=== PATIENT | female | born 1965 | race African-American/Black ===

== ENCOUNTER 2019-05-07 02:04 | Emergency (ER) | payer MEDICARE, SELFPAY ==
[2019-05-07 02:03] VITALS: BP 144/59; PULSE 109; RESP 17; TEMP 38.3; O2SAT 100; O2SAT 99
--- NOTE | 2019-05-07 02:36 | ED.SOB ---
HPI - SOB/Dyspnea General Chief Complaint: Shortness of Breath/Dyspnea Stated Complaint: sob Time Seen by Provider: 05/07/19 02:19 Source: patient and RN notes reviewed Mode of arrival: ambulatory Limitations: no limitations History of Present Illness HPI Narrative: A 53 y/o female presents to the ED with worsening SOB for the past 3 days. She reports associated fevers, chills, body aches, sweats, a productive cough, and chest wall tenderness. She notes that she has only taking some vitamin C supplements and denies them alleviating her symptoms. She also denies any CP. MD elicited complaint: shortness of breath Pertinent past history: asthma Onset (ago): day(s) (3) Timing: progressively worsening Relieving factors: nothing Known history of: asthma Associated symptoms: fever, cough (productive), diaphoresis and other (chills, body aches, and chest wall tenderness) Treatment prior to arrival: other (vitamin C supplements) Related Data Home Medications Medication Instructions Recorded Confirmed carisoprodol 350 mg PO BID PRN 03/23/19 03/23/19 folic acid 1 mg PO DAILY 03/23/19 03/23/19 furosemide 40 mg PO DAILY 03/23/19 03/23/19 oxycodone 15 mg PO TID PRN 03/23/19 03/23/19 oxycodone-acetaminophen 5 tablet PO TID PRN 03/23/19 03/23/19 potassium chloride 10 meq PO DAILY 03/23/19 03/23/19 zolpidem 10 mg PO DAILY 03/23/19 03/23/19 Allergies Allergy/AdvReac Type Severity Reaction Status Date / Time ketorolac Allergy Unknown Unknown Verified 03/23/19 12:10 piperacillin Allergy Unknown Unknown Verified 03/23/19 12:10 codeine Allergy Hives Verified 03/23/19 12:10 tylenol #4 Allergy Unknown Unknown Uncoded 03/23/19 12:10 Review of Systems Review of Systems: All systems reviewed & are unremarkable except as noted in HPI and below Constitutional: Constitutional: Reports body ache(s), Reports chills, Reports fever(s) and Reports other (sweats) Cardiovascular: Cardiovascular: Denies chest pain and Reports other (chest wall tenderness) Respiratory: Respiratory: Reports cough (productive) and Reports dyspnea PMFSH Past Medical History Medical History Asthma History of urinary tract infection Sickle cell anemia Hemoglobin SS. Surgical History Surgical History Status post cholecystectomy Status post hip surgery Bilateral hip decompression. Status post total hysterectomy and bilateral salpingo-oophorectomy Family History Family History Other Diabetes mellitus Heart disease Multiple myeloma Sickle cell trait Social History Social History Social History: The patient lives in [place]. Her primary care provider is Dr. Jorge Whitehead. She smoked 1 pack of cigarettes a month and quit about a year and a half ago. She drinks socially and in moderation. No drug use. Emergency contact is her son, Jakob. She wishes to be a full code. Years smoked: 5 Alcohol intake: current Drinks per week: 1 Substance use: never Substance use type: does not use Spiritual care concerns: No Agree to blood products: Yes Exam Narrative: Exam Narrative: GENERAL: Uncomfortable-appearing, well-nourished, and in no acute distress. HEAD: Normocephalic, atraumatic. ENT: Mucous membranes moist. CHEST: Clear to auscultation. No respiratory distress. HEART: Tachycardic and regular normal peripheral pulses. ABDOMEN: Soft, nontender, nondistended. EXTREMITIES: Normal range of motion. No edema. SKIN: Warm, dry, no rash. NEURO: Alert and oriented x3. PSYCH: Normal mood and affect. Course Course Emergency Course: Informed of results. Slowly hydrating the patient due to IV access in the left thumb. Vital Signs Vital signs: Vital Signs Temperature 100.9 F H 05/07/19 02:03 Pulse Rate 109 H 05/07/19 02:03 Respiratory Rate 17 05/07/19
[2019-05-07] MEDS: SODIUM CHLORIDE 0.9% IV 1,000 ML 999 ML IV CONT (03:23)
--- NOTE | 2019-05-07 03:48 | PC.NURSE ---
This nurse called phelbotomy to come draw labs on patient. This nurse attempted twice with no success and another RN attempted twice, unsuccessful as well. Juanita from lab stated she will come to draw patient.
[2019-05-07 03:50] VITALS: TEMP 36.8
--- NOTE | 2019-05-07 03:59 | PC.NURSE ---
Phlebotomy in room at this time.
[2019-05-07 04:13] LABS: Basophils Absolute Auto 0.1 K/mm3 (0.0-0.1); Basophils Percent Auto 0.7 % (0.2-1.2); Eosinophils Absolute Auto 0.1 K/mm3 (0-0.3); Eosinophils Percent Auto 0.7 % (0-4.4); Hematocrit 28.3 % (37.0-47.0); Hemoglobin 9.6 g/dL (12.0-15.0); Immature Granulocyte Absolute 0.08 K/mm3 (0.00-0.031); Immature Granulocyte Percent A 0.7 % (0-0.5); Immature Reticulocyte Fraction 41.4 % (3.0-15.9); Lymphocytes Absolute Auto 2.52 K/mm3 (0.9-3.2); Lymphocytes Percent Auto 20.9 % (18.3-44.2); Mean Corpuscular HGB Conc 33.9 g/dl (32-36); Mean Corpuscular Hemoglobin 35.8 pg (26-34); Mean Corpuscular Volume 105.6 fl (80-100); Mean Platelet Volume 9.9 fl (7.4-10.4); Monocytes Absolute Auto 1.9 K/mm3 (0.1-0.6); Monocytes Percent Auto 15.8 % (2.6-8.5); Neutrophils Absolute Auto 7.4 K/mm3 (1.3-6.7); Neutrophils Percent Auto 61.2 % (45.5-73.1); Nucleated Red Blood Cells Absolute Auto 0.4 K/mm3 (0.0-0.012); Nucleated Red Blood Cells Perc 3.2 % (0.0-0.2); Platelet Count Result 252 k/mm3 (150-375); Red Blood Count 2.68 M/mm3 (4.2-5.4); Red Cell Distribution Width 14.7 % (11.5-14.5); Reticulocyte Hemoglobin Conten 40.6 pg (28.2-35.7); Reticulocyte Percent 6.45 % (0.7-4.3); Reticulocytes Absolute 0.17 B/L (32.2-175.7); White Blood Count 12.1 K/mm3 (4.5-10.0)
[2019-05-07 04:35] LABS: Blood Urea Nitrogen 8 mg/dL (7-17); Calcium 8.5 mg/dL (8.4-10.2); Carbon Dioxide 24 mmol/L (22-30); Chloride 101 mmol/L (98-107); Estimated Glomerular Filt Rate > 60; Glucose 105 mg/dL (65-105); Potassium 3.5 mmol/L (3.4-5.0); Sodium 137 mmol/L (137-145)
[2019-05-07 04:55] LABS: Lactate Dehydrogenase 531 U/L (313-618)
[2019-05-07 05:19] VITALS: BP 92/67; PULSE 90; RESP 20; O2SAT 96
[2019-05-07 06:00] VITALS: BP 92/67; PULSE 81; RESP 19; TEMP 36.8; O2SAT 97
== END 2019-05-07 06:05 | disposition home or self-care (01) ==
PROVIDERS: Emergency Provider Emergency Medicine
DX: J10.1 Influenza due to other identified influenza virus with other respiratory manifestations (principal); D57.1 Sickle-cell disease without crisis; J45.909 Unspecified asthma, uncomplicated; Z87.891 Personal history of nicotine dependence; Z87.440 Personal history of urinary (tract) infections
CPT/HCPCS: 36415; 80048; 83615; 85025; 85046; 87804; 96361; 96374; 99284; J0131; J7030

== ENCOUNTER 2019-05-25 00:18 | Emergency (ER) | payer MEDICARE, SELFPAY ==
--- NOTE | ~2019-05-25 | CT_ITS ---
EXAMINATION: CT BRAIN W/O DATE: 05/25/2019 03:11 INDICATION: Left-sided headache for one week TECHNIQUE: Computed tomography (CT) of the head was performed without intravenous contrast. The dose- length product was 605.33 mGy-cm. The mA was adjusted according to patient size. Iterative reconstruc tion technique was employed. COMPARISON: No prior studies for comparison. FINDINGS: Normal brain parenchymal volume for age. Normal vera-white differentiation. No acute intrac ranial hemorrhage, infarction, mass or mass effect. No ventriculomegaly or midline shift. Midline sagittal images demonstrate a normal corpus callosum, c raniovertebral junction and sella turcica. Basilar cisterns are patent. Paranasal sinuses and mastoids are pneumatized. No depressed skull fractures. 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 IMPRESSION: 1. No acute intracranial abnormality. Reviewed, dictated and finalized at location [facility]. PROCESSING MACHINE OPERATOR
[2019-05-25 00:26] VITALS: BP 133/70; PULSE 87; RESP 19; TEMP 36.8; O2SAT 100
--- NOTE | 2019-05-25 00:33 | ED.HA ---
HPI - Headache General Chief Complaint: Headache Stated Complaint: shooting pains in head and chest Time Seen by Provider: 05/25/19 00:31 Source: patient and RN notes reviewed Mode of arrival: other Limitations: no limitations History of Present Illness HPI Narrative: Pt is a 53 y/o female who presents to the ED with c/o an intermittent left temporal headache that radiates down to her jaw and into her left flank that began a week ago. Pt describes her pain as a shooting pain. Pt notes that her current episode of her headache began at 8-9 PM yesterday (05/24/19). Pt has a hx of sickle cell anemia. She notes that she has been taking Percocet 15 mg twice a day or sometimes three times a day. She notes that she has not taken the medication in a month because she ran out. Pt last took Ibuprofen yesterday, but she denies taking any Ibuprofen for her current headache. Pt also reports tinnitus in her left ear, but denies sore throat, fever, SOB, vision changes, nausea, and vomiting. MD elicited complaint: headache Onset (ago): week(s) (1) Location: left and temporal Quality & Timing: intermittent and other (shooting) Associated symptoms: other (tinnitus in left ear) Related Data Home Medications Medication Instructions Recorded Confirmed carisoprodol 350 mg PO BID PRN 03/23/19 03/23/19 folic acid 1 mg PO DAILY 03/23/19 03/23/19 furosemide 40 mg PO DAILY 03/23/19 03/23/19 oxycodone 15 mg PO TID PRN 03/23/19 03/23/19 oxycodone-acetaminophen 5 tablet PO TID PRN 03/23/19 03/23/19 potassium chloride 10 meq PO DAILY 03/23/19 03/23/19 zolpidem 10 mg PO DAILY 03/23/19 03/23/19 Allergies Allergy/AdvReac Type Severity Reaction Status Date / Time ketorolac Allergy Unknown Unknown Verified 03/23/19 12:10 piperacillin Allergy Unknown Unknown Verified 03/23/19 12:10 codeine Allergy Hives Verified 03/23/19 12:10 tylenol #4 Allergy Unknown Unknown Uncoded 03/23/19 12:10 Review of Systems Review of Systems: All systems reviewed & are unremarkable except as noted in HPI and below Constitutional: Constitutional: Denies fever(s) Eyes: Eyes: Denies change in vision ENT: Reports tinnitus (in her left ear) and Denies sore throat Respiratory: Respiratory: Denies dyspnea Gastrointestinal: Gastrointestinal: Denies nausea and Denies vomiting Neurologic: Reports headache(s) (left temporal, radiates down her jaw and into her left flank) [facility] Social History Social History (Updated 05/25/19 @ 00:42 by Mel Lloyd) Social History: The patient lives in [place]. Her primary care provider is Dr. Jorge Whitehead. She smoked 1 pack of cigarettes a month and quit about a year and a half ago. She drinks socially and in moderation. No drug use. Emergency contact is her son, Jakob. She wishes to be a full code. Years smoked: 5 Smoking status: Former smoker Tobacco type: cigarettes Alcohol intake: current Drinks per week: 1 Substance use: never Substance use type: does not use Gender identity (if verbalized by the patient): Female Spiritual care concerns: No Agree to blood products: Yes Exam Narrative: Exam Narrative: GENERAL: Well-appearing, well-nourished, and in no acute distress. HEAD: Normocephalic, atraumatic, mild tenderness to left quaker, left preauricular, no swelling EYES: PERRLA and EOMI, conjunctiva clear without discharge EARS: TM's clear bilaterally without erythema or dullness NOSE: Nares clear, no rhinorrhea or epistaxis THROAT:Mucous membranes moist, Oropharynx normal without erythema, exudate, peritonsillar swelling or fluctuance NECK: Supple, without lymphadenopathy or mass RESPIRATORY: No respiratory distress, Airway patent, Respirations non-labored, Clear to auscultation without rales, rhonchi or wheeze HEART: Regular rate and rhythm. No murmur heard. Normal peripheral pulses. ABDOMEN: Soft, nontender, nondistended, normal active bowel sounds. No masses. No rebound or guarding
--- NOTE | 2019-05-25 00:48 | ECG_ITS ---
Measurements Intervals [place] Rate: 67 P: 135 LA: 223 QRS: 124 QRSD: 89 T: 138 QT: 417 QTc: 443 Interpretive Statements SINUS RHYTHM ARM LEADS REVERSED BORDERLINE AV CONDUCTION DELAY BASELINE ARTIFACT- I, III, AVL BORDERLINE ECG Electronically Signed On 05-25-2019 7:01:56 CAT SCANNER OPERATOR by Abner Alonso D.O.
[2019-05-25] MEDS: ONDANSETRON INJ 4 MG/2 ML VIAL IV PUSH (01:17)
[2019-05-25] MEDS: IBUPROFEN 400 MG TABLET 800 MG PO (01:18)
[2019-05-25] MEDS: HYDROMORPHONE HCL 1 MG/ML INJ 0.5 MG IV PUSH (01:18)
[2019-05-25 01:19] VITALS: BP 118/63; PULSE 69; RESP 18; O2SAT 100
[2019-05-25 01:22] LABS: Basophils Absolute Auto 0.1 K/mm3 (0.0-0.1); Basophils Percent Auto 0.5 % (0.2-1.2); Eosinophils Absolute Auto 0.3 K/mm3 (0-0.3); Eosinophils Percent Auto 1.8 % (0-4.4); Hematocrit 25.5 % (37.0-47.0); Hemoglobin 8.8 g/dL (12.0-15.0); Immature Granulocyte Absolute 0.09 K/mm3 (0.00-0.031); Immature Granulocyte Percent A 0.5 % (0-0.5); Immature Reticulocyte Fraction 42.5 % (3.0-15.9); Lymphocytes Absolute Auto 5.93 K/mm3 (0.9-3.2); Lymphocytes Percent Auto 36.2 % (18.3-44.2); Mean Corpuscular HGB Conc 34.5 g/dl (32-36); Mean Corpuscular Hemoglobin 36.5 pg (26-34); Mean Corpuscular Volume 105.8 fl (80-100); Mean Platelet Volume 9.6 fl (7.4-10.4); Monocytes Absolute Auto 1.6 K/mm3 (0.1-0.6); Monocytes Percent Auto 9.5 % (2.6-8.5); Neutrophils Absolute Auto 8.4 K/mm3 (1.3-6.7); Neutrophils Percent Auto 51.5 % (45.5-73.1); Nucleated Red Blood Cells Absolute Auto 0.1 K/mm3 (0.0-0.012); Nucleated Red Blood Cells Perc 0.5 % (0.0-0.2); Platelet Count Result 263 k/mm3 (150-375); Red Blood Count 2.41 M/mm3 (4.2-5.4); Red Cell Distribution Width 14.8 % (11.5-14.5); Reticulocyte Hemoglobin Conten 38.8 pg (28.2-35.7); Reticulocytes Absolute 0.13 B/L (32.2-175.7); White Blood Count 16.4 K/mm3 (4.5-10.0)
[2019-05-25 01:37] LABS: CRP 0.9 mg/dL (<1.0)
[2019-05-25 01:51] LABS: Troponin I < 0.012 ng/mL (0.000-0.034)
[2019-05-25 02:23] VITALS: BP 119/58; PULSE 64; RESP 20; O2SAT 100
[2019-05-25 03:26] VITALS: BP 123/60; PULSE 57; RESP 18; O2SAT 100
[2019-05-25 04:45] VITALS: BP 117/74; PULSE 84; RESP 16; TEMP 36.3; O2SAT 100
== END 2019-05-25 04:33 | disposition home or self-care (01) ==
PROVIDERS: Emergency Provider General Practice
DX: D57.00 Hb-SS disease with crisis, unspecified (principal); R51 Headache; Z87.891 Personal history of nicotine dependence
CPT/HCPCS: 36415; 70450; 84484; 85025; 85046; 86140; 93005; 96374; 96375; 99284; A9270; J1170; J2405

== ENCOUNTER 2019-06-02 23:31 | Emergency (ER) | payer MEDICARE, SELFPAY ==
--- NOTE | ~2019-06-02 | CT_ITS ---
EXAMINATION: CT abd pelvis lumbar w con DATE: 06/03/2019 01:37 INDICATION: Low abdominal pain, low back pain for one day; sickle cell TECHNIQUE: Computed tomography (CT) of the abdomen and pelvis and lumbar spine was performed with 100 cc Omnipaque 350 intravenous contrast. Automated exposure control and iterative reconstruction techn ique were employed. Exam dose: 1257.47 mGy-cm total exam DLP. COMPARISON: None. FINDINGS: Cardiomegaly. No consolidation at the lung bases. Heavily calcified spleen consistent with sickle cell disease. Probable very small cysts of the medial segment of the left hepatic lobe. Status post cholecystectomy. No bile duct or pancreatic duct dilatation. No suspicious hepatic, pancr eatic, adrenal or renal space-occupying mass lesion. No urinary tract calculus or hydroureteronephros is. The urinary bladder is unremarkable. Status post hysterectomy. Normal caliber of the abdominal aorta. There are shotty nonenlarged periaortic lymph nodes. No bowel obstruction or intraperitoneal free air. No evidence of appendicitis. Small fat-containing umbilical hernia. Multiple bilateral gluteal area soft tissue calcifications likely related to previous intramuscular i njections. There is biconcavity of the included lower thoracic and lumbar vertebrae and heterogeneous sclerosis throughout the visualized skeleton, consistent with extensive bone infarcts secondary to sickle cell disease. No acute fracture of the lumbar spine is suggested. No evidence of lumbar spinal stenosis. Lumbar and lumbosacral interspaces are well preserved if not exaggerated due to the concavity of the vertebral endplates. There are tracks of prior hardware in both proximal femurs. IMPRESSION: Densely calcified spleen secondary to sickle cell disease Status post cholecystectomy Status post hysterectomy Biconcavity of lower thoracic and lumbar vertebral bodies and diffuse prominent heterogeneous scleros is throughout the visualized skeleton, consistent with changes associated with sickle cell disease Reviewed, dictated and finalized at [facility]. Reviewed, dictated and finalized at location A. IMPRESSION: Densely calcified spleen secondary to sickle cell disease Status post cholecystectomy Status post hysterectomy Biconcavity of lower thoracic and lumbar vertebral bodies and diffuse prominent heterogeneous sclerosis throughout the visualized skeleton, consistent with ch anges associated with sickle cell disease
[2019-06-02 23:38] VITALS: BP 148/74; PULSE 71; RESP 16; TEMP 36.6; O2SAT 98
--- NOTE | 2019-06-02 23:52 | ED.BACK ---
HPI - Back Pain/Injury General Chief Complaint: Back Pain/Injury <EMEKA Mccarthy Last Filed: 06/03/19 02:13> Stated Complaint: low back pain/ kidneys <EMEKA Mccarthy Last Filed: 06/03/19 02:13> Time Seen by Provider: 06/02/19 23:40 <EMEKA Mccarthy Last Filed: 06/03/19 02:13> Source: patient <EMEKA Mccarthy Last Filed: 06/03/19 02:13> Mode of arrival: ambulatory <EMEKA Mccarthy Last Filed: 06/03/19 02:13> Limitations: no limitations <EMEKA Mccarthy Last Filed: 06/03/19 02:13> History of Present Illness HPI Narrative: Patient is a 53-year-old female who presents with lower lumbar discomfort across the lumbar region worse with activity and movement is been present for the last 2 days has been taking ibuprofen with minimal improvement patient denies any injury or trauma or recent illness and on arrival is resting comfortably in the room in no distress noted the pain does become worse with any activity or movement patient denies any fever chills nausea vomiting urinary symptoms. Patient denies radicular symptoms or paresthesias <EMEKA Mccarthy Last Filed: 06/03/19 02:13> Related Data Home Medications: Home Medications Medication Instructions Recorded Confirmed carisoprodol 350 mg PO BID PRN 03/23/19 03/23/19 folic acid 1 mg PO DAILY 03/23/19 03/23/19 furosemide 40 mg PO DAILY 03/23/19 03/23/19 oxycodone 15 mg PO TID PRN 03/23/19 03/23/19 oxycodone-acetaminophen 5 tablet PO TID PRN 03/23/19 03/23/19 potassium chloride 10 meq PO DAILY 03/23/19 03/23/19 zolpidem 10 mg PO DAILY 03/23/19 03/23/19 <EMEKA Mccarthy Last Filed: 06/03/19 02:13> Allergies/Adverse Reactions: Allergies Allergy/AdvReac Type Severity Reaction Status Date / Time ketorolac Allergy Unknown Unknown Verified 03/23/19 12:10 piperacillin Allergy Unknown Unknown Verified 03/23/19 12:10 codeine Allergy Hives Verified 03/23/19 12:10 tylenol #4 Allergy Unknown Unknown Uncoded 03/23/19 12:10 <Aldair Araya PA-C - Last Filed: 06/03/19 02:13> Review of Systems Review of Systems: All systems reviewed & are unremarkable except as noted in HPI and below <Aldair Araya PA-C - Last Filed: 06/03/19 02:13> PMFSH Past Medical History Medical History: Medical History Asthma History of urinary tract infection Sickle cell anemia Hemoglobin SS. <Aldair Araya PA-C - Last Filed: 06/03/19 02:13> Surgical History Surgical History: Surgical History Status post cholecystectomy Status post hip surgery Bilateral hip decompression. Status post total hysterectomy and bilateral salpingo-oophorectomy <Aldair Araya PA-C - Last Filed: 06/03/19 02:13> Social History Social History: Social History Social History: The patient lives in [place]. Her primary care provider is Dr. Jorge Whitehead. She smoked 1 pack of cigarettes a month and quit about a year and a half ago. She drinks socially and in moderation. No drug use. Emergency contact is her son, Jakob. She wishes to be a full code. Years smoked: 5 Smoking status: Former smoker Tobacco type: cigarettes Alcohol intake: current Drinks per week: 1 Substance use: never Substance use type: does not use Gender identity (if verbalized by the patient): Female Spiritual care concerns: No Agree to blood products: Yes <Aldair Araya PA-C - Last Filed: 06/03/19 02:13> Exam Narrative: Exam Narrative: GENERAL: Well-appearing, well-nourished, and in no acute distress. HEAD: Normocephalic, atraumatic. EYES: PERRLA and EOMI. ENT: Nares clear, no rhinorrhea or epistaxis. Mucous membranes moist. CHEST: Clear to auscultation. No respiratory distress. No wheezes r
--- NOTE | 2019-06-03 | PC.NURSE ---
this rn attempted IV, no success. called daniel mendoza to attempt at this time.
--- NOTE | 2019-06-03 00:13 | PC.NURSE ---
daniel rn attempted to get IV in pt 2x, no success. tip rn in room attempting at this time.
[2019-06-03] MEDS: SODIUM CHLORIDE 0.9% IV 1,000 ML 999 ML IV CONT ×2 (00:48→01:50)
[2019-06-03 00:50] LABS: Basophils Absolute Auto 0.1 K/mm3 (0.0-0.1); Basophils Percent Auto 0.5 % (0.2-1.2); Eosinophils Absolute Auto 0.3 K/mm3 (0-0.3); Eosinophils Percent Auto 2.2 % (0-4.4); Hemoglobin 8.5 g/dL (12.0-15.0); Immature Granulocyte Absolute 0.09 K/mm3 (0.00-0.031); Immature Granulocyte Percent A 0.6 % (0-0.5); Immature Reticulocyte Fraction 47.4 % (3.0-15.9); Lymphocytes Absolute Auto 5.58 K/mm3 (0.9-3.2); Lymphocytes Percent Auto 38.3 % (18.3-44.2); Mean Corpuscular HGB Conc 32.7 g/dl (32-36); Mean Platelet Volume 10.1 fl (7.4-10.4); Monocytes Absolute Auto 1.4 K/mm3 (0.1-0.6); Monocytes Percent Auto 9.8 % (2.6-8.5); Neutrophils Absolute Auto 7.1 K/mm3 (1.3-6.7); Neutrophils Percent Auto 48.6 % (45.5-73.1); Nucleated Red Blood Cells Absolute Auto 0.3 K/mm3 (0.0-0.012); Nucleated Red Blood Cells Perc 1.9 % (0.0-0.2); Platelet Count Result 239 k/mm3 (150-375); Red Blood Count 2.43 M/mm3 (4.2-5.4); Reticulocyte Hemoglobin Conten 36.8 pg (28.2-35.7); Reticulocyte Percent 9.39 % (0.7-4.3); Reticulocytes Absolute 0.23 B/L (32.2-175.7); White Blood Count 14.6 K/mm3 (4.5-10.0)
[2019-06-03 00:52] VITALS: BP 115/59; PULSE 57; RESP 16; O2SAT 100
--- NOTE | 2019-06-03 00:53 | PC.NURSE ---
pt states she isn't able to give urine sample at this time, refused straight cath. pt instructed to use call light when she can give sample.
[2019-06-03 01:14] LABS: Alanine Aminotransferase 22 U/L (4-35); Albumin Level 4.1 g/dL (3.5-5.1); Alkaline Phosphatase 116 U/L (38-126); Aspartate Amino Transferase 38 U/L (14-36); Bilirubin,Total 1.3 mg/dL (0.2-1.3); Blood Urea Nitrogen 9 mg/dL (7-17); Calcium 8.4 mg/dL (8.4-10.2); Carbon Dioxide 28 mmol/L (22-30); Chloride 105 mmol/L (98-107); Estimated CRCL calculation 98 ml/min; Estimated Glomerular Filt Rate > 60; Glucose 101 mg/dL (65-105); Potassium 3.8 mmol/L (3.4-5.0); Sodium 139 mmol/L (137-145)
--- NOTE | 2019-06-03 01:41 | PC.NURSE ---
pt ambulating to restroom w/ no difficulties to give urine sample at this time.
[2019-06-03 01:44] LABS: Lactate Dehydrogenase 584 U/L (313-618)
[2019-06-03] MEDS: HYDROMORPHONE HCL 1 MG/ML INJ IV PUSH (01:49)
[2019-06-03 02:04] VITALS: BP 97/59; PULSE 62; RESP 16; O2SAT 100
[2019-06-03 02:08] LABS: Add Urine Microscopic? YES; Appearance Urine Clear (Clear); Bilirubin Urine Negative (Negative); Blood Urine Negative (Negative); Color Urine Straw (Yellow); Glucose Urine UA Negative (Negative); Ketones Urine Negative (Negative); Leukocyte Esterase Ur Negative LEU/UL (Negative); Nitrate Urine Negative (Negative); Protein Urine Negative (Negative); RBC Urine 0-2 /hpf (0-2); Squamous Epithelial Cell Urine Rare /hpf (Few)
[2019-06-03 02:33] VITALS: BP 110/95; PULSE 54; RESP 12; O2SAT 100
== END 2019-06-03 02:51 | disposition home or self-care (01) ==
PROVIDERS: Emergency Medicine Emergency Medical Services; Emergency Provider Emergency Medicine
DX: M54.5 Low back pain (principal); J45.909 Unspecified asthma, uncomplicated; Z87.440 Personal history of urinary (tract) infections; D57.1 Sickle-cell disease without crisis; Z87.891 Personal history of nicotine dependence; R93.5 Abnormal findings on diagnostic imaging of other abdominal regions, including retroperitoneum; M89.9 Disorder of bone, unspecified
CPT/HCPCS: 36415; 72132; 74177; 80053; 81001; 83615; 85025; 85046; 96361; 96374; 96375; 99284; J0131; J1170; J7030; Q9967

== ENCOUNTER 2019-07-13 17:13 | Inpatient (IN) | payer MEDICARE, SELFPAY ==
[2019-07-13] VITALS (7 sets, daily range): BP systolic 107–148; BP diastolic 44–91; PULSE 91–106; RESP 14–22; TEMP 36.4–36.7; O2SAT 97–100
--- NOTE | ~2019-07-13 | CT_ITS ---
EXAMINATION: CT chest wo con EXAM DATE: 07/14/2019 16:58 INDICATION: Sickle cell disease. Infiltrates on chest x-ray. TECHNIQUE: Spiral CT of the chest without contrast. Axial, coronal and sagittal images were reviewe d. Coronal maximum intensity pixel images of chest reviewed. The dose-length product (DLP) for this examination was 570.93 mGy-cm. The exposure was tailored according to patient size (auto mA exposur e control), and iterative reconstruction (ASIR) was used as additional dose reduction technique. Comp arison is made to prior examination from 03/23/2019. Correlation was made with chest x-ray from 07/13/19. FINDINGS: Linear bibasilar opacities are consistent with atelectasis, with improvement in previously seen pulmonary vascular congestion and groundglass opacities. Trace pericardial and bilateral pleura l effusions also with interval improvement. Tracheobronchial tree is patent. There is no mediastina l, hilar or axillary lymphadenopathy. There is no pneumothorax. Heart normal in size. No eviden ce of coronary arterial calcification. There are cholecystectomy clips. Calcified spleen. Osseous c hanges consistent with sickle cell disease. Hyperdense liver, probably transfusional related hemoside rosis. IMPRESSION: 1. Bibasilar subsegmental atelectasis. 2. Trace pericardial, pleural effusions. Reviewed, dictated and finalized at location A.
--- NOTE | ~2019-07-13 | US_ITS ---
EXAMINATION: US venous doppler [facility] DATE: 07/15/2019 13:36 INDICATION: Bilateral lower limb pain TECHNIQUE: Grayscale ultrasound images without and with compression and Doppler ultrasound images of the bilateral lower extremity veins were obtained. COMPARISON: None. FINDINGS: The visualized portions of right common femoral vein, profunda (deep) femoral vein, femoral vein, pop liteal vein, posterior tibial veins, peroneal veins, gastrocnemius vein and greater saphenous vein ou tflow are patent. The visualized portions of left common femoral vein, profunda femoral vein, femoral vein, popliteal v ein, posterior tibial veins, peroneal veins, gastrocnemius vein and greater saphenous vein outflow ar e patent. IMPRESSION: 1. No deep venous thrombosis in either lower limb. Reviewed, dictated and finalized at location A.
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
--- NOTE | ~2019-07-13 | XR_ITS ---
EXAMINATION: XR knee LT 2V, XR tibia fibula RT 2V, XR tibia fibula LT 2V, XR knee RT 2V DATE: 07/14/2019 12:46 INDICATION: Bilateral knee and lower leg pain. Sickle cell disease. TECHNIQUE: 1. AP and lateral views of the left knee were obtained 2. AP and lateral views of the left tibia and fibula were obtained 3. AP and lateral views of the right knee were obtained 4. AP and lateral views of the right tibia and fibula were obtained COMPARISON: None. FINDINGS: Bone alignment is normal. No fracture. Patchy sclerosis throughout the visualized mid to distal bilat eral femurs and throughout all but the distal metaphyseal regions of the left tibia and fibula. No co rtical erosion or periosteal reaction and appearance and provided clinical history of sickle cell dis ease would strongly favor bone infarcts as etiology. Joint spaces appear normal. Tiny marginal osteop hytes along the patellae suggesting at least mild bilateral patellofemoral osteoarthritis. Small enth esophyte at the patellar insertion of the right distal quadriceps tendon. Soft tissues are unremarkab le. No knee joint effusion. IMPRESSION: 1. Increased intramedullary sclerosis throughout the bilateral femurs and tibia most likely related t o bone infarcts. Reviewed, dictated and finalized at location A. IMPRESSION: 1. Increased intramedullary sclerosis throughout the bilateral femurs and tibia most likely related to bone infarcts. IMPRESSION: 1. Increased intramedullary sclerosis throughout the bilateral femurs and tibia most likely related to bone infarcts. IMPRESSION: 1. Increased intramedullary sclerosis throughout the bilateral femurs and tibia most likely related to bone infarcts.
--- NOTE | 2019-07-13 17:48 | PC.NURSE ---
Pt placed on 2 L NC O2 per request for comfort.
--- NOTE | 2019-07-13 18:55 | ECG_ITS ---
Measurements Intervals [place] Rate: 95 P: 62 MT: 204 QRS: 70 QRSD: 85 T: 69 QT: 360 QTc: 453 Interpretive Statements SINUS RHYTHM BORDERLINE T WAVE ABNORMALITY- ANTERIOR LEADS BORDERLINE ECG Electronically Signed On 07-14-2019 7:15:36 CDT by Abner Alonso D.O.
--- NOTE | 2019-07-13 19:54 | PC.NURSE ---
Marine RN assessed pt for IV no luck. flame cutting supervisor in to look for IV
--- NOTE | 2019-07-13 20:01 | ED.GENADULT ---
HPI - General Adult General Chief complaint: Unspecified Stated complaint: Sickle cell crisis Time Seen by Provider: 07/13/19 18:42 Source: patient Mode of arrival: ambulatory Limitations: no limitations History of Present Illness HPI narrative: Patient is a 53-year-old female who presents to the emergency department with complaint of sickle cell pain crisis. Patient reports diffuse pain all over. Patient reports pain started today. Patient notes she tends to have issues when the weather is changing dramatically as has been occurring recently. Patient states she does not tolerate cool temperatures well. Patient tried taking her oxycodone at home without relief. Patient also complaining of numb tingly sensation around her mouth. Patient without any complaints of neurologic deficits. Location: chest, upper extremity and lower extremity Relieving factors: none Associated symptoms: chest pain Treatments prior to arrival: other (oxycodone) Related Data Home Medications Medication Instructions Recorded Confirmed carisoprodol 350 mg PO BID PRN 03/23/19 03/23/19 folic acid 1 mg PO DAILY 03/23/19 03/23/19 furosemide 40 mg PO DAILY 03/23/19 03/23/19 oxycodone 15 mg PO TID PRN 03/23/19 03/23/19 oxycodone-acetaminophen 5 tablet PO TID PRN 03/23/19 03/23/19 potassium chloride 10 meq PO DAILY 03/23/19 03/23/19 zolpidem 10 mg PO DAILY 03/23/19 03/23/19 Allergies Allergy/AdvReac Type Severity Reaction Status Date / Time ketorolac Allergy Unknown Unknown Verified 07/13/19 17:28 piperacillin Allergy Unknown Unknown Verified 07/13/19 17:28 codeine Allergy Hives Verified 07/13/19 17:28 tylenol #4 Allergy Unknown Unknown Uncoded 07/13/19 17:28 Review of Systems Review of Systems: All systems reviewed & are unremarkable except as noted in HPI and below Constitutional: Constitutional: Denies fever(s) Cardiovascular: Cardiovascular: Reports chest pain Respiratory: Respiratory: Denies cough and Denies dyspnea Musculoskeletal: Musculoskeletal: Reports myalgias PMFSH Past Medical History Medical History Asthma History of urinary tract infection Sickle cell anemia Hemoglobin SS. Surgical History Surgical History Status post cholecystectomy Status post hip surgery Bilateral hip decompression. Status post total hysterectomy and bilateral salpingo-oophorectomy Social History Social History Social History: The patient lives in [place]. Her primary care provider is Dr. Jorge Whitehead. She smoked 1 pack of cigarettes a month and quit about a year and a half ago. She drinks socially and in moderation. No drug use. Emergency contact is her son, Jakob. She wishes to be a full code. Years smoked: 5 Smoking status: Former smoker Tobacco type: cigarettes Alcohol intake: current Drinks per week: 1 Substance use: never Substance use type: does not use Gender identity (if verbalized by the patient): Female Spiritual care concerns: No Agree to blood products: Yes Exam Const: General: cooperative and alert Nutritional Appearance: obese morbidly obese Orientation/consciousness: patient oriented x3 Limitations: no limitations HENMT: Mouth: Yes lip normal and Yes moist mucous membranes Resp: Effort & Inspection: normal respiratory effort Auscultation: clear to auscultation bilaterally Cardio: Rate: regular rate Rhythm: regular rhythm GI: GI Palp: Yes Soft to palpation and No Tenderness to palpation present (GI) Auscultation: normal bowel sounds Skin: General skin exam: normal color Neuro: General: patient oriented x3 and no focal motor deficits Cognition (Neuro): normal cognition Speech: normal speech Extrem: General: normal to inspection, full ROM and no clubbing, cyanosis or edema Psych: Mental Status: mental st
--- NOTE | 2019-07-13 20:20 | PC.NURSE ---
PT IS A DIFFICULT STICK , ATTEMPTED 3 TIMES TO OBTAIN LAB SPECIMEN. UNABLE TO DO SO. LAB NOTIFIED THEY WILL SEND A TESTING DIRECTOR TO DRAW THE PATIENT.
[2019-07-13 21:03] LABS: Hematocrit 28.7 % (37.0-47.0); Hemoglobin 9.3 g/dL (12.0-15.0); Immature Reticulocyte Fraction 47.6 % (3.0-15.9); Mean Corpuscular HGB Conc 32.4 g/dl (32-36); Mean Corpuscular Volume 101.8 fl (80-100); Platelet Count Result 274 k/mm3 (150-375); Red Blood Count 2.82 M/mm3 (4.2-5.4); Red Cell Distribution Width 15.4 % (11.5-14.5); Reticulocyte Hemoglobin Conten 36.3 pg (28.2-35.7); Reticulocyte Percent 9.24 % (0.7-4.3); Reticulocytes Absolute 0.26 B/L (32.2-175.7); White Blood Count 23.6 K/mm3 (4.5-10.0)
--- NOTE | 2019-07-13 21:17 | PC.NURSE ---
pt stuck by clerk for blood. unsuccessful. EDP notified.
--- NOTE | 2019-07-13 21:18 | PC.NURSE ---
Pt tearful stating dilaudad only works for her pain. EDP notified.
[2019-07-13 21:27] LABS: Hyperchromasia 1+ (NORMAL); Lymphocytes Absolute Manual 6.84 K/mm3 (1.1-4.5); Monocytes Absolute Manual 2.12 K/mm3 (0.1-0.90); Monocytes Percent Manual 9 % (3-9); Neutrophils Percent Manual 62 % (46-73); Nucleated Red Blood Cells 5 %; Platelet Estimate Adequate (Adequate); Total Cells Counted 100
[2019-07-13 21:28] LABS: Anisocytosis 2+ (NORMAL)
[2019-07-13 21:29] LABS: Polychromasia 1+ (NORMAL)
[2019-07-13 21:30] LABS: Sickle Cells 2+ (NORMAL); Target Cells 1+ (NORMAL)
[2019-07-13 21:32] LABS: Basophilic Stippling 1+ (NORMAL)
--- NOTE | 2019-07-13 22:13 | PC.NURSE ---
pt stuck w/ ultra sound no Iv access.
[2019-07-13] MEDS: HYDROMORPHONE HCL 1 MG/ML INJ IM (22:54)
[2019-07-13] MEDS: LACTATED RINGERS 1,000 ML 999 ML IV CONT (23:25)
[2019-07-13 23:32] LABS: INR 1.1; Prothrombin Time 13.7 Seconds (11.1-14.7)
[2019-07-13 23:33] LABS: Partial Thromboplastin Time 32.3 SECONDS (22.3-36.8)
[2019-07-13 23:36] LABS: Alanine Aminotransferase 31 U/L (4-35); Albumin Level 4.2 g/dL (3.5-5.1); Alkaline Phosphatase 169 U/L (38-126); Aspartate Amino Transferase 52 U/L (14-36); Bilirubin,Total 2.3 mg/dL (0.2-1.3); Blood Urea Nitrogen 14 mg/dL (7-17); Calcium 8.8 mg/dL (8.4-10.2); Carbon Dioxide 25 mmol/L (22-30); Chloride 106 mmol/L (98-107); Estimated CRCL calculation 97 ml/min; Estimated Glomerular Filt Rate > 60; Glucose 132 mg/dL (65-105); Potassium 4.1 mmol/L (3.4-5.0); Sodium 138 mmol/L (137-145)
[2019-07-13 23:46] LABS: Troponin I < 0.012 ng/mL (0.000-0.034)
[2019-07-13 23:57] LABS: Lactate Dehydrogenase 781 U/L (313-618)
[2019-07-14 00:01] LABS: Add Urine Microscopic? YES; Appearance Urine Clear (Clear); Bilirubin Urine Negative (Negative); Blood Urine Negative (Negative); Color Urine Yellow (Yellow); Glucose Urine UA Negative (Negative); Ketones Urine Negative (Negative); Leukocyte Esterase Ur Negative LEU/UL (Negative); Mucus Urine Rare /lpf; Nitrate Urine Negative (Negative); Protein Urine Negative (Negative); RBC Urine 0-2 /hpf (0-2); Specific Grav Ur 1.013 (1.001-1.035); Squamous Epithelial Cell Urine Moderate /hpf (Few); WBC Urine 0-3 /hpf
[2019-07-14 00:45] VITALS: BP 130/51; PULSE 99; RESP 20; O2SAT 98
[2019-07-14] MEDS: HYDROMORPHONE HCL 1 MG/ML INJ IV PUSH ×5 (01:07→19:20)
[2019-07-14] MEDS: LACTATED RINGERS 1,000 ML 150 ML IV CONT ×2 (01:10→05:58)
[2019-07-14 01:15] VITALS: BP 145/55; PULSE 102; RESP 18; TEMP 37; O2SAT 97; BMI 39.4
--- NOTE | 2019-07-14 01:29 | ADMGEN ---
This patient, Isabelle Cornejo, was admitted to [address] [facility] Surg Room 330-01. Patient/family oriented to hospital policies and general routines including ID bracelet, bed and alarms, visiting hours, pain management, procedures, bathroom and other care routines, personal items, smoking policy, room service/diet, and visiting hours. Valuables list has been completed. Information on how to activate the Rapid Response Team has been discussed. Patient/Family are encouraged to report perceived risks to care and to ask questions if they do not understand what they are told or what they should do.
[2019-07-14 06:00] VITALS: BP 115/47; PULSE 94; RESP 18; TEMP 36.9; O2SAT 98
[2019-07-14 09:18] VITALS: O2SAT 96
[2019-07-14] MEDS: FOLIC ACID 1 MG TABLET PO (09:24)
--- NOTE | 2019-07-14 12:07 | PM.IMHP ---
H&P: HPI History of Present Illness Chief complaint: Sickle cell pain crisis Narrative: Date of Service 07/14/19 1100 The supervising physician for this history and physical is Dr Oliver Mendez. Ms. Cornejo is a 53yo F with sickle cell disease and asthma who presented to the ED due to sickle cell pain. She describes her pain is worst in both of her knees, and she has been having ongoing FABRIZIO knee pain for several weeks. She notes that she even saw Dr Doshi (ortho) at [place] about 1 month ago. She had undergone MRI of both knees as well as injections with Dr Doshi in the last couple months. She describes her pain became worse all over yesterday. She notes a slight shortness of breath that she says is normal with her usual sickle cell pain, more so deep pain that takes her breath away . She denies any coughing, chest pain, or fevers. She tells me she has not left her house in a few weeks due to the isolation. She notes no sick contacts. She notes some vague abdominal pain that has been ongoing for months, denies any nausea, vomiting, or diarrhea and has been tolerating oral intake fine. Chest XR on arrival shows bibasilar nonspecific airspace disease and she was started on broad spectrum antibiotics for a presumed pneumonia. She was also tested for COVID-19. She is admitted for sickle cell pain crisis and evaluation of airspace disease. Clinical picture at this time does not seem very consistent with pneumonia as she has no fevers or cough. Review of Systems Review of Systems: Narrative: She reports significant bilateral knee pain that has been ongoing for weeks, worsened yesterday. She notes her sickle cell pain can often get worse like this with weather changes. She also notes back, rib, and FABRIZIO rodgers pain. She notes lower abdominal pain for months. No nausea, vomiting, diarrhea, constipation, hematochezia, or melena. Eating and drinking fine. No dysuria or hematuria. Twelve systems were reviewed with pertinent positives and negatives as per HPI. [facility] Past Medical History Medical History Asthma History of urinary tract infection Sickle cell anemia Hemoglobin SS. Surgical History Surgical History (Updated 07/14/19 @ 12:38 by Traci Hines PA-C) Status post cholecystectomy 2009 Status post hip surgery Bilateral hip decompression. Status post total hysterectomy and bilateral salpingo-oophorectomy 2001 Family History Family History Other Diabetes mellitus Heart disease Multiple myeloma Sickle cell trait Social History Social History Social History: The patient lives in [place]. Her primary care provider is Dr. Jorge Whitehead. She smoked 1 pack of cigarettes a month and quit about a year and a half ago. She drinks socially and in moderation. No drug use. Emergency contact is her son, Jakob. She wishes to be a full code. Years smoked: 5 Smoking status: Former smoker Tobacco type: cigarettes Smoking end date: 06/21/17 Alcohol intake: current Drinks per week: 1 Substance use: never Substance use type: does not use Gender identity (if verbalized by the patient): Female Spiritual care concerns: No Agree to blood products: No Meds Home Medications and Allergies Home Medications Medication Instructions Recorded Confirmed Type carisoprodol 350 mg PO BID PRN 03/23/19 07/14/19 History folic acid 1 mg PO DAILY 03/23/19 07/14/19 History furosemide 40 mg PO DAILY 03/23/19 07/14/19 History oxycodone 15 mg PO TID PRN 03/23/19 07/14/19 History potassium chloride 10 meq PO DAILY 03/23/19 07/14/19 History zolpidem 10 mg PO DAILY 03/23/19 07/14/19 History doxycycline hyclate 100 mg PO Q12HR #10 tablet 03/27/19 07/14/19 Rx Allergies Allergy/AdvReac Type Severity Reaction Status Date / Time ketorolac
[2019-07-14 13:42] LABS: SARS-CoV-2 RNA PCR Negative
[2019-07-14 14:00] VITALS: BP 132/62; PULSE 86; RESP 18; TEMP 37.1; O2SAT 100
--- NOTE | 2019-07-14 14:17 | PC.NURSE ---
Discussed with Traci FAN that patients COVID test came back negative.
[2019-07-14] MEDS: ENOXAPARIN 40 MG/0.4 ML SYRINGE SUB-Q (14:58)
[2019-07-14] MEDS: ZOLPIDEM TARTRATE 5 MG TABLET 10 MG PO (21:02)
[2019-07-14 22:00] VITALS: BP 116/61; PULSE 88; RESP 18; TEMP 37.3; O2SAT 98
[2019-07-15] VITALS (7 sets, daily range): BP systolic 97–111; BP diastolic 41–68; PULSE 69–104; RESP 16–20; TEMP 36.2–37.6; O2SAT 92–100
[2019-07-15] MEDS: HYDROMORPHONE HCL 1 MG/ML INJ IV PUSH ×3 (04:12→17:45)
[2019-07-15] MEDS: ENOXAPARIN 40 MG/0.4 ML SYRINGE SUB-Q (08:06)
[2019-07-15] MEDS: FOLIC ACID 1 MG TABLET PO (08:06)
[2019-07-15 09:02] LABS: Basophils Absolute Auto 0.1 K/mm3 (0.0-0.1); Basophils Percent Auto 0.5 % (0.2-1.2); Eosinophils Absolute Auto 0.4 K/mm3 (0-0.3); Eosinophils Percent Auto 2.6 % (0-4.4); Hematocrit 23.6 % (37.0-47.0); Hemoglobin 7.6 g/dL (12.0-15.0); Immature Granulocyte Absolute 0.24 K/mm3 (0.00-0.031); Immature Granulocyte Percent A 1.4 % (0-0.5); Immature Reticulocyte Fraction 50.7 % (3.0-15.9); Lymphocytes Absolute Auto 4.43 K/mm3 (0.9-3.2); Lymphocytes Percent Auto 26.7 % (18.3-44.2); Mean Corpuscular HGB Conc 32.2 g/dl (32-36); Mean Corpuscular Hemoglobin 33.3 pg (26-34); Mean Corpuscular Volume 103.5 fl (80-100); Mean Platelet Volume 9.9 fl (7.4-10.4); Monocytes Absolute Auto 2.1 K/mm3 (0.1-0.6); Monocytes Percent Auto 12.4 % (2.6-8.5); Neutrophils Absolute Auto 9.4 K/mm3 (1.3-6.7); Neutrophils Percent Auto 56.4 % (45.5-73.1); Nucleated Red Blood Cells Absolute Auto 0.6 K/mm3 (0.0-0.012); Nucleated Red Blood Cells Perc 3.7 % (0.0-0.2); Platelet Count Result 221 k/mm3 (150-375); Red Blood Count 2.28 M/mm3 (4.2-5.4); Reticulocyte Percent 9.53 % (0.7-4.3); Reticulocytes Absolute 0.22 B/L (32.2-175.7); White Blood Count 16.6 K/mm3 (4.5-10.0)
[2019-07-15 09:14] LABS: Alanine Aminotransferase 26 U/L (4-35); Albumin Level 3.5 g/dL (3.5-5.1); Alkaline Phosphatase 139 U/L (38-126); Aspartate Amino Transferase 39 U/L (14-36); Bilirubin,Total 2.8 mg/dL (0.2-1.3); Blood Urea Nitrogen 10 mg/dL (7-17); Calcium 8.1 mg/dL (8.4-10.2); Carbon Dioxide 28 mmol/L (22-30); Chloride 103 mmol/L (98-107); Estimated CRCL calculation 115 ml/min; Estimated Glomerular Filt Rate > 60; Glucose 140 mg/dL (65-105); Lactate Dehydrogenase 1042 U/L (313-618); Magnesium 1.9 mg/dL (1.6-2.3); Phosphorus 3.6 mg/dL (2.5-4.5); Potassium 4.2 mmol/L (3.4-5.0); Sodium 137 mmol/L (137-145)
--- NOTE | 2019-07-15 09:30 | PM.IMPN ---
Progress Note: A&P Assessment and Plan (1) Sickle cell crisis: Code(s): D57.00 - Hb-SS disease with crisis, unspecified Status: Acute Assessment and Plan: Patient reports her pain is similar to her usual sickle cell crisis pain. Last hospitalization due to SC pain was Mar 2019. Continue her home oral pain regimen with dilaudid for breakthrough pain. She does not take hydroxyurea anymore because it made her hair fall out. Her pain is worst in FABRIZIO knees. This knee pain has been ongoing for several weeks and she has seen ortho (Dr Doshi at [place]) for the knee pain and had MRI and injections. Requested to obtain records. XR knees, lower legs where he pain is concentrated demonstrates increased sclerosis consistent with bone infarct. FABRIZIO lower extremity venous dopplers with no DVT. (2) Pulmonary infiltrates: Code(s): R91.8 - Other nonspecific abnormal finding of lung field Status: Acute Assessment and Plan: Noted on CXR. Clinically does not appear to have pneumonia with no respiratory symptoms or fever. CT chest shows atelectasis, trace effusions. Will resume her home lasix. COVID-19 testing is negative. She was started on empiric azithromycin and rocephin initially, stopped abx. She does have asthma, add albuterol MDI as needed. (3) DVT prophylaxis: Code(s): Z29.9 - Encounter for prophylactic measures, unspecified Status: Acute Assessment and Plan: with Lovenox. Subjective Date/time seen: 07/15/19 09:15 Interval history: Ms. Cornejo is a 53yo F admitted for sickle cell pain crisis. Her pain is localized to bilateral knees and lower legs, not much better than yesterday. She denies any chest pain, shortness of breath, or cough. She reports no abdominal pain today. She has tolerated some breakfast without nausea or vomiting. Review of Systems Review of Systems: Narrative: Twelve systems were reviewed with pertinent positives and negatives as per HPI. Exam Narrative: Exam Narrative: General: Well-developed, obese female resting comfortable in bed in no acute distress. HEENT: Normocephalic, atraumatic, EOMI, oropharynx clear without exudate or erythema. Neck: Supple. Chest: Lungs clear to auscultation all morgan. Respirations are even and nonlabored. 2 L O2 nasal cannula on for comfort with good saturations. Heart: Heart rate and rhythm regular with S1-S2. No murmur, rub, or gallop appreciated. Abdomen: Soft, protuberant, nontender, bowel sounds present. Extremities: Peripheral pulses intact. Trace bilateral lower extremity edema. Bilateral knees, difficult to appreciate any swelling due to body habitus, bilateral knees not particularly painful or hot to touch. Neurologic: Alert and oriented. No focal neurological deficits noted. Speech is clear. Objective Data Vital Signs Vital Signs: Last Vital Signs Temp 99.1 F 07/15/19 10:00 Pulse 71 07/15/19 10:00 Resp 18 07/15/19 10:00 BP 111/48 L 07/15/19 10:00 Pulse Ox 99 07/15/19 10:00 Intake/Output Intake/Output: Intake & Output 07/12/19 07/13/19 07/14/19 07/15/19 23:59 23:59 23:59 23:59 Intake Total 100 4377 240 Output Total 1700 400 Balance 100 2677 -160 Meds/Results Medications: Active Medications Generic Name Dose Route Start Last Admin Trade Name Freq PRN Reason Stop Dose Admin Acetaminophen 650 mg 07/14/19 00:15 Tylenol Tablet PO Q4H PRN Mild Pain (1-3) or Fever Albuterol 2 puff 07/14/19 12:51 Proventil Hfa INHALATION QIDRT PRN Shortness Of Breath Enoxaparin Sodium 40 mg 07/14/19 09:00 07/15/19 08:06 Lovenox SUB-Q 40 mg DAILY KYLER Administration Folic Acid 1 mg 07/14/19 09:00 07/15/19 08:06 Folic Acid PO 1 mg DAILY KYLER Administration Hydromorphone HCl 1 mg 07/14/19 00:15 07/15/19 08:04 Dilaudid Inj IV PUSH 1 mg Q4H PRN Administration
[2019-07-15] MEDS: ZOLPIDEM TARTRATE 5 MG TABLET 10 MG PO (20:41)
[2019-07-16] VITALS (8 sets, daily range): BP systolic 95–109; BP diastolic 45–58; PULSE 80–95; RESP 16–18; TEMP 36.8–37.2; O2SAT 94–99
[2019-07-16 06:49] LABS: Basophils Absolute Auto 0.1 K/mm3 (0.0-0.1); Basophils Percent Auto 0.7 % (0.2-1.2); Eosinophils Absolute Auto 0.7 K/mm3 (0-0.3); Eosinophils Percent Auto 5.6 % (0-4.4); Hematocrit 24.5 % (37.0-47.0); Hemoglobin 7.6 g/dL (12.0-15.0); Immature Granulocyte Percent A 0.8 % (0-0.5); Lymphocytes Absolute Auto 3.87 K/mm3 (0.9-3.2); Mean Corpuscular Hemoglobin 32.8 pg (26-34); Mean Corpuscular Volume 105.6 fl (80-100); Mean Platelet Volume 11.5 fl (7.4-10.4); Monocytes Absolute Auto 1.8 K/mm3 (0.1-0.6); Monocytes Percent Auto 14.7 % (2.6-8.5); Neutrophils Absolute Auto 5.9 K/mm3 (1.3-6.7); Neutrophils Percent Auto 47.2 % (45.5-73.1); Nucleated Red Blood Cells Absolute Auto 0.3 K/mm3 (0.0-0.012); Nucleated Red Blood Cells Perc 2.6 % (0.0-0.2); Platelet Count Result 137 k/mm3 (150-375); Red Blood Count 2.32 M/mm3 (4.2-5.4); Red Cell Distribution Width 15.9 % (11.5-14.5); White Blood Count 12.5 K/mm3 (4.5-10.0)
[2019-07-16 07:10] LABS: Alanine Aminotransferase 24 U/L (4-35); Albumin Level 3.4 g/dL (3.5-5.1); Alkaline Phosphatase 135 U/L (38-126); Aspartate Amino Transferase 37 U/L (14-36); Bilirubin,Total 0.9 mg/dL (0.2-1.3); Blood Urea Nitrogen 9 mg/dL (7-17); Calcium 8.3 mg/dL (8.4-10.2); Carbon Dioxide 25 mmol/L (22-30); Chloride 106 mmol/L (98-107); Estimated CRCL calculation 115 ml/min; Estimated Glomerular Filt Rate > 60; Glucose 127 mg/dL (65-105); Lactate Dehydrogenase 1075 U/L (313-618); Potassium 4.5 mmol/L (3.4-5.0); Sodium 137 mmol/L (137-145)
[2019-07-16] MEDS: FOLIC ACID 1 MG TABLET PO (09:04)
[2019-07-16] MEDS: ENOXAPARIN 40 MG/0.4 ML SYRINGE SUB-Q (09:04)
[2019-07-16] MEDS: FUROSEMIDE 40 MG TABLET PO (09:04)
[2019-07-16] MEDS: HYDROMORPHONE HCL 1 MG/ML INJ IV PUSH ×2 (09:06→23:59)
--- NOTE | 2019-07-16 10:56 | PM.IMPN ---
Progress Note: A&P Assessment and Plan (1) Sickle cell crisis: Code(s): D57.00 - Hb-SS disease with crisis, unspecified Status: Acute Assessment and Plan: Patient reports her pain is similar to her usual sickle cell crisis pain. Last hospitalization due to SC pain was Mar 2019. Continue her home oral pain regimen with dilaudid for breakthrough pain. She no longer takes hydroxyurea because it made her hair fall out. Her pain is worst in FABRIZIO knees, better today. This knee pain has been ongoing for several weeks and she has seen ortho (Dr Doshi at [place]) for the knee pain and had MRI and injections. Requested to obtain records. XR knees, lower legs where he pain is concentrated demonstrates increased sclerosis consistent with bone infarct. FABRIZIO lower extremity venous dopplers with no DVT. (2) Pulmonary infiltrates: Code(s): R91.8 - Other nonspecific abnormal finding of lung field Status: Acute Assessment and Plan: Noted on CXR. Clinically does not appear to have pneumonia with no respiratory symptoms or fever. CT chest shows atelectasis, trace effusions. Will resume her home lasix. COVID-19 testing is negative. She was started on empiric azithromycin and rocephin initially, stopped abx. She does have asthma, add albuterol MDI as needed. (3) Constipation: Qualifiers: Constipation type: unspecified constipation type Qualified Code(s): K59.00 - Constipation, unspecified Code(s): K59.00 - Constipation, unspecified Status: Acute Assessment and Plan: Likely secondary to narcotics. Add MiraLax and PRN suppository. Consider enema if not effective. (4) DVT prophylaxis: Code(s): Z29.9 - Encounter for prophylactic measures, unspecified Status: Acute Assessment and Plan: with Lovenox. Subjective Date/time seen: 07/16/19 0945 Interval history: Ms. Cornejo is a 53yo F admitted for sickle cell pain crisis. Her pain is localized to bilateral knees and lower legs, improved from yesterday per patient. She does also have some FABRIZIO lower rib pain/aching. She denies any chest pain, shortness of breath, or cough. She has tolerated breakfast without nausea, vomiting, or abdominal pain. Review of Systems Review of Systems: Narrative: Twelve systems were reviewed with pertinent positives and negatives as per HPI. Exam Narrative: Exam Narrative: General: Well-developed, obese female resting comfortable in bed in no acute distress. HEENT: Normocephalic, atraumatic, EOMI, oral mucosa moist. Neck: Supple. Chest: Lungs clear to auscultation all morgan. Respirations are even and nonlabored. On room air at time of my encounter. Heart: Heart rate and rhythm regular. Abdomen: Soft, protuberant, nontender, bowel sounds hypoactive. Extremities: Peripheral pulses intact. Trace bilateral lower extremity edema. Neurologic: No focal neurological deficits noted. Speech is clear. Objective Data Vital Signs Vital Signs: Last Vital Signs Temp 98.2 F 07/16/19 10:00 Pulse 80 07/16/19 10:00 Resp 16 07/16/19 10:00 BP 97/58 L 07/16/19 10:00 Pulse Ox 95 07/16/19 10:00 Intake/Output Intake/Output: Intake & Output 07/13/19 07/14/19 07/15/19 07/16/19 23:59 23:59 23:59 23:59 Intake Total 100 4377 1700 480 Output Total 1700 2100 400 Balance 100 2677 -400 80 Meds/Results Medications: Active Medications Generic Name Dose Route Start Last Admin Trade Name Freq PRN Reason Stop Dose Admin Acetaminophen 650 mg 07/14/19 00:15 Tylenol Tablet PO Q4H PRN Mild Pain (1-3) or Fever Albuterol 2 puff 07/14/19 12:51 Proventil Hfa INHALATION QIDRT PRN Shortness Of Breath Bisacodyl 10 mg 07/16/19 10:53 Dulcolax Suppository RECTAL 07/16/19 10:54 ONCE ONE Bisacodyl 10 mg 07/17/19 06:00 Dulcolax Suppository
[2019-07-16] MEDS: BISACODYL 10 MG SUPPOSITORY RECTAL (16:29)
[2019-07-16] MEDS: ZOLPIDEM TARTRATE 5 MG TABLET 10 MG PO (20:27)
[2019-07-17 06:00] VITALS: BP 112/53; PULSE 92; RESP 16; TEMP 37.1; O2SAT 98
[2019-07-17 06:33] LABS: Basophils Absolute Auto 0.1 K/mm3 (0.0-0.1); Basophils Percent Auto 0.7 % (0.2-1.2); Eosinophils Percent Auto 6.8 % (0-4.4); Hemoglobin 7.2 g/dL (12.0-15.0); Immature Granulocyte Absolute 0.14 K/mm3 (0.00-0.031); Immature Reticulocyte Fraction 40.4 % (3.0-15.9); Lymphocytes Absolute Auto 4.73 K/mm3 (0.9-3.2); Lymphocytes Percent Auto 32.9 % (18.3-44.2); Mean Corpuscular HGB Conc 32.7 g/dl (32-36); Mean Corpuscular Hemoglobin 32.4 pg (26-34); Mean Corpuscular Volume 99.1 fl (80-100); Monocytes Absolute Auto 1.9 K/mm3 (0.1-0.6); Monocytes Percent Auto 13.2 % (2.6-8.5); Neutrophils Absolute Auto 6.5 K/mm3 (1.3-6.7); Neutrophils Percent Auto 45.4 % (45.5-73.1); Nucleated Red Blood Cells Absolute Auto 0.6 K/mm3 (0.0-0.012); Nucleated Red Blood Cells Perc 3.9 % (0.0-0.2); Platelet Count Result 229 k/mm3 (150-375); Red Blood Count 2.22 M/mm3 (4.2-5.4); Red Cell Distribution Width 14.5 % (11.5-14.5); Reticulocyte Hemoglobin Conten 30.2 pg (28.2-35.7); Reticulocytes Absolute 0.24 B/L (32.2-175.7); White Blood Count 14.4 K/mm3 (4.5-10.0)
[2019-07-17 06:45] LABS: Alanine Aminotransferase 23 U/L (4-35); Albumin Level 3.6 g/dL (3.5-5.1); Alkaline Phosphatase 142 U/L (38-126); Aspartate Amino Transferase 33 U/L (14-36); Bilirubin,Total 1.9 mg/dL (0.2-1.3); Blood Urea Nitrogen 9 mg/dL (7-17); Calcium 8.4 mg/dL (8.4-10.2); Carbon Dioxide 29 mmol/L (22-30); Chloride 103 mmol/L (98-107); Estimated CRCL calculation 115 ml/min; Estimated Glomerular Filt Rate > 60; Glucose 134 mg/dL (65-105); Lactate Dehydrogenase 832 U/L (313-618); Magnesium 2.3 mg/dL (1.6-2.3); Potassium 4.2 mmol/L (3.4-5.0); Sodium 136 mmol/L (137-145)
[2019-07-17 07:48] LABS: Platelet Estimate Adequate (Adequate); Stomatocytes 1+ (NORMAL); Target Cells 2+ (NORMAL)
[2019-07-17 09:01] VITALS: O2SAT 90
[2019-07-17] MEDS: polyethylene glycoL 3350 17 GM POWD.PACK PO (09:06)
[2019-07-17] MEDS: FUROSEMIDE 40 MG TABLET PO (09:06)
[2019-07-17] MEDS: FOLIC ACID 1 MG TABLET PO (09:06)
[2019-07-17] MEDS: ENOXAPARIN 40 MG/0.4 ML SYRINGE SUB-Q (09:07)
[2019-07-17 10:00] VITALS: BP 122/54; PULSE 100; RESP 16; TEMP 37.2; O2SAT 93
--- NOTE | 2019-07-17 10:54 | PM.IMPN ---
Progress Note: A&P Assessment and Plan (1) Sickle cell crisis: Code(s): D57.00 - Hb-SS disease with crisis, unspecified Status: Acute Assessment and Plan: Patient reports her pain is similar to her usual sickle cell crisis pain. Last hospitalization due to SC pain was Mar 2019. Continue her home oral pain regimen with dilaudid for breakthrough pain. She no longer takes hydroxyurea because it made her hair fall out. Her pain is worst in FABRIZIO knees, better today. This knee pain has been ongoing for several weeks and she has seen ortho (Dr Doshi at [facility]) for the knee pain and had MRI and injections. Requested to obtain records. XR knees, lower legs where he pain is concentrated demonstrates increased sclerosis consistent with bone infarct. FABRIZIO lower extremity venous dopplers with no DVT. Monitor CBC, Hgb trending down. Stool occult blood pending. Anticipate possible dc tomorrow. (2) Pulmonary infiltrates: Code(s): R91.8 - Other nonspecific abnormal finding of lung field Status: Acute Assessment and Plan: Noted on CXR. Clinically does not appear to have pneumonia with no respiratory symptoms or fever. CT chest shows atelectasis, trace effusions. Will resume her home lasix. COVID-19 testing is negative. She does have asthma, albuterol MDI as needed. (3) Constipation: Qualifiers: Constipation type: unspecified constipation type Qualified Code(s): K59.00 - Constipation, unspecified Code(s): K59.00 - Constipation, unspecified Status: Acute Assessment and Plan: Likely secondary to narcotics. Add MiraLax and PRN suppository. Still no BM, ordered fleets enema for tonight. (4) DVT prophylaxis: Code(s): Z29.9 - Encounter for prophylactic measures, unspecified Status: Acute Assessment and Plan: with Lovenox. Subjective Date/time seen: 07/17/19 1000 Interval history: Ms. Cornejo is a 53yo F admitted for sickle cell pain crisis. Her pain is localized to bilateral knees and lower legs and FABRIZIO legs, improving.She denies any chest pain, shortness of breath, or cough. She has tolerated breakfast without nausea, vomiting, or abdominal pain. Exam Narrative: Exam Narrative: General: Well-developed, obese female resting comfortable in bed in no acute distress. HEENT: Normocephalic, atraumatic, EOMI, oral mucosa moist. Neck: Supple. Chest: Lungs clear to auscultation all morgan. Respirations are even and nonlabored. On room air at time of my encounter. Heart: Heart rate and rhythm regular. Abdomen: Soft, protuberant, nontender, bowel sounds hypoactive. Extremities: Peripheral pulses intact. Trace bilateral lower extremity edema. Neurologic: No focal neurological deficits noted. Speech is clear. Objective Data Vital Signs Vital Signs: Vital Signs - 24 hr 07/16/19 14:00 07/16/19 20:00 07/16/19 22:00 Temperature 98.9 F 98.3 F Pulse Rate 95 95 85 Respiratory Rate 17 17 16 Blood Pressure 95/45 L 108/53 L Pulse Oximetry 94 94 95 07/16/19 22:52 07/17/19 06:00 07/17/19 09:01 Temperature 98.7 F Pulse Rate 92 Respiratory Rate 16 Blood Pressure 112/53 L Pulse Oximetry 95 98 90 07/17/19 10:00 Temperature 98.9 F Pulse Rate 100 Respiratory Rate 16 Blood Pressure 122/54 L Pulse Oximetry 93 Intake/Output Intake/Output: Intake & Output 07/14/19 07/15/19 07/16/19 07/17/19 23:59 23:59 23:59 23:59 Intake Total 4377 1700 1600 350 Output Total 1700 2100 400 Balance 2677 -400 1200 350 Meds/Results Medications: Active Medications Generic Name Dose Route Start Last Admin Trade Name Freq PRN Reason Stop Dose Admin Acetaminophen 650 mg 07/14/19 00:15 Tylenol Tablet PO Q4H PRN Mild Pain (1-3) or Fever Albuterol 2 puff 07/14/19 12:51 Proventil Hfa INHALATION QIDRT PRN Shortness Of Breath
[2019-07-17 14:00] VITALS: BP 95/53; PULSE 102; RESP 16; TEMP 37.4; O2SAT 97
[2019-07-17] MEDS: METHYLNALTREXONE 12 MG/0.6 ML VIAL SUB-Q (18:01)
[2019-07-17] MEDS: HYDROMORPHONE HCL 1 MG/ML INJ IV PUSH ×2 (18:08→23:39)
[2019-07-17 18:41] VITALS: BP 125/59; PULSE 88; RESP 18; TEMP 36.6; O2SAT 95
[2019-07-17] MEDS: ZOLPIDEM TARTRATE 5 MG TABLET 10 MG PO (20:39)
[2019-07-17 22:00] VITALS: BP 103/57; PULSE 86; RESP 18; TEMP 36.5; O2SAT 96
[2019-07-18 02:01] VITALS: BP 120/68; PULSE 92; RESP 18; TEMP 36.3; O2SAT 93
[2019-07-18 06:00] VITALS: BP 108/48; PULSE 86; RESP 18; TEMP 36.8; O2SAT 95
[2019-07-18 06:46] LABS: Alanine Aminotransferase 22 U/L (4-35); Albumin Level 3.8 g/dL (3.5-5.1); Alkaline Phosphatase 136 U/L (38-126); Aspartate Amino Transferase 33 U/L (14-36); Bilirubin,Total 1.7 mg/dL (0.2-1.3); Blood Urea Nitrogen 9 mg/dL (7-17); Calcium 8.4 mg/dL (8.4-10.2); Carbon Dioxide 27 mmol/L (22-30); Chloride 102 mmol/L (98-107); Estimated CRCL calculation 115 ml/min; Estimated Glomerular Filt Rate > 60; Glucose 149 mg/dL (65-105); Lactate Dehydrogenase 776 U/L (313-618); Potassium 4.2 mmol/L (3.4-5.0); Sodium 136 mmol/L (137-145)
[2019-07-18] MEDS: FUROSEMIDE 40 MG TABLET PO (09:22)
[2019-07-18] MEDS: FOLIC ACID 1 MG TABLET PO (09:22)
[2019-07-18] MEDS: ENOXAPARIN 40 MG/0.4 ML SYRINGE SUB-Q (09:23)
[2019-07-18] MEDS: polyethylene glycoL 3350 17 GM POWD.PACK PO (09:23)
[2019-07-18 09:36] LABS: Basophils Absolute Auto 0.1 K/mm3 (0.0-0.1); Eosinophils Absolute Auto 0.9 K/mm3 (0-0.3); Eosinophils Percent Auto 6.2 % (0-4.4); Hematocrit 22.9 % (37.0-47.0); Hemoglobin 7.3 g/dL (12.0-15.0); Immature Granulocyte Absolute 0.23 K/mm3 (0.00-0.031); Immature Granulocyte Percent A 1.6 % (0-0.5); Immature Platelet Fraction Pct 4.9 % (0.9-11.2); Lymphocytes Absolute Auto 4.64 K/mm3 (0.9-3.2); Mean Corpuscular HGB Conc 31.9 g/dl (32-36); Mean Corpuscular Hemoglobin 32.6 pg (26-34); Mean Corpuscular Volume 102.2 fl (80-100); Mean Platelet Volume 11.3 fl (7.4-10.4); Monocytes Absolute Auto 1.8 K/mm3 (0.1-0.6); Monocytes Percent Auto 12.8 % (2.6-8.5); Neutrophils Absolute Auto 6.4 K/mm3 (1.3-6.7); Neutrophils Percent Auto 45.4 % (45.5-73.1); Nucleated Red Blood Cells Absolute Auto 0.6 K/mm3 (0.0-0.012); Nucleated Red Blood Cells Perc 4.1 % (0.0-0.2); Platelet Count Result 217 k/mm3 (150-375); Red Blood Count 2.24 M/mm3 (4.2-5.4)
[2019-07-18 09:55] LABS: Platelet Estimate Adequate (Adequate); Target Cells 2+ (NORMAL)
[2019-07-18] MEDS: HYDROMORPHONE HCL 1 MG/ML INJ IV PUSH ×3 (10:44→22:40)
[2019-07-18 11:19] LABS: IFOB Positive Control Positive; Immunochemical Fecal Occult Bl Negative (N)
--- NOTE | 2019-07-18 11:44 | PM.IMPN ---
Progress Note: A&P Assessment and Plan (1) Sickle cell crisis: Code(s): D57.00 - Hb-SS disease with crisis, unspecified Status: Acute Assessment and Plan: Patient reports her pain is similar to her usual sickle cell crisis pain. Last hospitalization due to SC pain was Mar 2019. Continue her home oral pain regimen with dilaudid for breakthrough pain. She no longer takes hydroxyurea because it made her hair fall out. Her pain is worst in FABRIZIO knees, better today. This knee pain has been ongoing for several weeks and she has seen ortho (Dr Doshi at [place]) for the knee pain and had MRI and injections. Requested to obtain records. XR knees, lower legs where he pain is concentrated demonstrates increased sclerosis consistent with bone infarct. FABRIZIO lower extremity venous dopplers with no DVT. Monitor CBC, Hgb trending down. Stool occult blood negative. Anticipate may be able to discharge tomorrow. (2) Pulmonary infiltrates: Code(s): R91.8 - Other nonspecific abnormal finding of lung field Status: Acute Assessment and Plan: Noted on CXR. Clinically does not appear to have pneumonia with no respiratory symptoms or fever. CT chest shows atelectasis, trace effusions. Will resume her home lasix. Incentive spirometer. COVID-19 testing is negative. She does have asthma, albuterol MDI as needed. (3) Constipation: Qualifiers: Constipation type: unspecified constipation type Qualified Code(s): K59.00 - Constipation, unspecified Code(s): K59.00 - Constipation, unspecified Status: Acute Assessment and Plan: Likely secondary to narcotics. Relistor x 1 yesterday. Enema yesterday yielded multiple bowel movements. (4) DVT prophylaxis: Code(s): Z29.9 - Encounter for prophylactic measures, unspecified Status: Acute Assessment and Plan: with Lovenox. Subjective Date/time seen: 07/18/19 1030 Interval history: Ms. Cornejo is a 53yo F admitted for sickle cell pain crisis. Her pain in her FABRIZIO lower ribs is worse today. Pain in her bilateral knees is improving. She denies chest pain, was a little short of breath getting washed up in the shower but no respiratory distress now. She is tolerating oral intake without nausea, vomiting, or abdominal pain. Review of Systems Review of Systems: Narrative: Twelve systems were reviewed with pertinent positives and negatives as per HPI. Exam Narrative: Exam Narrative: General: Well-developed, obese female resting comfortable in bed in no acute distress. HEENT: Normocephalic, atraumatic, EOMI, oral mucosa moist. Neck: Supple. Chest: Lungs clear to auscultation all morgan. Respirations are even and nonlabored. On room air at time of my encounter. Heart: Heart rate and rhythm regular. Abdomen: Soft, protuberant, nontender, bowel sounds hypoactive. Extremities: Peripheral pulses intact. Trace bilateral lower extremity edema. Neurologic: No focal neurological deficits noted. Speech is clear. Objective Data Vital Signs Vital Signs: Last Vital Signs Temp 98.2 F 07/18/19 06:00 Pulse 86 07/18/19 06:00 Resp 18 07/18/19 06:00 BP 108/48 L 07/18/19 06:00 Pulse Ox 95 07/18/19 06:00 Intake/Output Intake/Output: Intake & Output 07/15/19 07/16/19 07/17/19 07/18/19 23:59 23:59 23:59 23:59 Intake Total 1700 1600 1930 910 Output Total 2100 400 200 Balance -400 1200 1930 710 Meds/Results Medications: Active Medications Generic Name Dose Route Start Last Admin Trade Name Freq PRN Reason Stop Dose Admin Acetaminophen 650 mg 07/14/19 00:15 Tylenol Tablet PO Q4H PRN Mild Pain (1-3) or Fever Albuterol 2 puff 07/14/19 12:51 Proventil Hfa INHALATION QIDRT PRN Shortness Of Breath Bisacodyl 10 mg 07/17/19 06:00 Dulcolax Suppository RECTAL QAM PRN Constipa
[2019-07-18 14:00] VITALS: BP 104/60; PULSE 91; RESP 16; TEMP 37.7; O2SAT 94
[2019-07-18 22:00] VITALS: BP 106/57; PULSE 92; RESP 18; TEMP 36.8; O2SAT 96
[2019-07-18] MEDS: ZOLPIDEM TARTRATE 5 MG TABLET 10 MG PO (22:29)
[2019-07-19] MEDS: HYDROMORPHONE HCL 1 MG/ML INJ IV PUSH (05:18)
[2019-07-19 06:00] VITALS: BP 100/45; PULSE 87; RESP 18; TEMP 37.1; O2SAT 98
[2019-07-19 06:03] LABS: Basophils Absolute Auto 0.1 K/mm3 (0.0-0.1); Basophils Percent Auto 0.8 % (0.2-1.2); Eosinophils Absolute Auto 0.8 K/mm3 (0-0.3); Eosinophils Percent Auto 5.5 % (0-4.4); Hematocrit 23.4 % (37.0-47.0); Hemoglobin 7.6 g/dL (12.0-15.0); Immature Granulocyte Absolute 0.15 K/mm3 (0.00-0.031); Lymphocytes Absolute Auto 4.71 K/mm3 (0.9-3.2); Lymphocytes Percent Auto 31.4 % (18.3-44.2); Mean Corpuscular HGB Conc 32.5 g/dl (32-36); Mean Corpuscular Hemoglobin 32.5 pg (26-34); Mean Platelet Volume 9.9 fl (7.4-10.4); Monocytes Absolute Auto 2.1 K/mm3 (0.1-0.6); Monocytes Percent Auto 13.9 % (2.6-8.5); Neutrophils Absolute Auto 7.1 K/mm3 (1.3-6.7); Neutrophils Percent Auto 47.4 % (45.5-73.1); Nucleated Red Blood Cells Absolute Auto 0.6 K/mm3 (0.0-0.012); Nucleated Red Blood Cells Perc 4.1 % (0.0-0.2); Platelet Count Result 270 k/mm3 (150-375); Red Blood Count 2.34 M/mm3 (4.2-5.4); Red Cell Distribution Width 15.8 % (11.5-14.5)
[2019-07-19 06:18] LABS: Alanine Aminotransferase 24 U/L (4-35); Albumin Level 3.8 g/dL (3.5-5.1); Alkaline Phosphatase 154 U/L (38-126); Aspartate Amino Transferase 36 U/L (14-36); Bilirubin,Total 1.5 mg/dL (0.2-1.3); Blood Urea Nitrogen 7 mg/dL (7-17); Calcium 8.3 mg/dL (8.4-10.2); Carbon Dioxide 27 mmol/L (22-30); Chloride 104 mmol/L (98-107); Estimated CRCL calculation 115 ml/min; Estimated Glomerular Filt Rate > 60; Glucose 137 mg/dL (65-105); Lactate Dehydrogenase 684 U/L (313-618); Potassium 4.2 mmol/L (3.4-5.0); Sodium 136 mmol/L (137-145)
[2019-07-19 07:25] LABS: Hypochromasia 1+ (NORMAL); Platelet Estimate Adequate (Adequate)
[2019-07-19 07:26] LABS: Stomatocytes 1+ (NORMAL); Target Cells 2+ (NORMAL)
[2019-07-19 08:22] VITALS: BP 112/63
[2019-07-19] MEDS: polyethylene glycoL 3350 17 GM POWD.PACK PO (08:24)
[2019-07-19] MEDS: FOLIC ACID 1 MG TABLET PO (08:25)
[2019-07-19] MEDS: FUROSEMIDE 40 MG TABLET PO (08:25)
[2019-07-19] MEDS: ENOXAPARIN 40 MG/0.4 ML SYRINGE SUB-Q (08:26)
--- NOTE | 2019-07-19 10:23 | PCOTNOTE ---
Attempted to see patient for skilled OT, however, patient declined to participate in any ADLs or mobility at this time. Patient stated she is ready to be discharged today and can perform ADLs and mobility with no assistance. Patient not seen for OT.
--- NOTE | 2019-07-19 13:07 | PM.DS ---
DS: Diagnosis Admitting Diagnosis Admitting Diagnosis: Hb-SS disease with crisis, unspecified Discharge Diagnosis (1) Sickle cell crisis: Code(s): D57.00 - Hb-SS disease with crisis, unspecified Status: Acute (2) Pulmonary infiltrates: Code(s): R91.8 - Other nonspecific abnormal finding of lung field Status: Acute Assessment and Plan: Noted on CXR. Clinically does not appear to have pneumonia with no respiratory symptoms or fever. CT chest shows atelectasis, trace effusions. Continue home lasix. (3) Constipation: Qualifiers: Constipation type: unspecified constipation type Qualified Code(s): K59.00 - Constipation, unspecified Code(s): K59.00 - Constipation, unspecified Status: Acute (4) DVT prophylaxis: Code(s): Z29.9 - Encounter for prophylactic measures, unspecified Status: Acute DS: Summary Hospital Course Reason for hospitalization: Sickle cell crisis Hospital Course: Patient is 53-year-old female who presented emergency room for pain consistent with her sickle cell disease. The pain was mostly in her legs but was also reported as diffuse and all over. She takes oxycodone at home and this time it did not provide relief. Vitals in the ER were temperature 98.0?, pulse 99, respiratory rate 18, blood pressure 148/91, pulse ox 97 on room air. Initial white blood cell count 23.6, hemoglobin 9.3, hematocrit 28.7, platelets 274. BMP within normal limits. Chest x-ray showed small amount of left greater than right basilar nonspecific airspace disease could be atelectasis, edema, section or infarction. The patient had no shortness of breath, cough or fevers. CT of the chest shows bibasilar segmental atelectasis and trace pericardial and pleural effusions. Patient's home Lasix was resumed. The patient states this is her 2nd crisis this year and since moving back from [place] she has had more instances. She does not have a vamp strap ironer here but would like a referral to 1. She does not take hydroxyurea due to her hair falling out. Overall, the patient improved throughout her hospitalization and no infection was suspected (COVID-19 negative). She is to follow-up with her primary care physician and Dr. Longoria's information was provided. She was educated about the worrisome signs and symptoms to come back to emergency room for was discharged stable condition Status at Discharge Functional status at discharge: independent ambulation Overall status at discharge: patient is back to baseline Time Spent with Patient Time attestation: Total time spent providing and/or coordinating discharge services:34 min Time spent: Greater than 30 minutes Exam Narrative: Exam Narrative: General: Well developed well nourished patient in NAD HEENT: normocephalic Neck: supple Neuro: Alert and oriented x4 CV:RRR Resp:CTA Abd: Soft, non distended. No pain to palpation. Positive bowel sounds Extremities: No swelling, erythema, or pain to palpation. DS: Data Data Completed and Pending Labs on day of discharge: Labs from last 24 hours 07/19/19 07/19/19 05:44 05:44 WBC 15.0 H RBC 2.34 L Hgb 7.6 L Hct 23.4 L MCV 100.0 MCH 32.5 MCHC 32.5 RDW 15.8 H Plt Count 270 MPV 9.9 Immature Gran % (Auto) 1.0 H Neut % (Auto) 47.4 Lymph % (Auto) 31.4 Rains % (Auto) 13.9 H Eos % (Auto) 5.5 H Baso % (Auto) 0.8 Lymph # (Auto) 4.71 H Rains # (Auto) 2.1 H Eos # (Auto) 0.8 H Baso # (Auto) 0.1 Abs Immat Gran (auto) 0.15 H Absolute Neuts (auto) 7.1 H Absolute Nucleated RBC 0.6 H Nucleated RBC % 4.1 H Platelet Estimate Adequate Hypochromasia 1+ Target Cells 2+ Stomatocytes 1+ Sodium 136 L Potassium 4.2 Chloride 104 Carbon Dioxide 27 BUN 7 Creatinine 0.60 L Estim Creat Clear Calc 115 Estimated GFR > 60 Glucose 137 H Calcium 8.3 L Total Bilirubin 1.5 H AST 36 ALT 24 Alkaline Phosphatase 154 H Lacta
[2019-07-19 14:00] VITALS: BP 119/65; PULSE 96; RESP 18; TEMP 36.2; O2SAT 95
== END 2019-07-19 18:05 | disposition home or self-care (01) | DRG 812 ==
LOC: ANHED 07-14 00:30 → ANH3MEDSUR 07-14 00:40
PROVIDERS: Physician Assistant; Admitting Provider Internal Medicine; Emergency Provider Emergency Medicine; Visit Provider Physician Assistant
DX: D57.00 Hb-SS disease with crisis, unspecified (principal); Z20.828 Contact with and (suspected) exposure to other viral communicable diseases; Z90.49 Acquired absence of other specified parts of digestive tract; Z90.710 Acquired absence of both cervix and uterus; Z90.79 Acquired absence of other genital organ(s); Z90.722 Acquired absence of ovaries, bilateral; Z87.891 Personal history of nicotine dependence; K59.03 Drug induced constipation; T40.605A Adverse effect of unspecified narcotics, initial encounter; R91.8 Other nonspecific abnormal finding of lung field; J45.909 Unspecified asthma, uncomplicated
CPT/HCPCS: 36415; 71046; 71250; 73560; 73590; 80053; 81001; 82274; 83605; 83615; 83735; 84100; 84484; 85025; 85046; 85055; 85610; 85730; 87040; 87635; 93005; 93970; 96361; 96365; 96368; 96372; 96375; 96376; 97110; 97161; 97165; 99285; A9270; J0131; J0456; J0696; J1170; J1650; J2212; J3010; J7120; U0003

== ENCOUNTER 2020-02-17 05:20 | Inpatient (IN) | payer MEDICARE, SELFPAY ==
[2020-02-17] VITALS (19 sets, daily range): BP systolic 98–138; BP diastolic 29–80; PULSE 74–105; RESP 11–18; TEMP 35.8–37.2; O2SAT 92–98; BMI 42.0
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
--- NOTE | ~2020-02-17 | XR_ITS ---
XR chest 1V portable DATE: 02/17/2020 06:37 INDICATION: Cough TECHNIQUE: Portable upright AP view on 02/17/2020 at 0639 hours COMPARISON: 07/14/2019 CT chest 07/12/2021 view chest FINDINGS: Cardiomegaly. Mild aortic unfolding. There is bibasilar infiltrate or atelectasis, left greater than right. No pleural effusion or pulmonary vascular congestion or pneumothorax is evident. Bilateral humeral head avascular necrosis. Diffuse osteopenia. IMPRESSION: Bibasilar infiltrate or atelectasis, left greater than right Reviewed, dictated and finalized at location A. ING TUBE SELECTOR
--- NOTE | ~2020-02-17 | CT_ITS ---
EXAMINATION: CT brain wo con DATE: 02/18/2020 18:29 INDICATION: Right-sided headache. Right facial numbness. TECHNIQUE: Computed tomography (CT) of the head was performed without intravenous contrast. The mA wa s adjusted according to patient size. Iterative reconstruction technique was employed. The dose-lengt h product was 605.33 mGy-cm. COMPARISON: Head CT 05/25/19 FINDINGS: There is no intracranial hemorrhage, acute infarction, or abnormal intracranial mass lesion . The ventricles are normal in size. There is mild mucosal thickening in the paranasal sinuses. The m astoid air cells are normal. There are likely changes of left ocular lens replacement surgery. Again seen are dystrophic calcifications in left ocular globe. IMPRESSION: 1. Normal brain. Reviewed, dictated and finalized at location A. AGENT IMPRESSION: 1. Normal brain.
--- NOTE | 2020-02-17 05:33 | ECG_ITS ---
Measurements Intervals Bim Rate: 98 P: 66 UT: 207 QRS: 70 QRSD: 92 T: 71 QT: 380 QTc: 485 Interpretive Statements SINUS RHYTHM BORDERLINE T WAVE ABNORMALITY- ANTERIOR LEADS BORDERLINE ECG Electronically Signed On 02-17-2020 8:09:45 FREIGHT TALLIER by Abner Alonso D.O.
--- NOTE | 2020-02-17 05:57 | PC.NURSE ---
Unable to obtain IV or Blood specimens at this time despite attempts x 3 RNs. Warm towel wrapped around right forearm with patient consent. aware no blood at this time. No one available in dept that can use Ultrasound for IV placement---patient has hx of multiple PICC lines and having to use US for IV placement--patient doesn't have a port
[2020-02-17] MEDS: SODIUM CHLORIDE 0.9% IV 1,000 ML 150 ML IV CONT (06:24)
[2020-02-17 06:29] LABS: Basophils Absolute Auto 0.2 K/mm3 (0.0-0.1); Basophils Percent Auto 0.9 % (0.2-1.2); Eosinophils Absolute Auto 0.8 K/mm3 (0-0.3); Eosinophils Percent Auto 4.1 % (0-4.4); Hematocrit 21.9 % (37.0-47.0); Hemoglobin 7.5 g/dL (12.0-15.0); Immature Granulocyte Absolute 1.11 K/mm3 (0.00-0.031); Immature Granulocyte Percent A 5.6 % (0-0.5); Immature Reticulocyte Fraction 24.2 % (3.0-15.9); Lymphocytes Absolute Auto 4.92 K/mm3 (0.9-3.2); Lymphocytes Percent Auto 24.8 % (18.3-44.2); Mean Corpuscular HGB Conc 34.2 g/dl (32-36); Mean Corpuscular Volume 102.3 fl (80-100); Mean Platelet Volume 9.6 fl (7.4-10.4); Monocytes Absolute Auto 1.8 K/mm3 (0.1-0.6); Monocytes Percent Auto 9.1 % (2.6-8.5); Neutrophils Percent Auto 55.5 % (45.5-73.1); Nucleated Red Blood Cells Absolute Auto 0.3 K/mm3 (0.0-0.012); Nucleated Red Blood Cells Perc 1.6 % (0.0-0.2); Platelet Count Result 170 k/mm3 (150-375); Red Blood Count 2.14 M/mm3 (4.2-5.4); Red Cell Distribution Width 16.5 % (11.5-14.5); Reticulocyte Hemoglobin Conten 39.9 pg (28.2-35.7); Reticulocyte Percent 5.14 % (0.7-4.3); Reticulocytes Absolute 0.11 B/L (32.2-175.7); White Blood Count 19.9 K/mm3 (4.5-10.0)
[2020-02-17] MEDS: HYDROmorphone HCL INJ (*CRX) 1 MG/ML SYR IV PUSH ×5 (06:32→18:02)
--- NOTE | 2020-02-17 06:32 | ED.GENADULT ---
HPI - General Adult General Chief complaint: Unspecified Stated complaint: Sickle cell crisis Time Seen by Provider: 02/17/20 05:30 History of Present Illness HPI narrative: Patient 54-year-old female who presents to emergency department with chief complaint of sickle cell pain. Patient reports that she has sickle cell disorder and reported that she started having a headache and also had discomfort in her chest. Patient reports her symptoms began about 3 to 3-1/2 hours prior to arrival states that she has a heavy feeling in her chest states it is not improved by anything she took several pain pills at home without relief. Related Data Home Medications Medication Instructions Recorded Confirmed carisoprodol 350 mg PO BID PRN 03/23/19 07/14/19 folic acid 1 mg PO DAILY 03/23/19 07/14/19 furosemide 40 mg PO DAILY 03/23/19 07/14/19 oxycodone 15 mg PO TID PRN 03/23/19 07/14/19 potassium chloride 10 meq PO DAILY 03/23/19 07/14/19 zolpidem 10 mg PO DAILY 03/23/19 07/14/19 Allergies Allergy/AdvReac Type Severity Reaction Status Date / Time ketorolac Allergy Unknown Unknown Verified 12/08/19 11:28 piperacillin Allergy Unknown Unknown Verified 12/08/19 11:28 codeine Allergy Hives Verified 12/08/19 11:28 tylenol #4 Allergy Unknown Unknown Uncoded 07/13/19 17:28 Review of Systems Review of Systems: Narrative: CONSTITUTIONAL: Denies fever, chills, or sweats. EYES: Denies visual changes, redness, or discharge. ENT: Denies rhinorrhea, congestion, sore throat, or otalgia. CARDIOVASCULAR: Denies chest pain, palpitations, or edema. RESPIRATORY: Denies cough or dyspnea. GASTROINTESTINAL: Denies abdominal pain, nausea, vomiting, or diarrhea. GENITOURINARY: Denies dysuria or hematuria. SKIN: Denies rash or itching. MUSCULOSKELETAL: Denies back pain, joint pain, or myalgia. NEUROLOGIC: Denies headache, numbness, or weakness. PSYCHIATRIC: Denies anxiety or depression. A 10 system review of systems was completed on the patient and is negative except for what is stated in the HPI. Nursing and ancillary documentation was reviewed. [facility] Past Medical History Medical History Asthma History of urinary tract infection Sickle cell anemia Hemoglobin SS. Surgical History Surgical History Status post cholecystectomy 2010 Status post hip surgery Bilateral hip decompression. Status post total hysterectomy and bilateral salpingo-oophorectomy 2001 Family History Family History Other Diabetes mellitus Heart disease Multiple myeloma Sickle cell trait Social History Social History Social History: The patient lives in [place]. Her primary care provider is Dr. Jorge Whitehead. She smoked 1 pack of cigarettes a month and quit about a year and a half ago. She drinks socially and in moderation. No drug use. Emergency contact is her son, Jakob. She wishes to be a full code. Years smoked: 5 Smoking status: Former smoker Tobacco type: cigarettes Smoking end date: 06/21/17 Alcohol intake: current Drinks per week: 1 Substance use: never Substance use type: does not use Gender identity (if verbalized by the patient): Female Spiritual care concerns: No Agree to blood products: No Exam Narrative: Exam Narrative: GENERAL: Well-appearing, well-nourished, and in no acute distress. HEAD: Normocephalic, atraumatic. EYES: PERRLA and EOMI. ENT: Nares clear, no rhinorrhea or epistaxis. Mucous membranes moist. NECK: Supple. CHEST: Clear to auscultation. No respiratory distress. HEART: Regular rate and rhythm. No murmur heard. Normal peripheral pulses. ABDOMEN: Soft, nontender, nondistended, normal active bowel sounds. EXTREMITIES: Normal range of motion. No edema.
[2020-02-17 06:39] LABS: Lactic Acid Reflex 1.3 mmol/L (0.7-2.1)
[2020-02-17 06:41] LABS: Alanine Aminotransferase 32 U/L (4-35); Albumin Level 3.7 g/dL (3.5-5.1); Alkaline Phosphatase 158 U/L (38-126); Anion Gap 8 mmol/L (8-16); Aspartate Amino Transferase 60 U/L (14-36); Bilirubin,Total 2.8 mg/dL (0.2-1.3); Blood Urea Nitrogen 13 mg/dL (7-17); Calcium 8.3 mg/dL (8.4-10.2); Carbon Dioxide 27 mmol/L (22-30); Chloride 106 mmol/L (98-107); Estimated CRCL calculation 96 ml/min; Estimated Glomerular Filt Rate > 60; Glucose 141 mg/dL (65-105); Potassium 3.7 mmol/L (3.4-5.0); Sodium 141 mmol/L (137-145)
[2020-02-17 06:56] LABS: NT Pro B Type Natriuretic Pept 108 PG/ML (5-100); Troponin I < 0.012 ng/mL (0.000-0.034)
[2020-02-17 06:57] LABS: Platelet Estimate Adequate (Adequate)
[2020-02-17 06:58] LABS: Anisocytosis 1+ (NORMAL); Hypochromasia 2+ (NORMAL); Ovalocytes 1+ (NORMAL); Stomatocytes 1+ (NORMAL); Target Cells 3+ (NORMAL)
--- NOTE | 2020-02-17 07:01 | PC.NURSE ---
Report received from ARRON Nazario. Reports unable to collect blood x4 attempts. sherfi Man RN made aware and calls phlebotomy to attempt remaining labs.
--- NOTE | 2020-02-17 07:24 | PC.NURSE ---
Megha Fletcher LOMBARDI DEVELOPER, at bedside to attempt to collect labs.
--- NOTE | 2020-02-17 08:40 | PC.NURSE ---
Pt sleeping soundly, awakens to name. States her pain is still a 10/10.
--- NOTE | 2020-02-17 08:43 | PC.NURSE ---
unable to collect 2nd set of blood cultures. Dr. White made aware.
--- NOTE | 2020-02-17 09:26 | PC.NURSE ---
2nd set blood cultures obtained per Kathleen from lab.
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
--- NOTE | 2020-02-17 11:17 | PC.NURSE ---
Pt given pain medications as ordered. Note pt is on phone speaking with PMD making an appointment for abd pain.
[2020-02-17 11:19] LABS: Add Urine Microscopic? YES; Appearance Urine Clear (Clear); Bilirubin Urine Negative (Negative); Blood Urine Negative (Negative); Color Urine Yellow (Yellow); Glucose Urine UA Negative (Negative); Ketones Urine Negative (Negative); Leukocyte Esterase Ur Trace LEU/UL (Negative); Mucus Urine Rare /lpf; Nitrate Urine Negative (Negative); Protein Urine Negative (Negative); RBC Urine 0-2 /hpf (0-2); Specific Grav Ur 1.014 (1.001-1.035); Squamous Epithelial Cell Urine Many /hpf (Few); WBC Urine 0-3 /hpf
--- NOTE | 2020-02-17 12:05 | ADMGEN ---
This patient, Isabelle Cornejo, was admitted to Medical Room 347-. Patient/family oriented to hospital policies and general routines including ID bracelet, bed and alarms, visiting hours, pain management, procedures, bathroom and other care routines, personal items, smoking policy, room service/diet, and visiting hours. Information on how to activate the Rapid Response Team has been discussed. Patient/Family are encouraged to report perceived risks to care and to ask questions if they do not understand what they are told or what they should do.
[2020-02-17] MEDS: HYDROcodone/acetaminophen (*CRX) 5-325 MG TABLET 1 TAB PO (12:37)
[2020-02-17] MEDS: SODIUM CHLORIDE 0.9% IV 1,000 ML 125 ML IV CONT (12:40)
--- NOTE | 2020-02-17 13:15 | PM.IMHP ---
H&P: HPI History of Present Illness Date/Time: 02/17/20 13:15 Chief complaint: Sickle cell pain crisis Narrative: Isabelle Cornejo is a 54-year- old female with sickle cell disease SS and diastolic congestive heart failure who presented to the emergency department earlier today from home with complaints of sickle cell pain. In the digital research analyst hours she began having diffuse pain in her lower back, bilateral knee, and chest consistent with previous episodes of sickle cell crises. Percocet and ibuprofen taken at home provided her with little to no relief and while she did feel somewhat better after receiving IV narcotics in the emergency department, she continues to have pain and is being admitted in this setting. She also mentions having a pretty significant sharp shooting right-sided headache and also tells me that she was having paresthesias in the right side of her face, from just below the right eye to the right lower lip, which lasted for about 12 hours before resolving. She still has a mild headache and slight heaviness in the chest, but feels much better on her current pain regimen. She denies fever, chills, sweats, exertional chest pain, pleuritic pain, palpitations, shortness of breath, cough, vertigo, auditory and visual changes, and focal weakness. No history of venous thromboembolism. Review of Systems Review of Systems: Narrative: Twelve systems were reviewed with pertinent positives and negatives as per HPI. She denies fever, chills, and sweats. No sinus congestion, rhinorrhea, otalgia, or odynophagia. No cough or shortness of breath. She denies sick contacts. No history of venous thromboembolism. She denies recent travel. No lower extremity edema, calf pain, or tenderness. No nausea, vomiting, diarrhea, or dysuria. Except as documented, all other systems were reviewed and are negative. [facility] Past Medical History Medical History (Updated 02/17/20 @ 23:33 by Marianne Campbell PA-C) Asthma Diastolic congestive heart failure Echocardiogram in March 2019 showed normal left ventricular systolic function with an EF > 70% and grade 1 diastolic dysfunction. Gastroesophageal reflux disease History of urinary tract infection Sickle cell anemia Hemoglobin SS. Surgical History Surgical History (Updated 02/17/20 @ 13:37 by Marianne Campbell PA-C) Status post cholecystectomy (~2009) Status post hip surgery Bilateral hip decompression. Status post total hysterectomy and bilateral salpingo-oophorectomy (~2001) Family History Family History Other Diabetes mellitus Heart disease Multiple myeloma Sickle cell trait Social History Social History (Updated 02/17/20 @ 23:28 by Marianne Campbell PA-C) Social History: The patient lives in [place]. She smoked 1 pack of cigarettes a week and quit in 2018. She drinks socially and in moderation. No drug use. Emergency contact is her son, Jakob Ventura. She wishes to be a full code. Smoking status: Former smoker Tobacco type: cigarettes Smoking end date: 06/21/17 Alcohol intake: current Drinks per week: 1 Substance use: never Substance use type: does not use Gender identity (if verbalized by the patient): Female Spiritual care concerns: No Agree to blood products: No Meds Home Medications and Allergies Home Medications Medication Instructions Recorded Confirmed Type folic acid 1 mg PO DAILY 03/23/19 02/17/20 History furosemide 40 mg PO DAILY 03/23/19 02/17/20 History oxycodone 15 mg PO TID PRN 03/23/19 02/17/20 History potassium chloride 10 meq PO DAILY 03/23/19 02/17/20 History zolpidem 10 mg PO DAILY 03/23/19 02/17/20 History Allergies Allergy/AdvReac Type Severity Reaction Status Date / Time ketorolac Allergy Unknown Unknown Verified 02/17/20 12:25 piperacillin Allergy Unknown Unknown Verified 02/17/20 12:25 codeine Allergy Hives Verified 02/17/20 12:25 tyl
[2020-02-17 14:26] LABS: Hemoglobin 5.6 g/dL (12.0-15.0)
[2020-02-17 14:33] LABS: Lactate Dehydrogenase 985 U/L (313-618)
[2020-02-17 15:16] LABS: Hemoglobin A1C 4.6 % (<5.7)
[2020-02-17 16:35] LABS: Hemoglobin 7.5 g/dL (12.0-15.0)
[2020-02-17] MEDS: HYDROmorphone HCL INJ (*CRX) 2 MG/ML VIAL IV PUSH (20:28)
[2020-02-18] VITALS (14 sets, daily range): BP systolic 109–139; BP diastolic 55–82; PULSE 86–103; RESP 16–18; TEMP 36.3–36.9; O2SAT 93–96
[2020-02-18] MEDS: HYDROmorphone HCL INJ (*CRX) 2 MG/ML VIAL IV PUSH ×6 (00:49→21:49)
[2020-02-18 06:08] LABS: Basophils Absolute Auto 0.1 K/mm3 (0.0-0.1); Basophils Percent Auto 0.6 % (0.2-1.2); Eosinophils Absolute Auto 0.7 K/mm3 (0-0.3); Eosinophils Percent Auto 4.3 % (0-4.4); Immature Granulocyte Absolute 0.17 K/mm3 (0.00-0.031); Immature Granulocyte Percent A 1.1 % (0-0.5); Immature Reticulocyte Fraction 48.1 % (3.0-15.9); Lymphocytes Absolute Auto 5.29 K/mm3 (0.9-3.2); Lymphocytes Percent Auto 33.8 % (18.3-44.2); Mean Corpuscular HGB Conc 34.5 g/dl (32-36); Mean Corpuscular Hemoglobin 34.5 pg (26-34); Mean Platelet Volume 10.1 fl (7.4-10.4); Monocytes Absolute Auto 2.2 K/mm3 (0.1-0.6); Neutrophils Absolute Auto 7.2 K/mm3 (1.3-6.7); Neutrophils Percent Auto 46.2 % (45.5-73.1); Nucleated Red Blood Cells Absolute Auto 0.8 K/mm3 (0.0-0.012); Nucleated Red Blood Cells Perc 4.9 % (0.0-0.2); Platelet Count Result 209 k/mm3 (150-375); Red Blood Count 1.97 M/mm3 (4.2-5.4); Red Cell Distribution Width 16.7 % (11.5-14.5); Reticulocyte Hemoglobin Conten 38.2 pg (28.2-35.7); Reticulocyte Percent 6.65 % (0.7-4.3); Reticulocytes Absolute 0.13 B/L (32.2-175.7); White Blood Count 15.7 K/mm3 (4.5-10.0)
[2020-02-18 06:10] LABS: Potassium 3.5 mmol/L (3.4-5.0)
[2020-02-18 06:43] LABS: Alanine Aminotransferase 34 U/L (4-35); Albumin Level 3.2 g/dL (3.5-5.1); Alkaline Phosphatase 142 U/L (38-126); Anion Gap 4 mmol/L (8-16); Aspartate Amino Transferase 58 U/L (14-36); Blood Urea Nitrogen 11 mg/dL (7-17); Calcium 7.9 mg/dL (8.4-10.2); Carbon Dioxide 28 mmol/L (22-30); Chloride 108 mmol/L (98-107); Estimated CRCL calculation 113 ml/min; Estimated Glomerular Filt Rate > 60; Glucose 123 mg/dL (65-105); Lactate Dehydrogenase 850 U/L (313-618); Magnesium 1.9 mg/dL (1.6-2.3); Sodium 140 mmol/L (137-145)
[2020-02-18 06:56] LABS: Hematocrit 19.7 % (37.0-47.0); Hemoglobin 6.8 g/dL (12.0-15.0)
[2020-02-18] MEDS: ONDANSETRON INJ 4 MG/2 ML VIAL IV PUSH ×2 (08:54→15:35)
[2020-02-18] MEDS: SODIUM CHLORIDE 0.9% IV 250 ML 30 ML IV CONT (15:24)
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
[2020-02-18] MEDS: diphenhydrAMINE HCl CAP 25 MG CAPSULE PO (15:35)
[2020-02-18] MEDS: polyethylene glycoL 3350 17 GM POWD.PACK PO (17:12)
[2020-02-18 19:27] LABS: Hematocrit 22.6 % (37.0-47.0); Hemoglobin 7.8 g/dL (12.0-15.0)
[2020-02-19] VITALS (7 sets, daily range): BP systolic 112–127; BP diastolic 59–75; PULSE 83–101; RESP 16–18; TEMP 36.2–36.3; O2SAT 95–96
[2020-02-19] MEDS: HYDROmorphone HCL INJ (*CRX) 2 MG/ML VIAL IV PUSH ×2 (01:06→05:24)
[2020-02-19 06:07] LABS: Basophils Absolute Auto 0.1 K/mm3 (0.0-0.1); Basophils Percent Auto 0.9 % (0.2-1.2); Eosinophils Absolute Auto 0.7 K/mm3 (0-0.3); Hematocrit 23.2 % (37.0-47.0); Hemoglobin 7.8 g/dL (12.0-15.0); Immature Granulocyte Absolute 0.13 K/mm3 (0.00-0.031); Immature Granulocyte Percent A 0.9 % (0-0.5); Immature Reticulocyte Fraction 45.1 % (3.0-15.9); Lymphocytes Absolute Auto 6.38 K/mm3 (0.9-3.2); Lymphocytes Percent Auto 44.9 % (18.3-44.2); Mean Corpuscular HGB Conc 33.6 g/dl (32-36); Mean Corpuscular Hemoglobin 33.5 pg (26-34); Mean Corpuscular Volume 99.6 fl (80-100); Mean Platelet Volume 10.4 fl (7.4-10.4); Monocytes Percent Auto 14.2 % (2.6-8.5); Neutrophils Absolute Auto 4.9 K/mm3 (1.3-6.7); Neutrophils Percent Auto 34.1 % (45.5-73.1); Nucleated Red Blood Cells Absolute Auto 1.3 K/mm3 (0.0-0.012); Platelet Count Result 200 k/mm3 (150-375); Red Blood Count 2.33 M/mm3 (4.2-5.4); Red Cell Distribution Width 18.5 % (11.5-14.5); Reticulocyte Hemoglobin Conten 35.9 pg (28.2-35.7); Reticulocyte Percent 8.75 % (0.7-4.3); White Blood Count 14.2 K/mm3 (4.5-10.0)
[2020-02-19 06:16] LABS: Anion Gap 7 mmol/L (8-16); Blood Urea Nitrogen 7 mg/dL (7-17); Calcium 8.6 mg/dL (8.4-10.2); Carbon Dioxide 28 mmol/L (22-30); Chloride 106 mmol/L (98-107); Estimated CRCL calculation 117 ml/min; Estimated Glomerular Filt Rate > 60; Glucose 126 mg/dL (65-105); Lactate Dehydrogenase 714 U/L (313-618); Magnesium 2.2 mg/dL (1.6-2.3); Potassium 3.7 mmol/L (3.4-5.0); Sodium 141 mmol/L (137-145)
[2020-02-19 07:21] LABS: Folic Acid 14.2 ng/mL (2.76->20)
[2020-02-19 08:09] LABS: Platelet Estimate Adequate (Adequate)
[2020-02-19 08:10] LABS: Macrocytosis 1+ (NORMAL); Sickle Cells 1+ (NORMAL); Target Cells 2+ (NORMAL)
[2020-02-19] MEDS: polyethylene glycoL 3350 17 GM POWD.PACK PO (09:16)
[2020-02-19] MEDS: HYDROmorphone HCL INJ (*CRX) 2 MG/ML VIAL 1 MG IV PUSH ×3 (09:18→20:12)
--- NOTE | 2020-02-19 10:34 | PM.IMPN ---
Progress Note: A&P Assessment and Plan (1) Sickle cell pain crisis: Code(s): D57.00 - Hb-SS disease with crisis, unspecified Status: Acute Assessment and Plan: Pain in FABRIZIO lower legs and back, improved. Transition to her home oxycontin and decrease dilaudid dose today for breakthrough pain. Goal to get closer to her home pain regimen to see if she can tolerate. Continue her folic acid. She will benefit from establishing care with hematology outpatient. (2) Anemia: Qualifiers: Anemia type: unspecified type Qualified Code(s): D64.9 - Anemia, unspecified Code(s): D64.9 - Anemia, unspecified Status: Acute Assessment and Plan: Sickle cell anemia, see above. Hgb 6.8 02/17, transfused 1 unit packed RBC. H&H low but stable at 7.8 today. No evidence of acute bleeding. Check stool occult blood. (3) Leukocytosis: Qualifiers: Leukocytosis type: unspecified Qualified Code(s): D72.829 - Elevated white blood cell count, unspecified Code(s): D72.829 - Elevated white blood cell count, unspecified Status: Acute Assessment and Plan: Appears chronic based on review of previous labs. No acute infectious process is suspected at this time. Monitor CBCd. (4) Abnormal chest x-ray: Code(s): R93.89 - Abnormal findings on diagnostic imaging of other specified body structures Status: Acute Assessment and Plan: Chest x-ray demonstrates bibasilar infiltrate vs. atelectasis. Clinically she does not appear to have pneumonia; no cough, shortness of breath, or fever. Encourage incentive spirometry. (5) Facial paresthesia: Code(s): R20.2 - Paresthesia of skin Status: Acute Assessment and Plan: Patient describes right-sided facial paresthesia prior to arrival that lasted several hours and has now resolved, not returned. CT brain is unremarkable. B12 and folate levels within normal limits. Was self-limiting and may have been related to low Hgb. Will monitor. (6) Low back pain: Qualifiers: Chronicity: acute Back pain laterality: bilateral Sciatica presence: without sciatica Qualified Code(s): M54.5 - Low back pain Code(s): M54.5 - Low back pain Status: Acute Assessment and Plan: Lumbar spine XR demonstrates chronic patchy sclerosis through L-spine and pelvis related to her sickle cell disease, moderate DDD L3-4; no acute findings. No bowel/bladder dysfunction or saddle anesthesia. Continue pain regimen above. (7) Hyperglycemia: Code(s): R73.9 - Hyperglycemia, unspecified Status: Acute Assessment and Plan: Hgb A1c 4.6%. Lifestyle modifications encouraged. Subjective Date/time seen: 02/19/20 10:15 Interval history: Ms. Cornejo is a 54yo F admitted for sickle cell pain crisis and anemia. Pain in back and FABRIZIO lower legs is improved compared to yesterday. No further headaches or facial tingling. No chest pain, shortness of breath, or cough. Tolerating oral intake without nausea or vomiting. Slept okay last night. Review of Systems Review of Systems: All systems reviewed & are unremarkable except as noted in HPI and below Exam Narrative: Exam Narrative: General: Female resting comfortably lying on her left side in bed in no acute distress. HEENT: Normocephalic, EOMI, oral mucosa moist. Cardiovascular: Rate and rhythm are regular. No notable murmur, rub, or gallop. Respiratory: Lungs clear to auscultation all morgan. Respirations even and nonlabored. Abdomen: Protuberant but soft, non-tender, non-distended, bowel sounds present. Extremities: Peripheral pulses intact. No edema
[2020-02-19] MEDS: POTASSIUM CHLORIDE 10 MEQ TABLET.ER PO (12:43)
[2020-02-19] MEDS: FUROSEMIDE 40 MG TABLET PO (12:43)
[2020-02-19] MEDS: FOLIC ACID 1 MG TABLET PO (12:43)
[2020-02-19] MEDS: oxyCODONE HCL (*CRX) 10 MG TAB SR 12HR PO (18:26)
[2020-02-20] MEDS: HYDROmorphone HCL INJ (*CRX) 2 MG/ML VIAL 1 MG IV PUSH ×4 (03:27→21:15)
[2020-02-20 04:56] VITALS: BP 100/48; PULSE 80; RESP 18; TEMP 36.1; O2SAT 93
[2020-02-20 06:16] LABS: Basophils Absolute Auto 0.1 K/mm3 (0.0-0.1); Basophils Percent Auto 0.9 % (0.2-1.2); Eosinophils Absolute Auto 0.9 K/mm3 (0-0.3); Eosinophils Percent Auto 6.4 % (0-4.4); Hematocrit 22.7 % (37.0-47.0); Hemoglobin 7.6 g/dL (12.0-15.0); Immature Granulocyte Absolute 0.12 K/mm3 (0.00-0.031); Immature Granulocyte Percent A 0.9 % (0-0.5); Lymphocytes Absolute Auto 5.66 K/mm3 (0.9-3.2); Lymphocytes Percent Auto 40.8 % (18.3-44.2); Mean Corpuscular HGB Conc 33.5 g/dl (32-36); Mean Corpuscular Hemoglobin 33.5 pg (26-34); Mean Platelet Volume 10.2 fl (7.4-10.4); Monocytes Absolute Auto 1.5 K/mm3 (0.1-0.6); Monocytes Percent Auto 10.7 % (2.6-8.5); Neutrophils Absolute Auto 5.6 K/mm3 (1.3-6.7); Neutrophils Percent Auto 40.3 % (45.5-73.1); Nucleated Red Blood Cells Absolute Auto 2.3 K/mm3 (0.0-0.012); Nucleated Red Blood Cells Perc 16.2 % (0.0-0.2); Platelet Count Result 205 k/mm3 (150-375); Red Blood Count 2.27 M/mm3 (4.2-5.4); Red Cell Distribution Width 19.9 % (11.5-14.5); White Blood Count 13.9 K/mm3 (4.5-10.0)
[2020-02-20 06:34] LABS: Anion Gap 2 mmol/L (8-16); Blood Urea Nitrogen 6 mg/dL (7-17); Calcium 8.4 mg/dL (8.4-10.2); Carbon Dioxide 33 mmol/L (22-30); Chloride 104 mmol/L (98-107); Estimated CRCL calculation 116 ml/min; Estimated Glomerular Filt Rate > 60; Glucose 132 mg/dL (65-105); Potassium 3.4 mmol/L (3.4-5.0); Sodium 139 mmol/L (137-145)
[2020-02-20 06:42] LABS: Hypochromasia 3+ (NORMAL); Platelet Estimate Adequate (Adequate)
[2020-02-20 06:43] LABS: Polychromasia 2+ (NORMAL); Sickle Cells 2+ (NORMAL)
[2020-02-20] MEDS: FUROSEMIDE 40 MG TABLET PO (08:49)
[2020-02-20] MEDS: POTASSIUM CHLORIDE 10 MEQ TABLET.ER PO (08:49)
[2020-02-20] MEDS: POTASSIUM CHLORIDE 20 MEQ TABLET PO (08:49)
[2020-02-20] MEDS: polyethylene glycoL 3350 17 GM POWD.PACK PO (08:49)
[2020-02-20] MEDS: FOLIC ACID 1 MG TABLET PO (08:49)
[2020-02-20] MEDS: oxyCODONE HCL (*CRX) 10 MG TAB SR 12HR PO (09:24)
--- NOTE | 2020-02-20 09:30 | PM.IMPN ---
Progress Note: A&P Assessment and Plan (1) Sickle cell pain crisis: Code(s): D57.00 - Hb-SS disease with crisis, unspecified Status: Acute Assessment and Plan: Pain in FABRIZIO lower legs and back, improved. Transition to her home oxycontin and decreased dilaudid dose for breakthrough pain. Goal to get closer to her home pain regimen to see if she can tolerate. Continue her folic acid. She will benefit from establishing care with hematology outpatient. Hopeful for possible discharge tomorrow if her pain is better controlled. (2) Anemia: Qualifiers: Anemia type: unspecified type Qualified Code(s): D64.9 - Anemia, unspecified Code(s): D64.9 - Anemia, unspecified Status: Acute Assessment and Plan: Sickle cell anemia, see above. Hgb 6.8 02/17, transfused 1 unit packed RBC. H&H low but stable at 7.6 today. No evidence of acute bleeding. (3) Leukocytosis: Qualifiers: Leukocytosis type: unspecified Qualified Code(s): D72.829 - Elevated white blood cell count, unspecified Code(s): D72.829 - Elevated white blood cell count, unspecified Status: Acute Assessment and Plan: Appears chronic based on review of previous labs. No acute infectious process is suspected at this time. Monitor CBCd. (4) Abnormal chest x-ray: Code(s): R93.89 - Abnormal findings on diagnostic imaging of other specified body structures Status: Acute Assessment and Plan: Chest x-ray demonstrates bibasilar infiltrate vs. atelectasis. Clinically she does not appear to have pneumonia; no cough, shortness of breath, or fever. Encourage incentive spirometry. (5) Facial paresthesia: Code(s): R20.2 - Paresthesia of skin Status: Acute Assessment and Plan: Patient describes right-sided facial paresthesia prior to arrival that lasted several hours and has now resolved, not returned. CT brain is unremarkable. B12 and folate levels within normal limits. Was self-limiting and may have been related to low Hgb. Will monitor. (6) Low back pain: Qualifiers: Chronicity: acute Back pain laterality: bilateral Sciatica presence: without sciatica Qualified Code(s): M54.5 - Low back pain Code(s): M54.5 - Low back pain Status: Acute Assessment and Plan: Lumbar spine XR demonstrates chronic patchy sclerosis through L-spine and pelvis related to her sickle cell disease, moderate DDD L3-4; no acute findings. No bowel/bladder dysfunction or saddle anesthesia. Continue pain regimen above. (7) Hyperglycemia: Code(s): R73.9 - Hyperglycemia, unspecified Status: Acute Assessment and Plan: Hgb A1c 4.6%. Lifestyle modifications encouraged. Subjective Date/time seen: 02/20/20 09:15 Interval history: Ms. Cornejo is a 54yo F admitted for sickle cell pain crisis and anemia. Her pain in lower back and FABRIZIO legs is improved compared to days prior. She slept okay last night. No headaches today. No chest pain, shortness of breath, or cough. She has tolerated breakfast without nausea or vomiting. Review of Systems Review of Systems: All systems reviewed & are unremarkable except as noted in HPI and below Exam Narrative: Exam Narrative: General: Female resting comfortably lying on her left side in bed in no acute distress. HEENT: Normocephalic, EOMI, oral mucosa moist. Cardiovascular: Rate and rhythm are regular. No notable murmur, rub, or gallop. Respiratory: Lungs clear to auscultation all morgan. Respirations even and nonlabored. Abdomen: Protuberant but soft, non-tender, non-distended, bowel sounds present. Extremit
[2020-02-20 14:00] VITALS: BP 121/69; PULSE 70; RESP 16; TEMP 35.9; O2SAT 97
--- NOTE | 2020-02-20 16:41 | PC.NURSE ---
Spoke with MITA Aviles about the patient's wishes to be discharged today, or tomorrow. Patient asked to be observed over night and possibly go home in the morning. Traci is aware and has agreed to this.
--- NOTE | 2020-02-20 18:01 | PC.NURSE ---
Per hospitalist patient needs to be given oral pain medication first. Patient refuses oral medication at this time and is still asking for Dilaudid. Two doses given today. Education given on the importance of utilizing the oral medications to have a quicker discharge and make sure home medications will control her pain.
[2020-02-20 19:35] VITALS: BP 111/69; PULSE 72; RESP 16; TEMP 36.7; O2SAT 98
[2020-02-21] MEDS: HYDROmorphone HCL INJ (*CRX) 2 MG/ML VIAL 1 MG IV PUSH (01:52)
[2020-02-21 05:39] LABS: Hematocrit 24.8 % (37.0-47.0); Hemoglobin 8.3 g/dL (12.0-15.0); Immature Reticulocyte Fraction 49.3 % (3.0-15.9); Mean Corpuscular HGB Conc 33.5 g/dl (32-36); Mean Corpuscular Hemoglobin 34.3 pg (26-34); Mean Corpuscular Volume 102.5 fl (80-100); Mean Platelet Volume 10.2 fl (7.4-10.4); Platelet Count Result 222 k/mm3 (150-375); Red Blood Count 2.42 M/mm3 (4.2-5.4); Red Cell Distribution Width 20.9 % (11.5-14.5); Reticulocyte Hemoglobin Conten 35.6 pg (28.2-35.7); Reticulocyte Percent 12.49 % (0.7-4.3); White Blood Count 13.4 K/mm3 (4.5-10.0)
[2020-02-21 05:46] VITALS: BP 135/67; PULSE 67; RESP 12; TEMP 35.9; O2SAT 98
[2020-02-21 06:00] LABS: Blood Urea Nitrogen 7 mg/dL (7-17); Calcium 8.5 mg/dL (8.4-10.2); Carbon Dioxide 32 mmol/L (22-30); Estimated CRCL calculation 101 ml/min; Estimated Glomerular Filt Rate > 60; Glucose 119 mg/dL (65-105)
[2020-02-21 06:02] LABS: Eosinophils Absolute Manual 1.47 K/mm3 (0.02-0.5); Eosinophils Percent Manual 11 % (0-4); Lymphocytes Absolute Manual 4.95 K/mm3 (1.1-4.5); Metamyelocytes Percent 2 %; Monocytes Absolute Manual 1.07 K/mm3 (0.1-0.90); Monocytes Percent Manual 8 % (3-9); Neutrophils Percent Manual 42 % (46-73); Nucleated Red Blood Cells 29 %; Total Cells Counted 100
[2020-02-21 06:05] LABS: Platelet Estimate Adequate (Adequate); Polychromasia 1+ (NORMAL); Sickle Cells 1+ (NORMAL)
[2020-02-21 06:06] LABS: Ovalocytes 1+ (NORMAL); Stomatocytes 1+ (NORMAL); Target Cells 1+ (NORMAL)
[2020-02-21 06:12] LABS: Anion Gap 1 mmol/L (8-16); Chloride 107 mmol/L (98-107); Sodium 140 mmol/L (137-145)
[2020-02-21] MEDS: FOLIC ACID 1 MG TABLET PO (08:59)
[2020-02-21] MEDS: polyethylene glycoL 3350 17 GM POWD.PACK PO (09:00)
[2020-02-21] MEDS: FUROSEMIDE 40 MG TABLET PO (09:00)
[2020-02-21] MEDS: oxyCODONE HCL (*CRX) 10 MG TAB SR 12HR PO (09:00)
[2020-02-21] MEDS: POTASSIUM CHLORIDE 10 MEQ TABLET.ER PO (09:00)
[2020-02-21 14:00] VITALS: BP 134/73; PULSE 71; RESP 16; TEMP 36.6; O2SAT 100
--- NOTE | 2020-02-21 15:33 | PM.DS ---
DS: Admitting Diagnosis Admitting Diagnosis Admitting Diagnosis: Sickle cell pain crisis DS: Discharge Diagnosis Discharge Diagnosis (1) Sickle cell pain crisis: Code(s): D57.00 - Hb-SS disease with crisis, unspecified Status: Acute Assessment and Plan: Date of Service 02/21/20 Ms. Cornejo is a pleasant 54yo F with heart failure and sickle cell disease who presented to the ED for evaluation of pain. Her pain was mostly concentrated in her lower back and bilateral lower legs and not relieved by her home oxycontin regimen. She described that the cold weather brought on significant pain. XR of lumbar spine demonstrates patchy sclerosis throughout L spine, pelvis and femoral heads without evidence of osteonecrosis. Hgb down to 6.8 and she received one unit of packed RBC 02/17. She has not yet established with a forming department supervisor and I have provided her Dr Longoria's information for follow-up. She was treated with IV dilaudid and IV fluids. She does have heart failure so IV fluids were discontinued when she was tolerating oral intake without issues. She was transitioned back onto her home oxycontin regimen and dilaudid was weaned. She was feeling improved with the therapy outlined above and was hemodynamically stable for discharge home on 02/21/20 with instructions to call Dr Longoria's office to set up an appointment as soon as possible. Pain in FABRIZIO lower legs and back, improved. Continue her folic acid. She will benefit from establishing care with hematology outpatient. Pain control with dilaudid and her home oxycontin. (2) Anemia: Qualifiers: Anemia type: unspecified type Qualified Code(s): D64.9 - Anemia, unspecified Code(s): D64.9 - Anemia, unspecified Status: Acute Assessment and Plan: Sickle cell anemia, see above. Hgb 6.8 02/17, transfused 1 unit packed RBC. H&H low but stable at 8.3 today. No acute bleeding. (3) Leukocytosis: Qualifiers: Leukocytosis type: unspecified Qualified Code(s): D72.829 - Elevated white blood cell count, unspecified Code(s): D72.829 - Elevated white blood cell count, unspecified Status: Acute Assessment and Plan: Appears chronic based on review of previous labs. No acute infectious process is suspected at this time. (4) Abnormal chest x-ray: Code(s): R93.89 - Abnormal findings on diagnostic imaging of other specified body structures Status: Acute Assessment and Plan: Chest x-ray demonstrates bibasilar infiltrate vs. atelectasis. Clinically she does not appear to have pneumonia; no cough, shortness of breath, or fever. Encourage incentive spirometry. (5) Facial paresthesia: Code(s): R20.2 - Paresthesia of skin Status: Acute Assessment and Plan: Patient describes right-sided facial paresthesia prior to arrival that lasted several hours and has now resolved, not returned. CT brain is unremarkable. B12 and folate levels within normal limits. Was self-limiting and may have been related to low Hgb. (6) Low back pain: Qualifiers: Chronicity: acute Back pain laterality: bilateral Sciatica presence: without sciatica Qualified Code(s): M54.5 - Low back pain Code(s): M54.5 - Low back pain Status: Acute Assessment and Plan: Lumbar spine XR demonstrates chronic patchy sclerosis through L-spine and pelvis related to her sickle cell disease, moderate DDD L3-4; no acute findings. No bowel/bladder dysfunction or saddle anesthesia. Continue pain regimen above. (7) Hyperglycemia: Code(s): R73.9 - Hyperglycemia, unspecified Status: Acute Assessment
== END 2020-02-21 16:50 | disposition home or self-care (01) | DRG 812 ==
LOC: ANHED 08:26 → ANH3MED 11:39
PROVIDERS: Emergency Medicine; Physician Assistant; Admitting Provider Family Medicine; Emergency Provider Emergency Medicine; Visit Provider Internal Medicine
DX: D57.00 Hb-SS disease with crisis, unspecified (principal); I50.32 Chronic diastolic (congestive) heart failure; Z23 Encounter for immunization; J45.909 Unspecified asthma, uncomplicated; K21.9 Gastro-esophageal reflux disease without esophagitis; D72.829 Elevated white blood cell count, unspecified; R20.2 Paresthesia of skin; M54.5 Low back pain; R93.89 Abnormal findings on diagnostic imaging of other specified body structures; D64.9 Anemia, unspecified; R73.9 Hyperglycemia, unspecified; Z90.722 Acquired absence of ovaries, bilateral; Z87.891 Personal history of nicotine dependence; Z90.49 Acquired absence of other specified parts of digestive tract; Z90.710 Acquired absence of both cervix and uterus
CPT/HCPCS: 36415; 36430; 70450; 71045; 72100; 80048; 80053; 81001; 82607; 82746; 83036; 83605; 83615; 83735; 83880; 84484; 85014; 85018; 85025; 85046; 86850; 86900; 86901; 86902; 86922; 87040; 87045; 87046; 87427; 90471; 90653; 93005; 96361; 96374; 96375; 96376; 99285; A9270; G0008; G0378; J0131; J1170; J2405; J7030; J7050; P9016

== ENCOUNTER 2021-02-01 12:36 | Emergency (ER) | payer MEDICARE, MEDICAID, SELFPAY ==
--- NOTE | ~2021-02-01 | XR_ITS ---
EXAMINATION: XR chest 1V portable EXAM DATE: 02/01/2021 15:56 INDICATION: Midsternal chest pain. Sickle cell crisis. TECHNIQUE: Portable AP frontal chest x-ray was obtained. Comparison is made to prior examination from 02/17/2020. FINDINGS: There is ill-defined and confluent bilateral airspace disease, differential diagnosis inclu ding edema and pneumonia. Mild cardiomegaly. Pulmonary vascular congestion. No pneumothorax or sizabl e pleural effusion. Dense bones, bilateral humeral head chronic bone infarcts. Compared to prior stud y, the airspace disease has developed. IMPRESSION: 1. Ill-defined bilateral edema or pneumonia. Reviewed, dictated and finalized at location A. INSERTER
[2021-02-01 12:53] VITALS: BP 140/88; PULSE 62; RESP 16; TEMP 36.6; O2SAT 98
[2021-02-01 15:18] VITALS: BP 110/66; PULSE 74; RESP 18; O2SAT 98
--- NOTE | 2021-02-01 15:41 | ECG_ITS ---
Measurements Intervals [place] Rate: 64 P: 56 NV: 217 QRS: 66 QRSD: 88 T: 76 QT: 410 QTc: 424 Interpretive Statements SINUS RHYTHM WITH FIRST DEGREE AV BLOCK NONSPECIFIC T-WAVE ABNORMALITY- ANT/HIGH LAT LEADS BASELINE ARTIFACT- I, II ,III ,AVR, AVL, AVF, V4-V6 ABNORMAL ECG Electronically Signed On 02-01-2021 18:39:56 EMERGENCY SERVICE WORKER by Abner Alonso D.O.
--- NOTE | 2021-02-01 15:47 | ED.GENADULT ---
HPI - General Adult General Chief complaint: Unspecified <Brad Pearson MD - Last Filed: 02/01/21 18:44> Stated complaint: sickle cell <Brad Pearson MD - Last Filed: 02/01/21 18:44> Time Seen by Provider: 02/01/21 15:13 <Brad Pearson MD - Last Filed: 02/01/21 18:44> Source: patient <Brad Pearson MD - Last Filed: 02/01/21 18:44> Mode of arrival: ambulatory <Brad Pearsno MD - Last Filed: 02/01/21 18:44> Limitations: no limitations <Brad Pearson MD - Last Filed: 02/01/21 18:44> History of Present Illness HPI narrative: Patient is 55 years old -Citizen Of The [place] female presented to the ED complaining of hurting all over mainly chest, knees, hips and back started last night. Patient reports having frequent similar symptoms secondary to sickle cell crisis. Last crisis was November 2020. Currently patient on oxycodone 15 mg 3 times daily as needed for pain. Patient reports when she come to the hospital she received Dilaudid. Patient denies any fever, chills, nausea, vomiting, shortness of breath. Patient is fully vaccinated for COVID-19. History of Covid infection with pneumonia bilaterally. Patient was sick for September, October and November. <Brad Pearson MD - Last Filed: 02/01/21 18:44> Related Data Home medications: Home Medications Medication Instructions Recorded Confirmed folic acid 1 mg PO DAILY 03/23/19 02/17/20 furosemide 40 mg PO DAILY 03/23/19 02/17/20 oxycodone 15 mg PO TID PRN 03/23/19 02/17/20 potassium chloride 10 meq PO DAILY 03/23/19 02/17/20 zolpidem 10 mg PO DAILY 03/23/19 02/17/20 <Brad Pearson MD - Last Filed: 02/01/21 18:44> Allergies/adverse reactions: Allergies Allergy/AdvReac Type Severity Reaction Status Date / Time ketorolac Allergy Unknown Unknown Verified 02/17/20 12:25 piperacillin Allergy Unknown Unknown Verified 02/17/20 12:25 codeine Allergy Hives Verified 02/17/20 12:25 tylenol #4 Allergy Unknown Unknown Uncoded 07/13/19 17:28 <Brad Pearson MD - Last Filed: 02/01/21 18:44> Review of Systems Review of Systems: CONSTITUTIONAL: Denies fever, chills, or sweats. EYES: Denies visual changes, redness, or discharge. ENT: Denies rhinorrhea, congestion, sore throat, or otalgia. CARDIOVASCULAR: Denies chest pain, palpitations, or edema. RESPIRATORY: Denies cough or dyspnea. GASTROINTESTINAL: Denies abdominal pain, nausea, vomiting, or diarrhea. GENITOURINARY: Denies dysuria or hematuria. SKIN: Denies rash or itching. MUSCULOSKELETAL: Denies back pain, joint pain, or myalgia. NEUROLOGIC: Denies headache, numbness, or weakness. PSYCHIATRIC: Denies anxiety or depression. <Brad Pearson MD - Last Filed: 02/01/21 18:44> [facility] Past Medical History Medical History: Medical History Asthma Diastolic congestive heart failure Echocardiogram in March 2019 showed normal left ventricular systolic function with an EF > 70% and grade 1 diastolic dysfunction. Gastroesophageal reflux disease History of urinary tract infection Sickle cell anemia Hemoglobin SS. <Brad Pearson MD - Last Filed: 02/01/21 18:44> Surgical History Surgical History: Surgical History Status post cholecystectomy (~2009) Status post hip surgery Bilateral hip decompression. Status post total hysterectomy and bilateral salpingo-oophorectomy (~2001) <Bard Pearson MD - Last Filed: 02/01/21 18:44> Family History Family History: Family History Other Diabetes mellitus Heart disease Multiple myeloma Sickle cell trait <Brad Pearson MD - Last Filed: 02/01/21 18:44> Social History Social History: Social History Social History: The patient lives in [place]. She smoked 1 pack of cigarettes a week and quit in 2017. She drinks
--- NOTE | 2021-02-01 16:14 | PC.NURSE ---
This RN into pts room to start IV. Pt states I am a hard stick and they need to use the ultrasound machine on me . Informed charge nurse of this and asked RN that is qualified to do ultra sound IVs to go into pts room.
[2021-02-01] MEDS: ONDANSETRON INJ 4 MG/2 ML VIAL IV PUSH (17:20)
[2021-02-01] MEDS: HYDROmorphone HCL INJ (*CRX) 1 MG/ML SYR 0.5 MG IV PUSH ×2 (17:21→19:05)
[2021-02-01] MEDS: SODIUM CHLORIDE 0.9% IV 1,000 ML 999 ML IV CONT (17:22)
[2021-02-01 17:41] LABS: Basophils Absolute Auto 0.1 K/mm3 (0.0-0.1); Basophils Percent Auto 0.8 % (0.2-1.2); Eosinophils Percent Auto 0.3 % (0-4.4); Hematocrit 31.2 % (37.0-47.0); Immature Granulocyte Absolute 0.11 K/mm3 (0.00-0.031); Immature Granulocyte Percent A 0.7 % (0-0.5); Immature Reticulocyte Fraction 32.5 % (3.0-15.9); Lymphocytes Absolute Auto 5.11 K/mm3 (0.9-3.2); Lymphocytes Percent Auto 32.3 % (18.3-44.2); Mean Corpuscular HGB Conc 35.3 g/dl (32-36); Mean Corpuscular Volume 93.7 fl (80-100); Mean Platelet Volume 10.4 fl (7.4-10.4); Monocytes Absolute Auto 1.2 K/mm3 (0.1-0.6); Monocytes Percent Auto 7.8 % (2.6-8.5); Neutrophils Absolute Auto 9.2 K/mm3 (1.3-6.7); Neutrophils Percent Auto 58.1 % (45.5-73.1); Nucleated Red Blood Cells Perc 0.3 % (0.0-0.2); Platelet Count Result 304 k/mm3 (150-375); Red Blood Count 3.33 M/mm3 (4.2-5.4); Red Cell Distribution Width 12.4 % (11.5-14.5); Reticulocyte Hemoglobin Conten 37.4 pg (28.2-35.7); Reticulocyte Percent 5.13 % (0.7-4.3); Reticulocytes Absolute 0.17 B/L (32.2-175.7); White Blood Count 15.8 K/mm3 (4.5-10.0)
[2021-02-01 17:57] LABS: Alanine Aminotransferase 25 U/L (4-35); Albumin Level 4.3 g/dL (3.5-5.1); Alkaline Phosphatase 129 U/L (38-126); Anion Gap 10 mmol/L (8-16); Aspartate Amino Transferase 39 U/L (14-36); Bilirubin,Total 1.1 mg/dL (0.2-1.3); Blood Urea Nitrogen 6 mg/dL (7-17); Calcium 8.5 mg/dL (8.4-10.2); Carbon Dioxide 24 mmol/L (22-30); Chloride 109 mmol/L (98-107); Estimated CRCL calculation 104 ml/min; Estimated Glomerular Filt Rate > 60; Glucose 103 mg/dL (65-110); Potassium 3.1 mmol/L (3.4-5.0); Sodium 143 mmol/L (137-145)
[2021-02-01 18:06] LABS: Add Urine Microscopic? YES; Appearance Urine Cloudy (Clear); Bacteria Urine Trace /hpf; Bilirubin Urine Negative (Negative); Blood Urine Negative (Negative); Color Urine Yellow (Yellow); Glucose Urine UA Negative (Negative); Ketones Urine Negative (Negative); Leukocyte Esterase Ur 1+ LEU/UL (Negative); Mucus Urine Rare /lpf; Nitrate Urine Negative (Negative); Protein Urine Negative (Negative); Specific Grav Ur 1.008 (1.001-1.035); Squamous Epithelial Cell Urine Many /hpf (Few); Urobilinogen Urine Negative mg/dL (<2.0)
[2021-02-01 18:17] LABS: Atypical Lymphocytes Present; Hypochromasia 1+ (NORMAL); Platelet Estimate Adequate (Adequate); Sickle Cells 1+ (NORMAL); Target Cells 1+ (NORMAL)
[2021-02-01] MEDS: POTASSIUM CHLORIDE 20 MEQ TABLET 40 MEQ PO (19:05)
[2021-02-01 20:52] VITALS: BP 112/58; PULSE 64; RESP 18; O2SAT 100
--- NOTE | 2021-02-01 20:53 | PC.NURSE ---
Spoke to Krystin at [facility]...she is continuing to escalate/find consult for doctor.
[2021-02-01] MEDS: HYDROmorphone HCL INJ (*CRX) 1 MG/ML SYR IV PUSH (21:35)
[2021-02-01 21:40] VITALS: BP 119/62; PULSE 63; RESP 18; O2SAT 99
== END 2021-02-01 21:42 | disposition home or self-care (01) ==
PROVIDERS: Emergency Medicine; Emergency Provider Emergency Medicine
DX: D57.00 Hb-SS disease with crisis, unspecified (principal); E87.6 Hypokalemia; I50.30 Unspecified diastolic (congestive) heart failure; Z86.16 Personal history of COVID-19; Z87.09 Personal history of other diseases of the respiratory system; Z87.440 Personal history of urinary (tract) infections; Z87.891 Personal history of nicotine dependence
CPT/HCPCS: 36415; 71045; 80053; 81001; 85025; 85046; 93005; 96361; 96374; 96375; 96376; 99284; A9270; J1170; J2405; J7030

== ENCOUNTER 2021-02-02 10:01 | Inpatient (IN) | payer MEDICARE, MEDICAID, SELFPAY ==
[2021-02-02] VITALS (18 sets, daily range): BP systolic 118–128; BP diastolic 55–108; PULSE 63–86; RESP 15–28; TEMP 36.7–36.9; O2SAT 97–100; BMI 35.2
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
--- NOTE | ~2021-02-02 | CT_ITS ---
EXAMINATION: CTA chest PE protocol DATE: 02/02/2021 21:44 INDICATION: Sickle cell pain crisis, chest pain TECHNIQUE: Computed tomography angiography (CTA) of the chest was performed with 100 mL Omnipaque-350 intravenous contrast timed to evaluate the pulmonary arteries. Coronal maximum intensity projection 3D-reconstructions were created by the technologist. The dose-length product (DLP) was 411.37 mGy-cm. Automated exposure control and iterative reconstruction technique were employed. COMPARISON: 07/14/2019 FINDINGS: The pulmonary arteries are well-opacified. No pulmonary embolism is identified. There are p atchy airspace opacities throughout the lungs. There is no pneumothorax. There are trace pleural effu sions. Cardiomegaly is noted. There are no pathologically enlarged thoracic lymph nodes. There is pat afshin sclerosis of all the visualized bones, consistent with history of sickle cell. The spleen is shru nken and calcified, also consistent with sickle cell. IMPRESSION: 1. No pulmonary embolism. 2. Patchy bilateral airspace opacities which could reflect pneumonia. 3. Sequela of sickle cell disease. Reviewed, dictated and finalized at location A. T EXPERIENCE MANAGER
--- NOTE | 2021-02-02 11:45 | ED.GENADULT ---
HPI - General Adult General Chief complaint: Unspecified Stated complaint: pain due to sickle cell Time Seen by Provider: 02/02/21 10:40 Source: patient Mode of arrival: ambulatory Limitations: no limitations History of Present Illness HPI narrative: Patient presents for evaluation of what she states is a sickle cell crisis. She has an underlying history of sickle cell disease and is under the care of Dr Topete. She is currently on oxbryta and folic acid. She is also prescribed #90 qty of oxycodone 15mg per month. She states that she hurts all over . Her symptoms started two days ago. She was seen here yesterday and states that admission was advised but she declined at that time. She states in the past she has required dilaudid when she comes to the hospital. Zofran and supplemental O2 seem to help her. No additional complaints or concerns. Related Data Home Medications Medication Instructions Recorded Confirmed folic acid 1 mg PO DAILY 03/23/19 02/17/20 furosemide 40 mg PO DAILY 03/23/19 02/17/20 oxycodone 15 mg PO TID PRN 03/23/19 02/17/20 potassium chloride 10 meq PO DAILY 03/23/19 02/17/20 zolpidem 10 mg PO DAILY 03/23/19 02/17/20 Allergies Allergy/AdvReac Type Severity Reaction Status Date / Time ketorolac Allergy Unknown Unknown Verified 02/17/20 12:25 piperacillin Allergy Unknown Unknown Verified 02/17/20 12:25 codeine Allergy Hives Verified 02/17/20 12:25 tylenol #4 Allergy Unknown Unknown Uncoded 07/13/19 17:28 Review of Systems Review of Systems: CONSTITUTIONAL: Denies fever, chills, or sweats. EYES: Denies visual changes, redness, or discharge. ENT: Denies rhinorrhea, congestion, sore throat, or otalgia. CARDIOVASCULAR: Denies chest pain, palpitations, or edema. RESPIRATORY: Denies cough or dyspnea. GASTROINTESTINAL: Denies abdominal pain, nausea, vomiting, or diarrhea. GENITOURINARY: Denies dysuria or hematuria. SKIN: Denies rash or itching. MUSCULOSKELETAL: Reports pain all over NEUROLOGIC: Denies headache, numbness, dizziness, or weakness. PSYCHIATRIC: Denies anxiety or depression. [facility] Past Medical History Medical History Asthma Diastolic congestive heart failure Echocardiogram in March 2019 showed normal left ventricular systolic function with an EF > 70% and grade 1 diastolic dysfunction. Gastroesophageal reflux disease History of urinary tract infection Sickle cell anemia Hemoglobin SS. Surgical History Surgical History Status post cholecystectomy (~2009) Status post hip surgery Bilateral hip decompression. Status post total hysterectomy and bilateral salpingo-oophorectomy (~2001) Family History Family History Other Diabetes mellitus Heart disease Multiple myeloma Sickle cell trait Social History Social History Social History: The patient lives in [place]. She smoked 1 pack of cigarettes a week and quit in 2017. She drinks socially and in moderation. No drug use. Emergency contact is her son, Jakob Ventura. She wishes to be a full code. Smoking status: Former smoker Tobacco type: cigarettes Smoking end date: 06/21/17 Alcohol intake: current Drinks per week: 1 Substance use: never Substance use type: does not use Gender identity (if verbalized by the patient): Female Spiritual care concerns: No Agree to blood products: No Exam Narrative: GENERAL: Visibly uncomfortable. Well-nourished, and in no acute distress. HEAD: Normocephalic, atraumatic. EYES: PERRLA and EOMI. ENT: Nares clear, no rhinorrhea or epistaxis. Mucous membranes moist. Oropharynx without tonsillar hypertrophy exudate or other lesions. Bilateral TMs pearly vera nonbulging NECK: Supple. No adenopathy or masses. No carotid bruit
--- NOTE | 2021-02-02 11:48 | ECG_ITS ---
Measurements Intervals [place] Rate: 63 P: 43 GA: 204 QRS: 77 QRSD: 89 T: 66 QT: 427 QTc: 440 Interpretive Statements SINUS RHYTHM WITH SINUS ARRHYTHMIA BASELINE ARTIFACT- I, II, III, AVR, AVL, AVF NORMAL ECG Electronically Signed On 02-02-2021 15:14:50 FIRESTOP/CONTAINMENT WORKER by Abner Alonso D.O.
--- NOTE | 2021-02-02 12:10 | PC.NURSE ---
Attempted to get an IV,another RN will attempted ultrasound IV
[2021-02-02 12:50] LABS: Basophils Absolute Auto 0.2 K/mm3 (0.0-0.1); Basophils Percent Auto 1.1 % (0.2-1.2); Eosinophils Absolute Auto 0.6 K/mm3 (0-0.3); Eosinophils Percent Auto 3.3 % (0-4.4); Hematocrit 31.1 % (37.0-47.0); Hemoglobin 11.2 g/dL (12.0-15.0); Immature Granulocyte Absolute 0.12 K/mm3 (0.00-0.031); Immature Granulocyte Percent A 0.7 % (0-0.5); Lymphocytes Absolute Auto 6.54 K/mm3 (0.9-3.2); Lymphocytes Percent Auto 38.2 % (18.3-44.2); Mean Corpuscular Hemoglobin 33.8 pg (26-34); Mean Platelet Volume 10.3 fl (7.4-10.4); Monocytes Percent Auto 11.4 % (2.6-8.5); Neutrophils Absolute Auto 7.8 K/mm3 (1.3-6.7); Neutrophils Percent Auto 45.3 % (45.5-73.1); Nucleated Red Blood Cells Absolute Auto 0.1 K/mm3 (0.0-0.012); Nucleated Red Blood Cells Perc 0.4 % (0.0-0.2); Platelet Count Result 312 k/mm3 (150-375); Red Blood Count 3.31 M/mm3 (4.2-5.4); Red Cell Distribution Width 12.4 % (11.5-14.5); Reticulocyte Hemoglobin Conten 37.4 pg (28.2-35.7); Reticulocyte Percent 4.81 % (0.7-4.3); Reticulocytes Absolute 0.16 B/L (32.2-175.7); White Blood Count 17.1 K/mm3 (4.5-10.0)
[2021-02-02] MEDS: SODIUM CHLORIDE 0.9% IV 1,000 ML 999 ML IV CONT (13:00)
[2021-02-02] MEDS: HYDROmorphone HCL INJ (*CRX) 1 MG/ML SYR IV PUSH ×3 (13:01→20:38)
[2021-02-02] MEDS: ONDANSETRON INJ 4 MG/2 ML VIAL IV PUSH (13:01)
[2021-02-02 13:04] LABS: Alanine Aminotransferase 25 U/L (4-35); Albumin Level 4.2 g/dL (3.5-5.1); Alkaline Phosphatase 137 U/L (38-126); Anion Gap 9 mmol/L (8-16); Aspartate Amino Transferase 40 U/L (14-36); Bilirubin,Total 1.4 mg/dL (0.2-1.3); Blood Urea Nitrogen 8 mg/dL (7-17); Calcium 8.5 mg/dL (8.4-10.2); Carbon Dioxide 25 mmol/L (22-30); Chloride 109 mmol/L (98-107); Estimated CRCL calculation 90 ml/min; Estimated Glomerular Filt Rate > 60; Glucose 97 mg/dL (65-110); Magnesium 1.8 mg/dL (1.6-2.3); Potassium 3.2 mmol/L (3.4-5.0); Sodium 143 mmol/L (137-145)
[2021-02-02 13:08] LABS: Platelet Estimate Adequate (Adequate)
[2021-02-02 13:09] LABS: Atypical Lymphocytes Present; Sickle Cells 1+ (NORMAL); Target Cells 1+ (NORMAL)
[2021-02-02 13:10] LABS: Giant Platelets Present
[2021-02-02 13:13] LABS: NT Pro B Type Natriuretic Pept 299 pg/mL (5-100)
[2021-02-02 13:53] LABS: CRP 0.5 mg/dL (<1.0)
[2021-02-02] MEDS: POTASSIUM CHLORIDE 20 MEQ TABLET 40 MEQ PO (13:53)
[2021-02-02 14:06] LABS: Erythrocyte Sedimentation Rate 30 mm/hr (0-20)
--- NOTE | 2021-02-02 15:14 | PC.NURSE ---
Attempted to call and give report to [facility] no answer
[2021-02-02] MEDS: SODIUM CHLORIDE 0.9% IV 1,000 ML 125 ML IV CONT (15:15)
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
--- NOTE | 2021-02-02 15:50 | ADMGEN ---
This patient, Isabelle Cornejo, was admitted to Medical Room 342-01. Patient/family oriented to hospital policies and general routines including ID bracelet, bed and alarms, visiting hours, pain management, procedures, bathroom and other care routines, personal items, smoking policy, room service/diet, and visiting hours. Information on how to activate the Rapid Response Team has been discussed. Patient/Family are encouraged to report perceived risks to care and to ask questions if they do not understand what they are told or what they should do.
--- NOTE | 2021-02-02 15:53 | PC.NURSE ---
Was called about an SBAR at the start of my lunch at 1455. RN was informed I was at lunch and would call for report as soon as I got back. RN still tried to call for report 2 times. I called for report at 1530 when I had returned from lunch and was informed that the RN had called Kimmy, the charge nurse, to give report to instead.
[2021-02-02] MEDS: FOLIC ACID 1 MG TABLET PO (21:52)
[2021-02-02] MEDS: ZOLPIDEM TARTRATE (*CRX) 5 MG TABLET 10 MG PO (21:52)
[2021-02-02] MEDS: POTASSIUM CHLORIDE 10 MEQ TABLET.ER PO (21:52)
[2021-02-02] MEDS: ENOXAPARIN 40 MG/0.4 ML SYRINGE SUB-Q (21:52)
[2021-02-03] MEDS: SODIUM CHLORIDE 0.9% IV 1,000 ML 125 ML IV CONT (00:31)
[2021-02-03] MEDS: HYDROmorphone HCL INJ (*CRX) 1 MG/ML SYR IV PUSH ×5 (05:47→19:59)
[2021-02-03 05:50] VITALS: BP 102/46; PULSE 78; RESP 17; TEMP 36.4; O2SAT 98
[2021-02-03 06:01] LABS: Basophils Absolute Auto 0.1 K/mm3 (0.0-0.1); Basophils Percent Auto 0.8 % (0.2-1.2); Eosinophils Absolute Auto 0.6 K/mm3 (0-0.3); Eosinophils Percent Auto 3.8 % (0-4.4); Hematocrit 29.3 % (37.0-47.0); Hemoglobin 10.5 g/dL (12.0-15.0); Immature Granulocyte Absolute 0.09 K/mm3 (0.00-0.031); Immature Granulocyte Percent A 0.6 % (0-0.5); Lymphocytes Absolute Auto 6.67 K/mm3 (0.9-3.2); Lymphocytes Percent Auto 44.8 % (18.3-44.2); Mean Corpuscular HGB Conc 35.8 g/dl (32-36); Mean Corpuscular Hemoglobin 33.2 pg (26-34); Mean Corpuscular Volume 92.7 fl (80-100); Mean Platelet Volume 10.7 fl (7.4-10.4); Monocytes Absolute Auto 1.8 K/mm3 (0.1-0.6); Monocytes Percent Auto 11.7 % (2.6-8.5); Neutrophils Absolute Auto 5.7 K/mm3 (1.3-6.7); Neutrophils Percent Auto 38.3 % (45.5-73.1); Nucleated Red Blood Cells Absolute Auto 0.1 K/mm3 (0.0-0.012); Nucleated Red Blood Cells Perc 0.5 % (0.0-0.2); Platelet Count Result 287 k/mm3 (150-375); Red Blood Count 3.16 M/mm3 (4.2-5.4); Red Cell Distribution Width 12.2 % (11.5-14.5); White Blood Count 14.9 K/mm3 (4.5-10.0)
[2021-02-03 06:13] LABS: Anion Gap 8 mmol/L (8-16); Blood Urea Nitrogen 7 mg/dL (7-17); Calcium 8.2 mg/dL (8.4-10.2); Carbon Dioxide 22 mmol/L (22-30); Chloride 112 mmol/L (98-107); Estimated CRCL calculation 106 ml/min; Estimated Glomerular Filt Rate > 60; Glucose 120 mg/dL (65-110); Lactate Dehydrogenase 428 U/L (313-618); Magnesium 1.8 mg/dL (1.6-2.3); Potassium 3.4 mmol/L (3.4-5.0); Sodium 142 mmol/L (137-145)
[2021-02-03] MEDS: FUROSEMIDE 40 MG TABLET PO (08:40)
[2021-02-03] MEDS: SODIUM CHLORIDE 0.9% IV 1,000 ML 100 ML IV CONT (08:43)
[2021-02-03] MEDS: POTASSIUM CHLORIDE 20 MEQ TABLET 40 MEQ PO (09:17)
--- NOTE | 2021-02-03 11:05 | PM.IMPN ---
Progress Note: A&P Assessment and Plan (1) Sickle cell pain crisis: Code(s): D57.00 - Hb-SS disease with crisis, unspecified Status: Acute Assessment and Plan: She has been in a sickle cell pain crisis for the last 2 days. She reports continuing to have diffuse pain at this time without any improvement. Will continue IV Dilaudid which will be continued q.3 hours as needed. She is being judiciously hydrated, will continue at 70 cc/hr with close monitoring of volume status. Hemoglobin and hematocrit are stable on review of previous labs. LDH pending. No indication for transfusion. (2) Hypokalemia: Code(s): E87.6 - Hypokalemia Status: Acute Assessment and Plan: Potassium will be replaced and monitored. (3) Abnormal chest x-ray: Code(s): R93.89 - Abnormal findings on diagnostic imaging of other specified body structures Status: Acute Assessment and Plan: Chest x-ray shows findings consistent with acute on chronic sickle cell lung disease. She has some aching pain in the chest, not significantly different than when she typically has a sickle cell pain crisis, and she is not short of breath. Given her history of COVID and the extent of the infiltrates we obtained a CTA of the chest which showed No pulmonary embolism. Patchy bilateral airspace opacities which could reflect pneumonia. Sequela of sickle cell disease. She is not having SOB, cough or fevers so I believe Pneumonia is unlikely by history. (4) Leukocytosis: Qualifiers: Leukocytosis type: unspecified Qualified Code(s): D72.829 - Elevated white blood cell count, unspecified Code(s): D72.829 - Elevated white blood cell count, unspecified Status: Acute Assessment and Plan: Previous labs were reviewed and it looks like her white blood cell count is always a bit elevated. Unlikely that this is related to infection. Should she develop with fever empiric antibiotics would be prudent given her sickle cell disease. (5) Cardiomegaly: Code(s): I51.7 - Cardiomegaly Status: Acute Assessment and Plan: Not noted on previous imaging done at this facility. Echocardiogram ordered and pending at this time Monitor fluid status. Time Spent With Patient Time with patient: 25 - 35 minutes Subjective Date/time seen: 02/03/21 11:05 Interval history: Date of Service 02/03/21: Patient reports continuing to have diffuse pain throughout her body, mostly to her substernal chest. She states last time she had a sickle cell crisis she had similar pain to her substernal chest and it resolves after her crisis is over. She denies any shortness of breath, cough, fever, chills, nausea, vomiting, abdominal pain, leg swelling, calf pain, lightheadedness, dizziness, urinary symptoms, or any other symptoms at this time. Review of Systems Review of Systems: All systems reviewed & are unremarkable except as noted in HPI and below Exam Narrative: General: 55-year-old woman laying flat in bed on her left side, resting. Appears comfortable. In no acute distress. Skin: No jaundice or cyanosis. Good skin turgor. Neck: Full range of motion. Supple. Respiratory: Lungs are clear to auscultation bilaterally. No bony chest wall tenderness. Cardiovascular: The heart has a regular rate and rhythm without murmur. Lower extremities: No lower extremity edema. Distal pulses are easily palpated. No calf tenderness to palpation. Gastrointestinal: The abdomen is soft, nontender and nondistended with active bowel sounds. Psychiatric: Lucid and oriented. Memory intact. Neurologic: No focal deficits. Speech is clear. No facial drooping. Objective Data Vital Signs Vital Signs: Vital Signs - 24 hr 02/02/21 11:15 02/02/21 11:30 02/02/21 11:45 Temperature Pulse Rate 66 67 68 Respiratory Rate 19 16 21 H Blood Pressure Pulse Oximetry 02/02/21 15:35 02/02/21 16:04 02/02/21
[2021-02-03 14:00] VITALS: BP 124/62; PULSE 73; RESP 16; TEMP 36.9; O2SAT 97
[2021-02-03] MEDS: SODIUM CHLORIDE 0.9% IV 1,000 ML 70 ML IV CONT (19:58)
[2021-02-03] MEDS: ZOLPIDEM TARTRATE (*CRX) 5 MG TABLET 10 MG PO (19:58)
[2021-02-03] MEDS: PANTOPRAZOLE 40 MG TABLET PO (19:58)
[2021-02-03] MEDS: FOLIC ACID 1 MG TABLET PO (19:58)
[2021-02-03] MEDS: POTASSIUM CHLORIDE 10 MEQ TABLET.ER PO (19:58)
[2021-02-03 20:00] VITALS: PULSE 74; RESP 18; O2SAT 98
[2021-02-03] MEDS: ENOXAPARIN 40 MG/0.4 ML SYRINGE SUB-Q (20:04)
[2021-02-03 21:12] VITALS: BP 132/68; PULSE 74; RESP 18; TEMP 36.5; O2SAT 98
[2021-02-04] MEDS: HYDROmorphone HCL INJ (*CRX) 1 MG/ML SYR IV PUSH ×6 (03:49→21:26)
[2021-02-04] MEDS: oxyCODONE HCL (*CRX) 5 MG TAB IR 15 MG PO (04:21)
[2021-02-04 06:31] VITALS: BP 117/60; PULSE 69; RESP 18; TEMP 36.1; O2SAT 97
[2021-02-04 06:49] LABS: Hematocrit 31.1 % (37.0-47.0); Mean Corpuscular HGB Conc 35.4 g/dl (32-36); Mean Corpuscular Hemoglobin 33.4 pg (26-34); Mean Corpuscular Volume 94.5 fl (80-100); Mean Platelet Volume 10.3 fl (7.4-10.4); Platelet Count Result 275 k/mm3 (150-375); Red Blood Count 3.29 M/mm3 (4.2-5.4); Red Cell Distribution Width 12.3 % (11.5-14.5); White Blood Count 13.2 K/mm3 (4.5-10.0)
[2021-02-04 07:10] LABS: Anion Gap 8 mmol/L (8-16); Blood Urea Nitrogen 6 mg/dL (7-17); Calcium 8.6 mg/dL (8.4-10.2); Carbon Dioxide 24 mmol/L (22-30); Chloride 109 mmol/L (98-107); Estimated CRCL calculation 106 ml/min; Estimated Glomerular Filt Rate > 60; Glucose 113 mg/dL (65-110); Magnesium 1.8 mg/dL (1.6-2.3); Potassium 3.8 mmol/L (3.4-5.0); Sodium 141 mmol/L (137-145)
[2021-02-04] MEDS: PANTOPRAZOLE 40 MG TABLET PO ×2 (08:46→20:02)
[2021-02-04] MEDS: FUROSEMIDE 40 MG TABLET PO (08:46)
--- NOTE | 2021-02-04 09:51 | PM.IMPN ---
Progress Note: A&P Assessment and Plan (1) Sickle cell pain crisis: Code(s): D57.00 - Hb-SS disease with crisis, unspecified Status: Acute Assessment and Plan: She has been in a sickle cell pain crisis for the last 2 days prior to arrival. She reports continuing to have diffuse pain at this time without any improvement. Will continue IV Dilaudid which will be continued q.3 hours as needed. She is being judiciously hydrated, will continue at 70 cc/hr with close monitoring of volume status since her CxR shows cardiomegaly and while we are pending her Echo results. Hemoglobin and hematocrit are stable on review of previous labs. No indication for transfusion. Due to continued symptoms, will consult Dr. Longoria Hematology for further recommendations. The patient sees Dr. Topete. Continue monitoring pain and symptoms (2) Hypokalemia: Code(s): E87.6 - Hypokalemia Status: Acute Assessment and Plan: Potassium will be replaced as needed and monitored. (3) Abnormal chest x-ray: Code(s): R93.89 - Abnormal findings on diagnostic imaging of other specified body structures Status: Acute Assessment and Plan: Chest x-ray shows findings consistent with acute on chronic sickle cell lung disease. She has some aching pain in the chest, not significantly different than when she typically has a sickle cell pain crisis, and she is not short of breath. Given her history of COVID and the extent of the infiltrates we obtained a CTA of the chest which showed No pulmonary embolism. Patchy bilateral airspace opacities which could reflect pneumonia. Sequela of sickle cell disease. She is not having SOB, cough or fevers so I believe Pneumonia is unlikely by history. (4) Leukocytosis: Qualifiers: Leukocytosis type: unspecified Qualified Code(s): D72.829 - Elevated white blood cell count, unspecified Code(s): D72.829 - Elevated white blood cell count, unspecified Status: Acute Assessment and Plan: Previous labs were reviewed and it looks like her white blood cell count is always a bit elevated. Unlikely that this is related to infection. Leukocytosis is trending down slowly. Continues to be asymptomatic with stable vitals. Should she develop with fever empiric antibiotics would be prudent given her sickle cell disease. (5) Cardiomegaly: Code(s): I51.7 - Cardiomegaly Status: Acute Assessment and Plan: Not noted on previous imaging done at this facility. Echocardiogram ordered and pending at this time Monitor fluid status. Subjective Date/time seen: 02/04/21 09:51 Interval history: Date of Service 02/04/21: Patient reports continuing to have diffuse pain throughout her body, mostly to her substernal chest. She has temporary relief with Dilaudid and IV fluids but overall is not feeling any better than arrival. She states last time she had a sickle cell crisis she had similar pain to her substernal chest and it resolves after her crisis is over. She denies any shortness of breath, cough, fever, chills, nausea, vomiting, abdominal pain, leg swelling, calf pain, lightheadedness, dizziness, urinary symptoms, or any other symptoms at this time. Review of Systems Review of Systems: All systems reviewed & are unremarkable except as noted in HPI and below Exam Narrative: General: 55-year-old woman laying flat in bed on her left side, watching TV. Appears comfortable. In no acute distress. Skin: No jaundice or cyanosis. Good skin turgor. Neck: Full range of motion. Supple. Respiratory: Lungs are clear to auscultation bilaterally. No bony chest wall tenderness. Cardiovascular: The heart has a regular rate and rhythm without murmur. Lower extremities: No lower extremity edema. Distal pulses are easily palpated. No calf tenderness to palpation. Gastrointestinal: The abdomen is soft, nontender and nondistended with active bowel sounds
[2021-02-04 14:00] VITALS: BP 110/65; PULSE 76; RESP 16; TEMP 36.6; O2SAT 96
[2021-02-04] MEDS: SODIUM CHLORIDE 0.9% IV 1,000 ML 70 ML IV CONT (15:02)
[2021-02-04 19:29] VITALS: BP 100/48; PULSE 62; RESP 17; TEMP 36.6; O2SAT 98
[2021-02-04 20:00] VITALS: PULSE 62; RESP 17; O2SAT 98
[2021-02-04] MEDS: POTASSIUM CHLORIDE 10 MEQ TABLET.ER PO (20:02)
[2021-02-04] MEDS: ENOXAPARIN 40 MG/0.4 ML SYRINGE SUB-Q (20:02)
[2021-02-04] MEDS: FOLIC ACID 1 MG TABLET PO (20:02)
[2021-02-04] MEDS: ZOLPIDEM TARTRATE (*CRX) 5 MG TABLET 10 MG PO (20:04)
--- NOTE | 2021-02-04 20:19 | ECHO_ITS ---
Patient Info Name: Isabelle Cornejo Age: 55 years : 1965 Gender: Female Ht: 66 in Wt: 218 lbs BSA: 2.19 m2 HR: 78 bpm BP: 117 / 60 mmHg Heart Rhythm: Sinus Rhythm Technical Quality: Good Exam Date: 02/04/2021 10:50 AM Exam Location: [facility] Pulmonary Exam Room: 342 Patient Status: Inpatient Admit Date: 02/03/2021 Staff Ordering Physician: Marianne Campbell PA-C [employer] Operator: Shabana Melgzoa RDCS Attending Provider: eNmesio Ramirez MD Referring Physician: Adrian FERNANDEZ; Exam Type: CA echo doppler color flow Study Info Indications - cardiomegaly Complete two-dimensional, color flow and Doppler transthoracic echocardiogram is performed. Summary 1. Complete two-dimensional, color flow and Doppler transthoracic echocardiogram is performed. 2. There is mild concentric increased left ventricular wall thickness. 3. Left ventricular systolic function is normal, estimated at 60-65%. 4. Right ventricular chamber dimension is normal. 5. Left atrial chamber dimension is mildly enlarged. 6. The aortic valve is normal. 7. The mitral valve has normal leaflets. 8. There is trivial pericardial effusion. 9. Compared with examination from March of 2019 the findings are unchanged. Left Ventricle Left ventricular chamber dimension is normal. Left ventricular systolic function is normal, estimated at 60-65%. There is mild concentric increased left ventricular wall thickness. The left ventricular diastolic function is normal. Right Ventricle Right ventricular chamber dimension is normal. Left Atria Left atrial chamber dimension is mildly enlarged. Right Atria Right atrial chamber dimension is normal. Aortic Valve The aortic valve is normal. Pulmonic Valve The pulmonic valve is not well visualized. Mitral Valve The mitral valve has normal leaflets. Tricuspid Valve The tricuspid valve leaflets are normal. Pericardium/Pleural There is trivial pericardial effusion. Aorta The aortic root size at the sinus of Valsalva is normal. Left Ventricular Outflow Tract Name Value Normal LVOT 2D LVOT Diameter 2.0 cm LVOT Doppler LVOT Peak Gradient 6 mmHg LVOT Mean Gradient 3 mmHg LVOT VTI 25 cm LVOT VTI/AV VTI Ratio 0.8 LVOT Stroke Volume 82 ml LVOT CO 16.5 l/min LVOT CI 7.6 l/min/m2 Pulmonic Valve Name Value Normal PV Doppler PV Peak Gradient 3 mmHg Mitral Valve Name Value Normal MV Doppler
[2021-02-05] MEDS: HYDROmorphone HCL INJ (*CRX) 1 MG/ML SYR IV PUSH ×2 (02:31→07:53)
[2021-02-05 04:55] VITALS: BP 104/47; PULSE 72; RESP 16; TEMP 36.6; O2SAT 95
[2021-02-05] MEDS: SODIUM CHLORIDE 0.9% IV 1,000 ML 70 ML IV CONT ×2 (05:31→21:41)
[2021-02-05] MEDS: PANTOPRAZOLE 40 MG TABLET PO ×2 (07:52→21:31)
[2021-02-05] MEDS: FUROSEMIDE 40 MG TABLET PO (07:53)
[2021-02-05 08:13] LABS: Alanine Aminotransferase 18 U/L (4-35); Albumin Level 3.9 g/dL (3.5-5.1); Alkaline Phosphatase 110 U/L (38-126); Anion Gap 8 mmol/L (8-16); Aspartate Amino Transferase 29 U/L (14-36); Bilirubin,Total 1.8 mg/dL (0.2-1.3); Blood Urea Nitrogen 8 mg/dL (7-17); Calcium 8.8 mg/dL (8.4-10.2); Carbon Dioxide 23 mmol/L (22-30); Chloride 109 mmol/L (98-107); Estimated CRCL calculation 107 ml/min; Estimated Glomerular Filt Rate > 60; Glucose 108 mg/dL (65-110); Magnesium 1.8 mg/dL (1.6-2.3); Potassium 3.9 mmol/L (3.4-5.0); Sodium 140 mmol/L (137-145)
[2021-02-05 09:40] LABS: Basophils Absolute Auto 0.1 K/mm3 (0.0-0.1); Basophils Percent Auto 0.8 % (0.2-1.2); Eosinophils Absolute Auto 0.7 K/mm3 (0-0.3); Eosinophils Percent Auto 5.9 % (0-4.4); Hematocrit 31.3 % (37.0-47.0); Hemoglobin 10.9 g/dL (12.0-15.0); Immature Granulocyte Absolute 0.06 K/mm3 (0.00-0.031); Immature Granulocyte Percent A 0.5 % (0-0.5); Lymphocytes Absolute Auto 4.59 K/mm3 (0.9-3.2); Lymphocytes Percent Auto 37.9 % (18.3-44.2); Mean Corpuscular HGB Conc 34.8 g/dl (32-36); Mean Corpuscular Volume 94.8 fl (80-100); Mean Platelet Volume 10.1 fl (7.4-10.4); Monocytes Absolute Auto 1.4 K/mm3 (0.1-0.6); Monocytes Percent Auto 11.5 % (2.6-8.5); Neutrophils Absolute Auto 5.3 K/mm3 (1.3-6.7); Neutrophils Percent Auto 43.4 % (45.5-73.1); Nucleated Red Blood Cells Perc 0.3 % (0.0-0.2); Platelet Count Result 297 k/mm3 (150-375); Red Cell Distribution Width 12.6 % (11.5-14.5); White Blood Count 12.1 K/mm3 (4.5-10.0)
--- NOTE | 2021-02-05 10:48 | PM.IMPN ---
Progress Note: A&P Assessment and Plan (1) Sickle cell pain crisis: Code(s): D57.00 - Hb-SS disease with crisis, unspecified Status: Acute Assessment and Plan: -Has been receiving Dilaudid 1 mg q3 hr -Improving today so will start weaning, will start by decreasing dose to 0.5 mg q3hr and possibly transition to her oxycodone to prepare for discharge -Currently receiving IV hydration at 70 cc/hr - close monitoring of volume status. CXR w/ cardiomegaly. Echo with mild LVH, EF of 60-65% -H/H stable from prior, no indication for transfusion at this time -Followed by Dr. Topete: had considered consulting Dr. Longroia on site yesterday as she continued to have severe pain, will hold off for now as she is showing significant improvement today (2) Hypokalemia: Code(s): E87.6 - Hypokalemia Status: Acute Assessment and Plan: Potassium will be replaced as needed and monitored. (3) Abnormal chest x-ray: Code(s): R93.89 - Abnormal findings on diagnostic imaging of other specified body structures Status: Acute Assessment and Plan: -CXR w/ acute on chronic sickle cell lung dz -Having aching chest pain which she states is typical pain for her w/ her SS crisis. No sob. -CTA no pulmonary embolism. Did show patchy bilateral airspace opacities which could reflect pneumonia in the proper setting, however given she is not sob, having cough or fevers, I believe pneumonia is less likely at this time. Will continute to monitor. (4) Leukocytosis: Qualifiers: Leukocytosis type: unspecified Qualified Code(s): D72.829 - Elevated white blood cell count, unspecified Code(s): D72.829 - Elevated white blood cell count, unspecified Status: Acute Assessment and Plan: -Chronic. Stable. Actually on the lower end for her at 12.1. Has been trending down. -No signs of acute infection at this time. Will continue to monitor. No abx indicated at this time. (5) Cardiomegaly: Code(s): I51.7 - Cardiomegaly Status: Acute Assessment and Plan: -Not noted on previous imaging done at this facility. -Echo shows no CHF: 1. Complete two-dimensional, color flow and Doppler transthoracic echocardiogram is performed. 2. There is mild concentric increased left ventricular wall thickness. 3. Left ventricular systolic function is normal, estimated at 60-65%. 4. Right ventricular chamber dimension is normal. 5. Left atrial chamber dimension is mildly enlarged. 6. The aortic valve is normal. 7. The mitral valve has normal leaflets. 8. There is trivial pericardial effusion. 9. Compared with examination from March of 2019 the findings are unchanged. Subjective Date/time seen: 02/05/21 10:48 Interval history: This is a very pleasant 55-year- old female with sickle cell disease and diastolic congestive heart failure who was admitted for sickle cell crisis. Today she reports overall improvement. Still having all over pain, but has improved significantly from yesterday. Still having chest pain which she states is typical of her sickle cell pain. She denies sob. No other complaints. Followed by Dr. Topete who has prescribed her Oxycodone 15 mg TID. Review of Systems Review of Systems: General: Denies fevers, chills, or fatigue Eyes: Denies vision changes or eye pain ENT: Denies nasal congestion or sore throat Respiratory: Denies cough or shortness of breath Cardiovascular: + chest pain, denies palpitations or lower extremity edema Gastrointestinal: Denies abdominal pain, vomiting, or diarrhea Genitourinary: Denies dysuria or urinary frequency Musculoskeletal: +diffuse joint pain Neurological: Denies headache, paraesthesias, or motor weakness Integumentary: Denies rash or other skin lesions Exam Narrative: General: 55-year-old woman laying flat in bed on her left side, watching TV. Appears comfortable. In no acute dis
[2021-02-05] MEDS: HYDROmorphone HCL INJ (*CRX) 1 MG/ML SYR 0.5 MG IV PUSH ×3 (13:30→21:32)
[2021-02-05 14:00] VITALS: BP 101/44; PULSE 78; RESP 18; TEMP 36.1; O2SAT 95
[2021-02-05] MEDS: ZOLPIDEM TARTRATE (*CRX) 5 MG TABLET 10 MG PO (21:31)
[2021-02-05] MEDS: POTASSIUM CHLORIDE 10 MEQ TABLET.ER PO (21:31)
[2021-02-05] MEDS: FOLIC ACID 1 MG TABLET PO (21:32)
[2021-02-05] MEDS: ENOXAPARIN 40 MG/0.4 ML SYRINGE SUB-Q (21:32)
[2021-02-05 21:58] VITALS: BP 118/62; PULSE 69; RESP 18; TEMP 36.4; O2SAT 99
[2021-02-06] MEDS: HYDROmorphone HCL INJ (*CRX) 1 MG/ML SYR 0.5 MG IV PUSH ×3 (02:16→09:16)
[2021-02-06 03:34] VITALS: BP 106/47; PULSE 65; RESP 16; TEMP 35.7; O2SAT 96
[2021-02-06 06:15] LABS: Anion Gap 11 mmol/L (8-16); Blood Urea Nitrogen 8 mg/dL (7-17); Calcium 8.2 mg/dL (8.4-10.2); Carbon Dioxide 20 mmol/L (22-30); Chloride 106 mmol/L (98-107); Estimated CRCL calculation 107 ml/min; Estimated Glomerular Filt Rate > 60; Glucose 137 mg/dL (65-110); Potassium 4.4 mmol/L (3.4-5.0); Sodium 137 mmol/L (137-145)
[2021-02-06 07:36] LABS: Basophils Absolute Auto 0.1 K/mm3 (0.0-0.1); Basophils Percent Auto 0.9 % (0.2-1.2); Hematocrit 29.4 % (37.0-47.0); Hemoglobin 10.2 g/dL (12.0-15.0); Immature Granulocyte Absolute 0.05 K/mm3 (0.00-0.031); Immature Granulocyte Percent A 0.4 % (0-0.5); Lymphocytes Absolute Auto 5.06 K/mm3 (0.9-3.2); Lymphocytes Percent Auto 40.2 % (18.3-44.2); Mean Corpuscular HGB Conc 34.7 g/dl (32-36); Mean Corpuscular Hemoglobin 31.7 pg (26-34); Mean Corpuscular Volume 91.3 fl (80-100); Monocytes Absolute Auto 1.6 K/mm3 (0.1-0.6); Monocytes Percent Auto 12.5 % (2.6-8.5); Neutrophils Absolute Auto 4.8 K/mm3 (1.3-6.7); Nucleated Red Blood Cells Perc 0.2 % (0.0-0.2); Platelet Count Result 287 k/mm3 (150-375); Red Blood Count 3.22 M/mm3 (4.2-5.4); Red Cell Distribution Width 12.4 % (11.5-14.5); White Blood Count 12.6 K/mm3 (4.5-10.0)
[2021-02-06] MEDS: FUROSEMIDE 40 MG TABLET PO (09:17)
[2021-02-06] MEDS: PANTOPRAZOLE 40 MG TABLET PO ×2 (09:17→20:19)
[2021-02-06] MEDS: predniSONE 20 MG TABLET 60 MG PO (12:29)
[2021-02-06] MEDS: IBUPROFEN 400 MG TABLET 800 MG PO (12:29)
--- NOTE | 2021-02-06 13:01 | PM.IMPN ---
Progress Note: A&P Assessment and Plan (1) Sickle cell pain crisis: Code(s): D57.00 - Hb-SS disease with crisis, unspecified Status: Acute Assessment and Plan: -Had been receiving Dilaudid 1 mg q3 hr, was decreased yesterday to 0.5 mg q3hr -Improving today, will try transitioning to her oxycodone 15 mg PO TID -Was receiving IV hydration at 70 cc/hr - close monitoring of volume status. CXR w/ cardiomegaly. Echo with mild LVH, EF of 60-65%. IVF discontinued at this time, pt progressing back to baseline -H/H stable from prior, no indication for transfusion at this time -Followed by Dr. Topete: had considered consulting Dr. Longoria on site as she continued to have severe pain, will hold off for now as she is again showing significant improvement today (2) Hypokalemia: Code(s): E87.6 - Hypokalemia Status: Acute Assessment and Plan: Potassium will be replaced as needed and monitored. (3) Chest pain: Code(s): R07.9 - Chest pain, unspecified Status: Acute Assessment and Plan: -CXR w/ acute on chronic sickle cell lung dz -Initially having aching chest pain which she states is typical pain for her w/ her SS crisis. No sob. -CTA no pulmonary embolism. Did show patchy bilateral airspace opacities which could reflect pneumonia in the proper setting, however given she is not sob, having cough or fevers, I believe pneumonia is less likely at this time. -As her sickle cell crisis subsides pt continues to have reproducible right sided chest wall pain which is tender to palpation and worse w/ inspiration. Will try NSAID and prednisone to see if improvement of possible costochondritis. Chart review has allergy to toradol but pt states she has taken ibuprofen in the past without allergy. States at some point she was taking 800 mg TID daily x1 month and ended up with OPHELIA so she has not taken ibuprofen since. Her kidney function currently is WNL. Do not feel that there is a contraindication to a one time dose of ibuprofen as I believe it may have significant benefit at this time. (4) Cardiomegaly: Code(s): I51.7 - Cardiomegaly Status: Acute Assessment and Plan: -Not noted on previous imaging done at this facility. -Echo shows no CHF: 1. Complete two-dimensional, color flow and Doppler transthoracic echocardiogram is performed. 2. There is mild concentric increased left ventricular wall thickness. 3. Left ventricular systolic function is normal, estimated at 60-65%. 4. Right ventricular chamber dimension is normal. 5. Left atrial chamber dimension is mildly enlarged. 6. The aortic valve is normal. 7. The mitral valve has normal leaflets. 8. There is trivial pericardial effusion. 9. Compared with examination from March of 2019 the findings are unchanged. (5) Leukocytosis: Qualifiers: Leukocytosis type: unspecified Qualified Code(s): D72.829 - Elevated white blood cell count, unspecified Code(s): D72.829 - Elevated white blood cell count, unspecified Status: Acute Assessment and Plan: -Chronic. Stable. Actually on the lower end for her at 12.6. Has been trending down. -No signs of acute infection at this time. Will continue to monitor. No abx indicated at this time. Subjective Date/time seen: 02/06/21 13:01 Interval history: This is a very pleasant 55-year- old female with sickle cell disease and diastolic congestive heart failure who was admitted for sickle cell crisis. Today she reports overall improvement. Still having all over pain, but has improved significantly from yesterday. Still having chest pain which she now states is right sided, worse w/ inspiration and palpation. She denies sob. No other complaints. Followed by Dr. Topete who has prescribed her Oxycodone 15 mg TID. Review of Systems Review of Systems: General: Denies fevers, chills, or fatigue Eyes: Denies vision mi
[2021-02-06 14:00] VITALS: BP 92/54; PULSE 81; RESP 18; TEMP 36.5; O2SAT 97
[2021-02-06 14:01] VITALS: BP 92/54
[2021-02-06] MEDS: oxyCODONE HCL (*CRX) 5 MG TAB IR 15 MG PO (16:50)
[2021-02-06 19:51] VITALS: BP 110/60; PULSE 64; RESP 18; TEMP 36.2; O2SAT 98
[2021-02-06 20:00] VITALS: PULSE 64; RESP 18; O2SAT 98
[2021-02-06] MEDS: FOLIC ACID 1 MG TABLET PO (20:19)
[2021-02-06] MEDS: POTASSIUM CHLORIDE 10 MEQ TABLET.ER PO (20:19)
[2021-02-06] MEDS: ZOLPIDEM TARTRATE (*CRX) 5 MG TABLET 10 MG PO (20:19)
[2021-02-06] MEDS: ENOXAPARIN 40 MG/0.4 ML SYRINGE SUB-Q (20:19)
[2021-02-07 06:10] VITALS: BP 106/54; PULSE 84; RESP 17; TEMP 36.2; O2SAT 98
[2021-02-07] MEDS: PANTOPRAZOLE 40 MG TABLET PO ×2 (08:08→20:37)
[2021-02-07] MEDS: oxyCODONE HCL (*CRX) 5 MG TAB IR 15 MG PO ×2 (08:10→17:23)
[2021-02-07] MEDS: predniSONE 40 MG, predniSONE 10 MG 50 MG PO (10:58)
[2021-02-07] MEDS: NAPROXEN 500 MG TABLET PO (10:59)
[2021-02-07 14:18] VITALS: BP 116/53; PULSE 83; RESP 18; TEMP 36.6; O2SAT 83
--- NOTE | 2021-02-07 15:52 | PM.IMPN ---
Progress Note: A&P Assessment and Plan (1) Sickle cell pain crisis: Code(s): D57.00 - Hb-SS disease with crisis, unspecified Status: Acute Assessment and Plan: -Had been receiving Dilaudid 1 mg q3 hr, was decreased to 0.5 mg q3hr -Continued improvement, transitioned to her oxycodone 15 mg PO TID -Was receiving IV hydration at 70 cc/hr - close monitoring of volume status. CXR w/ cardiomegaly. Echo with mild LVH, EF of 60-65%. IVF discontinued at this time, pt progressing back to baseline -H/H stable from prior, no indication for transfusion at this time -Followed by Dr. Topete: had considered consulting Dr. Longoria on site as she continued to have severe pain, will hold off for now as she is again showing significant improvement today (2) Hypokalemia: Code(s): E87.6 - Hypokalemia Status: Acute Assessment and Plan: Potassium will be replaced as needed and monitored. (3) Chest pain: Code(s): R07.9 - Chest pain, unspecified Status: Acute Assessment and Plan: -CXR w/ acute on chronic sickle cell lung dz -Initially having aching chest pain which she states is typical pain for her w/ her SS crisis. No sob. -CTA no pulmonary embolism. Did show patchy bilateral airspace opacities which could reflect pneumonia in the proper setting, however given she is not sob, having cough or fevers, I believe pneumonia is less likely at this time. -As her sickle cell crisis subsides pt continues to have reproducible right sided chest wall pain which is tender to palpation and worse w/ inspiration. Had moderate relief w/ NSAID and steroid, suspect costochondritis (4) Cardiomegaly: Code(s): I51.7 - Cardiomegaly Status: Acute Assessment and Plan: -Not noted on previous imaging done at this facility. -Echo shows no CHF: 1. Complete two-dimensional, color flow and Doppler transthoracic echocardiogram is performed. 2. There is mild concentric increased left ventricular wall thickness. 3. Left ventricular systolic function is normal, estimated at 60-65%. 4. Right ventricular chamber dimension is normal. 5. Left atrial chamber dimension is mildly enlarged. 6. The aortic valve is normal. 7. The mitral valve has normal leaflets. 8. There is trivial pericardial effusion. 9. Compared with examination from March of 2019 the findings are unchanged. (5) Leukocytosis: Qualifiers: Leukocytosis type: unspecified Qualified Code(s): D72.829 - Elevated white blood cell count, unspecified Code(s): D72.829 - Elevated white blood cell count, unspecified Status: Acute Assessment and Plan: -Chronic. Stable. Actually on the lower end for her at 12.6. Has been trending down. -No signs of acute infection at this time. Will continue to monitor. No abx indicated at this time. Subjective Date/time seen: 02/07/21 15:52 Interval history: This is a very pleasant 55-year- old female with sickle cell disease and diastolic congestive heart failure who was admitted for sickle cell crisis. Today she is feeling much better, has been on her oral home meds. Still having chest pain which is still right sided, worse w/ inspiration and palpation. She denies sob. She had relief w/ NSAID and steroid yesterday. No other complaints. Followed by Dr. Topete who has prescribed her Oxycodone 15 mg TID. Review of Systems Review of Systems: General: Denies fevers, chills, or fatigue Eyes: Denies vision changes or eye pain ENT: Denies nasal congestion or sore throat Respiratory: Denies cough or shortness of breath Cardiovascular: + chest pain, denies palpitations or lower extremity edema Gastrointestinal: Denies abdominal pain, vomiting, or diarrhea Genitourinary: Denies dysuria or urinary frequency Musculoskeletal: +diffuse joint pain Neurological: Denies headache, paraesthesias, or motor weakness Integumentary: Denies rash or other sk
[2021-02-07 17:19] VITALS: BP 116/62
[2021-02-07 19:35] VITALS: BP 112/55; PULSE 65; RESP 18; TEMP 36.4; O2SAT 99
[2021-02-07 20:00] VITALS: PULSE 65; RESP 18; O2SAT 99
[2021-02-07] MEDS: ZOLPIDEM TARTRATE (*CRX) 5 MG TABLET 10 MG PO (20:37)
[2021-02-07] MEDS: POTASSIUM CHLORIDE 10 MEQ TABLET.ER PO (20:37)
[2021-02-07] MEDS: FOLIC ACID 1 MG TABLET PO (20:37)
[2021-02-07] MEDS: ENOXAPARIN 40 MG/0.4 ML SYRINGE SUB-Q (20:37)
[2021-02-08 06:10] VITALS: BP 122/55; PULSE 60; RESP 14; TEMP 36.6; O2SAT 99
[2021-02-08] MEDS: PANTOPRAZOLE 40 MG TABLET PO (08:39)
[2021-02-08 10:11] LABS: Anion Gap 11 mmol/L (8-16); Blood Urea Nitrogen 12 mg/dL (7-17); Calcium 8.9 mg/dL (8.4-10.2); Carbon Dioxide 19 mmol/L (22-30); Chloride 108 mmol/L (98-107); Estimated CRCL calculation 92 ml/min; Estimated Glomerular Filt Rate > 60; Glucose 128 mg/dL (65-110); Potassium 3.2 mmol/L (3.4-5.0); Sodium 138 mmol/L (137-145)
--- NOTE | 2021-02-08 11:18 | PM.DS ---
DS: Admitting Diagnosis Discharge Date 02/08/21 Admitting Diagnosis Sickle cell crisis DS: Discharge Diagnosis Discharge Diagnosis (1) Sickle cell pain crisis: Code(s): D57.00 - Hb-SS disease with crisis, unspecified Status: Acute Assessment and Plan: -Had been receiving Dilaudid 1 mg q3 hr, was decreased to 0.5 mg q3hr -Continued improvement, transitioned to her oxycodone 15 mg PO TID -Was receiving IV hydration at 70 cc/hr - close monitoring of volume status. CXR w/ cardiomegaly. Echo with mild LVH, EF of 60-65%. IVF discontinued, pt progressing back to baseline -H/H stable from prior, no indication for transfusion at this time -Followed by Dr. Topete: had considered consulting Dr. Longoria on site as she continued to have severe pain, however she has had drastic improvement and will be discharged today in stable condition. She has follow up scheduled with Dr. Topete on 02/18/21 -She will continue her home dose of pain medication. She overall feels much better and is ready to go home. -Vitals are stable, she is well appearing in no distress (2) Hypokalemia: Code(s): E87.6 - Hypokalemia Status: Acute Assessment and Plan: Chronic likely due to Lasix. Potassium was monitored and replaced as needed. (3) Chest pain: Code(s): R07.9 - Chest pain, unspecified Status: Acute Assessment and Plan: -CXR w/ acute on chronic sickle cell lung dz -Initially having aching chest pain which she states is typical pain for her w/ her SS crisis. No sob. -CTA no pulmonary embolism. Did show patchy bilateral airspace opacities which could reflect pneumonia in the proper setting, however given she is not sob, having cough or fevers, I believe pneumonia is less likely at this time. -As her sickle cell crisis subsides pt continues to have reproducible right sided chest wall pain which is tender to palpation and worse w/ inspiration. Had moderate relief w/ NSAID and steroid, suspect costochondritis. -Continued improvement today. Chest pain is much better, still has only slight tenderness with palpation. Spoke about cautious use of NSAIDs over the next week. Kidney function is WNL but pt does have hx of OPHELIA secondary to heavy NSAID use over a 1 month period. Had a long discussion regarding appropriate NSAID use. All questions and concerns were addressed. (4) Cardiomegaly: Code(s): I51.7 - Cardiomegaly Status: Acute Assessment and Plan: -Not noted on previous imaging done at this facility. -Echo shows no CHF: 1. Complete two-dimensional, color flow and Doppler transthoracic echocardiogram is performed. 2. There is mild concentric increased left ventricular wall thickness. 3. Left ventricular systolic function is normal, estimated at 60-65%. 4. Right ventricular chamber dimension is normal. 5. Left atrial chamber dimension is mildly enlarged. 6. The aortic valve is normal. 7. The mitral valve has normal leaflets. 8. There is trivial pericardial effusion. 9. Compared with examination from March of 2019 the findings are unchanged. (5) Leukocytosis: Qualifiers: Leukocytosis type: unspecified Qualified Code(s): D72.829 - Elevated white blood cell count, unspecified Code(s): D72.829 - Elevated white blood cell count, unspecified Status: Acute Assessment and Plan: -Chronic. Stable. Actually on the lower end for her at 12.6. Has been trending down. -No signs of acute infection at this time. No abx indicated at this time. DS: Summary Hospital Course Reason for hospitalization: 55-year- old female with sickle cell disease and diastolic congestive heart failure who was admitted for sickle cell crisis. Please see HPI for further details. Hospital Course: Please see above for details of hospital course. Status at Discharge Cognitive/behavioral status at discharge: stable Functional status
[2021-02-08 14:25] VITALS: BP 137/58; PULSE 58; RESP 18; TEMP 35.9; O2SAT 97
== END 2021-02-08 16:10 | disposition home or self-care (01) | DRG 812 ==
LOC: ANHED 13:37 → ANH3MED 15:46
PROVIDERS: Physician Assistant; Admitting Provider Family Medicine; Emergency Provider Nurse Practitioner; PCP Internal Medicine Medical Oncology; Visit Provider Physician Assistant
DX: D57.01 Hb-SS disease with acute chest syndrome (principal); I50.32 Chronic diastolic (congestive) heart failure; E87.6 Hypokalemia; D72.829 Elevated white blood cell count, unspecified; I51.7 Cardiomegaly; K21.9 Gastro-esophageal reflux disease without esophagitis; Z86.16 Personal history of COVID-19; Z87.891 Personal history of nicotine dependence; Z79.899 Other long term (current) drug therapy
CPT/HCPCS: 36415; 71045; 71275; 80048; 80053; 81001; 83615; 83735; 83880; 84145; 85025; 85027; 85046; 85652; 86140; 93005; 93306; 96361; 96372; 96374; 96375; 96376; 99284; 99285; A9270; G0378; J1170; J1650; J2405; J7030; J7512; Q9967

== ENCOUNTER 2021-02-09 11:11 | Emergency (ER) | payer MEDICARE, MEDICAID, SELFPAY ==
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
[2021-02-09 11:32] VITALS: BP 131/85; PULSE 51; RESP 18; TEMP 36.3; O2SAT 97
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
--- NOTE | 2021-02-09 13:10 | PC.NURSE ---
This RN into room to start IV, pt informed this RN that she needed an ultrasound to obtain IV. Informed Dr. Stanley that pts blood and IV fluids will be delayed. EDP states that this is ok
[2021-02-09 13:30] VITALS: BP 130/79; PULSE 62; RESP 18; O2SAT 96
[2021-02-09 13:42] LABS: Add Urine Microscopic? NO; Appearance Urine Clear (Clear); Bilirubin Urine Negative (Negative); Blood Urine Negative (Negative); Color Urine Yellow (Yellow); Glucose Urine UA Negative (Negative); Ketones Urine Negative (Negative); Leukocyte Esterase Ur Negative LEU/UL (Negative); Nitrate Urine Negative (Negative); Protein Urine Negative (Negative); Specific Grav Ur 1.013 (1.001-1.035); Urobilinogen Urine Negative mg/dL (<2.0)
--- NOTE | 2021-02-09 15:03 | PC.NURSE ---
No IV access obtained. 2 RNS both attempted with ultrasound to obtain IV access. EDP made aware.
[2021-02-09 15:17] LABS: Basophils Absolute Auto 0.2 K/mm3 (0.0-0.1); Basophils Percent Auto 0.8 % (0.2-1.2); Eosinophils Absolute Auto 0.5 K/mm3 (0-0.3); Hematocrit 29.2 % (37.0-47.0); Hemoglobin 10.3 g/dL (12.0-15.0); Immature Granulocyte Absolute 0.82 K/mm3 (0.00-0.031); Immature Granulocyte Percent A 3.2 % (0-0.5); Lymphocytes Absolute Auto 7.13 K/mm3 (0.9-3.2); Lymphocytes Percent Auto 27.8 % (18.3-44.2); Mean Corpuscular HGB Conc 35.3 g/dl (32-36); Mean Corpuscular Hemoglobin 32.4 pg (26-34); Mean Corpuscular Volume 91.8 fl (80-100); Mean Platelet Volume 10.5 fl (7.4-10.4); Monocytes Absolute Auto 2.9 K/mm3 (0.1-0.6); Monocytes Percent Auto 11.3 % (2.6-8.5); Neutrophils Absolute Auto 14.1 K/mm3 (1.3-6.7); Neutrophils Percent Auto 54.9 % (45.5-73.1); Nucleated Red Blood Cells Perc 0.2 % (0.0-0.2); Platelet Count Result 276 k/mm3 (150-375); Red Blood Count 3.18 M/mm3 (4.2-5.4); Red Cell Distribution Width 13.2 % (11.5-14.5); White Blood Count 25.6 K/mm3 (4.5-10.0)
[2021-02-09 15:18] LABS: Reticulocyte Hemoglobin Conten 36.1 pg (28.2-35.7); Reticulocyte Percent 3.68 % (0.7-4.3); Reticulocytes Absolute 0.11 B/L (32.2-175.7)
[2021-02-09 15:29] LABS: Alanine Aminotransferase 32 U/L (4-35); Albumin Level 4.1 g/dL (3.5-5.1); Alkaline Phosphatase 133 U/L (38-126); Anion Gap 7 mmol/L (8-16); Aspartate Amino Transferase 49 U/L (14-36); Bilirubin,Total 2.5 mg/dL (0.2-1.3); Blood Urea Nitrogen 16 mg/dL (7-17); Calcium 9.3 mg/dL (8.4-10.2); Carbon Dioxide 26 mmol/L (22-30); Chloride 110 mmol/L (98-107); Estimated CRCL calculation 81 ml/min; Estimated Glomerular Filt Rate > 60; Glucose 105 mg/dL (65-110); Potassium 3.8 mmol/L (3.4-5.0); Sodium 143 mmol/L (137-145)
[2021-02-09 15:30] VITALS: BP 129/67; PULSE 59; RESP 18; O2SAT 100
[2021-02-09 15:38] LABS: Platelet Estimate Adequate (Adequate)
[2021-02-09 15:39] LABS: Sickle Cells 1+ (NORMAL)
[2021-02-09 15:40] LABS: Atypical Lymphocytes Present; Ovalocytes 1+ (NORMAL); Target Cells 2+ (NORMAL)
[2021-02-09] MEDS: HYDROcodone/acetaminophen (*CRX) 5-325 MG TABLET 2 TAB PO (17:25)
[2021-02-09 17:32] VITALS: BP 138/89; PULSE 69; RESP 18; O2SAT 100
== END 2021-02-09 17:33 | disposition home or self-care (01) ==
PROVIDERS: Emergency Provider Emergency Medicine; PCP Internal Medicine Medical Oncology
DX: D57.00 Hb-SS disease with crisis, unspecified (principal); J45.909 Unspecified asthma, uncomplicated; Z86.16 Personal history of COVID-19; I50.30 Unspecified diastolic (congestive) heart failure; Z87.440 Personal history of urinary (tract) infections; Z87.891 Personal history of nicotine dependence
CPT/HCPCS: 36415; 71046; 80053; 81003; 85025; 85046; 99283; A9270

== ENCOUNTER 2022-11-26 17:58 | Emergency (ER) | payer MEDICARE, MEDICAID, SELFPAY ==
[2022-11-26 18:14] VITALS: BP 132/63; PULSE 77; RESP 18; TEMP 36.6; O2SAT 98
--- NOTE | 2022-11-26 20:54 | PC.NURSE ---
Agree with triage note. Pt states she has been around family members that were sick w fevers/coughs. Pt states her sx of aches started today in her legs arms and back. No other sx.
[2022-11-26 20:57] VITALS: BP 119/83; PULSE 71; PULSE 72; RESP 20; O2SAT 97
[2022-11-26 21:02] VITALS: O2SAT 99
[2022-11-26 21:31] VITALS: BP 108/61; PULSE 60; RESP 14; O2SAT 99
[2022-11-26 22:25] VITALS: BP 106/85; PULSE 63; RESP 14; O2SAT 100
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
[2022-11-27] VITALS: BP 100/59; PULSE 54; RESP 16; O2SAT 100
--- NOTE | 2022-11-27 00:02 | PC.NURSE ---
This RN attempted starting IV on pt. Unsuccessful, getting second RN to try.
[2022-11-27 00:04] LABS: Appearance Urine Clear (Clear); Bacteria Urine None Seen /hpf; Bilirubin Urine Negative (Negative); Blood Urine Negative (Negative); Color Urine Yellow (Yellow); Glucose Urine UA Negative (Negative); Ketones Urine Negative (Negative); Leukocyte Esterase Ur Trace LEU/UL (Negative); Nitrate Urine Negative (Negative); Non Pathogenic Casts 0-2; Protein Urine Negative (Negative); RBC Urine 0-2 /hpf (0-2); Specific Grav Ur 1.013 (1.001-1.035); Squamous Epithelial Cell Urine None seen /hpf (Few); WBC Urine 0-5 /hpf
[2022-11-27 00:09] LABS: Add Urine Microscopic? YES
--- NOTE | 2022-11-27 00:32 | PC.NURSE ---
IV attempts unsuccessful. MELIA Campbell notified.
[2022-11-27 00:34] LABS: Influenza A QL RT-PCR Negative (Negative); Influenza B QL RT-PCR Negative (Negative); RSV RNA, RT-PCR Negative (Negative); SARS-CoV-2 RNA PCR Negative (Negative)
[2022-11-27] MEDS: LACTATED RINGERS 1,000 ML 999 ML IV CONT (01:06)
[2022-11-27 01:11] LABS: Basophils Absolute Auto 0.2 K/mm3 (0.0-0.1); Basophils Percent Auto 0.9 % (0.2-1.2); Eosinophils Absolute Auto 1.3 K/mm3 (0-0.3); Hematocrit 22.8 % (37.0-47.0); Hemoglobin 7.4 g/dL (12.0-15.0); Immature Granulocyte Absolute 0.31 K/mm3 (0.00-0.031); Immature Granulocyte Percent A 1.6 % (0-0.5); Lymphocytes Absolute Auto 8.63 K/mm3 (0.9-3.2); Lymphocytes Percent Auto 45.5 % (18.3-44.2); Mean Corpuscular HGB Conc 32.5 g/dl (32-36); Mean Corpuscular Hemoglobin 31.5 pg (26-34); Mean Platelet Volume 10.1 fl (7.4-10.4); Monocytes Absolute Auto 1.8 K/mm3 (0.1-0.6); Monocytes Percent Auto 9.4 % (2.6-8.5); Neutrophils Absolute Auto 6.8 K/mm3 (1.3-6.7); Neutrophils Percent Auto 35.6 % (45.5-73.1); Nucleated Red Blood Cells Absolute Auto 0.5 K/mm3 (0.0-0.012); Nucleated Red Blood Cells Perc 2.4 % (0.0-0.2); Platelet Count Result 255 k/mm3 (150-375); Red Blood Count 2.35 M/mm3 (4.2-5.4); Red Cell Distribution Width 17.5 % (11.5-14.5)
[2022-11-27 01:16] LABS: Immature Reticulocyte Fraction 40.3 % (3.0-15.9); Reticulocyte Hemoglobin Conten 32.6 pg (28.2-35.7); Reticulocyte Percent 10.66 % (0.7-4.3); Reticulocytes Absolute 0.25 M/mm3 (0.02-0.1)
[2022-11-27 01:26] LABS: Alanine Aminotransferase 24 U/L (6-35); Albumin Level 4.3 g/dL (3.5-5.1); Alkaline Phosphatase 120 U/L (38-126); Anion Gap 12 mmol/L (8-16); Aspartate Amino Transferase 40 U/L (14-36); Bilirubin,Total 1.9 mg/dL (0.2-1.3); Blood Urea Nitrogen 10 mg/dL (7-17); Calcium 8.7 mg/dL (8.4-10.2); Carbon Dioxide 23 mmol/L (22-30); Chloride 111 mmol/L (98-107); Estimated CRCL calculation 79 ml/min; Estimated Glomerular Filt Rate > 60; Glucose 107 mg/dL (65-110); Potassium 3.5 mmol/L (3.4-5.0); Sodium 146 mmol/L (137-145)
[2022-11-27] MEDS: HYDROmorphone HCL INJ (*CRX) 1 MG/ML SYR 0.5 MG IV PUSH (01:28)
[2022-11-27 01:32] VITALS: BP 118/62; PULSE 67; RESP 15; O2SAT 100
[2022-11-27 02:37] VITALS: BP 105/58; PULSE 66; RESP 13; O2SAT 97
== END 2022-11-27 02:38 | disposition home or self-care (01) ==
PROVIDERS: Emergency Provider Student in an Organized Health Care Education/Training Program
DX: Z20.822 Contact with and (suspected) exposure to COVID-19 (principal); D57.1 Sickle-cell disease without crisis; J45.909 Unspecified asthma, uncomplicated; K21.9 Gastro-esophageal reflux disease without esophagitis; Z86.16 Personal history of COVID-19; Z87.440 Personal history of urinary (tract) infections; Z90.49 Acquired absence of other specified parts of digestive tract; Z90.710 Acquired absence of both cervix and uterus; Z90.722 Acquired absence of ovaries, bilateral; Z90.79 Acquired absence of other genital organ(s); Z87.891 Personal history of nicotine dependence
CPT/HCPCS: 36415; 80053; 81001; 85025; 85046; 87637; 96361; 96374; 99284; J1170; J7120

== ENCOUNTER 2022-12-15 08:40 | Inpatient (IN) | payer MEDICARE, MEDICAID, SELFPAY ==
[2022-12-15] VITALS (27 sets, daily range): BP systolic 105–168; BP diastolic 36–81; PULSE 60–108; RESP 13–20; TEMP 36.7–37.7; O2SAT 89–100; BMI 34.0
--- NOTE | ~2022-12-15 | US_ITS ---
EXAMINATION: US abdomen limited DATE: 12/20/2022 08:45 INDICATION: Elevated liver function tests TECHNIQUE: Multiple grayscale and Doppler ultrasound images of the abdomen were obtained. COMPARISON: None available FINDINGS: The head and body of the pancreas are normal. The pancreatic tail is obscured by bowel gas. The liver is normal with normal echogenicity and echotexture. No surface nodularity. Normal hepatope lacey flow in the main portal vein. The gallbladder is surgically absent. The normal common bile duct m easures 4 mm. IMPRESSION: 1. No sonographic correlate for the patient's symptoms. Reviewed, dictated and finalized at location F.
--- NOTE | ~2022-12-15 | XR_ITS ---
XR chest 1V portable 12/15/2022 10:17 Indication: Sickle cell crisis Procedure: AP portable chest Comparison: Comparison to multiple prior studies sequentially, with oldest reviewed study dated 01/22. Findings: There are sclerotic humeral heads, likely avascular necrosis secondary to known sickle cell . There is mild interstitial edema. Small left effusion. No pneumothorax. Impression: 1: Cardiomegaly with mild interstitial edema. 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 Reviewed, dictated and finalized at location B. Impression: 1: Cardiomegaly with mild interstitial edema. 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
--- NOTE | 2022-12-15 09:41 | ECG_ITS ---
Measurements Intervals [place] Rate: 75 P: 72 VT: 240 QRS: 73 QRSD: 94 T: 80 QT: 417 QTc: 467 Interpretive Statements SINUS RHYTHM WITH FIRST DEGREE AV BLOCK BORDERLINE ECG COMPARED TO ECG 02/02/2021 12:13:12 FIRST DEGREE AV BLOCK NOW PRESENT Electronically Signed On 12-15-2022 10:28:05 CDT by Abner Alonso D.O.
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
[2022-12-15] MEDS: SODIUM CHLORIDE 0.9% IV 1,000 ML 999 ML IV CONT (09:51)
[2022-12-15] MEDS: diphenhydrAMINE HCl INJ 50 MG/ML VIAL 25 MG IV PUSH (09:51)
[2022-12-15] MEDS: HYDROmorphone HCL INJ (*CRX) 1 MG/ML SYR IV PUSH ×3 (09:52→22:23)
[2022-12-15 10:51] LABS: Immature Reticulocyte Fraction 40.3 % (3.0-15.9); Mean Corpuscular HGB Conc 33.2 g/dl (32-36); Mean Corpuscular Hemoglobin 32.1 pg (26-34); Mean Corpuscular Volume 96.7 fl (80-100); Mean Platelet Volume 10.5 fl (7.4-10.4); Platelet Count Result 207 k/mm3 (150-375); Red Blood Count 2.12 M/mm3 (4.2-5.4); Red Cell Distribution Width 17.2 % (11.5-14.5); Reticulocyte Hemoglobin Conten 34.2 pg (28.2-35.7); Reticulocyte Percent 9.88 % (0.7-4.3); Reticulocytes Absolute 0.21 M/mm3 (0.02-0.1); White Blood Count 20.6 K/mm3 (4.5-10.0)
[2022-12-15 10:56] LABS: Hematocrit 20.5 % (37.0-47.0); Hemoglobin 6.8 g/dL (12.0-15.0)
[2022-12-15 11:12] LABS: Anisocytosis 3+ (NORMAL); Band Neutrophils Percent 3 % (0-6); Eosinophils Absolute Manual 1.03 K/mm3 (0.02-0.5); Eosinophils Percent Manual 5 % (0-4); Lymphocytes Absolute Manual 6.59 K/mm3 (1.1-4.5); Macrocytosis 2+ (NORMAL); Metamyelocytes Percent 5 %; Monocytes Absolute Manual 1.03 K/mm3 (0.1-0.90); Monocytes Percent Manual 5 % (3-9); Myelocytes Percent 2 %; Neutrophils Percent Manual 48 % (46-73); Ovalocytes 2+ (NORMAL); Platelet Estimate Adequate (Adequate); Poikilocytosis 3+ (NORMAL); Total Cells Counted 100
[2022-12-15 11:13] LABS: Hypochromasia 3+ (NORMAL); Schistocytes Rare (NORMAL); Sickle Cells 2+ (NORMAL); Target Cells 1+ (NORMAL)
[2022-12-15 11:53] LABS: Alanine Aminotransferase 38 U/L (6-35); Albumin Level 4.7 g/dL (3.5-5.1); Alkaline Phosphatase 180 U/L (38-126); Anion Gap 14 mmol/L (8-16); Aspartate Amino Transferase 76 U/L (14-36); Bilirubin,Total 3.2 mg/dL (0.2-1.3); Blood Urea Nitrogen 13 mg/dL (7-17); Calcium 8.8 mg/dL (8.4-10.2); Carbon Dioxide 18 mmol/L (22-30); Chloride 110 mmol/L (98-107); Estimated CRCL calculation 83 ml/min; Estimated Glomerular Filt Rate > 60; Glucose 104 mg/dL (65-110); Potassium 4.9 mmol/L (3.4-5.0); Sodium 142 mmol/L (137-145)
[2022-12-15] MEDS: SODIUM CHLORIDE 0.9% IV 250 ML 30 ML IV CONT (11:54)
--- NOTE | 2022-12-15 11:55 | PC.NURSE ---
Lab specimens redrawn by director of employer services. Pt moaning c/o pain of 10. Dr. Hull informed
[2022-12-15 12:05] LABS: Troponin I 0.019 ng/mL (0.000-0.034)
[2022-12-15 14:13] LABS: Troponin I 0.016 ng/mL (0.000-0.034)
[2022-12-15] MEDS: ONDANSETRON INJ 4 MG/2 ML VIAL IV PUSH (15:16)
[2022-12-15] MEDS: HYDROmorphone HCL INJ (*CRX) 1 MG/ML SYR 0.5 MG IV PUSH ×4 (15:17→20:05)
[2022-12-15 15:21] LABS: Lactate Dehydrogenase 581 U/L (120-246)
--- NOTE | 2022-12-15 15:36 | PC.NURSE ---
Attempted to call report RN unable to take report at this time. Will call back
--- NOTE | 2022-12-15 16:31 | ADMGEN ---
This patient, Isabelle Cornejo, was admitted to 2 Medical Room 244-. Patient/family oriented to hospital policies and general routines including ID bracelet, bed and alarms, visiting hours, pain management, procedures, bathroom and other care routines, personal items, smoking policy, room service/diet, and visiting hours. Information on how to activate the Rapid Response Team has been discussed. Patient/Family are encouraged to report perceived risks to care and to ask questions if they do not understand what they are told or what they should do.
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
[2022-12-15] MEDS: TUBING, BLOOD PLUM PUMP TUBING 1 EACH XX (20:05)
[2022-12-15] MEDS: diazePAM (*CRX) 5 MG TABLET PO (20:06)
[2022-12-15] MEDS: FOLIC ACID 1 MG TABLET PO (20:06)
[2022-12-15] MEDS: SODIUM CHLORIDE 0.9% IV 250 ML 30 ML (21:16)
[2022-12-15 22:33] LABS: Alveolar/Arterial O2 Gradient 73.4 mmHg; Base Excess ABG -5.7 mEq/l (+/-2.0); Carboxyhemoglobin 1.3 % THb (0-2.0); Fractional Inspired Oxygen 25 %; HCO3 ABG 18.5 mEq/l (22.0-26.0); Methemoglobin ABG 0.6 %THb (0-1.5); Oxygen Content ABG 10.1 %vol (16.0-22.0); Oxygen Saturation ABG 93.7 % (95.0-100.0); Oxyhemoglobin 88.7 % THb (90.0-100.0); PCO2 ABG 31.2 mmHg (35.0-45.0); PO2 ABG 67.8 mmHg (80.0-100.0); PO2 FiO2 Ratio Arterial Blood 2.71 %; Reduced Hemoglobin 9.4 %THb (0-5.0); pH ABG 7.392 (7.350-7.450)
[2022-12-15 22:36] LABS: Device NASAL CANNULA; Modified Allen's Test Pass; Site Drawn RIGHT RADIAL
[2022-12-15 23:14] LABS: Ammonia < 9 umol/L (9-30)
[2022-12-15 23:16] LABS: Alanine Aminotransferase 40 U/L (6-35); Albumin Level 4.3 g/dL (3.5-5.1); Alkaline Phosphatase 154 U/L (38-126); Anion Gap 11 mmol/L (8-16); Aspartate Amino Transferase 107 U/L (14-36); Bilirubin,Total 2.8 mg/dL (0.2-1.3); Blood Urea Nitrogen 16 mg/dL (7-17); CRP 2.5 mg/dL (<1.0); Calcium 8.2 mg/dL (8.4-10.2); Carbon Dioxide 19 mmol/L (22-30); Chloride 107 mmol/L (98-107); Estimated CRCL calculation 78 ml/min; Estimated Glomerular Filt Rate > 60; Glucose 128 mg/dL (65-110); Potassium 4.1 mmol/L (3.4-5.0); Sodium 137 mmol/L (137-145)
[2022-12-15] MEDS: oxyCODONE HCL (*CRX) 5 MG TAB IR 15 MG PO (23:48)
[2022-12-15 23:52] LABS: Procalcitonin 1.2 ng/mL
[2022-12-16] VITALS (17 sets, daily range): BP systolic 92–119; BP diastolic 46–88; PULSE 60–103; RESP 14–18; TEMP 36.3–37.6; O2SAT 95–100
--- NOTE | 2022-12-16 | ECHO_ITS ---
Patient Info Name: Isabelle Cornejo Age: 57 years : 1965 Gender: Female Ht: 66 in Wt: 210 lbs BSA: 2.14 m2 HR: 83 bpm BP: 94 / 46 mmHg Heart Rhythm: Sinus Rhythm Technical Quality: Good Exam Date: 12/16/2022 12:03 PM Exam Location: [facility] Patient Status: Inpatient Admit Date: 12/15/2022 Staff Ordering Physician: Marianne Campbell PA-C Video Presentation Operator: Sarika Lawrence RDCS Attending Provider: Rm Brito MD Referring Physician: Adrian FERNANDEZ; Exam Type: CA echo doppler color flow Study Info Indications I50.9 - Heart failure, unspecified I51.7 - Cardiomegaly Complete two-dimensional, color flow and Doppler transthoracic echocardiogram is performed. Summary 1. Complete two-dimensional, color flow and Doppler transthoracic echocardiogram is performed. 2. Left ventricular chamber dimension is normal. 3. Left ventricular systolic function is normal, estimated at 55-60%. 4. Right ventricular systolic function is normal. 5. Left atrial chamber dimension is moderately enlarged. 6. Right atrial chamber dimension is mildly enlarged. 7. There is mild mitral valve regurgitation. 8. There is mild tricuspid valve regurgitation. Left Ventricle Left ventricular chamber dimension is normal. Left ventricular systolic function is normal, estimated at 55-60%. There is no increased left ventricular wall thickness. Global longitudinal strain is abnormal at -16 %. Right Ventricle Right ventricular chamber dimension is normal. Right ventricular systolic function is normal. Left Atria Left atrial chamber dimension is moderately enlarged. Right Atria Right atrial chamber dimension is mildly enlarged. Atrial Septum Intact interatrial septum visualized by color flow imaging. Aortic Valve The aortic valve is trileaflet. There is no aortic valve stenosis. There is no aortic valve regurgitation. Pulmonic Valve The pulmonic valve is not well visualized. Mitral Valve There is mild mitral valve regurgitation. Tricuspid Valve There is mild tricuspid valve regurgitation. Pericardium/Pleural There is no pericardial effusion. Inferior Vena Cava Normal inferior vena cava with >50% collapse upon inspiration consistent with normal right atrial pressure, 3 mmHg. Aorta The aortic root size at the sinus of Valsalva is normal. Left Ventricular Outflow Tract Name Value Normal LVOT 2D LVOT Diameter 2.0 cm LVOT Doppler LVOT Peak Gradient 6 mmHg LVOT Mean Gradient 4 mmHg LVOT VTI 25 cm LVOT VTI/AV VTI Ratio 0.9 LVOT Stroke Volume 79 ml LVOT CO 6.5 l/min LVOT CI 3.0 l/min/m2 Pulmonic Valve Name Value Normal RVOT Doppler RVOT Peak Gradient 2 mmHg PV Doppler
[2022-12-16] MEDS: SODIUM CHLORIDE 0.9% IV 1,000 ML 100 ML IV CONT ×3 (00:06→18:42)
[2022-12-16 00:34] LABS: Amphetamine Screen Urine Negative (Negative); Barbiturate Screen Urine Negative (Negative); Benzodiazepines Screen Urine Positive (Negative); Cannabinoid Screen Urine Negative (Negative); Cocaine Screen Urine Negative (Negative); Methadone Screen Urine Negative (Negative); Opiate Screen Urine Positive (Negative); Phencyclidine Screen Urine Negative (Negative)
[2022-12-16] MEDS: HYDROmorphone HCL INJ (*CRX) 1 MG/ML SYR 0.5 MG IV PUSH (00:38)
[2022-12-16 01:37] LABS: Hematocrit 26.2 % (37.0-47.0); Hemoglobin 8.6 g/dL (12.0-15.0)
[2022-12-16] MEDS: HYDROmorphone HCL INJ (*CRX) 1 MG/ML SYR 2 MG IV PUSH ×5 (02:08→19:37)
[2022-12-16 06:22] LABS: Hematocrit 25.1 % (37.0-47.0); Hemoglobin 8.3 g/dL (12.0-15.0); Mean Corpuscular HGB Conc 33.1 g/dl (32-36); Mean Corpuscular Hemoglobin 31.1 pg (26-34); Mean Platelet Volume 9.6 fl (7.4-10.4); Platelet Count Result 235 k/mm3 (150-375); Red Blood Count 2.67 M/mm3 (4.2-5.4); Red Cell Distribution Width 17.2 % (11.5-14.5); White Blood Count 19.2 K/mm3 (4.5-10.0)
[2022-12-16 06:27] LABS: Alanine Aminotransferase 38 U/L (6-35); Alkaline Phosphatase 140 U/L (38-126); Anion Gap 7 mmol/L (8-16); Aspartate Amino Transferase 90 U/L (14-36); Bilirubin,Total 1.6 mg/dL (0.2-1.3); Blood Urea Nitrogen 16 mg/dL (7-17); Carbon Dioxide 21 mmol/L (22-30); Chloride 107 mmol/L (98-107); Estimated CRCL calculation 63 ml/min; Estimated Glomerular Filt Rate > 60; Glucose 111 mg/dL (65-110); Lactate Dehydrogenase 854 U/L (120-246); Magnesium 1.8 mg/dL (1.6-2.3); Potassium 4.4 mmol/L (3.4-5.0); Sodium 135 mmol/L (137-145)
--- NOTE | 2022-12-16 07:01 | PM.IMPN ---
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 Was having a crisis at home and pain not controlled with home pain agents. Hgb 6.8/20.5 on admissions--->s/p pRBC 8.6-->8.3 Absolute retic 0.21, Retic 9.88% , LDH 854 Started on IV at 100 ml per hour PRN oxy 15 mg PO TID and 2 mg of Dilaudid for breakthrough. Please continue to use IV push pain medication for breakthrough. Patient needs to for she has her oral oxycodone. She was extremely lethargic this morning during my assessment. PRN oxygen as needed to maintain sats greater than 92% Currently on telemetry and capnography. (2) Diastolic congestive heart failure: Code(s): I50.30 - Unspecified diastolic (congestive) heart failure Status: Acute Assessment and Plan: Currently stable. Last ECHO from 2020, Summary ? 1. Complete two-dimensional, color flow and Doppler transthoracic echocardiogram is performed. ? 2. There is mild concentric increased left ventricular wall thickness. ? 3. Left ventricular systolic function is normal, estimated at 60-65%. ? 4. Right ventricular chamber dimension is normal. ? 5. Left atrial chamber dimension is mildly enlarged. ? 6. The aortic valve is normal. ? 7. The mitral valve has normal leaflets. ? 8. There is trivial pericardial effusion. ? 9. Compared with examination from March of 2019 the findings are unchanged. 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 The patient provides the following history. She reports pain for the past couple of days consistent with prior sickle cell crises. She has severe aching discomfort in her chest, knees, hips, and back for which she has been taking oxycodone home however that is no longer helping. She denies fever, chills, sweats, cold and flu symptoms, cough, nausea, vomiting, diarrhea, and dysuria. Vital signs were stable on arrival to the emergency department. Labs were significant for a WBC count of 20.6 (she has chronic leukocytosis), hemoglobin 6.8 (baseline hemoglobin between 7 and 8), elevated reticulocyte, sickle cells seen on peripheral smear, total bilirubin 3.2, AST 76, ALT 38, alkaline phosphatase 180, LDH 581. 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 She is being admitted in this setting for supportive care for sickle cell crisis. Interval history: 12/16-patient is seen this morning very drowsy. She is unable to keep her eyes open long enough to answer my questions. She has been receiving 2 mg of Dilaudid every 2 hours. I changed her dilaudid to 2 mg every 3 hours with a, that she should receive her oral Oxy 1st and use Dilaudid for breakthrough pain. She is not unable to complete a review of systems due to her drowsiness. She is on telemetry and bedside capnography. Review of Systems Review of Systems: ROS unobtainable: Yes unobtainable due to medical condition Exam Narrative: General: lethargic, well nourished, appears stated age. HEENT: normocephalic, atraumatic. Mucous membranes moist. EOMI, PERRLA, bilateral sclera anicteric, no conjunctival injection. Neck supple without JVD, lymphadenopathy, or bruit. Respiratory: clear to auscultation bilaterally. No rales/rhonic/wheezes. Cardiovascular: Regular rate and rhythm, normal S1-S2 upon auscultation. No
[2022-12-16] MEDS: PANTOPRAZOLE 40 MG TABLET PO (08:41)
[2022-12-16] MEDS: DOCUSATE SODIUM 100 MG CAPSULE PO ×2 (08:41→17:12)
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
[2022-12-16] MEDS: oxyCODONE HCL (*CRX) 5 MG TAB IR 15 MG PO ×2 (17:12→23:13)
[2022-12-16] MEDS: ENOXAPARIN 40 MG/0.4 ML SYRINGE SUB-Q (17:13)
[2022-12-16 19:37] LABS: Lactate Dehydrogenase 933 U/L (120-246)
[2022-12-16] MEDS: FOLIC ACID 1 MG TABLET PO (22:04)
[2022-12-16] MEDS: diazePAM (*CRX) 5 MG TABLET PO (22:04)
[2022-12-17] VITALS (16 sets, daily range): BP systolic 82–133; BP diastolic 40–61; PULSE 68–104; RESP 14–16; TEMP 36.4–37.6; O2SAT 95–99
--- NOTE | 2022-12-17 02:12 | PC.NURSE ---
Addendum entered by Rian Guerra RN 12/17/22 02:57: BP 100/50 at recheck. IV fluids continued at previous ordered rate of 100ml/hr Original Note: Dr Light notified patient hypotensive 82/40, other vitals are stable, and patient arouses easily but is somnolent falling asleep during brief conversation. Order to complete current normal saline infusion at 250ml/hr and recheck BP. If patient hypotension does not improve order to run 1L normal saline over 2hrs.
[2022-12-17] MEDS: SODIUM CHLORIDE 0.9% IV 1,000 ML 100 ML IV CONT ×3 (02:56→23:40)
[2022-12-17] MEDS: oxyCODONE HCL (*CRX) 5 MG TAB IR 15 MG PO ×2 (05:24→20:33)
[2022-12-17 06:49] LABS: Basophils Absolute Auto 0.1 K/mm3 (0.0-0.1); Basophils Percent Auto 0.4 % (0.2-1.2); Eosinophils Absolute Auto 0.4 K/mm3 (0-0.3); Eosinophils Percent Auto 2.8 % (0-4.4); Hematocrit 24.1 % (37.0-47.0); Immature Granulocyte Absolute 0.18 K/mm3 (0.00-0.031); Immature Granulocyte Percent A 1.2 % (0-0.5); Lymphocytes Absolute Auto 3.28 K/mm3 (0.9-3.2); Lymphocytes Percent Auto 21.4 % (18.3-44.2); Mean Corpuscular HGB Conc 33.2 g/dl (32-36); Mean Corpuscular Hemoglobin 31.6 pg (26-34); Mean Corpuscular Volume 95.3 fl (80-100); Mean Platelet Volume 10.5 fl (7.4-10.4); Monocytes Absolute Auto 2.3 K/mm3 (0.1-0.6); Monocytes Percent Auto 14.7 % (2.6-8.5); Neutrophils Absolute Auto 9.1 K/mm3 (1.3-6.7); Neutrophils Percent Auto 59.5 % (45.5-73.1); Nucleated Red Blood Cells Absolute Auto 1.1 K/mm3 (0.0-0.012); Nucleated Red Blood Cells Perc 7.3 % (0.0-0.2); Platelet Count Result 209 k/mm3 (150-375); Red Blood Count 2.53 M/mm3 (4.2-5.4); Red Cell Distribution Width 16.9 % (11.5-14.5); White Blood Count 15.3 K/mm3 (4.5-10.0)
[2022-12-17 06:55] LABS: Alanine Aminotransferase 36 U/L (6-35); Albumin Level 3.6 g/dL (3.5-5.1); Alkaline Phosphatase 154 U/L (38-126); Anion Gap 6 mmol/L (8-16); Aspartate Amino Transferase 68 U/L (14-36); Bilirubin,Total 2.3 mg/dL (0.2-1.3); Blood Urea Nitrogen 11 mg/dL (7-17); Calcium 8.1 mg/dL (8.4-10.2); Carbon Dioxide 21 mmol/L (22-30); Chloride 111 mmol/L (98-107); Estimated CRCL calculation 87 ml/min; Estimated Glomerular Filt Rate > 60; Glucose 113 mg/dL (65-110); Potassium 3.6 mmol/L (3.4-5.0); Sodium 138 mmol/L (137-145)
[2022-12-17] MEDS: DOCUSATE SODIUM 100 MG CAPSULE PO ×2 (09:40→17:02)
[2022-12-17] MEDS: ENOXAPARIN 40 MG/0.4 ML SYRINGE SUB-Q (09:41)
[2022-12-17] MEDS: polyethylene glycoL 3350 17 GM POWD.PACK PO (09:41)
[2022-12-17] MEDS: PANTOPRAZOLE 40 MG TABLET PO (09:41)
[2022-12-17] MEDS: HYDROmorphone HCL INJ (*CRX) 1 MG/ML SYR 2 MG IV PUSH ×3 (10:12→22:50)
--- NOTE | 2022-12-17 13:40 | PM.IMPN ---
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 Was having a crisis at home and pain not controlled with home pain agents. Hgb 6.8/20.5 on admission Absolute retic 0.21, Retic 9.88% , LDH 854 Started on IV at 100 ml per hour PRN oxy 15 mg PO TID and 2 mg of Dilaudid for breakthrough. Please continue to use IV push pain medication for breakthrough. Patient needs to for she has her oral oxycodone. PRN oxygen as needed to maintain sats greater than 92% Currently on telemetry and capnography. (2) Diastolic congestive heart failure: Code(s): I50.30 - Unspecified diastolic (congestive) heart failure Status: Acute Assessment and Plan: Currently stable. Echocardiogram EF 55-60%, moderately enlarged left atrial chamber, mild valvular disease. Plan Analgesia:oxy prn and Dilaudid for breakthrough Thromboembolic prophylaxis: Lovenox Subjective Date/time seen: 12/17/22 13:40 Interval history: patient states that her pain is not well controlled although she still intermittently falls in an out of sleep while I am talking to her. I advised her that it is best to use her oxycodone for pain and Dilaudid for breakthrough pain. she states that she is intermittently short of breath although she is saturated at 98% on 2 L. She also states she was unable to get up out of bed due to her pain. Exam Narrative: GENERAL: Comfortable, no acute distress HENMT: moist mucous membranes EYES: EOM intact b/l NECK: no lymphadenopathy RESPIRATORY: clear to auscultation CARDIO: RRR GI: soft, nontender, bowel sounds present SKIN: no rashes EXTREMITIES: no edema, redness or tenderness Objective Data Vital Signs Vital Signs: Vital Signs - 24 hr 12/16/22 13:54 12/16/22 17:11 12/16/22 16:00 Temperature 98.6 F Pulse Rate 87 95 Respiratory Rate 14 Blood Pressure 104/48 L 119/88 Pulse Oximetry 97 Oxygen Delivery Oxygen Flow Rate 12/16/22 22:00 12/16/22 20:00 12/16/22 23:10 Temperature 98.4 F 97.3 F L Pulse Rate 103 H 102 H 97 Respiratory Rate 14 14 Blood Pressure 92/47 L 114/52 L Pulse Oximetry 95 100 Oxygen Delivery Oxygen Flow Rate 12/16/22 23:32 12/17/22 00:00 12/17/22 01:40 Temperature Pulse Rate 101 H 99 Respiratory Rate 14 Blood Pressure 82/40 L Pulse Oximetry 96 98 Oxygen Delivery Nasal Cannula Oxygen Flow Rate 2 12/17/22 02:50 12/16/22 19:30 12/17/22 04:00 Temperature Pulse Rate 104 H Respiratory Rate Blood Pressure 100/50 L Pulse Oximetry Oxygen Delivery Nasal Cannula Oxygen Flow Rate 2 12/17/22 05:50 12/17/22 07:05 12/17/22 10:11 Temperature 97.5 F L Pulse Rate 98 95 Respiratory Rate 14 Blood Pressure 108/53 L 133/61 Pulse Oximetry 98 95 Oxygen Delivery Nasal Cannula Oxygen Flow Rate 2 12/17/22 09:40 Temperature Pulse Rate Respiratory Rate Blood Pressure Pulse Oximetry 95 Oxygen Delivery Nasal Cannula Oxygen Flow Rate 2 Intake/Output Intake/Output: Intake & Output 12/14/22 12/15/22 12/16/22 12/17/22 23:59 23:59 23:59 23:59 Intake Total 1200 3550 3420 Output Total 1994 1999 Balance 1200 1555 1420 Meds/Results Medications: Active Medications Generic Name Dose Route Start Last Admin Trade Name Freq PRN Reason Stop Dose Admin Acetaminophen 650 mg 12/15/22 19:12 Acetaminophen 325 Mg Tablet PO Q6H PRN Mild Pain (1-3) or Fever Albuterol 2 puff 12/15/22 19:10 Albuterol Sulfate (*Sp) Aerosol 1 Puff INHALATION Q6H PRN Wheezing Carisoprodol 350 mg 12/15/22 19:10 Carisoprodol (*Crx) 350 Mg Tablet PO TID PRN Muscle Pain Diazepam 5 mg 12/15/22 21:00 12/16/22 22:04 Diazepam (*Crx) 5 Mg Tablet PO 5 mg QHS KYLER Administration Dicyclomine HCl 10 mg
[2022-12-17 19:28] LABS: Lactate Dehydrogenase 924 U/L (120-246)
[2022-12-17] MEDS: FOLIC ACID 1 MG TABLET PO (22:51)
--- NOTE | 2022-12-17 22:54 | PC.NURSE ---
Dr Light notified pt blood pressure 100/46 and pt is requesting IV Dilaudid. Provider states ok to continue giving dilaudid with systolic 100 or greater.
[2022-12-18] VITALS (22 sets, daily range): BP systolic 95–131; BP diastolic 40–65; PULSE 62–90; RESP 10–21; TEMP 36.3–37.2; O2SAT 97–100
[2022-12-18] MEDS: oxyCODONE HCL (*CRX) 5 MG TAB IR 15 MG PO (04:28)
[2022-12-18 05:36] LABS: Basophils Absolute Auto 0.1 K/mm3 (0.0-0.1); Basophils Percent Auto 0.7 % (0.2-1.2); Eosinophils Percent Auto 7.6 % (0-4.4); Hematocrit 21.2 % (37.0-47.0); Immature Granulocyte Absolute 0.17 K/mm3 (0.00-0.031); Immature Granulocyte Percent A 1.3 % (0-0.5); Lymphocytes Absolute Auto 4.17 K/mm3 (0.9-3.2); Lymphocytes Percent Auto 31.2 % (18.3-44.2); Mean Corpuscular HGB Conc 32.1 g/dl (32-36); Mean Corpuscular Hemoglobin 31.1 pg (26-34); Mean Corpuscular Volume 96.8 fl (80-100); Mean Platelet Volume 10.6 fl (7.4-10.4); Monocytes Absolute Auto 1.8 K/mm3 (0.1-0.6); Monocytes Percent Auto 13.2 % (2.6-8.5); Neutrophils Absolute Auto 6.2 K/mm3 (1.3-6.7); Nucleated Red Blood Cells Absolute Auto 0.4 K/mm3 (0.0-0.012); Nucleated Red Blood Cells Perc 2.6 % (0.0-0.2); Platelet Count Result 168 k/mm3 (150-375); Red Blood Count 2.19 M/mm3 (4.2-5.4); Red Cell Distribution Width 17.3 % (11.5-14.5); White Blood Count 13.4 K/mm3 (4.5-10.0)
[2022-12-18 05:43] LABS: Hemoglobin 6.8 g/dL (12.0-15.0)
[2022-12-18 05:50] LABS: Alanine Aminotransferase 30 U/L (6-35); Albumin Level 3.3 g/dL (3.5-5.1); Alkaline Phosphatase 124 U/L (38-126); Anion Gap 4 mmol/L (8-16); Aspartate Amino Transferase 52 U/L (14-36); Bilirubin,Total 1.6 mg/dL (0.2-1.3); Blood Urea Nitrogen 13 mg/dL (7-17); Calcium 7.8 mg/dL (8.4-10.2); Carbon Dioxide 23 mmol/L (22-30); Chloride 110 mmol/L (98-107); Estimated CRCL calculation 87 ml/min; Estimated Glomerular Filt Rate > 60; Glucose 122 mg/dL (65-110); Potassium 4.2 mmol/L (3.4-5.0); Sodium 137 mmol/L (137-145)
[2022-12-18] MEDS: ACETAMINOPHEN 325 MG TABLET 650 MG PO (08:00)
[2022-12-18] MEDS: polyethylene glycoL 3350 17 GM POWD.PACK PO (08:02)
[2022-12-18] MEDS: DOCUSATE SODIUM 100 MG CAPSULE PO ×2 (08:02→16:29)
[2022-12-18] MEDS: diphenhydrAMINE HCl INJ 50 MG/ML VIAL IV PUSH (08:02)
[2022-12-18] MEDS: ENOXAPARIN 40 MG/0.4 ML SYRINGE SUB-Q (08:02)
[2022-12-18] MEDS: SODIUM CHLORIDE 0.9% IV 250 ML 30 ML IV CONT (08:02)
[2022-12-18] MEDS: PANTOPRAZOLE 40 MG TABLET PO (08:02)
--- NOTE | 2022-12-18 13:04 | PM.IMPN ---
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 Was having a crisis at home and pain not controlled with home pain agents. Hgb 6.8/20.5 on admission Absolute retic 0.21, Retic 9.88% , LDH 854 Started on IV at 100 ml per hour PRN oxy 15 mg PO TID and 2 mg of Dilaudid for breakthrough. Please continue to use IV push pain medication for breakthrough. Patient needs to for she has her oral oxycodone. PRN oxygen as needed to maintain sats greater than 92% Currently on telemetry and capnography. 12/18 H&H 6.8/21.2. Hematology ordered 2 units of PRBCs. (2) Diastolic congestive heart failure: Code(s): I50.30 - Unspecified diastolic (congestive) heart failure Status: Acute Assessment and Plan: Currently stable. Echocardiogram EF 55-60%, moderately enlarged left atrial chamber, mild valvular disease. Plan Analgesia:oxy prn and Dilaudid for breakthrough Thromboembolic prophylaxis: Lovenox Subjective Date/time seen: 12/18/22 13:04 Interval history: Patient feeling better today. Still struggling to get out of bed due to leg pain. She is breathing better today. She received 2 units of PRBCs today due to Hematology recommendation. Continue current pain medication regimen. Exam Narrative: GENERAL: Comfortable, no acute distress HENMT: moist mucous membranes EYES: EOM intact b/l NECK: no lymphadenopathy RESPIRATORY: clear to auscultation CARDIO: RRR GI: soft, nontender, bowel sounds present SKIN: no rashes EXTREMITIES: no edema, redness or tenderness Objective Data Vital Signs Vital Signs: Vital Signs - 24 hr 12/17/22 16:59 12/17/22 16:00 12/17/22 21:21 Temperature 99.6 F Pulse Rate 98 95 94 Respiratory Rate 16 Blood Pressure 112/54 L 102/55 L Pulse Oximetry 98 99 Oxygen Delivery Oxygen Flow Rate 12/17/22 22:45 12/17/22 20:30 12/17/22 20:58 Temperature Pulse Rate 68 Respiratory Rate 14 Blood Pressure 100/46 L Pulse Oximetry 97 Oxygen Delivery Nasal Cannula Nasal Cannula Oxygen Flow Rate 2 2 12/17/22 20:00 12/18/22 00:00 12/18/22 04:00 Temperature Pulse Rate 94 80 90 Respiratory Rate Blood Pressure Pulse Oximetry Oxygen Delivery Oxygen Flow Rate 12/18/22 06:00 12/18/22 08:02 12/18/22 08:17 Temperature 97.6 F 97.3 F L Pulse Rate 72 73 72 Respiratory Rate 16 12 16 Blood Pressure 100/52 L 97/48 L Pulse Oximetry 100 97 100 Oxygen Delivery Nasal Cannula Oxygen Flow Rate 2 12/18/22 08:00 12/18/22 08:35 12/18/22 09:15 Temperature 97.3 F L Pulse Rate 68 Respiratory Rate 12 Blood Pressure 95/44 L Pulse Oximetry 100 99 99 Oxygen Delivery Nasal Cannula Nasal Cannula Oxygen Flow Rate 2 2 12/18/22 09:35 12/18/22 10:35 12/18/22 08:00 Temperature 98.8 F 98.4 F Pulse Rate 69 66 72 Respiratory Rate 12 12 Blood Pressure 95/48 L 97/49 L Pulse Oximetry 99 99 Oxygen Delivery Oxygen Flow Rate 12/18/22 11:38 Temperature 98.9 F Pulse Rate 64 Respiratory Rate 12 Blood Pressure 99/45 L Pulse Oximetry 99 Oxygen Delivery Oxygen Flow Rate Intake/Output Intake/Output: Intake & Output 12/15/22 12/16/22 12/17/22 12/18/22 23:59 23:59 23:59 23:59 Intake Total 1200 3550 5580 1410 Output Total 1994 4100 1000 Balance 1200 1555 1480 410 Meds/Results Medications: Active Medications Generic Name Dose Route Start Last Admin Trade Name Freq PRN Reason Stop Dose Admin Acetaminophen 650 mg 12/15/22 19:12 12/18/22 08:00 Acetaminophen 325 Mg Tablet PO 650 mg Q6H PRN Administration Mild Pain (1-3) or Fever Albuterol 2 puff 12/15/22 19:10 Albuterol Sulfate (*Sp) Aerosol 1 Puff INHALATION Q6H PRN Wheezing Carisoprodol 350 mg 12/15/22 19:10 Carisoprodol (*Crx) 350 Mg Tablet PO TID
[2022-12-18] MEDS: SODIUM CHLORIDE 0.9% IV 1,000 ML 100 ML IV CONT (13:05)
[2022-12-18] MEDS: HYDROmorphone HCL INJ (*CRX) 1 MG/ML SYR 2 MG IV PUSH ×2 (13:06→20:31)
--- NOTE | 2022-12-18 13:26 | PC.NURSE ---
On 12/18/22, the student, [Mckenna Thao], provided care and completed [facility] documentation on this patient. I have reviewed the student's documentation and agree with the findings.
[2022-12-18 19:52] LABS: Lactate Dehydrogenase 624 U/L (120-246)
[2022-12-18] MEDS: FOLIC ACID 1 MG TABLET PO (20:31)
[2022-12-18] MEDS: diazePAM (*CRX) 5 MG TABLET PO (20:31)
[2022-12-19] VITALS (11 sets, daily range): BP systolic 107–114; BP diastolic 49–60; PULSE 68–85; RESP 15–18; TEMP 36.8–37.2; O2SAT 97–99
[2022-12-19] MEDS: SODIUM CHLORIDE 0.9% IV 1,000 ML 100 ML IV CONT ×2 (02:47→16:00)
[2022-12-19] MEDS: oxyCODONE HCL (*CRX) 5 MG TAB IR 15 MG PO (03:05)
[2022-12-19 06:13] LABS: Basophils Absolute Auto 0.1 K/mm3 (0.0-0.1); Basophils Percent Auto 0.7 % (0.2-1.2); Eosinophils Absolute Auto 0.9 K/mm3 (0-0.3); Eosinophils Percent Auto 7.7 % (0-4.4); Hematocrit 27.5 % (37.0-47.0); Hemoglobin 8.9 g/dL (12.0-15.0); Immature Granulocyte Absolute 0.08 K/mm3 (0.00-0.031); Immature Granulocyte Percent A 0.7 % (0-0.5); Lymphocytes Absolute Auto 3.41 K/mm3 (0.9-3.2); Lymphocytes Percent Auto 27.9 % (18.3-44.2); Mean Corpuscular HGB Conc 32.4 g/dl (32-36); Mean Corpuscular Hemoglobin 29.9 pg (26-34); Mean Corpuscular Volume 92.3 fl (80-100); Monocytes Absolute Auto 1.1 K/mm3 (0.1-0.6); Monocytes Percent Auto 9.2 % (2.6-8.5); Neutrophils Absolute Auto 6.6 K/mm3 (1.3-6.7); Neutrophils Percent Auto 53.8 % (45.5-73.1); Nucleated Red Blood Cells Absolute Auto 0.1 K/mm3 (0.0-0.012); Nucleated Red Blood Cells Perc 1.1 % (0.0-0.2); Platelet Count Result 174 k/mm3 (150-375); Red Blood Count 2.98 M/mm3 (4.2-5.4); Red Cell Distribution Width 16.8 % (11.5-14.5); White Blood Count 12.2 K/mm3 (4.5-10.0)
[2022-12-19 06:21] LABS: Alanine Aminotransferase 32 U/L (6-35); Albumin Level 3.3 g/dL (3.5-5.1); Alkaline Phosphatase 134 U/L (38-126); Anion Gap 4 mmol/L (8-16); Aspartate Amino Transferase 46 U/L (14-36); Bilirubin,Total 1.8 mg/dL (0.2-1.3); Blood Urea Nitrogen 12 mg/dL (7-17); Carbon Dioxide 24 mmol/L (22-30); Chloride 110 mmol/L (98-107); Estimated CRCL calculation 88 ml/min; Estimated Glomerular Filt Rate > 60; Glucose 110 mg/dL (65-110); Potassium 4.2 mmol/L (3.4-5.0); Sodium 138 mmol/L (137-145)
[2022-12-19] MEDS: PANTOPRAZOLE 40 MG TABLET PO (09:44)
[2022-12-19] MEDS: ENOXAPARIN 40 MG/0.4 ML SYRINGE SUB-Q (09:44)
[2022-12-19] MEDS: DOCUSATE SODIUM 100 MG CAPSULE PO ×2 (09:44→17:18)
[2022-12-19] MEDS: polyethylene glycoL 3350 17 GM POWD.PACK PO (09:44)
[2022-12-19] MEDS: HYDROmorphone HCL INJ (*CRX) 1 MG/ML SYR 2 MG IV PUSH ×2 (09:48→21:40)
--- NOTE | 2022-12-19 12:16 | PM.IMPN ---
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 Was having a crisis at home and pain not controlled with home pain agents. Hgb 6.8/20.5 on admission Absolute retic 0.21, Retic 9.88% , LDH 854 Started on IV at 100 ml per hour PRN oxy 15 mg PO TID and 2 mg of Dilaudid for breakthrough. Please continue to use IV push pain medication for breakthrough. Patient needs to for she has her oral oxycodone. PRN oxygen as needed to maintain sats greater than 92% Currently on telemetry and capnography. 12/18 H&H 6.8/21.2. Hematology ordered 2 units of PRBCs. 12/19 H&H 8.9/27.5. (2) Diastolic congestive heart failure: Code(s): I50.30 - Unspecified diastolic (congestive) heart failure Status: Acute Assessment and Plan: Currently stable. Echocardiogram EF 55-60%, moderately enlarged left atrial chamber, mild valvular disease. Plan Analgesia:oxy prn and Dilaudid for breakthrough Thromboembolic prophylaxis: Lovenox Subjective Date/time seen: 12/19/22 12:16 Interval history: Patient states that she feels as if she is improving although she is still in the pretty significant amount pain. She is using Dilaudid between 2 and 3 times daily. her pain has improved to where she can get up and walk to the bathroom. She complains of knee pain and low back pain. Hopefully she will improve in the next day or 2 to be able to discharge. She denies any shortness of breath, chest pain, nausea vomiting. Exam Narrative: GENERAL: Comfortable, no acute distress HENMT: moist mucous membranes EYES: EOM intact b/l NECK: no lymphadenopathy RESPIRATORY: clear to auscultation CARDIO: RRR GI: soft, nontender, bowel sounds present SKIN: no rashes EXTREMITIES: no edema, redness or tenderness Objective Data Vital Signs Vital Signs: Vital Signs - 24 hr 12/18/22 14:09 12/18/22 14:27 12/18/22 14:00 Temperature 98.6 F 98.3 F 98.3 F Pulse Rate 68 64 68 Respiratory Rate 10 L 14 14 Blood Pressure 99/43 L 96/41 L 96/41 L Pulse Oximetry 98 99 99 Oxygen Delivery Oxygen Flow Rate 12/18/22 15:27 12/18/22 16:00 12/18/22 16:27 Temperature 98.6 F 98.0 F Pulse Rate 66 63 69 Respiratory Rate 14 15 Blood Pressure 99/47 L 108/53 L Pulse Oximetry 100 100 Oxygen Delivery Oxygen Flow Rate 12/18/22 17:27 12/18/22 20:34 12/18/22 20:00 Temperature 98.0 F 98.2 F Pulse Rate 78 86 85 Respiratory Rate 17 16 Blood Pressure 108/40 L 131/65 Pulse Oximetry 100 100 Oxygen Delivery Oxygen Flow Rate 12/18/22 20:20 12/19/22 04:14 12/19/22 00:00 Temperature 99.0 F Pulse Rate 85 78 77 Respiratory Rate 21 H 16 Blood Pressure 114/60 Pulse Oximetry 100 98 Oxygen Delivery Nasal Cannula Oxygen Flow Rate 2 12/19/22 04:00 12/19/22 07:51 Temperature Pulse Rate 77 72 Respiratory Rate 15 Blood Pressure Pulse Oximetry 98 Oxygen Delivery Nasal Cannula Oxygen Flow Rate 1 Intake/Output Intake/Output: Intake & Output 12/16/22 12/17/22 12/18/22 12/19/22 23:59 23:59 23:59 23:59 Intake Total 3550 5580 4702 1640 Output Total 1994 4100 2300 4400 Balance 1555 1480 2402 -7140 Meds/Results Medications: Active Medications Generic Name Dose Route Start Last Admin Trade Name Freq PRN Reason Stop Dose Admin Acetaminophen 650 mg 12/15/22 19:12 12/18/22 08:00 Acetaminophen 325 Mg Tablet PO 650 mg Q6H PRN Administration Mild Pain (1-3) or Fever Albuterol 2 puff 12/15/22 19:10 Albuterol Sulfate (*Sp) Aerosol 1 Puff INHALATION Q6H PRN Wheezing Carisoprodol 350 mg 12/15/22 19:10 Carisoprodol (*Crx) 350 Mg Tablet PO TID PRN Muscle Pain Diazepam 5 mg 12/15/22 21:00 12/18/22 20:31 Diazepam (*Crx) 5 Mg Tablet PO 5 mg QHS KYLER Administration Dicyclomine HCl
[2022-12-19] MEDS: FOLIC ACID 1 MG TABLET PO (20:27)
[2022-12-19] MEDS: diazePAM (*CRX) 5 MG TABLET PO (20:27)
[2022-12-20] VITALS (8 sets, daily range): BP systolic 104–134; BP diastolic 52–62; PULSE 61–73; RESP 13–16; TEMP 36.4–36.5; O2SAT 96–98
[2022-12-20] MEDS: SODIUM CHLORIDE 0.9% IV 1,000 ML 100 ML IV CONT (01:46)
[2022-12-20] MEDS: HYDROmorphone HCL INJ (*CRX) 1 MG/ML SYR 2 MG IV PUSH ×2 (03:37→09:16)
[2022-12-20 05:53] LABS: Alanine Aminotransferase 36 U/L (6-35); Albumin Level 3.6 g/dL (3.5-5.1); Alkaline Phosphatase 157 U/L (38-126); Anion Gap 8 mmol/L (8-16); Aspartate Amino Transferase 51 U/L (14-36); Bilirubin,Total 2.3 mg/dL (0.2-1.3); Blood Urea Nitrogen 10 mg/dL (7-17); Calcium 8.2 mg/dL (8.4-10.2); Carbon Dioxide 24 mmol/L (22-30); Chloride 106 mmol/L (98-107); Estimated CRCL calculation 102 ml/min; Estimated Glomerular Filt Rate > 60; Glucose 102 mg/dL (65-110); Potassium 4.2 mmol/L (3.4-5.0); Sodium 138 mmol/L (137-145)
[2022-12-20 05:58] LABS: Basophils Absolute Auto 0.1 K/mm3 (0.0-0.1); Basophils Percent Auto 0.7 % (0.2-1.2); Eosinophils Absolute Auto 0.9 K/mm3 (0-0.3); Eosinophils Percent Auto 7.8 % (0-4.4); Hematocrit 28.9 % (37.0-47.0); Hemoglobin 9.2 g/dL (12.0-15.0); Immature Granulocyte Absolute 0.05 K/mm3 (0.00-0.031); Immature Granulocyte Percent A 0.5 % (0-0.5); Lymphocytes Percent Auto 30.4 % (18.3-44.2); Mean Corpuscular HGB Conc 31.8 g/dl (32-36); Mean Corpuscular Hemoglobin 30.2 pg (26-34); Mean Corpuscular Volume 94.8 fl (80-100); Mean Platelet Volume 11.4 fl (7.4-10.4); Monocytes Absolute Auto 1.2 K/mm3 (0.1-0.6); Monocytes Percent Auto 10.7 % (2.6-8.5); Neutrophils Absolute Auto 5.4 K/mm3 (1.3-6.7); Neutrophils Percent Auto 49.9 % (45.5-73.1); Nucleated Red Blood Cells Perc 0.4 % (0.0-0.2); Platelet Count Result 170 k/mm3 (150-375); Red Blood Count 3.05 M/mm3 (4.2-5.4); Red Cell Distribution Width 17.2 % (11.5-14.5); White Blood Count 10.9 K/mm3 (4.5-10.0)
[2022-12-20] MEDS: polyethylene glycoL 3350 17 GM POWD.PACK PO (09:11)
[2022-12-20] MEDS: DOCUSATE SODIUM 100 MG CAPSULE PO ×2 (09:11→17:24)
[2022-12-20] MEDS: PANTOPRAZOLE 40 MG TABLET PO (09:11)
--- NOTE | 2022-12-20 12:08 | PM.IMPN ---
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 Was having a crisis at home and pain not controlled with home pain agents. Hgb 6.8/20.5 on admission Absolute retic 0.21, Retic 9.88% , LDH 854 Started on IV at 100 ml per hour PRN oxy 15 mg PO TID and 2 mg of Dilaudid for breakthrough. Please continue to use IV push pain medication for breakthrough. Patient needs to for she has her oral oxycodone. PRN oxygen as needed to maintain sats greater than 92% Currently on capnography. 12/18 H&H 6.8/21.2. Hematology ordered 2 units of PRBCs. Trending H&H. Remains stable. (2) Diastolic congestive heart failure: Code(s): I50.30 - Unspecified diastolic (congestive) heart failure Status: Acute Assessment and Plan: Currently stable. Echocardiogram EF 55-60%, moderately enlarged left atrial chamber, mild valvular disease. Plan Analgesia:oxy prn and Dilaudid for breakthrough Thromboembolic prophylaxis: Lovenox Subjective Date/time seen: 12/20/22 12:08 Interval history: Patient improving. Patient is able to get up and walk in the room now. Discussed with her the need to try and not use IV pain medication is frequently. She still complains of back and knee pain. She denies any chest pain, shortness a breath, nausea and lower extremity edema. Patient needs tighter pain control. Exam Narrative: GENERAL: Comfortable, no acute distress HENMT: moist mucous membranes EYES: EOM intact b/l NECK: no lymphadenopathy RESPIRATORY: clear to auscultation CARDIO: RRR GI: soft, nontender, bowel sounds present SKIN: no rashes EXTREMITIES: no edema, redness or tenderness Objective Data Vital Signs Vital Signs: Vital Signs - 24 hr 12/19/22 14:48 12/19/22 16:00 12/19/22 20:00 Temperature 98.4 F Pulse Rate 76 68 68 Respiratory Rate 18 18 Blood Pressure 107/49 L Pulse Oximetry 99 99 Oxygen Delivery Nasal Cannula Oxygen Flow Rate 2 Fraction of Inspired Oxygen 24 12/19/22 20:00 12/19/22 22:06 09/30/23 00:00 Temperature 98.2 F Pulse Rate 79 85 73 Respiratory Rate 16 Blood Pressure 110/59 L Pulse Oximetry 98 Oxygen Delivery Oxygen Flow Rate Fraction of Inspired Oxygen 12/19/22 21:30 12/20/22 04:54 12/20/22 04:00 Temperature 97.6 F Pulse Rate 70 61 70 Respiratory Rate 17 14 Blood Pressure 114/52 L Pulse Oximetry 97 97 Oxygen Delivery Nasal Cannula Oxygen Flow Rate 1 Fraction of Inspired Oxygen 12/20/22 10:21 Temperature Pulse Rate 64 Respiratory Rate 13 Blood Pressure Pulse Oximetry 96 Oxygen Delivery Room Air Oxygen Flow Rate Fraction of Inspired Oxygen 21 Intake/Output Intake/Output: Intake & Output 12/17/22 12/18/22 12/19/22 12/20/22 23:59 23:59 23:59 23:59 Intake Total 5580 4702 3670 1790 Output Total 4100 2300 5600 1999 Balance 2030 2402 -1930 -210 Meds/Results Medications: Active Medications Generic Name Dose Route Start Last Admin Trade Name Freq PRN Reason Stop Dose Admin Acetaminophen 650 mg 12/15/22 19:12 12/18/22 08:00 Acetaminophen 325 Mg Tablet PO 650 mg Q6H PRN Administration Mild Pain (1-3) or Fever Albuterol 2 puff 12/15/22 19:10 Albuterol Sulfate (*Sp) Aerosol 1 Puff INHALATION Q6H PRN Wheezing Carisoprodol 350 mg 12/15/22 19:10 Carisoprodol (*Crx) 350 Mg Tablet PO TID PRN Muscle Pain Diazepam 5 mg 12/15/22 21:00 12/19/22 20:27 Diazepam (*Crx) 5 Mg Tablet PO 5 mg QHS KYLER Administration Dicyclomine HCl 10 mg 12/15/22 19:10 Dicyclomine Hcl 10 Mg Capsule PO TID PRN Abdominal Discomfort Docusate Sodium 100 mg 12/16/22 09:00 12/20/22 09:11 Docusate Sodium 100 Mg Capsule PO 100 mg BID KYLER Administration Enoxaparin Sodium 40 mg 11/22
[2022-12-20] MEDS: HYDROmorphone HCL INJ (*CRX) 2 MG/ML VIAL IV PUSH ×2 (18:36→23:00)
[2022-12-20] MEDS: diazePAM (*CRX) 5 MG TABLET PO (20:01)
[2022-12-20] MEDS: FOLIC ACID 1 MG TABLET PO (20:01)
[2022-12-20] MEDS: SODIUM CHLORIDE 0.9% IV 1,000 ML 65 ML IV CONT (23:07)
[2022-12-21 04:42] VITALS: BP 101/59; PULSE 62; RESP 16; TEMP 36.6; O2SAT 96
[2022-12-21 05:41] LABS: Basophils Absolute Auto 0.1 K/mm3 (0.0-0.1); Basophils Percent Auto 0.8 % (0.2-1.2); Eosinophils Absolute Auto 0.9 K/mm3 (0-0.3); Eosinophils Percent Auto 8.9 % (0-4.4); Hematocrit 28.3 % (37.0-47.0); Hemoglobin 9.3 g/dL (12.0-15.0); Immature Granulocyte Absolute 0.03 K/mm3 (0.00-0.031); Immature Granulocyte Percent A 0.3 % (0-0.5); Lymphocytes Absolute Auto 3.72 K/mm3 (0.9-3.2); Lymphocytes Percent Auto 37.3 % (18.3-44.2); Mean Corpuscular HGB Conc 32.9 g/dl (32-36); Mean Corpuscular Hemoglobin 30.1 pg (26-34); Mean Corpuscular Volume 91.6 fl (80-100); Mean Platelet Volume 10.3 fl (7.4-10.4); Monocytes Absolute Auto 1.1 K/mm3 (0.1-0.6); Monocytes Percent Auto 10.6 % (2.6-8.5); Neutrophils Absolute Auto 4.2 K/mm3 (1.3-6.7); Neutrophils Percent Auto 42.1 % (45.5-73.1); Platelet Count Result 195 k/mm3 (150-375); Red Blood Count 3.09 M/mm3 (4.2-5.4); Red Cell Distribution Width 16.6 % (11.5-14.5)
[2022-12-21 05:50] LABS: Alanine Aminotransferase 40 U/L (6-35); Albumin Level 3.7 g/dL (3.5-5.1); Alkaline Phosphatase 158 U/L (38-126); Anion Gap 6 mmol/L (8-16); Aspartate Amino Transferase 55 U/L (14-36); Bilirubin,Total 1.7 mg/dL (0.2-1.3); Blood Urea Nitrogen 9 mg/dL (7-17); Calcium 8.3 mg/dL (8.4-10.2); Carbon Dioxide 27 mmol/L (22-30); Chloride 105 mmol/L (98-107); Estimated CRCL calculation 101 ml/min; Estimated Glomerular Filt Rate > 60; Glucose 106 mg/dL (65-110); Potassium 3.9 mmol/L (3.4-5.0); Sodium 138 mmol/L (137-145)
[2022-12-21] MEDS: HYDROmorphone HCL INJ (*CRX) 2 MG/ML VIAL IV PUSH (06:48)
[2022-12-21] MEDS: DOCUSATE SODIUM 100 MG CAPSULE PO ×2 (09:46→18:04)
[2022-12-21 09:47] LABS: Hepatitis B Surface Antigen Negative (Negative)
[2022-12-21] MEDS: PANTOPRAZOLE 40 MG TABLET PO (09:47)
[2022-12-21] MEDS: polyethylene glycoL 3350 17 GM POWD.PACK PO (09:47)
[2022-12-21 09:53] LABS: HAV RESULT Negative (Negative); Hepatitis B Core IgM Result Negative (Negative)
[2022-12-21 10:05] LABS: Hepatitis C Virus Antibody Negative (Negative)
[2022-12-21 12:02] VITALS: O2SAT 97
--- NOTE | 2022-12-21 12:27 | PM.IMPN ---
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 Was having a crisis at home and pain not controlled with home pain agents. Hgb 6.8/20.5 on admission Absolute retic 0.21, Retic 9.88% , LDH 854 Started on IV at 100 ml per hour PRN oxy 15 mg PO TID and 2 mg of Dilaudid for breakthrough. Please continue to use IV push pain medication for breakthrough. Patient needs to for she has her oral oxycodone. PRN oxygen as needed to maintain sats greater than 92% Currently on capnography. 12/18 H&H 6.8/21.2. Hematology ordered 2 units of PRBCs. Trending H&H. Remains stable. (2) Diastolic congestive heart failure: Code(s): I50.30 - Unspecified diastolic (congestive) heart failure Status: Acute Assessment and Plan: Currently stable. Echocardiogram EF 55-60%, moderately enlarged left atrial chamber, mild valvular disease. Plan Analgesia:oxy prn and Dilaudid for breakthrough Thromboembolic prophylaxis: Lovenox Subjective Date/time seen: 12/21/22 12:27 Interval history: Patient pain slowly improving. She is still requiring IV pain meds. Patient still has ongoing pain in her knees and low back. Continue IV fluids and pain control. Exam Narrative: GENERAL: Comfortable, no acute distress HENMT: moist mucous membranes EYES: EOM intact b/l NECK: no lymphadenopathy RESPIRATORY: clear to auscultation CARDIO: RRR GI: soft, nontender, bowel sounds present SKIN: no rashes EXTREMITIES: no edema, redness or tenderness Objective Data Vital Signs Vital Signs: Vital Signs - 24 hr 12/20/22 14:00 12/20/22 19:55 12/20/22 19:53 Temperature 97.6 F 97.7 F Pulse Rate 72 67 72 Respiratory Rate 16 14 16 Blood Pressure 134/62 104/56 L Pulse Oximetry 98 97 98 Oxygen Delivery Room Air Fraction of Inspired Oxygen 21 12/21/22 04:42 12/21/22 08:00 12/21/22 12:02 Temperature 97.8 F Pulse Rate 62 Respiratory Rate 16 Blood Pressure 101/59 L Pulse Oximetry 96 97 Oxygen Delivery Room Air Room Air Fraction of Inspired Oxygen Intake/Output Intake/Output: Intake & Output 12/18/22 12/19/22 12/20/22 12/21/22 23:59 23:59 23:59 23:59 Intake Total 4702 3670 4170 520 Output Total 2300 5600 3000 1500 Balance 2402 -1930 1170 -823 Meds/Results Medications: Active Medications Generic Name Dose Route Start Last Admin Trade Name Freq PRN Reason Stop Dose Admin Acetaminophen 650 mg 12/15/22 19:12 12/18/22 08:00 Acetaminophen 325 Mg Tablet PO 650 mg Q6H PRN Administration Mild Pain (1-3) or Fever Albuterol 2 puff 12/15/22 19:10 Albuterol Sulfate (*Sp) Aerosol 1 Puff INHALATION Q6H PRN Wheezing Carisoprodol 350 mg 12/15/22 19:10 Carisoprodol (*Crx) 350 Mg Tablet PO TID PRN Muscle Pain Diazepam 5 mg 12/15/22 21:00 12/20/22 20:01 Diazepam (*Crx) 5 Mg Tablet PO 5 mg QHS KYLER Administration Dicyclomine HCl 10 mg 12/15/22 19:10 Dicyclomine Hcl 10 Mg Capsule PO TID PRN Abdominal Discomfort Docusate Sodium 100 mg 12/16/22 09:00 12/21/22 09:46 Docusate Sodium 100 Mg Capsule PO 100 mg BID KYLER Administration Enoxaparin Sodium 40 mg 12/16/22 15:00 12/21/22 09:47 Enoxaparin 40 Mg/0.4 Ml Syringe SUB-Q Not Given DAILY KYLER Folic Acid 1 mg 12/15/22 21:00 12/20/22 20:01 Folic Acid 1 Mg Tablet PO 1 mg HS KYLER Administration Hydromorphone HCl 2 mg 12/20/22 12:23 12/21/22 06:48 Hydromorphone Hcl Inj (*Crx) 2 Mg/Ml Vial IV PUSH 2 mg Q4H PRN Administration Pain Rated 7-10 Sodium Chloride 1,000 mls @ 65 mls/hr 12/15/22 19:15 12/20/22 23:07 Normal Saline Iv IV CONT 65 mls/hr .[id number] KYLER Administration Non-Formulary Medication 20 mg 12/16/22 09:00 Omeprazole PO 01/15/23 08:59 D
[2022-12-21 14:00] VITALS: BP 130/62; PULSE 72; RESP 18; TEMP 36.8; O2SAT 99
[2022-12-21] MEDS: oxyCODONE HCL (*CRX) 5 MG TAB IR 15 MG PO ×2 (16:19→21:27)
--- NOTE | 2022-12-21 19:09 | PC.NURSE ---
no IV access - hospitalist Gabriela FAN aware. OK to stop fluids at this time. Transition to PO pain control
[2022-12-21 19:49] VITALS: BP 104/51; PULSE 96; RESP 20; TEMP 36.8; O2SAT 100
[2022-12-21] MEDS: FOLIC ACID 1 MG TABLET PO (20:32)
[2022-12-21] MEDS: diazePAM (*CRX) 5 MG TABLET PO (20:32)
[2022-12-21] MEDS: SODIUM CHLORIDE 0.9% IV 1,000 ML 65 ML IV CONT (21:33)
[2022-12-22] MEDS: HYDROmorphone HCL INJ (*CRX) 2 MG/ML VIAL IV PUSH (00:36)
[2022-12-22 04:13] VITALS: BP 98/47; PULSE 52; RESP 18; TEMP 36.3; O2SAT 97
[2022-12-22 05:44] LABS: Basophils Absolute Auto 0.1 K/mm3 (0.0-0.1); Eosinophils Absolute Auto 0.8 K/mm3 (0-0.3); Eosinophils Percent Auto 7.8 % (0-4.4); Hematocrit 28.7 % (37.0-47.0); Hemoglobin 9.1 g/dL (12.0-15.0); Immature Granulocyte Absolute 0.03 K/mm3 (0.00-0.031); Immature Granulocyte Percent A 0.3 % (0-0.5); Lymphocytes Absolute Auto 4.34 K/mm3 (0.9-3.2); Lymphocytes Percent Auto 40.6 % (18.3-44.2); Mean Corpuscular HGB Conc 31.7 g/dl (32-36); Mean Corpuscular Volume 94.7 fl (80-100); Mean Platelet Volume 11.3 fl (7.4-10.4); Monocytes Absolute Auto 1.4 K/mm3 (0.1-0.6); Neutrophils Percent Auto 37.3 % (45.5-73.1); Platelet Count Result 226 k/mm3 (150-375); Red Blood Count 3.03 M/mm3 (4.2-5.4); Red Cell Distribution Width 16.8 % (11.5-14.5); White Blood Count 10.7 K/mm3 (4.5-10.0)
[2022-12-22 05:55] LABS: Alanine Aminotransferase 38 U/L (6-35); Albumin Level 3.6 g/dL (3.5-5.1); Alkaline Phosphatase 151 U/L (38-126); Anion Gap 7 mmol/L (8-16); Aspartate Amino Transferase 51 U/L (14-36); Bilirubin,Total 1.7 mg/dL (0.2-1.3); Blood Urea Nitrogen 9 mg/dL (7-17); Calcium 8.3 mg/dL (8.4-10.2); Carbon Dioxide 25 mmol/L (22-30); Chloride 105 mmol/L (98-107); Estimated CRCL calculation 88 ml/min; Estimated Glomerular Filt Rate > 60; Glucose 94 mg/dL (65-110); Potassium 4.2 mmol/L (3.4-5.0); Sodium 137 mmol/L (137-145)
[2022-12-22 08:00] VITALS: PULSE 52; RESP 18; O2SAT 97
[2022-12-22] MEDS: DOCUSATE SODIUM 100 MG CAPSULE PO ×2 (09:13→16:35)
[2022-12-22] MEDS: PANTOPRAZOLE 40 MG TABLET PO (09:13)
[2022-12-22] MEDS: polyethylene glycoL 3350 17 GM POWD.PACK PO (09:13)
--- NOTE | 2022-12-22 11:19 | PM.IMPN ---
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 Was having a crisis at home and pain not controlled with home pain agents. Hgb 6.8/20.5 on admission Absolute retic 0.21, Retic 9.88% , LDH 854 Started on IV at 100 ml per hour PRN oxy 15 mg PO TID and 0.5 mg of Dilaudid for breakthrough. Please continue to use IV push pain medication for breakthrough. Patient needs to for she has her oral oxycodone. PRN oxygen as needed to maintain sats greater than 92% 12/18 H&H 6.8/21.2. Hematology ordered 2 units of PRBCs. Trending H&H. Remains stable. (2) Diastolic congestive heart failure: Code(s): I50.30 - Unspecified diastolic (congestive) heart failure Status: Acute Assessment and Plan: Currently stable. Echocardiogram EF 55-60%, moderately enlarged left atrial chamber, mild valvular disease. Plan Analgesia:oxy prn and Dilaudid for breakthrough Thromboembolic prophylaxis: Lovenox Subjective Date/time seen: 12/22/22 11:19 Interval history: Patient's IV pain medication decreased today. discussed discharge with patient. Will keep her for 1 more day for tighter pain control then she will be discharged tomorrow. She is currently still having pain in her left knee and low back this making it difficult for her to ambulate. Plan to discharge her tomorrow on her p.o. home pain medication. Exam Narrative: GENERAL: Comfortable, no acute distress HENMT: moist mucous membranes EYES: EOM intact b/l NECK: no lymphadenopathy RESPIRATORY: clear to auscultation CARDIO: RRR GI: soft, nontender, bowel sounds present SKIN: no rashes EXTREMITIES: no edema, redness or tenderness Objective Data Vital Signs Vital Signs: Vital Signs - 24 hr 12/21/22 12:02 12/21/22 14:00 12/21/22 19:49 Temperature 98.3 F 98.3 F Pulse Rate 72 96 Respiratory Rate 18 20 Blood Pressure 130/62 104/51 L Pulse Oximetry 97 99 100 Oxygen Delivery Room Air 12/21/22 20:00 12/22/22 04:13 Temperature 97.4 F L Pulse Rate 52 L Respiratory Rate 18 Blood Pressure 98/47 L Pulse Oximetry 97 Oxygen Delivery Room Air Intake/Output Intake/Output: Intake & Output 12/19/22 12/20/22 12/21/22 12/22/22 23:59 23:59 23:59 23:59 Intake Total 3670 4170 2730 530 Output Total 5600 3000 1500 1500 Balance -1930 1170 1230 -970 Meds/Results Medications: Active Medications Generic Name Dose Route Start Last Admin Trade Name Freq PRN Reason Stop Dose Admin Acetaminophen 650 mg 12/15/22 19:12 12/18/22 08:00 Acetaminophen 325 Mg Tablet PO 650 mg Q6H PRN Administration Mild Pain (1-3) or Fever Albuterol 2 puff 12/15/22 19:10 Albuterol Sulfate (*Sp) Aerosol 1 Puff INHALATION Q6H PRN Wheezing Carisoprodol 350 mg 12/15/22 19:10 Carisoprodol (*Crx) 350 Mg Tablet PO TID PRN Muscle Pain Diazepam 5 mg 12/15/22 21:00 12/21/22 20:32 Diazepam (*Crx) 5 Mg Tablet PO 5 mg QHS KYLER Administration Dicyclomine HCl 10 mg 12/15/22 19:10 Dicyclomine Hcl 10 Mg Capsule PO TID PRN Abdominal Discomfort Docusate Sodium 100 mg 12/16/22 09:00 12/22/22 09:13 Docusate Sodium 100 Mg Capsule PO 100 mg BID KYLER Administration Enoxaparin Sodium 40 mg 12/16/22 15:00 12/22/22 09:13 Enoxaparin 40 Mg/0.4 Ml Syringe SUB-Q Not Given DAILY KYLER Folic Acid 1 mg 12/15/22 21:00 12/21/22 20:32 Folic Acid 1 Mg Tablet PO 1 mg HS KYLER Administration Hydromorphone HCl 0.5 mg 12/22/22 11:09 Hydromorphone Hcl Inj (*Crx) 2 Mg/Ml Vial IV PUSH Q4H PRN Pain Rated 7-10 Sodium Chloride 1,000 mls @ 65 mls/hr 12/15/22 19:15 12/21/22 21:33 Normal Saline Iv IV CONT 65 mls/hr .[id number] KYLER Administration Non-Formulary Medication 20 mg 12/16/22 09:00 Omepr
[2022-12-22] MEDS: oxyCODONE HCL (*CRX) 5 MG TAB IR 15 MG PO ×2 (14:20→22:14)
[2022-12-22 14:47] VITALS: BP 119/55; PULSE 64; RESP 16; TEMP 36.6; O2SAT 99
[2022-12-22 20:00] VITALS: PULSE 64; RESP 16; O2SAT 99
[2022-12-22] MEDS: diazePAM (*CRX) 5 MG TABLET PO (21:33)
[2022-12-22] MEDS: FOLIC ACID 1 MG TABLET PO (21:33)
[2022-12-22 21:56] VITALS: BP 121/75; PULSE 73; RESP 18; TEMP 37.1; O2SAT 99
[2022-12-23 06:00] VITALS: BP 96/40; PULSE 61; RESP 14; TEMP 37; O2SAT 95
[2022-12-23 07:34] LABS: Basophils Absolute Auto 0.1 K/mm3 (0.0-0.1); Basophils Percent Auto 1.3 % (0.2-1.2); Eosinophils Absolute Auto 0.7 K/mm3 (0-0.3); Eosinophils Percent Auto 7.3 % (0-4.4); Hematocrit 31.1 % (37.0-47.0); Hemoglobin 9.9 g/dL (12.0-15.0); Immature Granulocyte Absolute 0.04 K/mm3 (0.00-0.031); Immature Granulocyte Percent A 0.4 % (0-0.5); Lymphocytes Absolute Auto 3.59 K/mm3 (0.9-3.2); Lymphocytes Percent Auto 36.5 % (18.3-44.2); Mean Corpuscular HGB Conc 31.8 g/dl (32-36); Mean Corpuscular Hemoglobin 29.6 pg (26-34); Mean Corpuscular Volume 92.8 fl (80-100); Mean Platelet Volume 10.3 fl (7.4-10.4); Monocytes Absolute Auto 1.1 K/mm3 (0.1-0.6); Monocytes Percent Auto 11.3 % (2.6-8.5); Neutrophils Absolute Auto 4.2 K/mm3 (1.3-6.7); Neutrophils Percent Auto 43.2 % (45.5-73.1); Platelet Count Result 317 k/mm3 (150-375); Red Blood Count 3.35 M/mm3 (4.2-5.4); Red Cell Distribution Width 16.5 % (11.5-14.5); White Blood Count 9.8 K/mm3 (4.5-10.0)
[2022-12-23 08:00] VITALS: O2SAT 95
[2022-12-23] MEDS: PANTOPRAZOLE 40 MG TABLET PO (09:05)
[2022-12-23] MEDS: oxyCODONE HCL (*CRX) 5 MG TAB IR 15 MG PO (09:08)
[2022-12-23 09:10] LABS: Alanine Aminotransferase 37 U/L (6-35); Albumin Level 3.9 g/dL (3.5-5.1); Alkaline Phosphatase 165 U/L (38-126); Anion Gap 6 mmol/L (8-16); Aspartate Amino Transferase 54 U/L (14-36); Bilirubin,Total 1.5 mg/dL (0.2-1.3); Blood Urea Nitrogen 7 mg/dL (7-17); Calcium 8.8 mg/dL (8.4-10.2); Carbon Dioxide 28 mmol/L (22-30); Chloride 106 mmol/L (98-107); Estimated CRCL calculation 100 ml/min; Estimated Glomerular Filt Rate > 60; Glucose 104 mg/dL (65-110); Sodium 140 mmol/L (137-145)
[2022-12-23 10:12] VITALS: BP 92/67
--- NOTE | 2022-12-23 11:06 | PM.DS ---
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 Nalini Chand and diastolic congestive heart failure the presented to the ED on 12/15/2022 for evaluation of sickle cell pain crisis. She developed severe aching in her chest, knees, hips and back. She takes oxycodone at home it was not helping with her pain. She due was found to have white blood cell count of 20.6 although she does have chronic leukocytosis. Hemoglobin of 6.8 and elevated reticulocyte count. Sickle cells seen on peripheral smear. Elevated LFTs. 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 Patient admitted for sickle cell crisis. She was started on IV fluids, pain medication and Capnography. Hematology consulted. With this management patient did slowly improve. She did have a hemoglobin hematocrit on 12/18/2022 of 6.8/21.2 and hematology ordered 2 units of PRBCs. After patient was transfused her H&H remained stable with hemoglobin between 9 and 10. patient was slowly titrated off of her IV pain medication. Patient able to tolerate p.o. pain meds on day of discharge. Is advised that she follow-up with her parking officer as well as her hostess after being discharged. Her labs and vital signs are stable and she has been medically cleared for discharge at this time. Time Spent with Patient Time attestation: Total time spent providing and/or coordinating discharge services: Exam Narrative: GENERAL: Comfortable, no acute distress HENMT: moist mucous membranes EYES: EOM intact b/l NECK: no lymphadenopathy RESPIRATORY: clear to auscultation CARDIO: RRR GI: soft, nontender, bowel sounds present SKIN: no rashes EXTREMITIES: no edema, redness or tenderness DS: Data Data Completed and Pending Labs on day of discharge: Labs from last 24 hours 12/23/22 07:20 WBC 9.8 RBC 3.35 L Hgb 9.9 L Hct 31.1 L MCV 92.8 MCH 29.6 MCHC 31.8 L RDW 16.5 H Plt Count 317 MPV 10.3 Immature Gran % (Auto) 0.4 Neut % (Auto) 43.2 L Lymph % (Auto) 36.5 [place] % (Auto) 11.3 H Eos % (Auto) 7.3 H Baso % (Auto) 1.3 H Lymph # (Auto) 3.59 H [place] # (Auto) 1.1 H Eos # (Auto) 0.7 H Baso # (Auto) 0.1 Abs Immat Gran (auto) 0.04 H Absolute Neuts (auto) 4.2 Absolute Nucleated RBC 0.0 Nucleated RBC % 0.0 Sodium 140 Potassium 4.0 Chloride 106 Carbon Dioxide 28 Anion Gap 6 L BUN 7 Creatinine 0.60 L Estim Creat Clear Calc 100 Estimated GFR > 60 Glucose 104 Calcium 8.8 Total Bilirubin 1.5 H AST 54 H ALT 37 H Alkaline Phosphatase 165 H Total Protein 8.0 Albumin 3.9 Discharge Plan Discharge Attending physician on discharge: Salazar Grissom Consulting providers: Thomas Cary; Randy Longoria Discharging Clinician: Gabriela Mota Patient Disposition: Home, Self-Care Activity: as tolerated Diet: regular Discharge Instructions: Home pain medication as needed. Continue to use use heating pads for pain as needed. Stay hydrated Recommend follow-up with Hematology and Cardiology. Discharge disposition: Take medications as prescribed Monitor blood pressures Avoid social areas, you wear a mask when in social settings Encouraged to continue with yearly vaccinations Return to the emergency department if he developed sudden shortness of breath, chest pain, nausea, vomiting, upset stomach or intractable diarrhea Return to the
== END 2022-12-23 13:50 | disposition home or self-care (01) | DRG 812 ==
LOC: ANHED 09:21 → ANH2MED 15:42
PROVIDERS: Internal Medicine Hematology & Oncology; Nurse Practitioner Acute Care; Physician Assistant; Admitting Provider Internal Medicine; Emergency Provider Emergency Medicine; Visit Provider Internal Medicine Critical Care Medicine
DX: D57.00 Hb-SS disease with crisis, unspecified (principal); I50.32 Chronic diastolic (congestive) heart failure; K21.9 Gastro-esophageal reflux disease without esophagitis; J45.909 Unspecified asthma, uncomplicated; D64.9 Anemia, unspecified; D72.829 Elevated white blood cell count, unspecified; R79.89 Other specified abnormal findings of blood chemistry; Z86.16 Personal history of COVID-19; Z90.49 Acquired absence of other specified parts of digestive tract; Z90.710 Acquired absence of both cervix and uterus; Z90.722 Acquired absence of ovaries, bilateral; Z87.891 Personal history of nicotine dependence
CPT/HCPCS: 36415; 36430; 36600; 71045; 76705; 80053; 80074; 80307; 82140; 82375; 82607; 82805; 83050; 83615; 83735; 84145; 84443; 84484; 85014; 85018; 85025; 85027; 85046; 85660; 86140; 86850; 86900; 86901; 86902; 86922; 93005; 93306; 96361; 96374; 96375; 96376; 99285; A9270; J1170; J1200; J1650; J2405; J7030; J7050; P9016

== ENCOUNTER 2023-02-24 14:14 | Emergency (ER) | payer MEDICARE, MEDICAID, SELFPAY ==
--- NOTE | ~2023-02-24 | CT_ITS ---
EXAMINATION: CT lumbar spine wo con DATE: 02/24/2023 20:51 INDICATION: R lower back pain into R leg . TECHNIQUE: Computed tomography (CT) of the lumbar spine was performed without intravenous contrast. A utomated exposure control and iterative reconstruction technique were employed. The dose-length produ ct was 930.42 mGy-cm. COMPARISON: CT abdomen pelvis 06/03/2019. FINDINGS: Contrast excretion in the collecting systems. Mild lumbar scoliosis. 5 nonrib-bearing lumba r-type vertebral bodies. Diffuse osseous sclerosis. Multifocal central endplate deformities in keepin g with history of sickle cell anemia. Pedicles intact. Normal vertebral body alignment. Multilevel mi ld-moderate degenerative disc disease. Multilevel mild facet arthropathy. No severe central canal or neural foraminal narrowing. IMPRESSION: No acute fracture or traumatic malalignment in the lumbar spine. Osseous changes of sickle cell disease. Reviewed, dictated and finalized at location K. ALMOND BLANCHER
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
--- NOTE | ~2023-02-24 | US_ITS ---
EXAMINATION: US venous doppler LE RT DATE: 02/24/2023 18:20 INDICATION: calf pain X2w . TECHNIQUE: Grayscale images without and with compression and Doppler images of the right lower extrem ity veins were obtained. COMPARISON: None FINDINGS: The right common femoral vein, profunda (deep) femoral vein, femoral vein, popliteal vein, peroneal v ein, posterior tibial veins, and greater saphenous vein are patent. Small Quintero's cyst in the medial popliteal fossa. IMPRESSION: Patent right lower extremity veins. No evidence of deep venous thrombosis. Reviewed, dictated and finalized at location K. CTOR PAYER
[2023-02-24 14:16] VITALS: BP 125/58; PULSE 90; RESP 16; TEMP 36.4; O2SAT 97
--- NOTE | 2023-02-24 17:02 | ED.GENADULT ---
HPI - General Adult General Chief complaint: Unspecified <EMEKA Mcgraw Last Filed: 02/24/23 17:19> Stated complaint: right leg pain <EMEKA Mcgraw Last Filed: 02/24/23 17:19> Time Seen by Provider: 02/24/23 19:43 <EMEKA Mcgraw Last Filed: 02/24/23 17:19> Source: patient <EMEKA Mcgraw Last Filed: 02/24/23 17:19> Mode of arrival: ambulatory <EMEKA Mcgraw Last Filed: 02/24/23 17:19> Limitations: no limitations <EMEKA Mcgraw Last Filed: 02/24/23 17:19> History of Present Illness HPI narrative: Patient is a 57 y/o female, with PMH of sickle cell anemia, who presents to the ED with c/o RLE pain and R sided abdominal pain. Patient reports having pain in her right posterior calf/knee/thigh for the last 2 weeks. Denies any known injury. Denies significant swelling to her right lower extremity. She states she told her brother about this and he was concerned about a possible blood clot. Patient denies any previous history of blood clots. Denies chest pain. She does admit to mild TABARES with going up her stairs over the past 2 weeks. She also reports having pain in her right lower abdomen. She states this pain has been present for the last 3 years. She states she has not had intercourse in 3 years because of the pain. Denies N/V/D, constipation, fevers, urinary sx's. <EMEKA Mcgraw Last Filed: 02/24/23 17:19> Patient is a 57 y/o female, with PMH of sickle cell anemia, who presents to the ED with c/o RLE pain and R sided abdominal pain. Patient reports having pain in her right posterior calf/knee/thigh for the last 2 weeks. Denies any known injury. Denies significant swelling to her right lower extremity. She states she told her brother about this and he was concerned about a possible blood clot. Patient denies any previous history of blood clots. Denies chest pain. She does admit to mild TABARES with going up her stairs since 2020 that has been worsening in the last 2 weeks. She also reports having pain in her right lower abdomen. She states this pain has been present for the last 3 years. She states she has not had intercourse in 3 years because of the pain. Denies N/V/D, constipation, fevers, urinary sx's. <Chhaya Moore MD - Last Filed: 03/03/23 15:11> Related Data Home medications: Home Medications Medication Instructions Recorded Confirmed folic acid 1 mg tablet 1 mg PO HS 03/23/19 02/27/23 oxycodone 15 mg tablet 15 mg PO QID PRN Pain 03/23/19 02/27/23 albuterol sulfate 90 mcg/actuation 2 puff inhalation Q6H PRN Wheezing 12/15/22 02/27/23 aerosol inhaler carisoprodol 350 mg tablet 350 mg PO QID PRN Muscle Spasm 12/15/22 02/27/23 diazepam 5 mg tablet 15 mg PO QHS PRN Sleep 12/15/22 02/27/23 dicyclomine 10 mg capsule 10 mg PO TID PRN Abdominal 12/15/22 02/27/23 Discomfort docusate sodium 100 mg capsule 100 mg PO BID 12/15/22 02/27/23 omeprazole 20 mg capsule,delayed 20 mg PO DAILY 12/15/22 02/27/23 release <Amanda Sequeira PA-C - Last Filed: 02/24/23 17:19> Allergies/adverse reactions: Allergies Allergy/AdvReac Type Severity Reaction Status Date / Time ketorolac Allergy Unknown Unknown Verified 02/27/23 06:14 piperacillin Allergy Unknown Unknown Verified 02/27/23 06:14 codeine Allergy Hives Verified 02/27/23 06:14 <Amanda Sequeira PA-C - Last Filed: 02/24/23 17:19> Review of Systems Review of Systems: CONSTITUTIONAL: Denies fever, chills, or sweats. ENT: Denies rhinorrhea, congestion, sore throat. CARDIOVASCULAR: Denies chest pain. RESPIRATORY: See HPI. GASTROINTESTINAL: See HPI. MUSCULOSKELETAL: See HPI. NEUROLOGIC: Denies headache, numbness, or weakness. <Amanda Sequeira PA-C - Last Filed: 02/24/23 17:19> All systems reviewed & are unremarkable except as noted in HPI and below <Amanda Sequeira PA-C - Last File
[2023-02-24 17:05] VITALS: BP 127/67; PULSE 83; RESP 14; O2SAT 99
--- NOTE | 2023-02-24 17:10 | ECG_ITS ---
Measurements Intervals [place] Rate: 77 P: 51 MA: 166 QRS: 52 QRSD: 86 T: 65 QT: 430 QTc: 490 Interpretive Statements SINUS RHYTHM COMPARED TO ECG 12/15/2022 09:54:00 NO SIGNIFICANT CHANGES Electronically Signed On 02-24-2023 20:23:30 [employer]IVE [employer] PERSON by Trang Sanchez M.D.
[2023-02-24 17:35] LABS: Basophils Absolute Auto 0.2 K/mm3 (0.0-0.1); Basophils Percent Auto 0.9 % (0.2-1.2); Eosinophils Absolute Auto 0.8 K/mm3 (0-0.3); Eosinophils Percent Auto 4.7 % (0-4.4); Hematocrit 26.1 % (37.0-47.0); Hemoglobin 8.4 g/dL (12.0-15.0); Immature Granulocyte Absolute 0.06 K/mm3 (0.00-0.031); Immature Granulocyte Percent A 0.4 % (0-0.5); Lymphocytes Absolute Auto 7.47 K/mm3 (0.9-3.2); Lymphocytes Percent Auto 45.8 % (18.3-44.2); Mean Corpuscular HGB Conc 32.2 g/dl (32-36); Mean Corpuscular Volume 96.3 fl (80-100); Mean Platelet Volume 10.1 fl (7.4-10.4); Monocytes Absolute Auto 1.7 K/mm3 (0.1-0.6); Monocytes Percent Auto 10.1 % (2.6-8.5); Neutrophils Absolute Auto 6.2 K/mm3 (1.3-6.7); Neutrophils Percent Auto 38.1 % (45.5-73.1); Nucleated Red Blood Cells Absolute Auto 0.1 K/mm3 (0.0-0.012); Nucleated Red Blood Cells Perc 0.6 % (0.0-0.2); Platelet Count Result 285 k/mm3 (150-375); Red Blood Count 2.71 M/mm3 (4.2-5.4); Red Cell Distribution Width 16.9 % (11.5-14.5); White Blood Count 16.3 K/mm3 (4.5-10.0)
[2023-02-24 17:45] LABS: INR 1.1; Prothrombin Time 14.4 Seconds (11.1-14.7)
[2023-02-24 17:46] LABS: Alanine Aminotransferase 27 U/L (6-35); Albumin Level 4.5 g/dL (3.5-5.1); Alkaline Phosphatase 177 U/L (38-126); Anion Gap 7 mmol/L (8-16); Aspartate Amino Transferase 60 U/L (14-36); Bilirubin,Total 2.3 mg/dL (0.2-1.3); Blood Urea Nitrogen 14 mg/dL (7-17); Carbon Dioxide 28 mmol/L (22-30); Chloride 109 mmol/L (98-107); Estimated CRCL calculation 49 ml/min; Estimated Glomerular Filt Rate 56; Glucose 98 mg/dL (65-110); Lipase 132 U/L (23-300); Partial Thromboplastin Time 37.8 SECONDS (22.3-36.8); Potassium 4.1 mmol/L (3.4-5.0); Sodium 144 mmol/L (137-145)
[2023-02-24 18:02] LABS: Platelet Estimate Adequate (Adequate); Poikilocytosis 1+ (NORMAL)
[2023-02-24 18:03] LABS: Ovalocytes 1+ (NORMAL); Schistocytes None Seen (NORMAL); Sickle Cells 1+ (NORMAL); Target Cells 1+ (NORMAL); Troponin I < 0.012 ng/mL (0.000-0.034)
[2023-02-24] MEDS: SODIUM CHLORIDE 0.9% IV 1,000 ML 999 ML IV CONT (21:00)
[2023-02-24] MEDS: HYDROmorphone HCL INJ (*CRX) 1 MG/ML SYR IV PUSH (21:01)
[2023-02-24 21:04] VITALS: BP 133/84; PULSE 70; RESP 17; O2SAT 99
[2023-02-24 21:12] LABS: Appearance Urine Clear (Clear); Bilirubin Urine Negative (Negative); Blood Urine Negative (Negative); Color Urine Yellow (Yellow); Glucose Urine UA Negative (Negative); Ketones Urine Negative (Negative); Leukocyte Esterase Ur Negative LEU/UL (Negative); Nitrate Urine Negative (Negative); Protein Urine Negative (Negative); Specific Grav Ur 1.026 (1.001-1.035); pH Urine 6.5 (5.0-9.0)
[2023-02-24 21:13] LABS: Add Urine Microscopic? NO
[2023-02-24 21:50] LABS: Influenza A QL RT-PCR Negative (Negative); Influenza B QL RT-PCR Negative (Negative); RSV RNA, RT-PCR Negative (Negative); SARS-CoV-2 RNA PCR Negative (Negative)
[2023-02-24] MEDS: predniSONE 20 MG TABLET 40 MG PO (22:30)
[2023-02-24] MEDS: oxyCODONE HCL (*CRX) 5 MG TAB IR 15 MG PO (22:30)
[2023-02-24 22:33] VITALS: BP 108/63; PULSE 95; RESP 20; O2SAT 97
== END 2023-02-24 22:35 | disposition home or self-care (01) ==
PROVIDERS: Physician Assistant; Emergency Provider Emergency Medicine
DX: M79.604 Pain in right leg (principal); M54.50 Low back pain, unspecified; Z20.822 Contact with and (suspected) exposure to COVID-19; J45.909 Unspecified asthma, uncomplicated; I50.9 Heart failure, unspecified; K21.9 Gastro-esophageal reflux disease without esophagitis; Z87.440 Personal history of urinary (tract) infections; D57.1 Sickle-cell disease without crisis
CPT/HCPCS: 36415; 71046; 72131; 74177; 80053; 81003; 83690; 84484; 85025; 85610; 85730; 87637; 93005; 93971; 96361; 96374; 99284; A9270; J1170; J7030; J7512; Q9967

== ENCOUNTER 2023-02-27 01:47 | Inpatient (IN) | payer MEDICARE, MEDICAID, SELFPAY ==
[2023-02-27] VITALS (27 sets, daily range): BP systolic 83–157; BP diastolic 41–86; PULSE 54–88; RESP 10–20; TEMP 36.6–37; O2SAT 96–100; BMI 32.4
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
[2023-02-27] MEDS: HYDROmorphone HCL INJ (*CRX) 1 MG/ML SYR 2 MG IV PUSH ×2 (02:30→03:23)
[2023-02-27] MEDS: SODIUM CHLORIDE 0.9% IV 1,000 ML 999 ML IV CONT (02:31)
[2023-02-27 02:41] LABS: Basophils Absolute Auto 0.2 K/mm3 (0.0-0.1); Basophils Percent Auto 1.1 % (0.2-1.2); Eosinophils Absolute Auto 0.1 K/mm3 (0-0.3); Eosinophils Percent Auto 0.6 % (0-4.4); Hemoglobin 8.6 g/dL (12.0-15.0); Immature Granulocyte Absolute 1.75 K/mm3 (0.00-0.031); Immature Granulocyte Percent A 10.1 % (0-0.5); Immature Reticulocyte Fraction 42.2 % (3.0-15.9); Lymphocytes Percent Auto 27.2 % (18.3-44.2); Mean Corpuscular HGB Conc 33.1 g/dl (32-36); Mean Corpuscular Hemoglobin 31.7 pg (26-34); Mean Corpuscular Volume 95.9 fl (80-100); Mean Platelet Volume 10.6 fl (7.4-10.4); Monocytes Absolute Auto 0.7 K/mm3 (0.1-0.6); Neutrophils Absolute Auto 9.8 K/mm3 (1.3-6.7); Nucleated Red Blood Cells Absolute Auto 0.3 K/mm3 (0.0-0.012); Nucleated Red Blood Cells Perc 1.7 % (0.0-0.2); Platelet Count Result 354 k/mm3 (150-375); Red Blood Count 2.71 M/mm3 (4.2-5.4); Red Cell Distribution Width 17.6 % (11.5-14.5); Reticulocyte Hemoglobin Conten 32.7 pg (28.2-35.7); Reticulocyte Percent 11.94 % (0.7-4.3); Reticulocytes Absolute 0.32 M/mm3 (0.02-0.1); White Blood Count 17.3 K/mm3 (4.5-10.0)
[2023-02-27 02:55] LABS: Alanine Aminotransferase 36 U/L (6-35); Albumin Level 4.7 g/dL (3.5-5.1); Alkaline Phosphatase 230 U/L (38-126); Anion Gap 11 mmol/L (8-16); Aspartate Amino Transferase 58 U/L (14-36); Bilirubin,Total 2.6 mg/dL (0.2-1.3); Blood Urea Nitrogen 13 mg/dL (7-17); Calcium 9.3 mg/dL (8.4-10.2); Carbon Dioxide 20 mmol/L (22-30); Chloride 111 mmol/L (98-107); Estimated CRCL calculation 95 ml/min; Estimated Glomerular Filt Rate > 60; Glucose 202 mg/dL (65-110); Lactate Dehydrogenase 381 U/L (120-246); Sodium 142 mmol/L (137-145)
[2023-02-27 03:09] LABS: Atypical Lymphocytes Present; Schistocytes Rare (NORMAL); Target Cells 1+ (NORMAL)
[2023-02-27 03:10] LABS: Anisocytosis 2+ (NORMAL); Basophilic Stippling 1+ (NORMAL); Hypochromasia 2+ (NORMAL); Large Platelets Present; Platelet Estimate Adequate (Adequate); Poikilocytosis 1+ (NORMAL); Polychromasia 1+ (NORMAL); Sickle Cells 1+ (NORMAL)
[2023-02-27] MEDS: SODIUM CHLORIDE 0.9% IV 500 ML 999 ML IV CONT (04:24)
--- NOTE | 2023-02-27 05:58 | ADMGEN ---
This patient, Isabelle Cornejo, was admitted to Medical Room 344-01. Patient/family oriented to hospital policies and general routines including ID bracelet, bed and alarms, visiting hours, pain management, procedures, bathroom and other care routines, personal items, smoking policy, room service/diet, and visiting hours. Information on how to activate the Rapid Response Team has been discussed. Patient/Family are encouraged to report perceived risks to care and to ask questions if they do not understand what they are told or what they should do.
[2023-02-27] MEDS: SODIUM CHLORIDE 0.9% IV 1,000 ML 125 ML IV CONT ×3 (06:31→20:58)
[2023-02-27] MEDS: HYDROmorphone HCL INJ (*CRX) 1 MG/ML SYR IV PUSH (07:32)
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
[2023-02-27] MEDS: PANTOPRAZOLE 40 MG TABLET PO (09:18)
[2023-02-27] MEDS: DOCUSATE SODIUM 100 MG CAPSULE PO ×2 (09:18→16:17)
[2023-02-27] MEDS: predniSONE 20 MG TABLET 40 MG PO (09:19)
[2023-02-27] MEDS: ENOXAPARIN 40 MG/0.4 ML SYRINGE SUB-Q (11:31)
[2023-02-27] MEDS: HYDROmorphone HCL INJ (*CRX) 1 MG/ML SYR 0.5 MG IV PUSH ×3 (11:31→20:55)
[2023-02-27 12:28] LABS: Glucose Point of Care 98 mg/dl (65-105)
[2023-02-27 17:34] LABS: Glucose Point of Care 124 mg/dl (65-105)
[2023-02-27] MEDS: FOLIC ACID 1 MG TABLET PO (20:57)
[2023-02-27 21:04] LABS: Glucose Point of Care 151 mg/dl (65-105)
[2023-02-27 21:04] LABS: Glucose Point of Care 133 mg/dl (65-105)
[2023-02-28] MEDS: HYDROmorphone HCL INJ (*CRX) 1 MG/ML SYR 0.5 MG IV PUSH ×6 (00:37→21:24)
[2023-02-28] MEDS: SODIUM CHLORIDE 0.9% IV 1,000 ML 125 ML IV CONT (04:59)
[2023-02-28 06:00] VITALS: BP 140/56; PULSE 84; RESP 21; TEMP 37.2; O2SAT 100
[2023-02-28 06:05] LABS: Basophils Absolute Auto 0.1 K/mm3 (0.0-0.1); Basophils Percent Auto 0.6 % (0.2-1.2); Eosinophils Absolute Auto 0.4 K/mm3 (0-0.3); Eosinophils Percent Auto 1.7 % (0-4.4); Hematocrit 21.9 % (37.0-47.0); Hemoglobin 7.1 g/dL (12.0-15.0); Immature Granulocyte Absolute 0.27 K/mm3 (0.00-0.031); Immature Granulocyte Percent A 1.3 % (0-0.5); Lymphocytes Absolute Auto 9.87 K/mm3 (0.9-3.2); Lymphocytes Percent Auto 46.3 % (18.3-44.2); Mean Corpuscular HGB Conc 32.4 g/dl (32-36); Mean Corpuscular Hemoglobin 31.6 pg (26-34); Mean Corpuscular Volume 97.3 fl (80-100); Mean Platelet Volume 9.8 fl (7.4-10.4); Monocytes Absolute Auto 2.3 K/mm3 (0.1-0.6); Monocytes Percent Auto 10.9 % (2.6-8.5); Neutrophils Absolute Auto 8.4 K/mm3 (1.3-6.7); Neutrophils Percent Auto 39.2 % (45.5-73.1); Nucleated Red Blood Cells Absolute Auto 0.8 K/mm3 (0.0-0.012); Nucleated Red Blood Cells Perc 3.9 % (0.0-0.2); Platelet Count Result 279 k/mm3 (150-375); Red Blood Count 2.25 M/mm3 (4.2-5.4); Red Cell Distribution Width 17.1 % (11.5-14.5); White Blood Count 21.3 K/mm3 (4.5-10.0)
[2023-02-28 06:24] LABS: Alanine Aminotransferase 27 U/L (6-35); Albumin Level 3.6 g/dL (3.5-5.1); Alkaline Phosphatase 135 U/L (38-126); Anion Gap 8 mmol/L (8-16); Aspartate Amino Transferase 39 U/L (14-36); Blood Urea Nitrogen 11 mg/dL (7-17); Calcium 8.1 mg/dL (8.4-10.2); Carbon Dioxide 19 mmol/L (22-30); Chloride 115 mmol/L (98-107); Estimated CRCL calculation 99 ml/min; Estimated Glomerular Filt Rate > 60; Glucose 122 mg/dL (65-110); Phosphorus 2.8 mg/dL (2.5-4.5); Potassium 3.5 mmol/L (3.4-5.0); Sodium 142 mmol/L (137-145)
[2023-02-28 06:44] LABS: Ovalocytes 1+ (NORMAL); Platelet Estimate Adequate (Adequate); Schistocytes None Seen (NORMAL); Tear Drop Cells 1+ (NORMAL)
[2023-02-28 06:45] LABS: Sickle Cells 2+ (NORMAL)
[2023-02-28] MEDS: DOCUSATE SODIUM 100 MG CAPSULE PO ×2 (09:09→17:18)
[2023-02-28] MEDS: ENOXAPARIN 40 MG/0.4 ML SYRINGE SUB-Q (09:09)
[2023-02-28] MEDS: PANTOPRAZOLE 40 MG TABLET PO (09:09)
[2023-02-28 09:41] LABS: Glucose Point of Care 126 mg/dl (65-105)
[2023-02-28 12:32] LABS: Glucose Point of Care 98 mg/dl (65-105)
--- NOTE | 2023-02-28 12:56 | PM.IMPN ---
Progress Note: A&P Assessment and Plan (1) Sickle cell pain crisis: Code(s): D57.00 - Hb-SS disease with crisis, unspecified Status: Acute Assessment and Plan: Patient admitted for diffuse pain felt the have a sickle cell crisis. She has been started on IV fluids, supplemental oxygen and appropriate pain medications. Continue the Dilaudid, [place] and Tylenol for pain. Soma on hold at this time. Holding her diazepam at this time as well. Patient is at risk for respiratory depression. WBC higher so will check UA and CXR but suspect related to steroids Decrease IV fluid rate (2) Anemia: Qualifiers: Anemia type: unspecified type Qualified Code(s): D64.9 - Anemia, unspecified Code(s): D64.9 - Anemia, unspecified Status: Acute Assessment and Plan: Patient's baseline hemoglobin is 8-9 range. [place] related to her sickle cell. Hemoglobin within her normal range on admisison. Hgb dropped to 7.1 felt related to the IV fluids. Will continue to monitor this and transfuse as necessary. (3) Hyperglycemia: Code(s): R73.9 - Hyperglycemia, unspecified Status: Acute Assessment and Plan: Glucose was elevated on admission probably stress response and from the steroids. She does not want to continue steroids and her symptoms requiring the steroids has improved. As such we will stop prednisone. A1c 4.6. Elevated glucose related to steroids. (4) Elevated LFTs: Code(s): R79.89 - Other specified abnormal findings of blood chemistry Status: Acute Assessment and Plan: Patient has chronic mildly elevated liver enzymes. Hepatitis panel in December was negative. Abdominal ultrasound on 12/20/2022 was normal. She is status post cholecystectomy. Suspect elevated liver enzymes related to her sickle cell disease. Follow (5) Diastolic congestive heart failure: Code(s): I50.30 - Unspecified diastolic (congestive) heart failure Status: Acute Assessment and Plan: Patient has a history of diastolic CHF. Echocardiogram shows EF of 55-60% with mild-moderately enlarged atrium and mild MR and TR performed November 2022. Will monitor closely given that she is on IV fluids. Decrease fluid rate (6) Asthma: Code(s): J45.909 - Unspecified asthma, uncomplicated Status: Acute Assessment and Plan: No wheezing appreciated on exam. Patient was educated about using albuterol as needed. Explained that there are maintenance medications for asthma that would be more appropriate if she was having frequent flares but otherwise would use the albuterol as needed. Plan DVT prophylaxis -Lovenox Code status -full Subjective Date/time seen: 02/28/23 12:56 Interval history: 57yo female with sickle cell, dCHF, asthma and GERD here for diffuse pain.?? Feeling better. Chest pain is resolving. She is up walking to the bathroom. Eating normally. No nausea or vomiting. Exam Narrative: AF 99.0 140/56 84 21 100% ra Gen - NARD Chest - CTA bilaterally, nml RR CV - RRR S1/S2 Abd - soft, NT/ND, +BS Ext - no pedal edema. Psych - normal mood and affect. P Skin - warm and dry. Objective Data Vital Signs Vital Signs: Vital Signs - 24 hr 02/27/23 14:00 02/27/23 22:00 02/28/23 06:00 Temperature 98.6 F 97.9 F 99.0 F Pulse Rate 83 83 84 Respiratory Rate 16 20 21 H Blood Pressure 127/67 123/60 140/56 L Pulse Oximetry 96 98 100 Oxygen Delivery 02/28/23 09:25 Temperature Pulse Rate Respiratory Rate Blood Pressure Pulse Oximetry Oxygen Delivery Room Air Intake/Output Intake/Output: Intake & Output 02/25/23 02/26/23 02/27/23 02/28/23 23:59 23:59 23:59 23:59 Intake Total 5840 2480 Output Total 400 Balance 5840 2080 Meds/Results Medications: Active Medications Generic Name Dose Route Start Last Admin Trade Name Freq PRN Reason Stop Dose Admi
[2023-02-28 15:04] VITALS: BP 124/47; PULSE 85; RESP 18; TEMP 37.1; O2SAT 98
[2023-02-28 17:05] LABS: Appearance Urine Clear (Clear); Bilirubin Urine Negative (Negative); Blood Urine Negative (Negative); Color Urine Yellow (Yellow); Glucose Urine UA Negative (Negative); Ketones Urine Negative (Negative); Leukocyte Esterase Ur Negative LEU/UL (Negative); Nitrate Urine Negative (Negative); Protein Urine Negative (Negative); pH Urine 6.5 (5.0-9.0)
[2023-02-28 17:09] LABS: Glucose Point of Care 127 mg/dl (65-105)
[2023-02-28 17:19] LABS: Add Urine Microscopic? NO
[2023-02-28 21:03] LABS: Glucose Point of Care 117 mg/dl (65-105)
[2023-02-28 21:42] VITALS: BP 133/66; PULSE 78; RESP 18; TEMP 36.6; O2SAT 98
[2023-02-28] MEDS: FOLIC ACID 1 MG TABLET PO (21:48)
[2023-03-01] MEDS: HYDROmorphone HCL INJ (*CRX) 1 MG/ML SYR 0.5 MG IV PUSH ×5 (02:11→23:47)
[2023-03-01 06:00] VITALS: BP 132/59; PULSE 90; RESP 16; TEMP 36.8; O2SAT 97
[2023-03-01 06:31] LABS: Basophils Absolute Auto 0.2 K/mm3 (0.0-0.1); Basophils Percent Auto 0.9 % (0.2-1.2); Eosinophils Absolute Auto 0.8 K/mm3 (0-0.3); Hematocrit 24.2 % (37.0-47.0); Hemoglobin 7.5 g/dL (12.0-15.0); Immature Granulocyte Absolute 0.21 K/mm3 (0.00-0.031); Immature Granulocyte Percent A 1.3 % (0-0.5); Immature Platelet Fraction Pct 7.9 % (0.9-11.2); Lymphocytes Absolute Auto 7.36 K/mm3 (0.9-3.2); Mean Corpuscular Hemoglobin 31.3 pg (26-34); Mean Corpuscular Volume 100.8 fl (80-100); Mean Platelet Volume 10.7 fl (7.4-10.4); Monocytes Absolute Auto 2.3 K/mm3 (0.1-0.6); Monocytes Percent Auto 13.9 % (2.6-8.5); Neutrophils Absolute Auto 5.8 K/mm3 (1.3-6.7); Neutrophils Percent Auto 34.9 % (45.5-73.1); Platelet Count Result 203 k/mm3 (150-375); Red Cell Distribution Width 17.1 % (11.5-14.5); White Blood Count 16.7 K/mm3 (4.5-10.0)
[2023-03-01 06:51] LABS: Alanine Aminotransferase 24 U/L (6-35); Albumin Level 3.8 g/dL (3.5-5.1); Alkaline Phosphatase 143 U/L (38-126); Anion Gap 5 mmol/L (8-16); Aspartate Amino Transferase 36 U/L (14-36); Bilirubin,Total 2.5 mg/dL (0.2-1.3); Blood Urea Nitrogen 11 mg/dL (7-17); Calcium 8.4 mg/dL (8.4-10.2); Carbon Dioxide 23 mmol/L (22-30); Chloride 111 mmol/L (98-107); Estimated CRCL calculation 99 ml/min; Estimated Glomerular Filt Rate > 60; Glucose 96 mg/dL (65-110); Potassium 3.7 mmol/L (3.4-5.0); Sodium 139 mmol/L (137-145)
[2023-03-01 06:55] LABS: Platelet Estimate Adequate (Adequate); Schistocytes None Seen (NORMAL); Sickle Cells 1+ (NORMAL)
[2023-03-01 06:56] LABS: Hypochromasia 2+ (NORMAL); Polychromasia 2+ (NORMAL); Tear Drop Cells 1+ (NORMAL)
[2023-03-01] MEDS: DOCUSATE SODIUM 100 MG CAPSULE PO ×2 (08:10→16:53)
[2023-03-01] MEDS: PANTOPRAZOLE 40 MG TABLET PO (08:10)
[2023-03-01] MEDS: ENOXAPARIN 40 MG/0.4 ML SYRINGE SUB-Q (08:10)
[2023-03-01 08:23] LABS: Glucose Point of Care 94 mg/dl (65-105)
[2023-03-01 11:58] LABS: Glucose Point of Care 93 mg/dl (65-105)
[2023-03-01 14:00] VITALS: BP 126/48; PULSE 82; RESP 16; TEMP 36.1; O2SAT 99
--- NOTE | 2023-03-01 14:10 | PM.IMPN ---
Progress Note: A&P Assessment and Plan (1) Sickle cell pain crisis: Code(s): D57.00 - Hb-SS disease with crisis, unspecified Status: Acute Assessment and Plan: Patient admitted for diffuse pain felt the have a sickle cell crisis. She was started on IV fluids, supplemental oxygen and appropriate pain medications. Continue the Dilaudid, [place] and Tylenol for pain. Soma on hold at this time. Holding her diazepam at this time as well. Patient is at risk for respiratory depression. WBC was higher but UA and CXR clear; felt elevated WBC from steroids IV fluids stopped now. Off O2 Possibly home tomorrow (2) Anemia: Qualifiers: Anemia type: unspecified type Qualified Code(s): D64.9 - Anemia, unspecified Code(s): D64.9 - Anemia, unspecified Status: Acute Assessment and Plan: Patient's baseline hemoglobin is 8-9 range. [place] related to her sickle cell. Hgb 8.6 on admission but dropped to 7 range and stable. [place] Hgb drop related to the IV fluids. Will continue to monitor (3) Hyperglycemia: Code(s): R73.9 - Hyperglycemia, unspecified Status: Acute Assessment and Plan: Glucose was elevated on admission probably stress response and from the steroids. She does not want to continue steroids and her symptoms requiring the steroids has resolved. Steroids not continued A1c 4.6. Resolved (4) Elevated LFTs: Code(s): R79.89 - Other specified abnormal findings of blood chemistry Status: Acute Assessment and Plan: Patient has chronic mildly elevated liver enzymes. Hepatitis panel in December was negative. Abdominal ultrasound on 12/20/2022 was normal. She is status post cholecystectomy. Suspect elevated liver enzymes related to her sickle cell disease. Follow (5) Diastolic congestive heart failure: Code(s): I50.30 - Unspecified diastolic (congestive) heart failure Status: Acute Assessment and Plan: Patient has a history of diastolic CHF. Echocardiogram shows EF of 55-60% with mild-moderately enlarged atrium and mild MR and TR performed November 2022. Will monitor closely given that she is on IV fluids. She is off IV fluids now (6) Asthma: Code(s): J45.909 - Unspecified asthma, uncomplicated Status: Acute Assessment and Plan: No wheezing appreciated on exam. Patient was educated about using albuterol as needed. Explained that there are maintenance medications for asthma that would be more appropriate if she was having frequent flares but otherwise would use the albuterol as needed. Plan DVT prophylaxis -Lovenox Code status -full Subjective Date/time seen: 03/01/23 14:10 Interval history: 57yo female with sickle cell, dCHF, asthma and GERD here for diffuse pain.?? [place] achy overnight. Feels better today. Eating okay. Exam Narrative: AF 98.3 132/59 90 16 97% ra Gen - NARD Chest - CTA bilaterally, nml RR CV - RRR S1/S2 Abd - soft, NT/ND, +BS Ext - no pedal edema. Psych - normal mood and affect. Skin - warm and dry. Objective Data Vital Signs Vital Signs: Vital Signs - 24 hr 02/28/23 15:04 02/28/23 21:42 02/28/23 20:00 Temperature 98.8 F 97.9 F Pulse Rate 85 78 Respiratory Rate 18 18 Blood Pressure 124/47 L 133/66 Pulse Oximetry 98 98 Oxygen Delivery Room Air 03/01/23 06:00 03/01/23 08:16 Temperature 98.3 F Pulse Rate 90 Respiratory Rate 16 Blood Pressure 132/59 L Pulse Oximetry 97 Oxygen Delivery Room Air Intake/Output Intake/Output: Intake & Output 02/26/23 02/27/23 02/28/23 03/01/23 23:59 23:59 23:59 23:59 Intake Total 5840 4800 880 Output Total 800 700 Balance 5840 4000 180 Meds/Results Medications: Active Medications Generic Name Dose Route Start Last Admin Trade Name Freq PRN Reason Stop Dose Admin Acetaminophen 650 mg 02/27/23 04:48 Acetaminophen 325 Mg Tablet
[2023-03-01 16:56] LABS: Glucose Point of Care 111 mg/dl (65-105)
[2023-03-01 20:31] VITALS: BP 111/59; PULSE 69; RESP 16; TEMP 36.6; O2SAT 97
[2023-03-01] MEDS: HYDROcodone/acetaminophen (*CRX) 5-325 MG TABLET 1 TAB PO (20:51)
[2023-03-01] MEDS: FOLIC ACID 1 MG TABLET PO (20:51)
[2023-03-01 21:43] LABS: Glucose Point of Care 110 mg/dl (65-105)
[2023-03-02] MEDS: HYDROmorphone HCL INJ (*CRX) 1 MG/ML SYR 0.5 MG IV PUSH ×4 (05:34→19:34)
[2023-03-02 05:45] VITALS: BP 102/53; PULSE 70; RESP 18; TEMP 36.6; O2SAT 97
[2023-03-02 08:37] LABS: Glucose Point of Care 97 mg/dl (65-105)
[2023-03-02] MEDS: DOCUSATE SODIUM 100 MG CAPSULE PO ×2 (09:14→17:19)
[2023-03-02] MEDS: PANTOPRAZOLE 40 MG TABLET PO (09:14)
[2023-03-02] MEDS: ENOXAPARIN 40 MG/0.4 ML SYRINGE SUB-Q (09:14)
[2023-03-02 12:33] LABS: Glucose Point of Care 92 mg/dl (65-105)
--- NOTE | 2023-03-02 12:37 | PM.IMPN ---
Progress Note: A&P Assessment and Plan (1) Sickle cell pain crisis: Code(s): D57.00 - Hb-SS disease with crisis, unspecified Status: Acute Assessment and Plan: Patient admitted for diffuse pain felt the have a sickle cell crisis. She was started on IV fluids, supplemental oxygen and appropriate pain medications. Continue the Dilaudid, [place] and Tylenol for pain. Soma on hold at this time. Holding her diazepam at this time as well. Patient is at risk for respiratory depression. WBC was higher but UA and CXR clear; felt elevated WBC from steroids. WBC was trending down IV fluids stopped now. Off O2 More pain today. Also with cough Repeat CXR. Check CBC Possibly home tomorrow (2) Anemia: Qualifiers: Anemia type: unspecified type Qualified Code(s): D64.9 - Anemia, unspecified Code(s): D64.9 - Anemia, unspecified Status: Acute Assessment and Plan: Patient's baseline hemoglobin is 8-9 range. [place] related to her sickle cell. Hgb 8.6 on admission but dropped to 7 range and stable. [place] Hgb drop related to the IV fluids. Follow Hgb (3) Hyperglycemia: Code(s): R73.9 - Hyperglycemia, unspecified Status: Acute Assessment and Plan: Glucose was elevated on admission probably stress response and from the steroids. She does not want to continue steroids and her symptoms requiring the steroids has resolved. Steroids not continued A1c 4.6. Resolved (4) Elevated LFTs: Code(s): R79.89 - Other specified abnormal findings of blood chemistry Status: Acute Assessment and Plan: Patient has chronic mildly elevated liver enzymes. Hepatitis panel in December was negative. Abdominal ultrasound on 12/20/2022 was normal. She is status post cholecystectomy. Suspect elevated liver enzymes related to her sickle cell disease. Follow (5) Diastolic congestive heart failure: Code(s): I50.30 - Unspecified diastolic (congestive) heart failure Status: Acute Assessment and Plan: Patient has a history of diastolic CHF. Echocardiogram shows EF of 55-60% with mild-moderately enlarged atrium and mild MR and TR performed November 2022. Will monitor closely given that she is on IV fluids. She is off IV fluids now (6) Asthma: Code(s): J45.909 - Unspecified asthma, uncomplicated Status: Acute Assessment and Plan: No wheezing appreciated on exam. Patient was educated about using albuterol as needed. Explained that there are maintenance medications for asthma that would be more appropriate if she was having frequent flares but otherwise would use the albuterol as needed. Plan DVT prophylaxis -Lovenox Code status -full Subjective Date/time seen: 03/02/23 12:37 Interval history: 57yo female with sickle cell, dCHF, asthma and GERD here for diffuse pain.?? Complains if increasing pain in the right thigh/leg. Also having cough productive of yellow sputum. No CP or SOB. Walking to the BR. Exam Narrative: AF 97.9 102/53 70 18 97% ra Gen - NARD Chest - CTA bilaterally, nml RR CV - RRR S1/S2 Abd - soft, NT/ND, +BS Ext - no pedal edema. no bruising or skin changes to the right thigh. Nml ROM to the right knee and hip Psych - normal mood and affect. Skin - warm and dry. Objective Data Vital Signs Vital Signs: Vital Signs - 24 hr 03/01/23 14:00 03/01/23 20:31 03/01/23 20:00 Temperature 97.0 F L 98 F Pulse Rate 82 69 Respiratory Rate 16 16 Blood Pressure 126/48 L 111/59 L Pulse Oximetry 99 97 Oxygen Delivery Room Air 03/02/23 05:45 03/02/23 09:14 Temperature 97.9 F Pulse Rate 70 Respiratory Rate 18 Blood Pressure 102/53 L Pulse Oximetry 97 Oxygen Delivery Room Air Intake/Output Intake/Output: Intake & Output 02/27/23 02/28/23 03/01/23 03/02/23 23:59 23:59 23:59 23:59 Intake Total 5840 4800 1670 890 Output Total 800 2350 [place]
[2023-03-02 13:29] LABS: Basophils Absolute Auto 0.1 K/mm3 (0.0-0.1); Basophils Percent Auto 0.9 % (0.2-1.2); Eosinophils Absolute Auto 0.9 K/mm3 (0-0.3); Eosinophils Percent Auto 5.9 % (0-4.4); Hematocrit 27.9 % (37.0-47.0); Hemoglobin 8.5 g/dL (12.0-15.0); Immature Granulocyte Absolute 0.11 K/mm3 (0.00-0.031); Immature Granulocyte Percent A 0.7 % (0-0.5); Immature Platelet Fraction Pct 7.2 % (0.9-11.2); Lymphocytes Absolute Auto 7.36 K/mm3 (0.9-3.2); Lymphocytes Percent Auto 47.9 % (18.3-44.2); Mean Corpuscular HGB Conc 30.5 g/dl (32-36); Mean Corpuscular Hemoglobin 32.2 pg (26-34); Mean Corpuscular Volume 105.7 fl (80-100); Mean Platelet Volume 10.9 fl (7.4-10.4); Monocytes Absolute Auto 1.8 K/mm3 (0.1-0.6); Monocytes Percent Auto 11.5 % (2.6-8.5); Neutrophils Absolute Auto 5.1 K/mm3 (1.3-6.7); Neutrophils Percent Auto 33.1 % (45.5-73.1); Nucleated Red Blood Cells Absolute Auto 0.6 K/mm3 (0.0-0.012); Platelet Count Result 201 k/mm3 (150-375); Red Blood Count 2.64 M/mm3 (4.2-5.4); Red Cell Distribution Width 18.1 % (11.5-14.5); White Blood Count 15.4 K/mm3 (4.5-10.0)
[2023-03-02 14:00] VITALS: BP 115/58; PULSE 72; RESP 14; TEMP 36.6; O2SAT 98
[2023-03-02 14:18] LABS: Schistocytes Rare (NORMAL)
[2023-03-02 14:19] LABS: Platelet Estimate Adequate (Adequate)
[2023-03-02 16:09] LABS: Hemoglobin A1C 5.1 % (<5.7)
[2023-03-02 19:34] VITALS: BP 130/61; PULSE 82; RESP 18; TEMP 36.9; O2SAT 97
[2023-03-02] MEDS: FOLIC ACID 1 MG TABLET PO (19:38)
[2023-03-03] MEDS: HYDROmorphone HCL INJ (*CRX) 1 MG/ML SYR 0.5 MG IV PUSH ×2 (01:34→05:43)
[2023-03-03 05:39] VITALS: BP 105/53; PULSE 73; RESP 16; TEMP 36.6; O2SAT 98
[2023-03-03] MEDS: DOCUSATE SODIUM 100 MG CAPSULE PO (08:23)
[2023-03-03] MEDS: PANTOPRAZOLE 40 MG TABLET PO (08:23)
[2023-03-03] MEDS: ENOXAPARIN 40 MG/0.4 ML SYRINGE SUB-Q (08:23)
--- NOTE | 2023-03-03 13:10 | PM.DS ---
DS: Admitting Diagnosis Discharge Date 03/03/23 Admitting Diagnosis Sickle cell crisis DS: Discharge Diagnosis Discharge Diagnosis (1) Sickle cell pain crisis: Code(s): D57.00 - Hb-SS disease with crisis, unspecified Status: Acute (2) Anemia: Qualifiers: Anemia type: unspecified type Qualified Code(s): D64.9 - Anemia, unspecified Code(s): D64.9 - Anemia, unspecified Status: Acute (3) Hyperglycemia: Code(s): R73.9 - Hyperglycemia, unspecified Status: Acute (4) Elevated LFTs: Code(s): R79.89 - Other specified abnormal findings of blood chemistry Status: Acute (5) Diastolic congestive heart failure: Code(s): I50.30 - Unspecified diastolic (congestive) heart failure Status: Acute (6) Asthma: Code(s): J45.909 - Unspecified asthma, uncomplicated Status: Acute DS: Summary Hospital Course Reason for hospitalization: 57yo female with sickle cell, dCHF, asthma and GERD here for diffuse pain.? Please see H&P for details. Hospital Course: Patient admitted for diffuse pain felt the have a sickle cell crisis.?She was started on IV fluids, supplemental oxygen and appropriate pain medications.?WBC was higher but UA and CXR clear; felt elevated WBC from steroids. WBC was trending down off steroids. Patient's baseline hemoglobin is 8-9 range.? [place] related to her sickle cell.?Hgb 8.6 on admission but dropped to 7 range and stable. ? [place] Hgb drop related to the IV fluids. Off IV fluids, Hgb climbed to 8 range. Glucose was elevated on admission probably stress response and from the steroids.?She did not want to continue steroids and her symptoms requiring the steroids had resolved.? Steroids were not continued. A1c 4.6%.?Patient has chronic mildly elevated liver enzymes.?Hepatitis panel in December was negative.? Abdominal ultrasound on 12/20/2022 was normal. She is status post cholecystectomy.?Suspect elevated liver enzymes related to her sickle cell disease.?Patient has a history of diastolic CHF although she is unaware of this.?Echo showed EF of 55-60% with mild-moderately enlarged atrium and mild MR and TR performed November 2022.?She had clinical improvement and was able to be discharged home on 12/12/23 Status at Discharge Cognitive/behavioral status at discharge: stable Time Spent with Patient Time attestation: Total time spent providing and/or coordinating discharge services: 37 minutes Time spent: Greater than 30 minutes Exam Narrative: AF 97.8 105/53 73 16 98% ra Gen - NARD Chest - CTA bilaterally, nml RR CV - RRR S1/S2 Abd - soft, NT/ND, +BS Ext - no pedal edema. no rt knee swelling. normal right knee ROM Psych - normal mood and affect. Skin - warm and dry. DS: Data Data Completed and Pending Labs on day of discharge: Labs from last 24 hours 03/02/23 02/28/23 13:03 06:00 WBC 15.4 H RBC 2.64 L Hgb 8.5 L Hct 27.9 L MCV 105.7 H MCH 32.2 MCHC 30.5 L RDW 18.1 H Plt Count 201 MPV 10.9 H Immature Gran % (Auto) 0.7 H Neut % (Auto) 33.1 L Lymph % (Auto) 47.9 H [place] % (Auto) 11.5 H Eos % (Auto) 5.9 H Baso % (Auto) 0.9 Lymph # (Auto) 7.36 H [place] # (Auto) 1.8 H Eos # (Auto) 0.9 H Baso # (Auto) 0.1 Abs Immat Gran (auto) 0.11 H Absolute Neuts (auto) 5.1 Absolute Nucleated RBC 0.6 H Nucleated RBC % 4.0 H Platelet Estimate Adequate % Immature Plt Fraction 7.2 Schistocytes Rare Hemoglobin A1c 5.1 Discharge Plan Discharge Attending physician on discharge: Salazar Grissom Discharging Clinician: Salazar Grissom Anticipated Discharge Date/Time: 03/03/23 13:15 Patient Disposition: Home, Self-Care Activity: as tolerated Diet: heart healthy Discharge Instructions: Contact your doctor or call 911 and come to the Emergency Room if you have increasing pain uncontrolled with your medciations or other worrisome symptoms.
== END 2023-03-03 16:07 | disposition home or self-care (01) | DRG 812 ==
LOC: ANHED 03:22 → ANH3MED 05:19
PROVIDERS: Admitting Provider Internal Medicine; Emergency Provider Emergency Medicine; Visit Provider Internal Medicine
DX: D57.00 Hb-SS disease with crisis, unspecified (principal); I50.32 Chronic diastolic (congestive) heart failure; J45.909 Unspecified asthma, uncomplicated; K21.9 Gastro-esophageal reflux disease without esophagitis; R79.89 Other specified abnormal findings of blood chemistry; Z90.49 Acquired absence of other specified parts of digestive tract; Z28.21 Immunization not carried out because of patient refusal; Z90.710 Acquired absence of both cervix and uterus; Z87.891 Personal history of nicotine dependence; Z79.899 Other long term (current) drug therapy; Z86.69 Personal history of other diseases of the nervous system and sense organs
CPT/HCPCS: 36415; 71046; 80053; 81003; 82948; 83036; 83615; 83735; 84100; 84443; 85025; 85046; 85055; 86850; 86900; 86901; 96361; 96374; 96375; 99285; A9270; J1170; J1650; J7030; J7040; J7512

== ENCOUNTER 2023-04-23 17:12 | Emergency (ER) | payer MEDICARE, MEDICAID, SELFPAY ==
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
[2023-04-23 16:26] VITALS: BP 112/67; PULSE 80; RESP 13; TEMP 36.8; O2SAT 99
--- NOTE | 2023-04-23 16:30 | ECG_ITS ---
Measurements Intervals [place] Rate: 79 P: 48 CA: 197 QRS: 56 QRSD: 91 T: 60 QT: 407 QTc: 468 Interpretive Statements SINUS RHYTHM NORMAL ELECTROCARDIOGRAM COMPARED TO ECG 02/24/2023 17:22:07 NO SIGNIFICANT CHANGES Electronically Signed On 04-24-2023 7:07:11 CREDIT CLERK by Erwin Hernandez M.D.
[2023-04-23 17:37] LABS: Basophils Absolute Auto 0.1 K/mm3 (0.0-0.1); Basophils Percent Auto 0.4 % (0.2-1.2); Eosinophils Absolute Auto 0.5 K/mm3 (0-0.3); Eosinophils Percent Auto 2.5 % (0-4.4); Hematocrit 26.3 % (37.0-47.0); Hemoglobin 8.8 g/dL (12.0-15.0); Immature Granulocyte Absolute 0.07 K/mm3 (0.00-0.031); Immature Granulocyte Percent A 0.4 % (0-0.5); Lymphocytes Absolute Auto 4.68 K/mm3 (0.9-3.2); Lymphocytes Percent Auto 24.8 % (18.3-44.2); Mean Corpuscular HGB Conc 33.5 g/dl (32-36); Mean Corpuscular Hemoglobin 31.5 pg (26-34); Mean Corpuscular Volume 94.3 fl (80-100); Mean Platelet Volume 10.1 fl (7.4-10.4); Monocytes Absolute Auto 1.5 K/mm3 (0.1-0.6); Monocytes Percent Auto 8.2 % (2.6-8.5); Neutrophils Percent Auto 63.7 % (45.5-73.1); Platelet Count Result 299 k/mm3 (150-375); Red Blood Count 2.79 M/mm3 (4.2-5.4); Red Cell Distribution Width 15.1 % (11.5-14.5); White Blood Count 18.8 K/mm3 (4.5-10.0)
[2023-04-23] MEDS: HYDROmorphone HCL INJ (*CRX) 1 MG/ML SYR 0.5 MG IV PUSH (17:42)
[2023-04-23 17:48] LABS: INR 1.1
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
[2023-04-23 18:17] VITALS: PULSE 72
[2023-04-23 18:43] LABS: Alanine Aminotransferase 26 U/L (6-35); Albumin Level 4.3 g/dL (3.5-5.1); Alkaline Phosphatase 117 U/L (38-126); Anion Gap 10 mmol/L (8-16); Aspartate Amino Transferase 50 U/L (14-36); Bilirubin,Total 2.1 mg/dL (0.2-1.3); Blood Urea Nitrogen 15 mg/dL (7-17); Calcium 8.7 mg/dL (8.4-10.2); Carbon Dioxide 21 mmol/L (22-30); Chloride 108 mmol/L (98-107); Estimated CRCL calculation 94 ml/min; Estimated Glomerular Filt Rate > 60; Glucose 93 mg/dL (65-110); Lipase 178 U/L (23-300); Potassium 4.4 mmol/L (3.4-5.0); Sodium 139 mmol/L (137-145)
[2023-04-23 18:47] LABS: Troponin I 0.014 ng/mL (0.000-0.034)
[2023-04-23 18:55] LABS: Reticulocyte Hemoglobin Conten 31.7 pg (28.2-35.7); Reticulocyte Percent 3.07 % (0.7-4.3); Reticulocytes Absolute 0.08 M/mm3 (0.02-0.1)
--- NOTE | 2023-04-23 20:00 | ECG_ITS ---
Measurements Intervals [place] Rate: 69 P: 52 SD: 223 QRS: 58 QRSD: 94 T: 66 QT: 409 QTc: 440 Interpretive Statements SINUS RHYTHM WITH FIRST DEGREE AV BLOCK NORMAL ECG COMPARED TO ECG 04/23/2023 16:34:33 SLIGHTLY LONGER SD INTERVAL Electronically Signed On 04-24-2023 13:47:17 FOOD AND BEVERAGE CONTROLLER by Erwin Hernandez M.D.
[2023-04-23 20:30] LABS: Troponin I 0.012 ng/mL (0.000-0.034)
[2023-04-23] MEDS: BELLADONNA ALK/PHENOB ELIX 10 ML, MAG HYDROX/ALUMINUM HYD/SIMETH 30 ML, LIDOCAINE HCL 2... PO (20:56)
[2023-04-23 21:24] VITALS: BP 116/64; PULSE 71; RESP 15; O2SAT 100
== END 2023-04-23 21:25 | disposition home or self-care (01) ==
PROVIDERS: Physician Assistant; Emergency Provider Physician Assistant
DX: R07.9 Chest pain, unspecified (principal); D57.1 Sickle-cell disease without crisis; J45.909 Unspecified asthma, uncomplicated; I50.30 Unspecified diastolic (congestive) heart failure; K21.9 Gastro-esophageal reflux disease without esophagitis; Z87.440 Personal history of urinary (tract) infections; Z86.16 Personal history of COVID-19; Z87.891 Personal history of nicotine dependence; Z90.49 Acquired absence of other specified parts of digestive tract; Z90.710 Acquired absence of both cervix and uterus; Z90.722 Acquired absence of ovaries, bilateral; Z90.79 Acquired absence of other genital organ(s); I44.0 Atrioventricular block, first degree
CPT/HCPCS: 36415; 71046; 71275; 80053; 83690; 84484; 85025; 85046; 85610; 85730; 93005; 96374; 99284; A9270; J1170; Q9967

== ENCOUNTER 2023-12-21 22:03 | Inpatient (IN) | payer MEDICARE, MEDICAID, SELFPAY ==
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
[2023-12-21 21:54] VITALS: BP 86/54; PULSE 66; RESP 15; TEMP 36.4; O2SAT 96
[2023-12-21] MEDS: ONDANSETRON INJ 4 MG/2 ML VIAL IV PUSH (23:14)
[2023-12-21] MEDS: HYDROmorphone HCL INJ (*CRX) 1 MG/ML SYR IV PUSH (23:14)
[2023-12-21] MEDS: SODIUM CHLORIDE 0.9% IV 1,000 ML 999 ML IV CONT ×2 (23:14→23:38)
[2023-12-21 23:41] VITALS: BP 84/52; PULSE 71; RESP 12; O2SAT 100
[2023-12-21 23:51] VITALS: BP 99/53; PULSE 73; RESP 12; O2SAT 100
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
[2023-12-22] VITALS (24 sets, daily range): BP systolic 82–114; BP diastolic 44–69; PULSE 55–81; RESP 10–20; TEMP 36.4–37.2; O2SAT 90–100
[2023-12-22] MEDS: SODIUM CHLORIDE 0.9% IV 1,000 ML 100 ML IV CONT (00:53)
[2023-12-22 01:24] LABS: Basophils Absolute Auto 0.2 K/mm3 (0.0-0.1); Basophils Percent Auto 0.7 % (0.2-1.2); Eosinophils Absolute Auto 0.8 K/mm3 (0-0.3); Immature Granulocyte Absolute 0.19 K/mm3 (0.00-0.031); Immature Granulocyte Percent A 0.9 % (0-0.5); Lymphocytes Absolute Auto 6.84 K/mm3 (0.9-3.2); Lymphocytes Percent Auto 33.4 % (18.3-44.2); Mean Corpuscular HGB Conc 32.6 g/dl (32-36); Mean Corpuscular Volume 97.9 fl (80-100); Mean Platelet Volume 10.9 fl (7.4-10.4); Monocytes Absolute Auto 2.7 K/mm3 (0.1-0.6); Monocytes Percent Auto 13.1 % (2.6-8.5); Neutrophils Absolute Auto 9.8 K/mm3 (1.3-6.7); Neutrophils Percent Auto 47.9 % (45.5-73.1); Nucleated Red Blood Cells Perc 0.6 % (0.0-0.2); Platelet Count Result 167 k/mm3 (150-375); Red Blood Count 1.94 M/mm3 (4.2-5.4); Red Cell Distribution Width 16.7 % (11.5-14.5); Reticulocyte Hemoglobin Conten 34.3 pg (28.2-36.6); Reticulocyte Percent 8.65 % (0.7-4.3); Reticulocytes Absolute 0.17 10^6/uL (0.02-0.10); White Blood Count 20.5 K/mm3 (4.5-10.0)
[2023-12-22 01:36] LABS: Alanine Aminotransferase 26 U/L (6-35); Albumin Level 3.7 g/dL (3.5-5.1); Alkaline Phosphatase 147 U/L (38-126); Anion Gap 9 mmol/L (4-12); Aspartate Amino Transferase 48 U/L (14-36); Bilirubin,Total 3.7 mg/dL (0.2-1.3); Blood Urea Nitrogen 17 mg/dL (7-17); Carbon Dioxide 20 mmol/L (22-30); Chloride 111 mmol/L (98-107); Estimated CRCL calculation 59 ml/min; Estimated Glomerular Filt Rate > 60; Glucose 107 mg/dL (65-110); Potassium 4.8 mmol/L (3.4-5.0); Sodium 140 mmol/L (137-145)
[2023-12-22 01:41] LABS: Hemoglobin 6.2 g/dL (12.0-15.0)
[2023-12-22 01:42] LABS: Anisocytosis 1+; Platelet Estimate Adequate (Adequate); Polychromasia 1+
[2023-12-22 01:43] LABS: Hypochromasia 1+; Ovalocytes 1+; Schistocytes None Seen; Sickle Cells 1+; Target Cells 1+
--- NOTE | 2023-12-22 02:24 | ECG_ITS ---
Test Date: 2023-12-22 03:30:33 Measurements Intervals [place] Rate: 59 P: 44 GA: 204 QRS: 63 QRSD: 78 T: 59 QT: 429 QTc: 425 Interpretive Statements SINUS BRADYCARDIA WITH SINUS ARRHYTHMIA No previous ECG available for comparison Electronically Signed On 12-22-2023 10:10:10 CDT by Bruce Spears M.D.
[2023-12-22 03:32] LABS: Add Urine Microscopic? NO; Appearance Urine Clear (Clear); Bilirubin Urine Negative (Negative); Blood Urine Negative (Negative); Color Urine Yellow (Yellow); Glucose Urine UA Negative (Negative); Ketones Urine Negative (Negative); Leukocyte Esterase Ur Negative LEU/UL (Negative); Nitrate Urine Negative (Negative); Protein Urine Negative (Negative); Specific Grav Ur 1.009 (1.001-1.035); pH Urine 5.5 (5.0-9.0)
[2023-12-22] MEDS: DEXTROSE 5%/0.45% SOD CHL 1,000 ML 100 ML IV CONT (03:48)
[2023-12-22] MEDS: HYDROmorphone HCL INJ (*CRX) 1 MG/ML SYR 0.5 MG IV PUSH ×4 (05:07→23:36)
[2023-12-22 07:24] LABS: Glucose Point of Care 105 mg/dl (65-105)
[2023-12-22] MEDS: SODIUM CHLORIDE 0.9% IV 1,000 ML 125 ML IV CONT ×2 (07:46→16:24)
--- NOTE | 2023-12-22 08:28 | PC.NURSE ---
ordered pt breakfast tray.
[2023-12-22 08:33] LABS: Influenza A QL RT-PCR Negative (Negative); Influenza B QL RT-PCR Negative (Negative); RSV RNA, RT-PCR Negative (Negative); SARS-CoV-2 RNA PCR Negative (Negative)
[2023-12-22] MEDS: FOLIC ACID 1 MG TABLET PO (09:53)
[2023-12-22] MEDS: SODIUM CHLORIDE 0.9% IV 250 ML 30 ML IV CONT (10:44)
[2023-12-22] MEDS: TUBING, BLOOD PLUM PUMP TUBING 1 EACH XX (10:45)
--- NOTE | 2023-12-22 12:13 | ADMGEN ---
This patient, Isabelle Cornejo, was admitted to 2 Medical Room 261-01. Patient/family oriented to hospital policies and general routines including ID bracelet, bed and alarms, visiting hours, pain management, procedures, bathroom and other care routines, personal items, smoking policy, room service/diet, and visiting hours. Information on how to activate the Rapid Response Team has been discussed. Patient/Family are encouraged to report perceived risks to care and to ask questions if they do not understand what they are told or what they should do.
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
[2023-12-22 18:34] LABS: Hematocrit 27.7 % (37.0-47.0); Hemoglobin 9.4 g/dL (12.0-15.0)
[2023-12-23] VITALS (7 sets, daily range): BP systolic 124–143; BP diastolic 57–69; PULSE 78–85; RESP 16–18; TEMP 36.5–36.8; O2SAT 92–100
[2023-12-23] MEDS: SODIUM CHLORIDE 0.9% IV 1,000 ML 125 ML IV CONT ×3 (00:11→16:49)
[2023-12-23] MEDS: HYDROmorphone HCL INJ (*CRX) 1 MG/ML SYR 0.5 MG IV PUSH ×5 (03:33→20:06)
--- NOTE | 2023-12-23 04:33 | PC.NURSE ---
telemetry went down at 0300 after generator test. Maintenance notified.
[2023-12-23 08:01] LABS: Hematocrit 27.6 % (37.0-47.0); Hemoglobin 9.4 g/dL (12.0-15.0); Mean Corpuscular HGB Conc 34.1 g/dl (32-36); Mean Corpuscular Hemoglobin 31.6 pg (26-34); Mean Corpuscular Volume 92.9 fl (80-100); Mean Platelet Volume 10.5 fl (7.4-10.4); Platelet Count Result 247 k/mm3 (150-375); Red Blood Count 2.97 M/mm3 (4.2-5.4); Red Cell Distribution Width 16.7 % (11.5-14.5); White Blood Count 14.9 K/mm3 (4.5-10.0)
[2023-12-23 08:12] LABS: Alanine Aminotransferase 21 U/L (6-35); Albumin Level 3.4 g/dL (3.5-5.1); Alkaline Phosphatase 132 U/L (38-126); Anion Gap 7 mmol/L (4-12); Aspartate Amino Transferase 38 U/L (14-36); Bilirubin Indirect 2.1 mg/dL (0-1.1); Bilirubin,Total 2.6 mg/dL (0.2-1.3); Blood Urea Nitrogen 8 mg/dL (7-17); Calcium 8.2 mg/dL (8.4-10.2); Carbon Dioxide 21 mmol/L (22-30); Chloride 111 mmol/L (98-107); Estimated CRCL calculation 94 ml/min; Estimated Glomerular Filt Rate > 60; Glucose 103 mg/dL (65-110); Magnesium 1.9 mg/dL (1.6-2.3); Phosphorus 3.4 mg/dL (2.5-4.5); Potassium 3.8 mmol/L (3.4-5.0); Sodium 139 mmol/L (137-145)
[2023-12-23] MEDS: PANTOPRAZOLE 40 MG TABLET PO (08:20)
[2023-12-23] MEDS: DOCUSATE SODIUM 100 MG CAPSULE PO ×2 (08:20→16:49)
[2023-12-23] MEDS: FOLIC ACID 1 MG TABLET PO (08:21)
[2023-12-23] MEDS: oxyCODONE HCL (*CRX) 5 MG TAB IR 20 MG PO (08:24)
[2023-12-23 08:38] LABS: Hypochromasia 1+; Large Platelets Present; Platelet Estimate Adequate (Adequate); Polychromasia 1+
[2023-12-23 08:39] LABS: Anisocytosis 2+; Band Neutrophils Percent 1 % (0-6); Basophilic Stippling 1+; Basophils Absolute Manual 0.14 K/mm3 (0.0-0.1); Basophils Percent Manual 1 % (0-1); Eosinophils Absolute Manual 0.44 K/mm3 (0.02-0.50); Eosinophils Percent Manual 3 % (0-4); Howell Jolly Bodies 1+; Lymphocytes Absolute Manual 4.61 K/mm3 (1.1-4.5); Lymphocytes Percent Manual 31 % (18-44); Monocytes Absolute Manual 0.44 K/mm3 (0.1-0.90); Monocytes Percent Manual 3 % (3-9); Neutrophils Absolute Manual 9.23 K/mm3 (1.7-7.2); Neutrophils Percent Manual 61 % (46-73); Ovalocytes 1+; Poikilocytosis 1+; Schistocytes None Seen; Target Cells 1+; Total Cells Counted 100
[2023-12-23 08:40] LABS: Nucleated Red Blood Cells 4 %
--- NOTE | 2023-12-23 11:12 | PM.IMPN ---
Progress Note: A&P Assessment and Plan (1) Hypotension: Code(s): I95.9 - Hypotension, unspecified Status: Acute Assessment and Plan: Continue fluids Watch cbc Hb is 9 (2) Asthma: Code(s): J45.909 - Unspecified asthma, uncomplicated Status: Acute Assessment and Plan: Stable (3) Sickle cell pain crisis: Code(s): D57.00 - Hb-SS disease with crisis, unspecified Status: Acute Assessment and Plan: pain control/ iv fluids Continue IV fluids. Resume folate treatment. Hematology consult. (4) Sickle cell anemia with pain: Code(s): D57.00 - Hb-SS disease with crisis, unspecified Status: Acute Assessment and Plan: pain control ? dc in 1-2 days time home (5) Anemia: Qualifiers: Anemia type: unspecified type Qualified Code(s): D64.9 - Anemia, unspecified Code(s): D64.9 - Anemia, unspecified Status: Acute Assessment and Plan: Sp blood transfusion Hb is 9 today Watch cbc daily (6) Diastolic congestive heart failure: Code(s): I50.30 - Unspecified diastolic (congestive) heart failure Status: Acute Assessment and Plan: Patient with history of diastolic CHF. Echocardiogram in November 2022 noted. Currently euvolemic. Monitor closely while on IV fluids. Plan DVT prophylaxis -SCDs Code status -full Subjective Date/time seen: 12/23/23 11:12 Interval history: 58yo female with sickle cell disease SS followed by Dr. Topete and diastolic congestive heart failure who presented to the emergency department via EMS for diffuse pain from sickle cell crisis. Patient states she was last hospitalized in September for sickle cell crises. She was doing well up until day before admission when she developed ?pain all over?. Pt recovering from sickle cell pain crisis rates it as 7/10 Blood pressure was running low yesterday better today after fluids and blood Review of Systems Review of Systems: Ongoing pain all over Objective Data Vital Signs Vital Signs: Vital Signs - 24 hr 12/22/23 11:16 12/22/23 12:25 12/22/23 13:05 Temperature 36.8 C 36.8 C Pulse Rate 60 62 59 L Respiratory Rate 17 18 16 Blood Pressure 100/50 L 107/48 L 105/48 L Pulse Oximetry 97 99 99 Oxygen Delivery 12/22/23 13:48 12/22/23 12:00 12/22/23 14:03 Temperature 36.8 C 36.7 C Pulse Rate 60 60 Respiratory Rate 18 16 Blood Pressure 105/49 L 106/49 L Pulse Oximetry 100 100 Oxygen Delivery Room Air 12/22/23 14:00 12/22/23 15:03 12/22/23 16:03 Temperature 36.7 C 36.5 C 36.7 C Pulse Rate 60 71 63 Respiratory Rate 16 18 20 Blood Pressure 106/49 L 110/46 L 102/44 L Pulse Oximetry 100 99 94 Oxygen Delivery 12/22/23 12:00 12/22/23 16:00 12/22/23 20:45 Temperature Pulse Rate 58 L 63 Respiratory Rate Blood Pressure Pulse Oximetry Oxygen Delivery Room Air 12/22/23 20:00 12/22/23 21:02 12/23/23 00:04 Temperature 37.2 C Pulse Rate 81 80 83 Respiratory Rate 20 Blood Pressure 112/52 L Pulse Oximetry 97 Oxygen Delivery 12/23/23 06:00 Temperature 36.7 C Pulse Rate 79 Respiratory Rate 18 Blood Pressure 132/57 L Pulse Oximetry 100 Oxygen Delivery Intake/Output Intake/Output: Intake & Output 12/20/23 12/21/23 12/22/23 12/23/23 23:59 23:59 23:59 23:59 Intake Total 4830 2420 Output Total 600 Balance 4230 2420 Meds/Results Medications: Active Medications Generic Name Dose Route Start Last Admin Trade Name Freq PRN Reason Stop Dose Admin Acetaminophen 650 mg 12/22/23 13:51 Acetaminophen 325 Mg Tablet PO Q6H PRN Mild Pain (1-3) or Fever Albuterol 2 puff 12/22/23 13:50 Albuterol Sulfate (*Sp) Aerosol 1 Puff INHALATION Q6H PRN Wheezing Carisoprodol 350 mg 12/22/23 13:50 Carisoprodol (*Crx) 350 Mg Tablet PO QID PRN Muscle Spasm Diazepam 15 mg 12/22/23 13:50 D
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
[2023-12-23 16:41] LABS: Lactate Dehydrogenase 334 U/L (120-246)
[2023-12-24] MEDS: SODIUM CHLORIDE 0.9% IV 1,000 ML 125 ML IV CONT ×2 (00:25→08:17)
[2023-12-24] MEDS: oxyCODONE HCL (*CRX) 5 MG TAB IR 20 MG PO (00:26)
[2023-12-24] MEDS: HYDROmorphone HCL INJ (*CRX) 1 MG/ML SYR 0.5 MG IV PUSH ×3 (04:11→15:51)
[2023-12-24 05:27] VITALS: BP 108/55; PULSE 69; RESP 16; TEMP 37; O2SAT 96
[2023-12-24 06:14] LABS: Hematocrit 26.5 % (37.0-47.0); Hemoglobin 8.8 g/dL (12.0-15.0); Mean Corpuscular HGB Conc 33.2 g/dl (32-36); Mean Corpuscular Volume 93.3 fl (80-100); Mean Platelet Volume 10.2 fl (7.4-10.4); Platelet Count Result 242 k/mm3 (150-375); Red Blood Count 2.84 M/mm3 (4.2-5.4); Red Cell Distribution Width 16.2 % (11.5-14.5); White Blood Count 15.4 K/mm3 (4.5-10.0)
[2023-12-24 06:29] LABS: Anion Gap 7 mmol/L (4-12); Blood Urea Nitrogen 7 mg/dL (7-17); Calcium 8.4 mg/dL (8.4-10.2); Carbon Dioxide 23 mmol/L (22-30); Chloride 108 mmol/L (98-107); Estimated CRCL calculation 82 ml/min; Estimated Glomerular Filt Rate > 60; Glucose 129 mg/dL (65-110); Potassium 3.8 mmol/L (3.4-5.0); Sodium 138 mmol/L (137-145)
[2023-12-24] MEDS: PANTOPRAZOLE 40 MG TABLET PO (08:14)
[2023-12-24] MEDS: FOLIC ACID 1 MG TABLET PO (08:14)
[2023-12-24] MEDS: DOCUSATE SODIUM 100 MG CAPSULE PO ×2 (08:14→17:15)
--- NOTE | 2023-12-24 12:10 | PM.IMPN ---
Progress Note: A&P Assessment and Plan (1) Hypotension: Code(s): I95.9 - Hypotension, unspecified Status: Acute Assessment and Plan: Continue fluids Watch cbc Hb is 9 (2) Asthma: Code(s): J45.909 - Unspecified asthma, uncomplicated Status: Acute Assessment and Plan: Stable (3) Sickle cell pain crisis: Code(s): D57.00 - Hb-SS disease with crisis, unspecified Status: Acute Assessment and Plan: pain control/ iv fluids cut back on rate Continue IV fluids. Resume folate treatment. Hematology consult. (4) Sickle cell anemia with pain: Code(s): D57.00 - Hb-SS disease with crisis, unspecified Status: Acute Assessment and Plan: pain control ? dc in 1-2 days time home (5) Anemia: Qualifiers: Anemia type: unspecified type Qualified Code(s): D64.9 - Anemia, unspecified Code(s): D64.9 - Anemia, unspecified Status: Acute Assessment and Plan: Sp blood transfusion Hb is 9 today Watch cbc daily (6) Diastolic congestive heart failure: Code(s): I50.30 - Unspecified diastolic (congestive) heart failure Status: Acute Assessment and Plan: Patient with history of diastolic CHF. Echocardiogram in November 2022 noted. Currently euvolemic. Monitor closely while on IV fluids. Subjective Date/time seen: 12/24/23 12:10 Interval history: 58yo female with sickle cell disease SS followed by Dr. Topete and diastolic congestive heart failure who presented to the emergency department via EMS for diffuse pain from sickle cell crisis. Patient states she was last hospitalized in September for sickle cell crises. She was doing well up until day before admission when she developed ?pain all over?. Pt recovering from sickle cell pain crisis rates it as 7/10 Blood pressure was running low yesterday better today after fluids and blood 10/3 BP is better pt complains of low back pain and pain in her flank when she urinates UA and XRay L/s ordered continue present care in hospital possible dc in 1-2 days time Review of Systems Review of Systems: low back pain knee pain is better Exam Const: General: cooperative, healthy appearing and overweight; No in distress Nutritional Appearance: overweight Orientation/consciousness: oriented to person HENMT: Head: normal to inspection Resp: Effort & Inspection: no respiratory distress Auscultation: no rhonchi and no wheezes Cardio: Rate: regular rate Rhythm: regular rhythm GI: Inspection: normal to inspection GI Palp: No abdominal tenderness, No Guarding due to palpation present (GI) and No Hepatomegaly present Auscultation: normal bowel sounds Neuro: General: oriented to person Objective Data Vital Signs Vital Signs: Vital Signs - 24 hr 12/23/23 12:17 12/23/23 13:52 12/23/23 14:00 Temperature 36.5 C Pulse Rate 78 Respiratory Rate 17 Blood Pressure 134/63 124/62 Pulse Oximetry 92 96 Oxygen Delivery Room Air 12/23/23 20:41 12/23/23 20:10 12/24/23 05:27 Temperature 36.8 C 37.0 C Pulse Rate 85 85 69 Respiratory Rate 16 16 16 Blood Pressure 143/69 H 108/55 L Pulse Oximetry 97 97 96 Oxygen Delivery Room Air Intake/Output Intake/Output: Intake & Output 12/21/23 12/22/23 12/23/23 12/24/23 23:59 23:59 23:59 23:59 Intake Total 4830 5064 2353.3 Output Total 600 600 Balance 4230 5064 1753.3 Meds/Results Medications: Active Medications Generic Name Dose Route Start Last Admin Trade Name Freq PRN Reason Stop Dose Admin Acetaminophen 650 mg 12/22/23 13:51 Acetaminophen 325 Mg Tablet PO Q6H PRN Mild Pain (1-3) or Fever Albuterol 2 puff 12/22/23 13:50 Albuterol Sulfate (*Sp) Aerosol 1 Puff INHALATION Q6H PRN Wheezing Carisoprodol 350 mg 12/22/23 13:50 Carisoprodol (*Crx) 350 Mg Tablet PO QID PRN Muscle Spasm Diazepam 15 mg 12/22/23 13:50
[2023-12-24 14:00] VITALS: BP 105/47; PULSE 57; RESP 17; TEMP 37; O2SAT 96
[2023-12-24 16:13] LABS: Add Urine Microscopic? YES; Appearance Urine Clear (Clear); Bacteria Urine None Seen /hpf; Bilirubin Urine Negative (Negative); Blood Urine Negative (Negative); Color Urine Yellow (Yellow); Glucose Urine UA Negative (Negative); Ketones Urine Negative (Negative); Leukocyte Esterase Ur Trace LEU/UL (Negative); Nitrate Urine Negative (Negative); Non Pathogenic Casts 0-2; Protein Urine Negative (Negative); RBC Urine 0-2 /hpf (0-2); Specific Grav Ur 1.007 (1.001-1.035); Squamous Epithelial Cell Urine None Seen /hpf (Few); Urobilinogen Urine 0.2 mg/dL (<2.0); WBC Urine 0-5 /hpf (0-3); pH Urine 8.5 (5.0-9.0)
[2023-12-24 21:25] VITALS: BP 90/58; PULSE 57; RESP 18; TEMP 36.5; O2SAT 96
[2023-12-24] MEDS: SODIUM CHLORIDE 0.9% IV 1,000 ML 50 ML IV CONT (21:34)
[2023-12-24 21:40] VITALS: PULSE 57; RESP 18; O2SAT 96
[2023-12-24 21:48] VITALS: BMI 33.6
[2023-12-25] MEDS: oxyCODONE HCL (*CRX) 5 MG TAB IR 20 MG PO ×2 (01:55→10:54)
[2023-12-25 06:00] VITALS: BP 109/54; PULSE 54; RESP 18; TEMP 36.5; O2SAT 94
[2023-12-25 08:27] LABS: Hematocrit 26.2 % (37.0-47.0); Hemoglobin 8.8 g/dL (12.0-15.0); Mean Corpuscular HGB Conc 33.6 g/dl (32-36); Mean Corpuscular Hemoglobin 31.4 pg (26-34); Mean Corpuscular Volume 93.6 fl (80-100); Mean Platelet Volume 10.5 fl (7.4-10.4); Platelet Count Result 256 k/mm3 (150-375); Red Cell Distribution Width 15.9 % (11.5-14.5)
[2023-12-25 09:10] LABS: Anisocytosis 2+; Band Neutrophils Percent 2 % (0-6); Basophils Absolute Manual 0.28 K/mm3 (0.0-0.1); Basophils Percent Manual 2 % (0-1); Eosinophils Absolute Manual 1.26 K/mm3 (0.02-0.50); Eosinophils Percent Manual 9 % (0-4); Hypochromasia 2+; Large Platelets Present; Lymphocytes Absolute Manual 3.08 K/mm3 (1.1-4.5); Lymphocytes Percent Manual 22 % (18-44); Monocytes Absolute Manual 0.98 K/mm3 (0.1-0.90); Monocytes Percent Manual 7 % (3-9); Neutrophils Percent Manual 58 % (46-73); Ovalocytes 1+; Platelet Estimate Adequate (Adequate); Schistocytes None Seen; Stomatocytes 1+; Target Cells 2+; Total Cells Counted 100
[2023-12-25 09:41] LABS: Alanine Aminotransferase 17 U/L (6-35); Albumin Level 3.4 g/dL (3.5-5.1); Alkaline Phosphatase 117 U/L (38-126); Anion Gap 5 mmol/L (4-12); Aspartate Amino Transferase 42 U/L (14-36); Bilirubin,Total 2.8 mg/dL (0.2-1.3); Blood Urea Nitrogen 9 mg/dL (7-17); Calcium 8.4 mg/dL (8.4-10.2); Carbon Dioxide 24 mmol/L (22-30); Chloride 109 mmol/L (98-107); Estimated CRCL calculation 86 ml/min; Estimated Glomerular Filt Rate > 60; Glucose 97 mg/dL (65-110); Potassium 3.8 mmol/L (3.4-5.0); Sodium 138 mmol/L (137-145)
[2023-12-25] MEDS: PANTOPRAZOLE 40 MG TABLET PO (10:36)
[2023-12-25] MEDS: FOLIC ACID 1 MG TABLET PO (10:36)
[2023-12-25] MEDS: DOCUSATE SODIUM 100 MG CAPSULE 200 MG PO ×2 (10:53→17:29)
--- NOTE | 2023-12-25 13:28 | PCPTNOTE ---
Attempted PT evaluation, pt refused stating she has been independent in the room and has no concerns about going home. RN and hospitalist aware.
--- NOTE | 2023-12-25 14:11 | PM.IMPN ---
Progress Note: A&P Assessment and Plan (1) Hypotension: Code(s): I95.9 - Hypotension, unspecified Status: Acute Assessment and Plan: Continue fluids Watch cbc Hb is 9 (2) Asthma: Code(s): J45.909 - Unspecified asthma, uncomplicated Status: Acute Assessment and Plan: Stable (3) Sickle cell pain crisis: Code(s): D57.00 - Hb-SS disease with crisis, unspecified Status: Acute Assessment and Plan: pain control/ iv fluids cut back on rate Continue IV fluids. Resume folate treatment. Hematology consult. (4) Sickle cell anemia with pain: Code(s): D57.00 - Hb-SS disease with crisis, unspecified Status: Acute Assessment and Plan: pain control X-ray lumbar spine with chronic widespread sclerosis of the bones consistent with osteonecrosis from sickle cell disease (5) Anemia: Qualifiers: Anemia type: unspecified type Qualified Code(s): D64.9 - Anemia, unspecified Code(s): D64.9 - Anemia, unspecified Status: Acute Assessment and Plan: Sp blood transfusion on 12/22/2023 H&H remained stable post transfusion Watch cbc daily (6) Diastolic congestive heart failure: Code(s): I50.30 - Unspecified diastolic (congestive) heart failure Status: Acute Assessment and Plan: Patient with history of diastolic CHF. Echocardiogram in November 2022 noted. Currently euvolemic. Monitor closely while on IV fluids. Subjective Date/time seen: 12/25/23 14:11 Interval history: No overnight events. Continues to have some flank pain. And low back pain. Reviewed chart. Review of Systems Review of Systems: All systems reviewed & are unremarkable except as noted in HPI and below Exam Narrative: Gen - well appearing female in no acute respiratory distress who is nontoxic-appearing lying semi recumbent in bed HEENT - normocephalic. Atraumatic. Neck - neck was supple. No dominant adenopathy, thyromegaly or masses. Chest -diminished breath sounds bilaterally, no wheezing. no conversational dyspnea and nml RR. CV - heart was regular rate and rhythm. S1-S2. No murmurs gallops or rubs. Abd - abdomen was soft. Nontender. Nondistended. Positive bowel sounds. No organomegaly or masses. Ext - no clubbing, cyanosis or edema. 2+ DP pulses bilaterally. Neuro - patient is alert and appropriate. Strength is 5/5 in both upper and lower extremities. Cranial nerves 2-12 are intact. Speech is clear. Psych - normal mood and affect. Patient is pleasant and cooperative. Skin - warm and dry. No rashes noted. Objective Data Vital Signs Vital Signs: Vital Signs - 24 hr 12/24/23 21:25 12/24/23 21:40 12/25/23 06:00 Temperature 97.7 F 97.7 F Pulse Rate 57 L 57 L 54 L Respiratory Rate 18 18 18 Blood Pressure 90/58 L 109/54 L Pulse Oximetry 96 96 94 Oxygen Delivery Room Air Intake/Output Intake/Output: Intake & Output 12/22/23 12/23/23 12/24/23 12/25/23 23:59 23:59 23:59 23:59 Intake Total 4830 5064 3815.3 510 Output Total 862 105 5961 Balance 4230 5064 3215.3 -690 Meds/Results Medications: Active Medications Generic Name Dose Route Start Last Admin Trade Name Freq PRN Reason Stop Dose Admin Acetaminophen 650 mg 12/22/23 13:51 Acetaminophen 325 Mg Tablet PO Q6H PRN Mild Pain (1-3) or Fever Albuterol 2 puff 12/22/23 13:50 Albuterol Sulfate (*Sp) Aerosol 1 Puff INHALATION Q6H PRN Wheezing Carisoprodol 350 mg 12/22/23 13:50 Carisoprodol (*Crx) 350 Mg Tablet PO QID PRN Muscle Spasm Diazepam 15 mg 12/22/23 13:50 Diazepam (*Crx) 5 Mg Tablet PO QHS PRN Sleep Dicyclomine HCl 10 mg 12/22/23 13:50 Dicyclomine Hcl 10 Mg Capsule PO TID PRN Abdominal Discomfort Docusate Sodium 200 mg 12/25/23 10:40 12/25/23 10:53 Docusate Sodium 100 Mg Capsule PO 200 mg BID KYLER Administration Foli
[2023-12-25 15:47] VITALS: BP 121/60; PULSE 75; RESP 12; TEMP 36.3; O2SAT 95
[2023-12-25] MEDS: SODIUM CHLORIDE 0.9% IV 1,000 ML 50 ML IV CONT (17:28)
[2023-12-25 20:40] VITALS: BP 121/65; PULSE 85; RESP 16; TEMP 36.8; O2SAT 97
[2023-12-25] MEDS: HYDROmorphone HCL INJ (*CRX) 1 MG/ML SYR 0.5 MG IV PUSH (20:47)
[2023-12-25 21:00] VITALS: O2SAT 97
[2023-12-26 05:15] VITALS: BP 106/60; PULSE 96; RESP 18; TEMP 36.9; O2SAT 97
[2023-12-26 05:18] LABS: Basophils Absolute Auto 0.1 K/mm3 (0.0-0.1); Basophils Percent Auto 0.9 % (0.2-1.2); Eosinophils Absolute Auto 0.7 K/mm3 (0-0.3); Eosinophils Percent Auto 5.4 % (0-4.4); Hemoglobin 8.8 g/dL (12.0-15.0); Immature Granulocyte Absolute 0.05 K/mm3 (0.00-0.031); Immature Granulocyte Percent A 0.4 % (0-0.5); Lymphocytes Absolute Auto 4.75 K/mm3 (0.9-3.2); Lymphocytes Percent Auto 34.8 % (18.3-44.2); Mean Corpuscular HGB Conc 32.6 g/dl (32-36); Mean Corpuscular Hemoglobin 30.4 pg (26-34); Mean Corpuscular Volume 93.4 fl (80-100); Mean Platelet Volume 10.6 fl (7.4-10.4); Monocytes Absolute Auto 1.6 K/mm3 (0.1-0.6); Monocytes Percent Auto 11.7 % (2.6-8.5); Neutrophils Absolute Auto 6.4 K/mm3 (1.3-6.7); Neutrophils Percent Auto 46.8 % (45.5-73.1); Platelet Count Result 267 k/mm3 (150-375); Red Blood Count 2.89 M/mm3 (4.2-5.4); Red Cell Distribution Width 15.8 % (11.5-14.5); White Blood Count 13.7 K/mm3 (4.5-10.0)
[2023-12-26 05:32] LABS: Alanine Aminotransferase 17 U/L (6-35); Albumin Level 3.6 g/dL (3.5-5.1); Alkaline Phosphatase 126 U/L (38-126); Anion Gap 9 mmol/L (4-12); Aspartate Amino Transferase 40 U/L (14-36); Bilirubin,Total 2.8 mg/dL (0.2-1.3); Blood Urea Nitrogen 5 mg/dL (7-17); Calcium 8.5 mg/dL (8.4-10.2); Carbon Dioxide 22 mmol/L (22-30); Chloride 108 mmol/L (98-107); Estimated CRCL calculation 99 ml/min; Estimated Glomerular Filt Rate > 60; Glucose 99 mg/dL (65-110); Potassium 3.4 mmol/L (3.4-5.0); Sodium 139 mmol/L (137-145)
[2023-12-26] MEDS: PANTOPRAZOLE 40 MG TABLET PO (08:08)
[2023-12-26] MEDS: DOCUSATE SODIUM 100 MG CAPSULE 200 MG PO ×2 (08:08→17:58)
[2023-12-26] MEDS: FOLIC ACID 1 MG TABLET PO (08:09)
[2023-12-26] MEDS: oxyCODONE HCL (*CRX) 5 MG TAB IR 20 MG PO (08:09)
--- NOTE | 2023-12-26 10:46 | PM.IMPN ---
Progress Note: A&P Assessment and Plan (1) Hypotension: Code(s): I95.9 - Hypotension, unspecified Status: Acute Assessment and Plan: Continue fluids Watch cbc Hb is 9 (2) Asthma: Code(s): J45.909 - Unspecified asthma, uncomplicated Status: Acute Assessment and Plan: Stable (3) Sickle cell pain crisis: Code(s): D57.00 - Hb-SS disease with crisis, unspecified Status: Acute Assessment and Plan: pain control/ iv fluids cut back on rate Continue IV fluids. Resume folate treatment. Hematology consult. (4) Sickle cell anemia with pain: Code(s): D57.00 - Hb-SS disease with crisis, unspecified Status: Acute Assessment and Plan: pain control X-ray lumbar spine with chronic widespread sclerosis of the bones consistent with osteonecrosis from sickle cell disease (5) Anemia: Qualifiers: Anemia type: unspecified type Qualified Code(s): D64.9 - Anemia, unspecified Code(s): D64.9 - Anemia, unspecified Status: Acute Assessment and Plan: Sp blood transfusion on 12/22/2023 H&H remained stable post transfusion Watch cbc daily (6) Diastolic congestive heart failure: Code(s): I50.30 - Unspecified diastolic (congestive) heart failure Status: Acute Assessment and Plan: Patient with history of diastolic CHF. Echocardiogram in November 2022 noted. Currently euvolemic. Monitor closely while on IV fluids. Plan Abdominal pain will get CT abdomen to further evaluate. Urinalysis was negative yesterday Subjective Date/time seen: 12/26/23 10:46 Interval history: Reports some nausea and some abdominal discomfort in right side of abdomen. No vomiting. Pain overall is better from her sickle cell crisis could. Review of Systems Review of Systems: All systems reviewed & are unremarkable except as noted in HPI and below Exam Narrative: Gen - well appearing female in no acute respiratory distress who is nontoxic-appearing lying semi recumbent in bed HEENT - normocephalic. Atraumatic. Neck - neck was supple. No dominant adenopathy, thyromegaly or masses. Chest -diminished breath sounds bilaterally, no wheezing. no conversational dyspnea and nml RR. CV - heart was regular rate and rhythm. S1-S2. No murmurs gallops or rubs. Abd - abdomen was soft. Mild tender right lumbar area, Nondistended. Positive bowel sounds. No organomegaly or masses. Ext - no clubbing, cyanosis or edema. 2+ DP pulses bilaterally. Neuro - patient is alert and appropriate. Strength is 5/5 in both upper and lower extremities. Cranial nerves 2-12 are intact. Speech is clear. Psych - normal mood and affect. Patient is pleasant and cooperative. Skin - warm and dry. No rashes noted. Objective Data Vital Signs Vital Signs: Vital Signs - 24 hr 12/25/23 15:47 12/25/23 20:40 12/25/23 20:35 Temperature 97.3 F L 98.2 F Pulse Rate 75 85 Respiratory Rate 12 16 Blood Pressure 121/60 121/65 Pulse Oximetry 95 97 Oxygen Delivery Room Air 12/25/23 21:00 12/26/23 05:15 Temperature 98.4 F Pulse Rate 96 Respiratory Rate 18 Blood Pressure 106/60 Pulse Oximetry 97 97 Oxygen Delivery Room Air Intake/Output Intake/Output: Intake & Output 12/23/23 12/24/23 12/25/23 12/26/23 23:59 23:59 23:59 23:59 Intake Total 5064 3815.3 2495 630 Output Total 600 2700 2400 Balance 5064 3215.6 -214 -5941 Meds/Results Medications: Active Medications Generic Name Dose Route Start Last Admin Trade Name Freq PRN Reason Stop Dose Admin Acetaminophen 650 mg 12/22/23 13:51 Acetaminophen 325 Mg Tablet PO Q6H PRN Mild Pain (1-3) or Fever Albuterol 2 puff 12/22/23 13:50 Albuterol Sulfate (*Sp) Aerosol 1 Puff INHALATION Q6H PRN Wheezing Carisoprodol 350 mg 12/22/23 13:50 Carisoprodol (*Crx) 350 Mg Tablet PO QID PRN Muscle Spasm Diazepam 15 mg 10
[2023-12-26] MEDS: HYDROmorphone HCL INJ (*CRX) 1 MG/ML SYR 0.5 MG IV PUSH ×2 (13:57→21:56)
[2023-12-26] MEDS: SODIUM CHLORIDE 0.9% IV 1,000 ML 50 ML IV CONT (13:58)
[2023-12-26 14:00] VITALS: BP 111/62; PULSE 74; RESP 14; TEMP 36.7; O2SAT 98
[2023-12-26] MEDS: polyethylene glycoL 3350 17 GM POWD.PACK PO (17:58)
[2023-12-26 20:54] VITALS: BP 109/61; PULSE 81; RESP 18; TEMP 36.4; O2SAT 98
[2023-12-26 21:14] VITALS: O2SAT 98
[2023-12-27] MEDS: HYDROmorphone HCL INJ (*CRX) 1 MG/ML SYR 0.5 MG IV PUSH (01:52)
[2023-12-27 05:07] LABS: Basophils Absolute Auto 0.1 K/mm3 (0.0-0.1); Basophils Percent Auto 1.2 % (0.2-1.2); Eosinophils Absolute Auto 0.7 K/mm3 (0-0.3); Eosinophils Percent Auto 6.3 % (0-4.4); Hematocrit 25.7 % (37.0-47.0); Hemoglobin 8.6 g/dL (12.0-15.0); Immature Granulocyte Absolute 0.03 K/mm3 (0.00-0.031); Immature Granulocyte Percent A 0.3 % (0-0.5); Lymphocytes Absolute Auto 4.86 K/mm3 (0.9-3.2); Lymphocytes Percent Auto 41.7 % (18.3-44.2); Mean Corpuscular HGB Conc 33.5 g/dl (32-36); Mean Corpuscular Hemoglobin 31.4 pg (26-34); Mean Corpuscular Volume 93.8 fl (80-100); Mean Platelet Volume 10.5 fl (7.4-10.4); Monocytes Absolute Auto 1.2 K/mm3 (0.1-0.6); Monocytes Percent Auto 9.9 % (2.6-8.5); Neutrophils Absolute Auto 4.7 K/mm3 (1.3-6.7); Neutrophils Percent Auto 40.6 % (45.5-73.1); Platelet Count Result 285 k/mm3 (150-375); Red Blood Count 2.74 M/mm3 (4.2-5.4); Red Cell Distribution Width 15.6 % (11.5-14.5); White Blood Count 11.7 K/mm3 (4.5-10.0)
[2023-12-27 05:25] LABS: Alanine Aminotransferase 18 U/L (6-35); Albumin Level 3.5 g/dL (3.5-5.1); Alkaline Phosphatase 118 U/L (38-126); Anion Gap 7 mmol/L (4-12); Aspartate Amino Transferase 42 U/L (14-36); Bilirubin,Total 2.8 mg/dL (0.2-1.3); Blood Urea Nitrogen 5 mg/dL (7-17); Calcium 8.6 mg/dL (8.4-10.2); Carbon Dioxide 24 mmol/L (22-30); Chloride 109 mmol/L (98-107); Estimated CRCL calculation 99 ml/min; Estimated Glomerular Filt Rate > 60; Glucose 105 mg/dL (65-110); Potassium 3.5 mmol/L (3.4-5.0); Sodium 140 mmol/L (137-145)
[2023-12-27 06:00] VITALS: BP 102/51; PULSE 61; RESP 20; TEMP 36.3; O2SAT 97
[2023-12-27 07:17] VITALS: O2SAT 97
[2023-12-27] MEDS: FOLIC ACID 1 MG TABLET PO (08:22)
[2023-12-27] MEDS: PANTOPRAZOLE 40 MG TABLET PO (08:22)
[2023-12-27] MEDS: DOCUSATE SODIUM 100 MG CAPSULE 200 MG PO (08:23)
[2023-12-27] MEDS: SODIUM CHLORIDE 0.9% IV 1,000 ML 50 ML IV CONT (08:23)
[2023-12-27] MEDS: polyethylene glycoL 3350 17 GM POWD.PACK PO (08:23)
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
== END 2023-12-27 13:15 | disposition home or self-care (01) | DRG 812 ==
LOC: ANHED 12-22 03:06 → ANH3MEDSUR 12-22 03:41 → ANH2MED 12-22 10:10
PROVIDERS: Family Medicine; Internal Medicine; Internal Medicine Hematology & Oncology; Admitting Provider Internal Medicine; Emergency Provider Emergency Medicine; Visit Provider Internal Medicine
DX: D57.00 Hb-SS disease with crisis, unspecified (principal); I50.32 Chronic diastolic (congestive) heart failure; Z20.822 Contact with and (suspected) exposure to COVID-19; D64.9 Anemia, unspecified; I95.9 Hypotension, unspecified; J45.909 Unspecified asthma, uncomplicated; Z86.16 Personal history of COVID-19; Z90.710 Acquired absence of both cervix and uterus; Z90.722 Acquired absence of ovaries, bilateral; Z87.891 Personal history of nicotine dependence; Z90.49 Acquired absence of other specified parts of digestive tract
CPT/HCPCS: 36415; 36430; 71045; 72100; 74176; 80048; 80053; 81001; 81003; 82948; 83605; 83615; 83735; 84100; 85014; 85018; 85025; 85027; 85046; 86850; 86900; 86901; 86922; 87040; 87637; 93005; 96361; 96374; 96375; 99285; A9270; J1171; J2405; J7030; J7050; P9016

== ENCOUNTER 2024-04-10 20:59 | Emergency (ER) | payer MEDICARE, MEDICAID, SELFPAY ==
--- NOTE | ~2024-04-10 | CT_ITS ---
EXAMINATION: CT cervical spine wo con DATE: 04/10/2024 21:41 INDICATION: fall TECHNIQUE: Computed tomography (CT) of the cervical spine was performed without intravenous contrast. Automated exposure control and iterative reconstruction technique were employed. The dose-length pro duct was 307.73 mGy-cm. COMPARISON: [facility] 04/23/2023. FINDINGS: Vertebral Body Alignment: Intact. Craniocervical and atlantoaxial alignment: Mild degenerative change. Alignment intact. Osseous structures/fracture: Patchy mixed sclerotic and lytic appearance to the utilized bones. No e vidence of acute fracture. Mild chronic endplate deformities at C7 and T1. Cervical soft tissues: The paraspinal soft tissues planes are maintained. Degenerative changes: No significant degenerative changes. IMPRESSION: No acute fracture or traumatic malalignment in the cervical spine. Osseous findings in keeping with the diagnosis of sickle cell disease. Reviewed, dictated and finalized at location K. ESS CAMERA OPERATOR
--- NOTE | ~2024-04-10 | XR_ITS ---
EXAM: XR hand LT min 3V DATE: 04/10/2024 21:52 HISTORY: fall . COMPARISON: None available. FINDINGS: Decreased mineralization. No fracture or dislocation. No lytic or blastic lesion. Mild sca ttered degenerative changes. No erosion or periosteal change. Soft tissues within normal limits. IMPRESSION: No acute osseous finding in the left hand. Reviewed, dictated and finalized at location K. CE MANAGER RECEPTIONIST
--- NOTE | ~2024-04-10 | XR_ITS ---
EXAM: XR hip RT 2V w AP pelvis DATE: 04/10/2024 21:52 HISTORY: right hip pain . COMPARISON: None available. FINDINGS: Lumbar degenerative disc disease. Diffuse osseous sclerosis consistent with the given hist ory of sickle cell anemia. Dystrophic calcification/enthesopathy adjacent to the greater trochanter o n the right. No fracture or dislocation. Mild bilateral hip osteoarthritis. IMPRESSION: No acute osseous finding in the pelvis or right hip. Reviewed, dictated and finalized at location K. D PRODUCER
--- NOTE | ~2024-04-10 | CT_ITS ---
EXAMINATION: CT brain wo con DATE: 04/10/2024 21:41 INDICATION: fall . TECHNIQUE: Computed tomography (CT) of the head was performed without intravenous contrast. The mA wa s adjusted according to patient size. Iterative reconstruction technique was employed. The dose-lengt h product was 681.00 mGy-cm. COMPARISON: None. FINDINGS: No acute intracranial hemorrhage or extra-axial fluid collection. No hydrocephalus, mass, or herniation. No acute ischemic infarct. Unremarkable dural venous sinus attenuation. No acute osseous abnormality. Mixed patchy and sclerotic areas within the bones of the skull base. Sc attered somewhat punched-out osseous lesions throughout the calvarium. Nodular left sphenoid sinus mucosal thickening, the remaining aerated spaces are clear. Atherosclerotic intracranial calcifications. Bilateral lens replacements. Dystrophic calcifications i n the left ocular globe. Thornwald cyst. IMPRESSION: No acute intracranial process. 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 Correlate with history of malignancy, multiple myeloma, or metabolic disorder. Reviewed, dictated and finalized at location K. GN STUDIO CONSULTANT IMPRESSION: No acute intracranial process. 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 Correlate with history of malignancy, multiple myeloma, or metabolic di sorder.
--- NOTE | ~2024-04-10 | XR_ITS ---
EXAM: XR knee LT 3V DATE: 04/10/2024 21:52 HISTORY: fall . COMPARISON: 07/14/2019. FINDINGS: Osseous sclerosis consistent with the given clinical history of sickle cell disease. No fr acture or dislocation. Tricompartmental left knee osteoarthritic arthritis, moderate in the medial co mpartment. No erosion or periosteal change. Small-volume joint effusion. Soft tissue swelling anterio r to the patellar tendon and portable tibia. IMPRESSION: No acute osseous finding in the left knee. Reviewed, dictated and finalized at location K. BRAKE ADJUSTER
[2024-04-10 20:57] VITALS: BP 122/82; PULSE 92; RESP 14; TEMP 36.7; O2SAT 98
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
[2024-04-10] MEDS: oxyCODONE/ACETAMINOPHEN (*CRX) 5-325 MG TABLET 1 TABLET PO (21:23)
[2024-04-10 23:28] VITALS: BP 123/62; PULSE 82; RESP 14; O2SAT 99
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
--- OUTSIDE RECORDS SUMMARY | 2024-04-14 10:59 | XMS_ITS | CONTINUITY OF CARE DOCUMENT ---
Author Name ayo rollins Address Unknown Organization [facility] Address [address] [place] [address] Phone [phone] Care Team Providers Care Pathology Transcriptionist Name Role Phone Jeremy Bruce MD Unavailable NELY ELIZABETH MD Unavailable [phone] NELY ELIZABETH MD Unavailable INSURANCE PROVIDERS Payer name Policy type / Coverage type [place] [employer] party ID A[employer] [facility] ADVANTAGE PLAN 2 (HMO-POS) Medicare [id number] [employer] [facility] Medicaid [id number]
--- OUTSIDE RECORDS SUMMARY | 2024-04-14 11:00 | XMS_ITS | Clinical Summary ---
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 Diagnosing Kidney Disease, JASN 2020). The CKD-EPI equation should not be used for patients with unstable renal function and has not been validated in children and those over 70. Current interpretive data was last reviewed 2021. Blood 03/14/2024 2:47 PM FIRST OFFICER 03/14/2024 3:08 PM FIRST OFFICER us Ra Florence MD LAB BLOOD ORDERABLES Final R esult [facility] Department [place] [address] * (ABNORMAL) Differential, auto (03/14/2024 2:47 PM FIRST OFFICER) Neutrophil abs 7.4(H) 1.5 - 6.5 K/cumm Comment:Testing performed by : [facility], [facility] [place] [address] Lymphocyte abs 5.5(H) 0.8 - 3.3 K/cumm [facility] Comment:Testing performed by : [facility], [facility] [place] [address] Monocyte abs 1.9(H) 0.2 - 0.8 K/cumm [facility] Comment:Testing performed by : [facility], [facility] [place] [address] Eosinophil abs 1.0(H) 0.0 - 0.5 K/cumm [facility] Comment:Testing performed by : [facility], [address] [place] [phone] Basophil abs 0.2(H) 0.0 - 0.1 K/cumm [facility] Comment:Testing performed by : [facility], [address] [place] [phone] Neutrophil pct 46.5 % [facility] Comment: Interpretive Data Percent cell count reference ranges are not reported, since discordance with absolute values may lead to misinterpretation of CBC data. Current Interpretive Data was last revised on 2017. Testing performed by: [facility], [address] [place] [phone] Lymphocyte pct 34.5 % [facility] Comment: Interpretive Data Percent cell count reference ranges are not reported, since discordance with absolute values may lead to misinterpretation of CBC data. Current Interpretive Data was last revised on 2017. Testing performed by: [facility], [address] [place] [phone] Monocyte pct 11.6 % [facility] Comment: Interpretive Data Percent cell count reference ranges are not reported, since discordance with absolute values may lead to misinterpretation of CBC data. Current Interpretive Data was last revised on 2017. Testing performed by: [facility], [address] [place] [phone] Eosinophil pct 6.0 % [facility] Comment: Interpretive Data Percent cell count reference ranges are not reported, since discordance with absolute values may lead to misinterpretation of CBC data. Current Interpretive Data was last revised on 2017. Testing performed by: [facility], [address] [place] [phone] Basophil pct 1.4 % [facility] Comment: Interpretive Data Percent cell count reference ranges are not reported, since discordance with absolute values may lead to misinterpretation of CBC data. Current Interpretive Data was last revised on 2017. Testing performed by: [facility], [address] [place] [address] Blood 03/14/2024 2:47 PM FIRST OFFICER 03/14/2024 3:04 PM FIRST OFFICER Ra Florence MD LAB BLOOD ORDERABLES Final R esult [facility] Department [place] [address] * (ABNORMAL) CBC with auto differential (03/14/2024 2:47 PM FIRST OFFICER) WBC 16.0(H) 3.8 - 9.9 K/cumm Comment:Testing performed by : [facility], [address] [place] [address] Hgb 8.1(L) 11.9 - 15.5 g/dL [facility] Comment:Testing performed by : [facility], [address] [place] [address] Hct 24.2(L) 35.6 - 45.5 % [facility] Comment:Testing performed by : [facility], [address] [place] [address] Plt 373 150 - 400 K/cumm [facility] Comment:Testing performed by : [facility], [address] [place] [address] MPV 8.0 6.8 - 10.4 fL [facility] Comment:Testing performed by : [facility], [address] [place] [address] RBC 2.47(L) 3.90 - 5.20 M/cumm [facility] Comment:Testing performed by : [facility], [address] [place] [address] MCV 98.0(H) 81.3 - 96.4 fL [facility] Comment:Testing performed by : [facility], [address] [place] [phone] MCH 32.8 27.1 - 33.3 pg [place] Comment:Testing performed by : [facility], [address] [place], [place] [phone] MCHC 33.5 32.3 - 35.7 g/dL [facility] Comment:Testing performed by : [facility], [address] [place], [place] [phone] RDW CV 16.1(H) 11.1 - 14.9 % [place] Comment:Testing performed by : [facility], [address] [place], [place] [phone] NRBC abs 0.00 0.00 - 0.01 K/cumm [facility] [place] Comment:Testing performed by : [facility], [address] [place] [phone] Blood 03/14/2024 2:47 PM FIRST OFFICER 03/14/2024 3:04 PM FIRST OFFICER us Ra Florence MD LAB BLOOD ORDERABLES Final [facility] esult [facility] Department [place] [address] * (ABNORMAL) Comprehensive metabolic panel (03/14/2024 2:47 PM FIRST OFFICER) Sodium 139 135 - 145 mmol/L Potassium, pl 3.9 3.3 - 4.9 mmol/L [facility] Chloride 107 97 - 110 mmol/L [facility] CO2 25 22 - 32 mmol/L [facility] Anion gap 7 2 - 15 mmol/L [facility] BUN 18 6 - 25 mg/dL [facility] Creatinine 0.97 0.60 - 1.10 mg/dL [facility] Glucose 91 70 - 199 mg/dL [facility] Comment: Interpretive Data Fasting glucose >/= 126 mg/dl is diagnostic for diabetes. ?? Fasting is defined as no caloric intake for at least 8 hours. Fasting glucose between 100 mg/dl to 125 mg/dl is diagnostic of prediabetes. In a patient with classic symptoms of hyperglycemia or hyperglycemic crisis, a random glucose >/= 200 mg/dl is diagnostic for diabetes. In the absence of unequivocal hyperglycemia, results should be confirmed by repeat testing. The classification and Diagnosis of Diabetes Diabetes Care 202; 46: S19-S40. Current interpretive data was last revised 2022. Calcium 9.0 8.5 - 10.3 mg/dL [facility] Bilirubin, total 3.3(H) 0.1 - 1.2 mg/dL [facility] Protein, pl 8.5 6.5 - 8.5 g/dL [facility] Albumin 4.3 3.5 - 5.0 g/dL [facility] Alk phos 203(H) 40 - 130 Units/L [facility] ALT 38 7 - 45 Units/L [facility] AST 57(H) 10 - 45 Units/L [facility] Blood 03/14/2024 2:47 PM FIRST OFFICER 03/14/2024 3:08 PM FIRST OFFICER us Ra Florence MD LAB BLOOD ORDERABLES Final R esult [facility] Department [place] [address] * (ABNORMAL) eGFR (02/01/2024 2:25 PM FIRST OFFICER) Pathologist [facility] eGFR 44(L) >=60 mL/min/1. 73 m2 Comment: Interpretive Data Reference Interval Normal ?>/= 90 mL/min/1.73m2 Mildly decreased* ? 60 - 89 mL/min/1.73m2 Mildly to moderately decreased ?45 - 59 mL/min/1.73m2 Moderately to severely decreased ??30 - 44 mL/min/1.73m2 Severely decreased ?15 - 29 mL/min/1.73m2 Kidney Failure ?< 15 ??mL/min/1.73m2 *Relative to young adult level Estimated glomerular filtration rate is determined by the 2020 CKD-EPI equation recommended by the National Kidney Foundation (A Unifying Approach to GFR Estimation: Recommendations of the NKF-ASK Task Force on Reassessing the Inclusion of Race in Diagnosing Kidney Disease, JASN 2020). The CKD-EPI equation should not be used for patients with unstable renal function and has not been validated in children and those over 70. Current interpretive data was last reviewed 2021. Blood 02/01/2024 2:25 PM FIRST OFFICER 02/01/2024 2:44 PM FIRST OFFICER us Ra Florence MD LAB BLOOD ORDERABLES Final R esult [facility] Department [place] [address] * (ABNORMAL) Differential, auto (02/01/2024 2:25 PM FIRST OFFICER) Neutrophil abs 6.3 1.5 - 6.5 K/cumm Comment:Testing performed by : [facility], [address] [place] [phone] Lymphocyte abs 6.8(H) 0.8 - 3.3 K/cumm [facility] Comment:Testing performed by : [facility], [address] [place] [phone] Monocyte abs 2.0(H) 0.2 - 0.8 K/cumm [place] Comment:Testing performed by : [facility], [address] [place] [phone] Eosinophil abs 0.8(H) 0.0 - 0.5 K/cumm [facility] Comment:Testing performed by : [facility], [address] [place] [phone] Basophil abs 0.2(H) 0.0 - 0.1 K/cumm [place] Comment:Testing performed by : [facility], [address] [place] [phone] Neutrophil pct 38.8 % [facility] Comment: Interpretive Data Percent cell count reference ranges are not reported, since discordance with absolute values may lead to misinterpretation of CBC data. Current Interpretive Data was last revised on 2017. Testing performed by: [facility], [address] [place] [phone] Lymphocyte pct 42.0 % [facility] Comment: Interpretive Data Percent cell count reference ranges are not reported, since discordance with absolute values may lead to misinterpretation of CBC data. Current Interpretive Data was last revised on 2017. Testing performed by: [facility], [address] [place] [phone] Monocyte pct 12.7 % [facility] Comment: Interpretive Data Percent cell count reference ranges are not reported, since discordance with absolute values may lead to misinterpretation of CBC data. Current Interpretive Data was last revised on 2017. Testing performed by: [facility], [address] [place] [phone] Eosinophil pct 5.2 % [facility] Comment: Interpretive Data Percent cell count reference ranges are not reported, since discordance with absolute values may lead to misinterpretation of CBC data. Current Interpretive Data was last revised on 2017. Testing performed by: [facility], [address] [place] [phone] Basophil pct 1.3 % [facility] Comment: Interpretive Data Percent cell count reference ranges are not reported, since discordance with absolute values may lead to misinterpretation of CBC data. Current Interpretive Data was last revised on 2017. Testing performed by: [facility], [address] [place] [phone] Blood 02/01/2024 2:25 PM FIRST OFFICER 02/01/2024 2:40 PM FIRST OFFICER us Ra Florence MD LAB BLOOD ORDERABLES Final R esult [facility] Department [place] [address] * (ABNORMAL) CBC with auto differential (02/01/2024 2:25 PM FIRST OFFICER) WBC 16.1(H) 3.8 - 9.9 K/cumm Comment:Testing performed by : [facility], [address] [place] [address] Hgb 8.5(L) 11.9 - 15.5 g/dL [facility] Comment:Testing performed by : [facility], [address] [place] [address] Hct 26.3(L) 35.6 - 45.5 % [place] Comment:Testing performed by : [facility], [address] [place] [address] Plt 300 150 - 400 K/cumm [facility] Comment:Testing performed by : [facility], [address] [place] [address] MPV 8.8 6.8 - 10.4 fL [facility] Comment:Testing performed by : [facility], [address] [place] [address] RBC 2.70(L) 3.90 - 5.20 M/cumm [facility] Comment:Testing performed by : [facility], [address] [place] [address] MCV 97.2(H) 81.3 - 96.4 fL [facility] Comment:Testing performed by : [facility], [address] [place] [address] MCH 31.5 27.1 - 33.3 pg [facility] Comment:Testing performed by : [facility], [address] [place] [address] MCHC 32.4 32.3 - 35.7 g/dL [facility] Comment:Testing performed by : [facility], [address] [place] [address] RDW CV 17.7(H) 11.1 - 14.9 % [facility] Comment:Testing performed by : [facility], [address] [place] [phone] NRBC abs 0.10(H) 0.00 - 0.01 K/cumm [facility] Comment:Testing performed by : [facility], [address] [place] [phone] Blood 02/01/2024 2:25 PM FIRST OFFICER 02/01/2024 2:40 PM FIRST OFFICER Ra Florence MD LAB BLOOD ORDERABLES Final R esult Performing Organization Address [facility] Co de Phone Number [facility] Department of [address] [place] [address] * Hepatitis C antibody Blood (02/01/2024 2:25 PM FIRST OFFICER) [facility] Hep C Ab Nonreactive Nonreactive Comment:Antibodies to HCV no t detected. Does NOT exclude the possibility of recent exposure to HCV. Current interpretive data was last revised on 21 Blood 02/01/2024 2:25 PM FIRST OFFICER 02/01/2024 3:02 PM FIRST OFFICER us Ra Florence MD LAB MICROBIOLOGY - GENERAL O RDERABLES Final Result Performing Organization Address [facility] Co de Phone Number [facility] Department [place] [address] * (ABNORMAL) Comprehensive metabolic panel (02/01/2024 2:25 PM FIRST OFFICER) [facility] Sodium 141 135 - 145 mmol/L Potassium, pl 4.1 3.3 - 4.9 mmol/L [facility] Chloride 108 97 - 110 mmol/L [facility] CO2 27 22 - 32 mmol/L [facility] Anion gap 6 2 - 15 mmol/L [facility] BUN 19 6 - 25 mg/dL [facility] Creatinine 1.37(H) 0.60 - 1.10 mg/dL [facility] Glucose 108 70 - 199 mg/dL [facility] Comment: Interpretive Data Fasting glucose >/= 126 mg/dl is diagnostic for diabetes. ?? Fasting is defined as no caloric intake for at least 8 hours. Fasting glucose between 100 mg/dl to 125 mg/dl is diagnostic of prediabetes. In a patient with classic symptoms of hyperglycemia or hyperglycemic crisis, a random glucose >/= 200 mg/dl is diagnostic for diabetes. In the absence of unequivocal hyperglycemia, results should be confirmed by repeat testing. The classification and Diagnosis of Diabetes Diabetes Care 202; 46: S19-S40. Current interpretive data was last revised 2022. Calcium 8.7 8.5 - 10.3 mg/dL [facility] Bilirubin, total 2.8(H) 0.1 - 1.2 mg/dL [facility] Protein, pl 8.2 6.5 - 8.5 g/dL [facility] Albumin 4.1 3.5 - 5.0 g/dL [facility] Alk phos 217(H) 40 - 130 Units/L [facility] ALT 27 7 - 45 Units/L [facility] AST 50(H) 10 - 45 Units/L [facility] Blood 02/01/2024 2:25 PM FIRST OFFICER 02/01/2024 2:44 PM FIRST OFFICER us Ra Florence MD LAB BLOOD ORDERABLES Final R esult [facility] Department [place] [address] * (ABNORMAL) TNI with LIPID PANEL (12/27/2015 10:13 AM T) Pathologist [facility] Troponin I < 0.300 0.000 - 0.300 ng/mL 12/27/2015 10:45 AM [facility] [email or web address] HISTORICAL RESULTS Comment: Reference using BILLY Chemiluminescence ? Negative: Repeat in 4-6 hours as indicated. Triglycerides 80 0 - 199 mg/dL Comment:12 hr pc highly yang mmended for Triglyceride Cholesterol 110 0 - 199 mg/dL Comment: Borderline: ??200-239 High Risk: ?? >239 HDL Cholesterol 32(L) 40 - 60 mg/dL Comment: Major Risk ?< 40 mg/dL Moderate Risk ?40-60 mg/dL Negative Risk ?? > 60 mg/dL LDL Cholesterol, Calc 62 0 - 130 mg/dL Comment:High Risk > 159 mg/d L Cholesterol/HDL Ratio 3.4 Comment: Cholesterol / HDL Ratio 3.5:1 or less is desirable. Cholesterol / HDL Ratio greater than 5:1 is considered higher risk for developing heart disease. 12/27/2015 10:1 3 AM CDT 12/27/2015 10:19 AM CDT Narrative [facility] HISTORICAL RESULTS - 12/27/2015 10:53 AM CDT Historical Provider LAB BLOOD ORDERABLES Milagro mahajan Result [facility] HISTORICAL RESULTS * Occult blood, fecal non neoplasm screening (12/09/2015 12:30 PM CDT) Stool Occult Blood NEGATIVE NEGATIVE 12/09/2015 12:3 0 PM CDT 12/09/2015 1:59 PM CDT Narrative [facility] HISTORICAL RESULTS - 12/09/2015 2:08 PM CDT Collected By Magda Johnson NP LAB BODY FLUIDS AND STOOLS ORDER REJI Final Result Performing Organization Address City/[facility]/ZIP Co de Phone Number [facility] HISTORICAL RESULTS * Screening Mammogram Bilateral W Cali (02/27/2015 1:25 PM FIRST OFFICER) Anatomical Region Laterality Modality Breast Bilateral Mammography 02/27/2015 1:25 PM FIRST OFFICER Impressions 03/05/2015 9:11 AM FIRST OFFICER BI-RAD 2 ??BENIGN There is no mammographic evidence of malignancy. A 1 year screening mammogram is recommended. ?? The patient has been or will be contacted. ?? The patient will be entered into an automated reminder system to schedule a mammogram in one year. Electronically signed by: Ajith Newell md/:03/05/2015 09:09:56 ?? River Rat: Rosalia Brown RT (R)(M), [facility] letter sent: Normal Exam ?? Reading location: BI-RADS: 2 Benign [EOD] Narrative 03/05/2015 9:11 AM FIRST OFFICER - BRYANNA BILAT SCREENING 3D W/CAD BILATERAL DIGITAL SCREENING MAMMOGRAM 3D/2D WITH CAD WITH MEDIOLATERAL OBLIQUE CRANIOCAUDAL: 02/27/2015 The study was acquired using full field digital technology and interpreted from soft copy. ?? Current study was also evaluated with R2 CAD. 2D digital mammographic views, as well as 3D digital tomosynthesis were performed in the CC and MLO projections. CLINICAL: Routine mammogram. ??Patient denies any problems today. ??No personal or family history of breast cancer. ?? COMPARISONS: Comparison is made to exam dated: ??08/01/2013 mammogram - [facility]. ?? BREAST TISSUE: There are scattered areas of fibroglandular density. ?? FINDINGS: ??There is a stable benign appearing group of round/punctate calcifications within the posterior left breast at 12 o'clock (some of which are lucent centered - suggesting possible skin calcifications). No suspicious mass, calcifications, or other significant mammographic findings are seen. ??There has been no suspicious interval mammographic change involving either breast. Procedure Note Provider, MD Anatoliy - 08/07/2020 - BRYANNA BILAT SCREENING 3D W/CAD BILATERAL DIGITAL SCREENING MAMMOGRAM 3D/2D WITH CAD WITH MEDIOLATERALOBLIQUE CRANIOCAUDAL: 02/27/2015 The study was acquired using full field digital technology and interpretedfrom soft copy. Current study was also evaluated with R2 CAD. 2D digital mammographic views, as well as 3D digital tomosynthesis were performed in the CC and MLO projections. CLINICAL: Routine mammogram. Patient denies any problems today. Nopersonal or family history of breast cancer. COMPARISONS: Comparison is made to exam dated: 08/01/2013 mammogram -[facility]. BREAST TISSUE: There are scattered areas of fibroglandular density. FINDINGS: There is a stable benign appearing group of round/punctate calcifications within the posterior left breast at 12 o'clock (some ofwhich are lucent centered - suggesting possible skin calcifications). No suspicious mass, calcifications, or other significant mammographicfindings are seen. There has been no suspicious interval mammographic changeinvolving either breast. IMPRESSION: BI-RAD 2 BENIGN There is no mammographic evidence of malignancy. A 1 year screeningmammogram is recommended. The patient has been or will be contacted. The patient will be entered into an automated reminder system to schedulea mammogram in one year. Electronically signed by: Ajith Newell md/:03/05/2015 09:09:56 River Rat: Rosalia SIMPSON (R)(M), [facility] letter sent: Normal Exam Reading location: BI-RADS: 2 Benign [EOD] Marina Zavaleta DO IMG MAMMO PROCEDURES Final Result * Hemoglobin A1c (01/31/2014 8:04 PM FIRST OFFICER) Hemoglobin A1c % TNP 4.8 - 5.9 % 01/31/2014 8:04 PM FIRST OFFICER 01/31/2014 8:08 PM FIRST OFFICER Narrative [facility] HISTORICAL RESULTS - 01/31/2014 8:45 PM FIRST OFFICER us Jorge Whitehead MD LAB BLOOD ORDERABLES Final Result [facility] HISTORICAL RESULTS * COLONOSCOPY REPORT (11/04/2013) Anatomical Region Laterality Modality Other Narrative 11/04/2013 Ordered by an unspecified provider. Historical Provider GI PROCEDURE ORDERABLES F inal Result from Last 3 Months or Most Recently Relevant to Health Maintenance Insurance [employer] MEDICARE PPO MEDICARE SOLUTIONS [facility] MEDICARE Address: [address] [address] [place] [address] [employer] MED[employer]ARE SOLUTIONS [facility] MEDICARE Address: [address] [address] [place] [address] [employer] Advance Directives For more information, please contact: [phone] * Full Code (Latest Code Status on File) Date Activated Date Inactivated Comments 05/14/2021 8:11 PM 05/20/2021 10:43 PM Care Teams Branch Or Department Chief Librarian Relationship Specialty Start Date End Date Grazyna Perez NP [address] [place] [id number] PCP - General Family Medicine 04/01/24 Rom Topete DO [address] [place] [id number] Medical Oncologist/Housekeeping Supervisor [facility] 04/26/20
--- OUTSIDE RECORDS SUMMARY | 2024-04-14 11:00 | XMS_ITS | Referral Summary ---
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 Electronically signed by: Ajith Newell md/:03/05/2015 09:09:56 Hardware Sales Assistant: Rosalia Brown RT (R)(M), [facility] letter sent: Normal Exam Reading location: BI-RADS: 2 Benign [EOD] us Marina Zavaleta DO IMG MAMMO PROCEDURES Final Result * Hemoglobin A1c (01/31/2014 8:04 PM INTERNATIONAL MANAGER) Hemoglobin A1c % TNP 4.8 - 5.9 % 01/31/2014 8:45 PM INTERNATIONAL MANAGER [facility] HISTORICAL RESULTS 01/31/2014 8:04 PM INTERNATIONAL MANAGER 01/31/2014 8:08 PM INTERNATIONAL MANAGER Narrative [facility] HISTORICAL RESULTS - 01/31/2014 8:45 PM INTERNATIONAL MANAGER Jorge Whitehead MD LAB BLOOD ORDERABLES Final Result [facility] HISTORICAL RESULTS * COLONOSCOPY REPORT (11/04/2013) Anatomical Region Laterality Modality Other Narrative 11/04/2013 Ordered by an unspecified provider. Historical Provider GI PROCEDURE ORDERABLES F inal Result from Last 3 Months or Most Recently Relevant to Health Maintenance Insurance IDPA HUMA[employer] CHOICE MEDICARE PPO MEDICARE [facility] Address: [address] [address] [place] [address] [facility] MEDICARE [facility] Address: [address] [address] [place] [address] IDPA Advance Directives For more information, please contact: [phone] * Full Code (Latest Code Status on File) Date Activated Date Inactivated Comments 05/14/2021 8:11 PM 05/20/2021 10:43 PM Care Teams Wallboard Worker Relationship Specialty Start Date End Date Grazyna Perez NP [facility] [place] [address] PCP - General Family Medicine 04/01/24 Rom Topete DO [address] [place] [address] Medical Oncologist/Corporate Controller Hematology and Oncology 04/26/20
--- OUTSIDE RECORDS SUMMARY | 2024-04-14 11:00 | XMS_ITS | Continuity of Care Document ---
Author Organization [facility] Address [address] [place] [address] [address] [place] [address] Phone Care Team Providers Care Timber Packer Name Role Phone Mini Moore Unavailable Unavailable Advance Directives Directive Yes / No Effective Date File Name No Information Encounters Encounter Description Practice Location Reason(s) For Visit Diagnoses Date Provider Providers Copied on Encounter [facility], [id number] [place] [address] [address], [place], [place], [address], [place] tel:[phone] [facility] No Information Teresa Morse. [address] , [address], [place], [address], [place]. tel:[phone] Referring Provider: [place], [facility]. tel:[phone] Family History Family Member Type Diagnosis Age At Onset No Information Payers Payer name Insurance type Covered green party ID Authoriza tion(s) Medicare [facility] [id number] Social History Type Description Quantity Date Captured Comments Sex Female Smoking Status No Information Chief Complaint And Reason For Visit No Information Reason For Referral Reason For Referral No Information History Of Present Illness Encounter Date Complaint History Of Prese nt Illness No Information Functional Status Date Functional Assessmen t No Information Instructions Date Instruction Additional Infor mation No Information Assessments Type Assessment Date No Information Patient Care Teams Name Effective Dates (start - stop) Status Members No Information
--- OUTSIDE RECORDS SUMMARY | 2024-04-14 11:00 | XMS_ITS | Continuity of Care Document ---
Author Organization [facility] Address [address] [place] [address] [address] [place] [address] Phone Care Team Providers Care Application Security Specialist Name Role Phone Nagi CHINA Kathleen Unavailable Unavailab le Allergies, Adverse Reactions, Alerts Substance Reaction Status Criticality KETOROLAC TROMETHAMINE Active No In formation Advance Directives Directive Yes / No Effective Date File Name No Information Encounters Encounter Description Practice Location Reason(s) For Visit Diagnoses Date Provider Providers Copied on Encounter [facility] , [address] [place] [address] [address], [place], [address], [place] tel:[phone] [facility] No Information Nagi Wang. [address] [place] [address], [place], [address], [place]. tel:[phone] Family History Family Member Type Diagnosis Age At Onset Father Problem (finding) Cancer (Cause Of ) Father Problem (finding) Father Problem (finding) Seizure disorder Payers Payer name Insurance type Covered alliance party ID Authoriza tion(s) No Information Social History Type Description Quantity Date Captured Comments Sex Female Smoking Status No Information Vital Signs Date / Time: Height Weight BMI Pulse Rate Blood Pressure Temperature Respiratory Rate Body Surface Area Head Circumference BMI percentile Pulse Ox Inhaled Ox 11:12 AM 66.00 in 207.00 lbs 33.4 1 kg/m eter (2) 50 /min 101/69 mm[Hg] 96.90 F 18 /min Chief Complaint And Reason For Visit No Information History Of Present Illness Encounter Date Complaint History Of Prese nt Illness No Information Instructions Date Instruction Additional Infor mation No Information Assessments Type Assessment Date No Information
--- OUTSIDE RECORDS SUMMARY | 2024-04-14 11:00 | XMS_ITS | Continuity of Care Document ---
Author Organization [facility] Address [address] [place] [address] Phone Care Team Providers Care Water Pump Servicer Name Role Phone Basil Preciado NP Unavailable Unavailable Allergies, Adverse Reactions, Alerts Substance Reaction Status Criticality No Known Allergies Active No Inform ation Medications Medication Instructions Dosage Effective Dates (start - stop) Status Comments Wellbutrin XL 150 mg 24 hr tablet, extended release take 1 tablet by oral route every day 150 MG - Active hydrocodone 10 mg-acetaminophen 325 mg tablet take 1 tablet by oral route every 4-6 hours as needed for pain - Active tramadol 50 mg tablet take 1 Tablet by o ral route every 8 hours prn - Active zolpidem 10 mg tablet take 1 tablet by o ral route every day at bedtime as needed 10 MG - Active carisoprodol 350 mg tablet take 2 Tablet by oral route every bedtime as needed - Active hydroxyurea 500 mg capsule take 2 tablets by oral route every day - Active omeprazole 20 mg capsule,delayed release take 1 capsule by oral route 2 times every day before a meal 20 MG - Active Jadenu 360 mg tablet take 1 tablet by or al route every day at the same time each day - Active folic acid 1 mg tablet take 1 tablet by oral route every day 1 MG - Active ibuprofen 800 mg tablet take 1 tablet by oral route 3 times every day with food 800 MG - Active Miralax 17 gram oral powder packet take 1 packet by oral route every day mixed with 8 oz. water, juice, soda, coffee or tea - Active Advance Directives Directive Yes / No Effective Date File Name No Information Encounters Encounter Description Practice Location Reason(s) For Visit Diagnoses Date Provider Providers Copied on Encounter [facility], [address], [place], [place], [id number] , tel: [phone] [facility] No Information 7 Ilana Gracia. [address] [place] [address], [address], [place]. tel: [phone] [facility], [address], [place], [place], [address] , tel: [phone] [facility] Hip pain, right 6 Waqar Gray. [address] [place] [address], [id number] , . tel: [phone] [facility], [address], [place], [place], [address] , tel: [phone] [facility] Sickle-cell disease without crisisMorbid (severe) obesity due to excess caloriesHip pain, rightMDD (major depressive disorder), recurrent episode, moderateIron overload due to repeated red blood cell transfusionsEncount er for screening for other disorder 6 Waqar Gray. [address] [place] [address], [id number] , . tel: [phone] Referring Provider: Marina Pacheco, [address] [place] [address], [address] . tel:[phone] [facility], [address], [place], [place], [address] , [place] tel: [phone] [facility] No Information 6 Waqar Gray. [address] [place] [address], [id number] , [place]. tel: [phone] [facility], [address], [place], [place], [address] , tel: [phone] [facility] No Information 5 Waqar Gray. [address] [place] [address], [id number] , [place]. tel: [phone] [facility], [address], [place], [place], [address] , tel: [phone] [facility] No Information 5 Waqar Gray. [address] [place] [address], [id number] , [place]. tel: [phone] [facility], [address], [place], [place], [address] , [place] tel: [phone] [facility] Sickle-cell disease without crisisBilateral hip painMajor depressive disorder, single episode, unspecified 5 Waqar Gray. [address] [place] [address], [id number] , [place]. tel: [phone] Referring Provider: Marina Pacheco, [address] [place] [address], [address] . tel:[phone] [facility], [address], [place], [place], [address] , [place] tel: [phone] [facility] Encounter for immunizationChronic nonintractable headache, unspecified headache typeDizziness 5 Ilana Gracia. [address] [place] [address], [address], [place]. tel: [phone] Referring Provider: Marina Pacheco, [address] [place] [address], [address] . tel:[phone] [facility], [address], [place], [place], [address] , [place] tel: [phone] [facility] No Information 5 Waqar Gray. [address] [place] [address], [id number] , [place]. tel: [phone] [facility], [address], [place], [place], [address] , tel: [phone] [facility] Sickle cell disease without crisis 5 Waqar Gray. [address] [place] [address], [id number] , . tel: [phone] [facility], [address], [place], [place], [address] , tel: [phone] [facility] Sickle cell disease without crisisIron overload due to repeated red blood cell transfusionsKnee pain, bilateralMorbid obesity Nov-0 5 Waqar Gray. [address] [place] [address], [id number] , [place]. tel: [phone] [facility], [address], [place], [place], [address] , tel: [phone] [facility] Opiate dependence, continuousSickle cell disease without crisis 5 Waqar Gray. [address] [place] [address], [id number] , [place]. tel: [phone] [facility], [address], [place], [place], [address] , tel: [phone] [facility] Sickle cell disease without crisisIron overload due to repeated red blood cell transfusionsMDD (major depressive disorder)InsomniaKn ee pain, bilateralScreening for depressionEncounter for long-term (current) use of other medicationsOther screening mammogram 5 Waqar Gray. [address] [place] [address], [id number] , [place]. tel: [phone] Referring Provider: Marina Pacheco, [address] [place] [address], [address] . tel:[phone] [facility], [address], [place], [place], [address] , tel: [phone] [facility] Sickle cell disease without crisisIron overload due to repeated red blood cell transfusionsRheumat oid arthritisGERD (gastroesophageal reflux disease)Opiate dependence, continuousMorbid obesity 5 Waqar Gray. [address] [place], [place], [id number] , . tel:[phone] Referring Provider: Marina Pacheco, [place], [address] . tel:[phone] Family History Family Member Type Diagnosis Age At Onset Brother Problem (finding) Alive and well Brother Problem (finding) schizophrenia Father Problem (finding) Multiple myeloma (Cause Of ) 42 Mother Problem (finding) sickle cell trait (Caus e Of ) 28 Sister Problem (finding) sickle cell trait Father Problem (finding) sickle cell trait (Caus e Of ) 42 Immunizations Vaccine Date Status Comments influenza, injectable, quadrivalent, (3 years or older) administered Source: New Immuniza tion Record Pneumococcal conjugate PCV 13 refused Source: New Immunization Record Pneumococcal polysaccharide PPV23 refused Source: New Immuniza tion Record Td (adult) preservative free refused Source: New Immunization Record Zoster refused Source: New Imm unization Record Influenza, injectable, quadrivalent, preservative free, 3 yrs or older administered Source: Other Provi dorita Payers Payer name Insurance type Covered democrat ID Authoriza tion(s) [facility] [id number] [facility] [id number] Social History Type Description Quantity Date Captured Comments Alcohol Use Details Unknown Caffeine Use Details Unknown Tobacco Use Status Smoking Status No Information Sex Female Chief Complaint And Reason For Visit No Information Reason For Referral Reason For Referral No Information History Of Present Illness Encounter Date Complaint History Of Prese nt Illness No Information Functional Status Date Functional Assessmen t No Information Medications Administered Medication Instructions Dosage Effective Dates (start - stop) Status Comments No Drug Therapy Prescribed Instructions Date Instruction Additional Infor mation No Information Assessments Type Assessment Date No Information Patient Care Teams Name Effective Dates (start - stop) Status Members No Information
--- OUTSIDE RECORDS SUMMARY | 2024-04-14 11:00 | XMS_ITS | Encounter Summary ---
Author Organization [facility] Facility Care Team Providers Care Dental Technology Advisor Name Role Phone Jorge Whitehead MD Primary Care Provider [phone] Rom Topete DO Unavailable [phone] Rom Topete DO Primary Care Provider [phone] No, Physician Primary Care Provider [phone] Unknown, Notinfile Primary Care Provider Unavail able Rom Topete DO Primary Care Provider [phone] Raeann ACOSTA MD, Thomas Calderón Primary Care Provid er Grazyna Perez NP Primary Care Provider [phone] Encounter Details Date Type Department Care Team (Latest Contact Info) Description 08/09/2015 Orders Only [facility] ProviderAnatoliy MD [address] [place] [address] Social History Tobacco Use Types Packs/Day Years Used Date Smoking Tobacco: Never Assessed Comments Unknown Sex and Gender Information Value Date Recorded Sex Assigned at Not on file Legal 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 Historical Provider Final Res ult * PROCEDURE - RESULT (08/09/2015 12:00 AM CDT) Narrative 08/09/2015 12:00 AM CDT Ordered by an unspecified provider. Historical Provider MD Final Res ult * PROCEDURE - RESULT (08/09/2015 12:00 AM CDT) Narrative 08/09/2015 12:00 AM CDT Ordered by an unspecified provider. Historical Provider Final Res ult documented in this encounter Visit Diagnoses Not on filedocumented in this encounter Care Teams Dental Technology Advisor Relationship Specialty Start Date End Date Jorge Whitehead MD PCP - General 06/06/16 07/19/20 Rom Topete DO [address] [place] [address] PCP - General 07/20/20 01/16/21 No, Physician PCP - General 01/18/21 02/19/21 Unknown, Notinfile PCP - General 02/20/21 07/08/21 Rom Topete DO [address] [place] [id number] PCP - General Hematology and Oncology 07/09/21 07/29/21 Thomas Cary II, MD PCP - General Family Practice 07/30/21 03/31/24 Grazyna Perez NP [facility] [place] [address] PCP - General Family Medicine 04/01/24 Rom Topete DO [address] [place] [address] Medical Oncologist/Cardiothoracic Anesthesia Technician Hematology and Oncology 04/26/20 documented as of this encounter
== END 2024-04-10 23:31 | disposition home or self-care (01) ==
PROVIDERS: Emergency Provider Physician Assistant
DX: S09.90XA Unspecified injury of head, initial encounter (principal); S70.01XA Contusion of right hip, initial encounter; S83.92XA Sprain of unspecified site of left knee, initial encounter; S60.512A Abrasion of left hand, initial encounter; D57.1 Sickle-cell disease without crisis; I50.30 Unspecified diastolic (congestive) heart failure; J45.909 Unspecified asthma, uncomplicated; K21.9 Gastro-esophageal reflux disease without esophagitis; Z87.440 Personal history of urinary (tract) infections; Z87.891 Personal history of nicotine dependence; Z90.710 Acquired absence of both cervix and uterus; Z90.722 Acquired absence of ovaries, bilateral; Z90.79 Acquired absence of other genital organ(s); Z90.49 Acquired absence of other specified parts of digestive tract; W00.0XXA Fall on same level due to ice and snow, initial encounter
CPT/HCPCS: 70450; 72125; 73130; 73502; 73562; 99284; A9270

== ENCOUNTER 2024-05-27 14:07 | Emergency (ER) | payer MEDICARE, MEDICAID, SELFPAY ==
[2024-05-27 14:20] VITALS: BP 112/71; PULSE 60; RESP 16; TEMP 36.6; O2SAT 98
--- OUTSIDE RECORDS SUMMARY | 2024-05-27 14:24 | XMS_ITS | CONTINUITY OF CARE DOCUMENT ---
Author Name ayo rollins Address Unknown Organization [facility] Address [address] [place] [address] Phone [phone] Care Team Providers Care Master Data Analyst Name Role Phone Jeremy Bruce MD Unavailable NELY ELIZABETH MD Unavailable [phone] NELY ELIZABETH MD Unavailable INSURANCE PROVIDERS Payer name Policy type / Coverage type [employer] red constitution party ID AARP [facility] ADVANTAGE PLAN 2 (HMO-POS) Medicare [id number] [employer] [facility] Medicaid [id number]
--- OUTSIDE RECORDS SUMMARY | 2024-05-27 14:24 | XMS_ITS | Continuity of Care Document ---
Author Organization [facility] Address [address] [place] [address] [address] [place] [address] Phone Care Team Providers Care Line Servicer Name Role Phone Mini Moore Unavailable Unavailable Advance Directives Directive Yes / No Effective Date File Name No Information Encounters Encounter Description Practice Location Reason(s) For Visit Diagnoses Date Provider Providers Copied on Encounter [facility], [address] [place] [address] [address], [place], [place], [address], [place] tel:[phone] [facility] No Information Teresa Morse. [address] , [address], [place], [address], [place]. tel:[phone] Referring Provider: Bridget [place], [place], [facility]. tel:[phone] Family History Family Member Type Diagnosis Age At Onset No Information Payers Payer name Insurance type Covered republican ID Authoriza tion(s) Medicare [facility] [id number] Social History Type Description Quantity Date Captured [...]
--- OUTSIDE RECORDS SUMMARY | 2024-05-27 14:24 | XMS_ITS | Clinical Summary ---
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 3.5 - 5.0 g/dL [facility] Alk phos 203(H) 40 - 130 Units/L [facility] ALT 38 7 - 45 Units/L [facility] AST 57(H) 10 - 45 Units/L [facility] Blood 03/14/2024 2:47 PM IMCU SPECIALIST 03/14/2024 3:08 PM IMCU SPECIALIST us Ra Florence MD LAB BLOOD ORDERABLES Final R esult [facility] [place] [address] * Hepatitis C antibody Blood (02/01/2024 2:25 PM IMCU SPECIALIST) Hep C Ab Nonreactive Nonreactive Comment:Antibodies to HCV no t detected. Does NOT exclude the possibility of recent exposure to HCV. Current interpretive data was last revised on 21 Blood 02/01/2024 2:25 PM IMCU SPECIALIST 02/01/2024 3:02 PM IMCU SPECIALIST us Ra Florence MD LAB MICROBIOLOGY - GENERAL O RDERABLES Final Result [facility] [place] [address] * (ABNORMAL) TNI with LIPID PANEL (12/27/2015 10:13 AM CDT) Pathologist [facility] Troponin I < 0.300 0.000 - 0.300 ng/mL 12/27/2015 10:45 AM [facility] HISTORICAL RESULTS Comment: Reference using BILLY Chemiluminescence Negative: Repeat in 4-6 hours as indicated. Triglycerides 80 0 - 199 mg/dL 12/27/2015 10:53 AM [facility] HISTORICAL RESULTS Comment:12 hr pc highly yang mmended for Triglyceride Cholesterol 110 0 - 199 mg/dL 12/27/2015 10:53 AM [facility] HISTORICAL RESULTS Comment: Borderline: 200-239 High Risk: >239 HDL Cholesterol 32(L) 40 - 60 mg/dL 12/27/2015 10:53 AM [facility] HISTORICAL RESULTS Comment: Major Risk < 40 mg/dL Moderate Risk 40-60 mg/dL Negative Risk > 60 mg/dL LDL Cholesterol, Calc 62 0 - 130 mg/dL 12/27/2015 10:53 AM [facility] HISTORICAL RESULTS Comment:High Risk > 159 mg/d L Cholesterol/HDL Ratio 3.4 12/27/2015 10:53 AM [facility] HISTORICAL RESULTS Comment: Cholesterol / HDL Ratio 3.5:1 or less is desirable. Cholesterol / HDL Ratio greater than 5:1 is considered higher risk for developing heart disease. 12/27/2015 10:1 3 AM CDT 12/27/2015 10:19 AM CDT Narrative [facility] HISTORICAL RESULTS - 12/27/2015 10:53 AM CDT us Historical Provider LAB BLOOD ORDERABLES Milagro l Result Performing Organization Address City/[facility]/ZIP Co de Phone Number [facility] HISTORICAL RESULTS * Occult blood, fecal non neoplasm screening (12/09/2015 12:30 PM CDT) Stool Occult Blood NEGATIVE NEGATIVE 12/09/2015 2:08 PM CDT [facility] HISTORICAL RESULTS 12/09/2015 12:3 0 PM CDT 12/09/2015 1:59 PM CDT Narrative [facility] HISTORICAL RESULTS - 12/09/2015 2:08 PM CDT Collected By gs Magda Johnson NP LAB BODY FLUIDS AND STOOLS ORDER REJI Final Result Performing Organization Address City/[facility]/ZIP Co de Phone Number [facility] HISTORICAL RESULTS * Screening Mammogram Bilateral [place] (02/27/2015 1:25 PM IMCU SPECIALIST) Anatomical Region Laterality Modality Breast Bilateral Mammography 02/27/2015 1:25 PM IMCU SPECIALIST Impressions 03/05/2015 9:11 AM IMCU SPECIALIST BI-RAD 2 BENIGN There is no mammographic evidence of malignancy. A 1 year screening mammogram is recommended. The patient has been or will be contacted. The patient will be entered into an automated reminder system to schedule a mammogram in one year. Electronically signed by: Ajith Newell md/:03/05/2015 09:09:56 Dynamic Balancer Set Up Worker: Rosalia Brown RT (R)(M), [facility] letter sent: Normal Exam Reading location: BI-RADS: 2 Benign [EOD] Narrative 03/05/2015 9:11 AM IMCU SPECIALIST - BRYANNA BILAT SCREENING 3D W/CAD BILATERAL DIGITAL SCREENING MAMMOGRAM 3D/2D WITH CAD WITH MEDIOLATERAL OBLIQUE CRANIOCAUDAL: 02/27/2015 The study was acquired using full field digital technology and interpreted from soft copy. Current study was also evaluated with R2 CAD. 2D digital mammographic views, as well as 3D digital tomosynthesis were performed in the CC and MLO projections. CLINICAL: Routine mammogram. Patient denies any problems today. No personal or family history of breast cancer. COMPARISONS: Comparison is made to exam dated: 08/01/2013 mammogram - [place]. BREAST TISSUE: There are scattered areas of fibroglandular density. FINDINGS: There is a stable benign appearing group of round/punctate calcifications within the posterior left breast at 12 o'clock (some of which are lucent centered - suggesting possible skin calcifications). No suspicious mass, calcifications, or other significant mammographic findings are seen. There has been no suspicious interval mammographic change [...] is made to exam dated: 08/01/2013 mammogram -[place]. BREAST TISSUE: There are scattered areas of [...] Electronically signed by: Ajith Newell md/:03/05/2015 09:09:56 Dynamic Balancer Set Up Worker: Rosalia Brown RT (R)(M), [facility] letter sent: Normal Exam Reading location: BI-RADS: 2 Benign [EOD] us Marina Zavaleta DO IMG MAMMO PROCEDURES Final Result * Hemoglobin A1c (01/31/2014 8:04 PM IMCU SPECIALIST) Hemoglobin A1c % TNP 4.8 - 5.9 % 01/31/2014 8:45 PM IMCU SPECIALIST [facility] HISTORICAL RESULTS 01/31/2014 8:04 PM IMCU SPECIALIST 01/31/2014 8:08 PM IMCU SPECIALIST Narrative [facility] HISTORICAL RESULTS - 01/31/2014 8:45 PM IMCU SPECIALIST us Jorge Whitehead MD LAB BLOOD ORDERABLES Final Result [facility] HISTORICAL RESULTS * COLONOSCOPY REPORT (11/04/2013) Anatomical Region Laterality Modality Other Narrative 11/04/2013 Ordered by an unspecified provider. Historical Provider GI PROCEDURE ORDERABLES F inal Result from Last 3 Months or Most Recently Relevant to Health Maintenance Insurance IDPA HUMA[employer] CHOICE MEDICARE PPO MEDICARE SOLUTIONS IDPA MEDICARE SOLUTIONS IDPA Advance Directives For more information, please contact: [phone] * Full Code (Latest Code Status on File) Date Activated Date Inactivated Comments 05/14/2021 8:11 PM 05/20/2021 10:43 PM Care Teams Labor Crew Supervisor Relationship Specialty Start Date End Date Grazyna Perez NP [facility] [place] [address] PCP - General Family Medicine 04/01/24 Rom Topete DO [address] [place] [id number] Medical Oncologist/Cooker Mechanic Hematology and Oncology 04/26/20
--- OUTSIDE RECORDS SUMMARY | 2024-05-27 14:24 | XMS_ITS | Continuity of Care Document ---
Author Organization [employer] Address [address] [place] [address] Phone Care Team Providers Care Valve Technician Name Role Phone Basil Preciado NP Unavailable [...] Diagnoses Date Provider Providers Copied on Encounter [facility], [address], [place], [place], [id number] , tel: [phone] [facility] No Information 7 Ilana Gracia. [address] [place] [address], [id number], [place]. tel: [phone] [facility], [address], [place], [place], [id number] , tel: [phone] [facility] Hip pain, right 6 Waqar Gray. [address] [place] [address], [id number] , . tel: [phone] [facility], [address], [place], [place], [address] , tel: [phone] [facility] Sickle-cell disease without crisisMorbid (severe) obesity due to excess caloriesHip pain, rightMDD (major depressive disorder), recurrent episode, moderateIron overload due to repeated red blood cell transfusionsEncount er for screening for other disorder 6 Waqar Gray. [address] [place] [address], [id number] , . tel: [phone] Referring Provider: Marina Pacheco, [address] [place] [address], [id number] . tel:[phone] [facility], [address], [place], [place], [address] , [place] tel: [phone] [facility] No Information 6 Waqar Gray. [address] [place] [address], [id number] , [place]. tel: [phone] [facility], [address], [place], [place], [address] , tel: [phone] [facility] No Information 5 Waqar Gray. [address] [place] [address], [id number] , [place]. tel: [phone] [facility], [address], [place], [place], [id number] , tel: [phone] [facility] No Information 5 Waqar Gray. [address] [place] [address], [id number] , [place]. tel: [phone] [facility], [address], [place], [place], [address] , [place] tel: [phone] [facility] Sickle-cell disease without crisisBilateral hip painMajor depressive disorder, single episode, unspecified 5 Waqar Gray. [address] [place] [address], [id number] , [place]. tel: [phone] Referring Provider: Marina Pacheco, [address] [place] [address], [id number] . tel:[phone] [facility], [address], [place], [place], [id number] , [place] tel: [phone] [facility] Encounter for immunizationChronic nonintractable headache, unspecified headache typeDizziness 5 Ilana Gracia. [address] [place] [address], [id number], [place]. tel: [phone] Referring Provider: Marina Pacheco, [address] [place] [address], [id number] . tel:[phone] [facility], [address], [place], [place], [address] , [place] tel: [phone] [facility] No Information 5 Waqar Grya. [address] [place] [address], [id number] , [place]. tel: [phone] [facility], [address], [place], [place], [address] , tel: [phone] [facility] Sickle cell disease without crisis 5 Waqar Gray. [address] [place] [address], [id number] , . tel: [phone] [facility], [address], [place], [place], [address] , tel: [phone] [facility] Sickle cell disease without crisisIron overload due to repeated red blood cell transfusionsKnee pain, bilateralMorbid obesity Nov-0 5 Waqar Gray. [address] [place] [address], [id number] , [place]. tel: [phone] [employer], [address], [place], [place], [address] , tel: [phone] [facility] Opiate dependence, continuousSickle cell disease without crisis 5 Waqar Gray. [address] [place] [address], [id number] , [place]. tel: [phone] [employer], [address], [place], [place], [address] , tel: [phone] [facility] Sickle cell disease without crisisIron overload due to repeated red blood cell transfusionsMDD (major depressive disorder)InsomniaKn ee pain, bilateralScreening for depressionEncounter for long-term (current) use of other medicationsOther screening mammogram 5 Waqar Gray. [address] [place] [address], [id number] , [place]. tel: [phone] Referring Provider: Marina Pacheco, [address] [place] [address], [id number] . tel:[phone] [facility] [address], [place], [place], [address] , tel: [phone] [facility] Sickle cell disease without crisisIron overload due to repeated red blood cell transfusionsRheumat oid arthritisGERD (gastroesophageal reflux disease)Opiate dependence, continuousMorbid obesity 5 Waqar Gray. [address], [place], [id number] , . tel:[phone] Referring Provider: Marina Pacheco, [address] [place] [address], [id number] . tel:[phone] Family History Family Member Type Diagnosis Age At Onset Father Problem (finding) sickle cell trait (Caus e Of ) 42 Sister Problem (finding) sickle cell trait Mother Problem (finding) sickle cell trait (Caus e Of ) 28 Father Problem (finding) Multiple myeloma (Cause Of ) 42 Brother Problem (finding) schizophrenia Brother Problem (finding) Alive and well Immunizations Vaccine Date Status Comments influenza, injectable, [...] dorita Payers Payer name Insurance type Covered libertarian ID Authoriza tion(s) [employer] [id number] [employer] [id number] Social History Type Description Quantity Date Captured [...]
--- OUTSIDE RECORDS SUMMARY | 2024-05-27 14:24 | XMS_ITS | CCD ---
Author Name Interface, [id number] [place] [address] [facility] [place] [address] Care Team Providers Care Floor Tiling Professional Name Role Phone Anselmo De León Unavailable Un available Reason for Visit Problems Diagnosis Status Date of Diagnosi s Dysthymia (disorder) Active Depressive disorder (disorder) Active Asthma (disorder) Active Sickle cell-hemoglobin SS disease (disorder) Act mignon Obesity (disorder) Active Chronic pain syndrome (disorder) Active Sickle cell-hemoglobin SS disease (disorder) Act mignon Depressive disorder (disorder) Active Body mass index [BMI] 31.0-31.9, adult Inactive Body mass index [BMI] 34.0-34.9, adult Inactive Social History Date Name Value Sex Female
--- OUTSIDE RECORDS SUMMARY | 2024-05-27 14:24 | XMS_ITS | Clinical Summary ---
Author Organization [facility] Address [address] [place] [address] Care Team Providers Care Hat Lacer Name Role Phone Raeann ACOSTA MD, Hany Coburn Primary Care Provider Allergies Active Allergy Reactions Criticality Noted Date Comments Codeine Itching 06/30/2021 Prochlorperazine Rash,Unknown Medium 02/08/2019 Ketorolac Tromethamine Itching 02/10/2021 . Tramadol Hives 10/07/2023 Hydrocodone-Acetaminophen Itching Low 07/01/2021 Piperacillin Sod-Tazobactam So Throat swelling 02/10/2021 . Medications SHOWER CHAIR, DME,Indications :Unsteady Use as directed for showers. 1 Device 1 10/08/19 23 Active HOSPITAL BED, DME,Indications :Retinal detachment, tractional, right eye,Blindness of left eye, unspecified right eye visual impairment category,TABARES (dyspnea on exertion) Use as directed to sleep with head elevated. 1 Device 10/08/19 23 Active CANE, DME,Indications :Unsteady Use as directed for ambulation. 4 prong cane. 1 Device 1 10/08/19 23 Active omeprazole (PRILOSEC) 20 MG capsuleIndicati ons:Gastroesoph ageal reflux disease without esophagitis Take 1 capsule (20 mg total) by mouth daily. 90 capsule 3 05/01/19 24 Active vitamin C (ASCORBIC ACID) 250 MG tablet Take 1 tablet (250 mg total) by mouth daily. Active sertraline (ZOLOFT) 25 MG tabletIndicatio ns:Dysthymia Take 1 tablet (25 mg total) by mouth daily. 90 tablet 3 09/30/19 24 Active folic acid (FOLVITE) 1 MG tabletIndicatio ns:Folate deficiency Take 1 tablet (1 mg total) by mouth daily. 90 tablet 1 12/08/19 24 Active dicyclomine (BENTYL) 10 MG capsuleIndicati ons:Abdominal spasms TAKE 1 CAPSULE BY MOUTH THREE TIMES A DAY NEEDED FOR CRAMPING/ABDOM INAL PAIN 270 capsule 1 12/10/19 24 Active oxyCODONE HCl 20 MG TabIndications: Chronic Pain Take 1 tablet (20 mg total) by mouth every 4 (four) hours as needed. Indications: Chronic Pain 120 tablet 01/05/20 24 Active Docusate Sodium (DSS) 100 MG Cap TAKE 1 CAPSULE BY MOUTH 2 TIMES DAILY NEEDED FOR CONSTIPATION. Active COMPRESSION STOCKINGS, DME,Indications :Leg swelling Use lower leg sequential compression device twice daily as needed for leg swelling. 1 Package 1 01/19/20 24 Active tiZANidine (ZANAFLEX) 4 MG tabletIndicatio ns:Spasticity Take 1 tablet (4 mg total) by mouth every 6 (six) hours as needed (muscle spasms). 120 tablet 5 01/21/20 24 Active [facility] ASPIRIN ADULT LOW DOSE 81 MG chewable tabletIndicatio ns:TIA (transient ischemic attack) CHEW 1 TABLET BY MOUTH DAILY. 90 tablet 3 02/24/20 24 Active COMPRESSION SLEEVE KNEE L/XL MISC, DME,Indications :Leg swelling Apply 1 Package topically daily. Patient needs air compression stockings for bilateral lower extremity edema. 1 Package 1 02/26/20 24 Active albuterol sulfate HFA 108 (90 Base) MCG/ACT inhalerIndicati ons:Mild intermittent asthma without complication (HHS/HCC) INHALE 2 PUFFS INTO THE LUNGS EVERY 6 HOURS NEEDED FOR WHEEZING 6.7 g 3 05/16/19 25 Active diazePAM (VALIUM) 5 MG tabletIndicatio ns:Insomnia due to medical condition TAKE 3 TABLETS BY MOUTH DAILY NEEDED FOR SLEEP 90 tablet 1 05/16/19 25 Active albuterol sulfate HFA (PROAIR HFA) 108 (90 Base) MCG/ACT inhalerIndicati ons:Mild intermittent asthma without complication (HHS/HCC) Inhale 2 puffs into the lungs every 6 (six) hours as needed for Wheezing. 18 g 5 01/05/20 24 025 Discontinued diazePAM (VALIUM) 5 MG tabletIndicatio ns:Insomnia due to medical condition TAKE 3 TABLETS BY MOUTH DAILY NEEDED FOR SLEEP 90 tablet 1 03/15/20 24 025 Discontinued Active Problems Problem Noted Date Diagnosed Date Flank pain 08/31/2023 Chronic GERD 08/31/2023 Primary osteoarthritis of right knee 06/11/2023 Anemia, unspecified type 06/08/2023 Meningioma ([facility]) 06/08/2023 Abnormal echocardiogram 06/08/2023 Chronic pain of right knee 06/08/2023 TIA (transient ischemic attack) 05/18/2023 TABARES (dyspnea on exertion) 12/09/2021 Insomnia due to medical condition 11/13/2021 Irritable bowel syndrome with diarrhea 2 Other idiopathic scoliosis, thoracic region 09/20 Degenerative joint disease (DJD) of lumbar spine 10/01/2021 Chronic pain disorder 10/01/2021 History of retinal detachment 07/10/2021 Anxiety and depression 07/09/2021 Asthma ([facility]) 07/09/2021 GERD (gastroesophageal reflux disease) 2 PCO (posterior capsule opacification), right Overview (07/10/2021): Last Assessment & Plan: Will refer for YAG if good at next visit Aphakia, right eye 06/11/2021 Overview (07/09/2021): Added automatically from request for surgery [id number] 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 Overview (07/09/2021): Last [...] peripheral vision limited. Has established care with [facility] ( clinic). Will have patient continue follow up with and optometry. Facial paresthesia 02/16/2021 Tinnitus of left ear 02/16/2021 Sickle cell crisis ([facility]) 02/10/2021 Sickle cell pain crisis ([facility]) 2020 Avascular necrosis of bone ([facility]) Sickle cell anemia ([facility]) Resolved Problems Problem Noted Date Diagnosed Date Resolved Date Chronic pain syndrome 10/01/20212022 Encounters Date Type Department Care Team Description 05/13/2024 Orders Only [facility] Orthopedic & Sports [facility] - [place] [address] [place] [address] Adrián Urban MD 03/21/2024 Scan [facility] Scanned, [facility] 03/18/2024 Scan [facility] Scanned, [facility] 03/12/2024 Scan [facility] Scanned, [facility] from Last 3 Months Immunizations Name Administration [...] = 0.6 oz pur e alcohol) occasionally/wine Always Prepped Utilities Answer Date Recorded In the past 12 months has e electric, gas, oil, or water company threatened to shut off services in your [...] week 05/18/2023 How often do you attend chur ch or cheondoism services? More than 4 times per year 05/18/2023 Do you belong to any clubs o r organizations such as mormon groups, unions, fraternal or athletic groups, or [...] Recorded Patient Health Questionnaire-2 Score 1 08/25/2023 [facility] Occupat ional Health - Occupational Stress [...] the money to buy more. Never true 07/18/20 24 Within the past 12 months, t [...] place to sleep or slept in a usp (including now)? No 05/18/2023 Housing Stability Vital Sign Answer Jean e Recorded In the last 12 months, was t here a time when you were not able to pay the mortgage or rent on time? No 10/08/2023 In the past 12 months, how m any times have you moved where you were living? 0 10/08/2023 At any time in the past 12 m [facility], were you homeless or living in a usp (including now)? No 10/08/2023 Comments No Sex and Gender Information Value Date Recorded Sex Assigned at Female 05/09/2024 10:31 AM [employer]ANGLE [employer]ER Legal Sex Female 3:14 AM [employer]LE [employer] Gender Identity Not on file Sexual Orientation Not on file Last Filed Vital Signs Vital Sign Reading Time Taken Comments Blood Pressure 107/65 01/19/2024 1:13 PM CDT Pulse 82 01/19/2024 1:13 PM CDT Temperature 37.1 C (98.8 F) 01/19/2024 1:13 PM CDT Respiratory Rate 22 10/29/2023 11:56 AM CDT Oxygen Saturation 96% 01/19/2024 1:13 PM CDT Inhaled Oxygen Concentration - - Weight 84.4 kg (186 lb) 01/19/2024 1:13 PM CDT Height 165.1 cm (5' 5 ) 10/29/2023 9:34 AM CDT Body Mass Index 30.95 10/29/2023 9:34 AM CDT Plan of Treatment Health Maintenance Due Date [...] 2023 02/12/2022, 01/04/2021, 02/21/2020, Additional history exists PHQ-2 (Physician [place]) 03/23/2024 08/25/2023 Mammogram Screening 05/05/2024 05/05/2022, 5 ASCVD LDL 05/19/2024 05/19/2023, 07/15/2021 Colorectal Cancer Screening Colonoscopy (10 Years) 10/28/2033 [...] maintain pain control General No Susan Gale GASOLINE ENGINE INSPECTOR Monitor - able to maintain pain control Lifestyle No Susan Gale GASOLINE ENGINE INSPECTOR Procedures Procedure Name Priority Date/Time Associated Diagnosis Comments LIPID PANEL Routine 05/19/2023 5:30 AM MANGLE FEEDER MG SCREENING W AMADA FABRIZIO DIGI Routine 05/05/2022 2:37 PM MANGLE [employer]ER Encounter for screening mammogram for malignant neoplasm of breast OCCULT BLOOD, FECES Routine 08/21/2021 6 :37 PM CDT HEPATITIS C ANTIBODY Routine 07/15/2021 1:15 PM CDT Encounter for hepatitis C screening test for low risk patient COLONOSCOPY GENERIC (SCAN ORDER) 11/04/2013 from Last 3 Months or Most Recently Relevant to Health Maintenance Results * (ABNORMAL) LIPID PANEL (05/19/2023 5:30 AM MANGLE FEEDER) CHOLESTEROL 95 <200 MG/DL 05/19/2023 6:32 AM [facility] TRIGLYCERIDES 99 <150 MG/DL 05/19/2023 6:32 AM [facility] HDL 24(L) >40.0 MG/DL 05/19/2023 6:32 AM [facility] LDL (CALCULATED) 51 <100 MG/DL 05/19/19 6:32 AM [facility] NON HDL CHOLESTEROL 71 <130 MG/DL 05/19 6:32 AM [facility] CHOL/HDL RATIO 4.0 0.0 - 4.5 05/19/2023 6:32 AM [facility] VLDL CALCULATION 20 5 - 55 MG/DL 05/19/2023 6:32 AM [facility] LIPID INTERPRETATION 05/19/2023 6:32 AM [facility] Comment: [facility] CONCENSUS REPORT RECOMMENDATIONS: ADULT CHILD LOW RISK: CHOLESTEROL <200 <170 TRIGLYCERIDE <150 --- HDL >=60 --- LDL <100 <110 BORDERLINE: CHOLESTEROL 200-239 170-199 TRIGLYCERIDE 150-199 --- HDL 40-59 --- LDL 100-159 110-129 HIGH RISK: CHOLESTEROL >=240 >=200 TRIGLYCERIDE >=200 --- HDL <40 --- LDL >=160 >=130 05/19/2023 5:30 AM MANGLE [employer]ER Diana Boles NP LABORATORY Final Result [facility] [address] [place] [address], [place] [phone] * MG SCREENING W AMADA FABRIZIO DIGI (05/05/2022 2:37 PM MANGLE FEEDER) Anatomical Region Laterality Modality Breast Bilateral Mammography 05/05/2022 4:57 PM MANGLE FEEDER Narrative 05/05/2022 5:00 PM MANGLE [employer]ER Examination: Screening bilateral mammogram with 3-D tomosynthesis Clinical history: No family history of breast cancer. No present breast related complaints. Comparison: 08/01/2013, 02/27/2015 Technique: Digital screening mammography of both breasts was performed. 3-D tomosynthesis technique was also performed. This study was read with the assistance of computer-aided detection system. Tissue density: There are scattered areas of fibroglandular density. Findings: No suspicious masses, malignant appearing calcifications, skin thickening or other abnormalities are present. No significant change from the prior exam. IMPRESSION: [...] BLOOD FECAL NEGATIVE 08/21/2021 7:46 PM CDT [facility] STOOL SPECIMEN / Unknown 08/21/2021 6:37 PM CDT us Dori Hinson PA-C BODY FLUIDS AND STOOLS ORDERAB LES Final Result Performing Organization Address [facility] Co de Phone Number [facility] [address] [place] [phone], * HEPATITIS C ANTIBODY (07/15/2021 1:15 PM CDT) HEPATITIS C AB NON-REACTI VE NON-REACTI VE 07/15/2021 2:33 PM CDT [facility] 07/15/2021 1:15 PM CDT us Hany Melendez II, MD LABORATORY Final R esult Performing Organization Address [facility] Co de Phone Number [facility] [address] [place] [phone], * COLONOSCOPY GENERIC (11/04/2013) 11/04/2013 Narrative 11/04/2013 Ordered by an unspecified provider. us Documents Scanned SCANNING Final Result from Last 3 Months or Most Recently Relevant to Health Maintenance Insurance MEDICAID [facility] Advance Directives * Full Code (Latest [...] 4:07 PM 11/08/2021 3:25 PM Care Teams Hat Lacer Relationship Specialty Start Date End Date Hany Melendez II, MD [address] [place] [address] PCP - General FAMILY PRACTICE 07/10/21
--- OUTSIDE RECORDS SUMMARY | 2024-05-27 14:25 | XMS_ITS | Referral Summary ---
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 WEB PRESS OPERATOR ASSISTANT Jorge Whitehead MD LAB BLOOD ORDERABLES Final Result [facility] HISTORICAL RESULTS * COLONOSCOPY REPORT (11/04/2013) Anatomical Region Laterality Modality Other Narrative 11/04/2013 Ordered by an unspecified provider. Historical Provider GI PROCEDURE ORDERABLES F inal Result from Last 3 Months or Most Recently Relevant to Health Maintenance Insurance [employer] CHOICE MEDICARE PPO MEDICARE SOLUTIONS IDPA MEDICARE SOLUTIONS IDPA Advance Directives For more information, please contact: [phone] * Full Code (Latest Code Status on File) Date Activated Date Inactivated Comments 05/14/2021 8:11 PM 05/20/2021 10:43 PM Care Teams Employee Relations Representative Relationship Specialty Start Date End Date Grazyna Perez NP [facility] [place] [address] PCP - General Family Medicine 04/01/24 Rom Topete DO [address] [place] [id number] Medical Oncologist/Cleaner And Dyer Hematology and Oncology 04/26/20
--- OUTSIDE RECORDS SUMMARY | 2024-05-27 14:25 | XMS_ITS | Encounter Summary ---
Author Organization [facility] Care Team Providers Care Welt Maker Name Role Phone Jorge Whitehead MD Primary Care Provider [phone] Rom Topete DO Unavailable [phone] Rom Topete DO Primary Care Provider + [phone] No, Physician Primary Care Provider [phone] Unknown, Notinfile Primary Care Provider Unavail able Rom Topete DO Primary Care Provider + [phone] Raeann ACOSTA MD, Thomas Calderón Primary Care Provid er Grazyna Perez NP Primary Care Provider [phone] Encounter Details Date Type Department Care Team (Latest Contact Info) Description 08/09/2015 Orders Only [facility] CLINCONV ProviderAnatoliy MD [address] [place] [id number] Social History Tobacco Use Types Packs/Day Years Used Date Smoking Tobacco: Never Assessed Comments Unknown Sex and Gender Information Value Date Recorded Sex Assigned at Not on file 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 Historical Provider MD Final Res ult documented in this encounter Visit Diagnoses Not on filedocumented in this encounter Care Teams Welt Maker Relationship Specialty Start Date End Date Jorge Whitehead MD PCP - General 06/06/16 07/19/20 Rom Topete DO [address] [place] [id number] PCP - General 07/20/20 01/16/21 No, Physician PCP - General 01/18/21 02/19/21 Unknown, Notinfile PCP - General 02/20/21 07/08/21 Rom Topete DO [address] [place] [address] [phone] PCP - General Hematology and Oncology 07/09/21 07/29/21 Thomas Cary II, MD PCP - General Family Practice 07/30/21 03/31/24 Grazyna Perez NP [facility] [place] [address] PCP - General Family Medicine 04/01/24 Rom Topete DO [address] [place] [id number] Medical Oncologist/Compensation And Benefits Advisor Hematology and Oncology 04/26/20 documented as of this encounter
--- NOTE | 2024-05-27 17:49 | PC.NURSE ---
Patient did no answer for vital signs
--- NOTE | 2024-05-27 19:52 | PC.NURSE ---
CALLED X1 AT THIS TIME - NO RESPONSE.
--- NOTE | 2024-05-27 20:20 | PC.NURSE ---
Pt called for second time at this time. No response. Pt removed from tracker as walk out before seeing provider.
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
--- OUTSIDE RECORDS SUMMARY | 2024-05-27 20:25 | XMS_ITS | Clinical Summary ---
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 [facility] [place] H[place] - 01/31/2014 8:45 PM BARBER OR BEAUTY SHOP MANAGER us Jorge Whitehead MD LAB BLOOD ORDERABLES Final Result [facility] [place] HISTORICAL RESULTS * COLONOSCOPY REPORT (11/04/2013) Anatomical Region Laterality Modality Other Narrative 11/04/2013 Ordered by an unspecified provider. Historical Provider GI PROCEDURE ORDERABLES F inal Result from Last 3 Months or Most Recently Relevant to Health Maintenance Insurance IDPA HUMANA CHOICE MEDICARE PPO MEDICARE SOLUTIONS IDPA MEDICARE SOLUTIONS IDPA Advance Directives For more information, please contact: [phone] * Full Code (Latest Code Status on File) Date Activated Date Inactivated Comments 05/14/2021 8:11 PM 05/20/2021 10:43 PM Care Teams Soda Dispenser Relationship Specialty Start Date End Date Grazyna Perez NP [facility] [place] [address] PCP - General Family Medicine 04/01/24 Rom Topete DO [address] [place] [address] Medical Oncologist/Roofer Helper Hematology and Oncology 04/26/20
--- OUTSIDE RECORDS SUMMARY | 2024-05-27 20:25 | XMS_ITS | CCD ---
Author Name Interface, [id number] [facility] Address [facility] [address] [facility] Address [facility] [place] [address] Care Team Providers Care Medical Csr Name Role Phone Anselmo De León Unavailable [...]
--- OUTSIDE RECORDS SUMMARY | 2024-05-27 20:25 | XMS_ITS | Encounter Summary ---
Author Organization [facility] Facility Care Team Providers Care Winding Operator Name Role Phone Jorge Whitehead MD Primary Care Provider [phone] Rom Topete DO Unavailable [phone] Rom Topete DO Primary Care Provider [phone], Physician Primary Care Provider [phone] Unknown, Notinfile Primary Care Provider Unavail able Rom Topete DO Primary Care Provider [phone] Raeann ACOSTA MD, Thomas Calderón Primary Care Provid er Grazyna Perez NP Primary Care Provider [phone] Encounter Details Date Type Department Care Team (Latest Contact Info) Description 08/09/2015 Orders Only [facility] CLINCONV ProviderAnatoliy MD [address] [place] [address] Social History Tobacco Use Types Packs/Day Years Used Date Smoking Tobacco: Never Assessed Comments Unknown Sex and Gender Information Value Date Recorded Sex Assigned at Not on file Legal Sex Female 8:08 PM CONE EXAMINER Gender Identity Not on file Sexual Orientation [...] on filedocumented in this encounter Care Teams Winding Operator Relationship Specialty Start Date End Date Jorge Whitehead MD PCP - General 06/06/16 07/19/20 Rom Topete DO [address] [place] [id number] PCP - General 07/20/20 01/16/21 No, Physician PCP - General 01/18/21 02/19/21 Unknown, Notinfile PCP - General 02/20/21 07/08/21 Rom Topete DO [address] [place] [id number] PCP - General Hematology and Oncology 07/09/21 07/29/21 Thomas Cary II, MD PCP - General Family Practice 07/30/21 03/31/24 Grazyna Perez NP [facility], [address] [place] [address] PCP - General Family Medicine 04/01/24 Rom Topete DO [address] [place] [address] Medical Oncologist/Branch Rental Manager Hematology and Oncology 04/26/20 documented as of this encounter
--- OUTSIDE RECORDS SUMMARY | 2024-05-27 20:25 | XMS_ITS | Continuity of Care Document ---
Author Organization [facility] Address [address] [place] [address] [address] [place] [address] Phone Care Team Providers Care Yard Motor Operator Name Role Phone Mini Moore Unavailable Unavailable Advance Directives Directive Yes / No Effective Date File Name No Information Encounters Encounter Description Practice Location Reason(s) For Visit Diagnoses Date Provider Providers Copied on Encounter [facility], [id number] [place] [address] [address], [place], [place], [id number], [place] tel:[phone] [facility] No Information Teresa Morse. [address] [facility] , [address], [place], [address], [place]. tel:[phone] Referring Provider: [place], [place], [facility]. tel:[phone] Family History Family Member Type Diagnosis Age At Onset No Information Payers Payer name Insurance type Covered republican ID Authoriza tion(s) Medicare [facility] [id number] Social History Type Description Quantity Date Captured [...]
--- OUTSIDE RECORDS SUMMARY | 2024-05-27 20:25 | XMS_ITS | Continuity of Care Document ---
Author Organization [facility] Address [address] [place] [address] Phone Care Team Providers Care Template Cutter Name Role Phone Basil Preciado NP Unavailable [...] Diagnoses Date Provider Providers Copied on Encounter [facility], [address], [place], [place], [id number] , tel: [phone] [facility] No Information 7 Ilana Gracia. [address] [place] [address], [address], [place]. tel: [phone] [facility], [address], [place], [place], [address] , tel: [phone] [facility] Hip pain, right 6 Waqar Gray. [address] [place] [address], [id number] , . tel: [phone] [facility], [address], [place], [place], [address] , tel: [phone] [facility] Sickle-cell disease without crisisMorbid (severe) obesity due to excess caloriesHip pain, rightMDD (major depressive disorder), recurrent episode, moderateIron overload due to repeated red blood cell transfusionsEncount er for screening for other disorder 6 Waqar Gray. [address] [place] [address], [id number] , . tel: [phone] Referring Provider: Marina Pacheco, [address] [place] [address], [address] . tel:[phone] [facility], [address], [place], [place], [id number] , [place] tel: [phone] [facility] No Information 6 Waqar Gray. [address] [place] [address], [id number] , [place]. tel: [phone] [facility], [address], [place], [place], [address] , tel: [phone] [facility] No Information 5 Waqar Gray. [address] [place] [address], [id number] , [place]. tel: [phone] [facility], [address], [place], [place], [address] , tel: [phone] [facility] No Information 5 Waqar Gray. [address] [place] [address], [id number] , [place]. tel: [phone] [facility], [address], [place], [place], [address] , [place] tel: [phone] [facility] Sickle-cell disease without crisisBilateral hip painMajor depressive disorder, single episode, unspecified 5 Waqar Gray. [address] [place] [address], [id number] , [place]. tel: [phone] Referring Provider: Marina Pacheco, [address] [place] [address], [address] . tel:[phone] [facility], [address], [place], [place], [address] , [place] tel: [phone] [facility] Encounter for immunizationChronic nonintractable headache, unspecified headache typeDizziness 5 Ilana Gracia. [address] [place] [address], [address], [place]. tel: [phone] Referring Provider: Marina Pacheco, [address] [place] [address], [address] . tel:[phone] [facility], [address], [place], [place], [address] , [place] tel: [phone] [facility] No Information 5 Waqar Gray. [address] [place] [address], [id number] , [place]. tel: [phone] [facility], [address], [place], [place], [address] , tel: [phone] [facility] Sickle cell disease without crisis 5 Waqar Gray. [address] [place] [address], [id number] , . tel: [phone] [facility], [address], [place], [place], [address] , tel: [phone] [facility] Sickle cell disease without crisisIron overload due to repeated red blood cell transfusionsKnee pain, bilateralMorbid obesity Nov-0 5 Waqar Gray. [address] [place] [address], [id number] , [place]. tel: [phone] [facility], [address], [place], [place], [address] , tel: [phone] [facility] Opiate dependence, continuousSickle cell disease without crisis 5 Waqar Gray. [address] [place] [address], [id number] , [place]. tel: [phone] [facility], [address], [place], [place], [address] , tel: [phone] [facility] Sickle cell disease without crisisIron overload due to repeated red blood cell transfusionsMDD (major depressive disorder)InsomniaKn ee pain, bilateralScreening for depressionEncounter for long-term (current) use of other medicationsOther screening mammogram 5 Waqar Gray. [address] [place] [address], [id number] , [place]. tel: [phone] Referring Provider: Marina Pacheco, [address] [place] [address], [address] . tel:[phone] [facility], [address], [place], [place], [id number] , tel: [phone] [facility] Sickle cell disease without crisisIron overload due to repeated red blood cell transfusionsRheumat oid arthritisGERD (gastroesophageal reflux disease)Opiate dependence, continuousMorbid obesity 5 Waqar Gray. [address] [place], [place], [id number] , . tel:[phone] Referring Provider: Marina Pacheco, [address] [place] [address], [address] . tel:[phone] Family History Family Member Type Diagnosis Age [...] Insurance type Covered libertarian ID Authoriza tion(s) [employer] [id number] [employer] [id number] Social History Type Description Quantity Date Captured [...]
--- OUTSIDE RECORDS SUMMARY | 2024-05-27 20:25 | XMS_ITS | CCD ---
Author Name Interface, [id number] [facility] Address [facility] [place] [address] [facility] [place] [address] Care Team Providers Care Senior Sql Server Developer Name Role Phone Anselmo De León Unavailable [...]
--- OUTSIDE RECORDS SUMMARY | 2024-05-27 20:25 | XMS_ITS | Clinical Summary ---
Author Organization [facility] Address [address] [place] [address] Care Team Providers Care Semi Conductor Assembler Name Role Phone Raeann ACOSTA MD, Hany [...] knee 06/11/2023 Anemia, unspecified type 06/08/2023 Meningioma ([facility]) 06/08/2023 Abnormal echocardiogram 06/08/2023 Chronic pain of right knee 06/08/2023 TIA (transient ischemic attack) 05/18/2023 TABARES (dyspnea on exertion) 12/09/2021 Insomnia due to medical condition 11/13/2021 Irritable bowel syndrome with diarrhea 2 Other idiopathic scoliosis, thoracic region 09/20 Degenerative joint disease (DJD) of lumbar spine 10/01/2021 Chronic pain disorder 10/01/2021 History of retinal detachment 07/10/2021 Anxiety and depression 07/09/2021 Asthma ([facility]) 07/09/2021 GERD (gastroesophageal reflux disease) 2 PCO (posterior capsule opacification), right Overview (07/10/2021): Last Assessment & Plan: Will refer for YAG if good at next visit Aphakia, right eye 06/11/2021 Overview (07/09/2021): Added automatically from request for surgery [id number] 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 Overview (07/09/2021): Last [...] of left ear 02/16/2021 Sickle cell crisis ([facility]) 02/10/2021 Sickle cell pain crisis ([facility]) 2020 Avascular necrosis of bone ([facility]) Sickle cell anemia ([facility]) Resolved Problems Problem Noted Date Diagnosed Date Resolved Date Chronic pain syndrome 10/01/20212022 Encounters Date Type Department Care Team Description 05/13/2024 Orders Only [facility] - [place] [address] [place] [address] Adrián Urban MD 03/21/2024 Scan [facility] [...] = 0.6 oz pur e alcohol) occasionally/wine [employer] Utilities Answer Date Recorded In the past [...] often do you attend chur ch or taoism services? More than 4 times per year 05/18/2023 Do you belong to any clubs o r organizations such as restorationism groups, unions, fraternal or athletic groups, or [...] Recorded Patient Health Questionnaire-2 Score 1 08/25/2023 [facility] [place] of Occupat ional Health - Occupational Stress [...] place to sleep or slept in a nursing home (including now)? No 05/18/2023 Housing Stability Vital Sign Answer Jean e Recorded In the last 12 months, was t here a time when you were not able to pay the mortgage or rent on time? No 10/08/2023 In the past 12 months, how m any times have you moved where you were living? 0 10/08/2023 At any time in the past 12 m [facility], were you homeless or living in a nursing home (including now)? No 10/08/2023 Comments No Sex and Gender Information Value Date Recorded Sex Assigned at Female 05/09/2024 10:31 AM BAND AND CUFF CUTTER Legal Sex Female 3:14 AM BAND AND CUFF CUTTER Gender Identity Not on file Sexual Orientation [...] 01/04/2021, 02/21/2020, Additional history exists PHQ-2 (Physician Elem) 03/23/2024 08/25/2023 Mammogram Screening 05/05/2024 05/05/2022, 5 [...] maintain pain control General No Susan Gale YOUTH CORRECTIONS OFFICER Monitor - able to maintain pain control Lifestyle No Susan Gale YOUTH CORRECTIONS OFFICER Procedures Procedure Name Priority Date/Time Associated Diagnosis Comments LIPID PANEL Routine 05/19/2023 5:30 AM BAND AND CUFF CUTTER MG SCREENING W AMADA FABRIZIO DIGI Routine 05/05/2022 2:37 PM BAND AND CUFF CUTTER Encounter for screening mammogram for malignant neoplasm of breast OCCULT BLOOD, FECES Routine 08/21/2021 6 :37 PM CDT HEPATITIS C ANTIBODY Routine 07/15/2021 1:15 PM CDT Encounter for hepatitis C screening test for low risk patient COLONOSCOPY GENERIC (SCAN ORDER) 11/04/2013 from Last 3 Months or Most Recently Relevant to Health Maintenance Results * (ABNORMAL) LIPID PANEL (05/19/2023 5:30 AM BAND AND CUFF CUTTER) CHOLESTEROL 95 <200 MG/DL 05/19/2023 6:32 AM [facility] TRIGLYCERIDES 99 <150 MG/DL 05/19/2023 6:32 AM [facility] HDL 24(L) >40.0 MG/DL 05/19/2023 6:32 AM [facility] LDL (CALCULATED) 51 <100 MG/DL 05/19/19 6:32 AM [facility] NON HDL CHOLESTEROL 71 <130 MG/DL 05/19 6:32 AM [facility] CHOL/HDL RATIO 4.0 0.0 - 4.5 05/19/2023 6:32 AM [facility] VLDL CALCULATION 20 5 - 55 MG/DL 05/19/2023 6:32 AM [facility] LIPID INTERPRETATION 05/19/2023 6:32 AM [facility] Comment: NIH CONCENSUS REPORT RECOMMENDATIONS: ADULT CHILD LOW RISK: CHOLESTEROL <200 <170 TRIGLYCERIDE <150 --- HDL >=60 --- LDL <100 <110 BORDERLINE: CHOLESTEROL 200-239 170-199 TRIGLYCERIDE 150-199 --- HDL 40-59 --- LDL 100-159 110-129 HIGH RISK: CHOLESTEROL >=240 >=200 TRIGLYCERIDE >=200 --- HDL <40 --- LDL >=160 >=130 05/19/2023 5:30 AM BAND AND CUFF CUTTER Diana Boles NP LABORATORY Final Result [facility] [address] [place] [address], [place] [phone] * MG SCREENING W AMADA FABRIZIO DIGI (05/05/2022 2:37 PM BAND AND CUFF CUTTER) Anatomical Region Laterality Modality Breast Bilateral Mammography 05/05/2022 4:57 PM BAND AND CUFF CUTTER Narrative 05/05/2022 5:00 PM BAND AND CUFF CUTTER Examination: Screening bilateral mammogram with 3-D tomosynthesis [...] BLOOD FECAL NEGATIVE 08/21/2021 7:46 PM CDT [facility] STOOL SPECIMEN / Unknown 08/21/2021 6:37 PM CDT us Dori Hinson PA-C BODY FLUIDS AND STOOLS ORDERAB LES Final Result Performing Organization Address [facility] Co de Phone Number [facility] [address] [place] [address], * HEPATITIS C ANTIBODY (07/15/2021 1:15 PM CDT) HEPATITIS C AB NON-REACTI VE NON-REACTI VE 07/15/2021 2:33 PM CDT [facility] 07/15/2021 1:15 PM CDT us Hany Melendez II, MD LABORATORY Final R esult Performing Organization Address City/[facility] Co de Phone Number [facility] [address] [place] [address], * COLONOSCOPY GENERIC (11/04/2013) 11/04/2013 Narrative 11/04/2013 Ordered by an unspecified provider. us Documents Scanned SCANNING Final Result from Last 3 Months or Most Recently Relevant to Health Maintenance Insurance MEDICAID [facility] Advance Directives * Full Code (Latest [...] 4:07 PM 11/08/2021 3:25 PM Care Teams Semi Conductor Assembler Relationship Specialty Start Date End Date Hany Melendez II, MD [address] [place] [address] PCP - General FAMILY PRACTICE 07/10/21
== END 2024-05-27 20:20 | disposition left against medical advice (07) ==
DX: S89.92XA Unspecified injury of left lower leg, initial encounter (principal); S89.91XA Unspecified injury of right lower leg, initial encounter
CPT/HCPCS: 99199